=== PATIENT | male | born 1950 | race African-American/Black ===

== ENCOUNTER 2017-10-09 19:10 | Inpatient (IN) | payer MEDICARE, OTHER ==
[~2017-10-09] VITALS: Ht 172.7 cm; Wt 76.2 kg
[2017-10-09] VITALS (15 sets, daily range): BP systolic 67–98; BP diastolic 30–83
[~2017-10-09 19:10] MED LIST: ACETAMINOPHEN325 M1 PO; ALBUTEROL0.63 MG/3; ALLERGY CREAM30 GM TP; ALPRAZOLAM0.5 MG PO; AMIODARONE HCL200 MG; ASPIRIN325 MG PO; CALCIUM ACETAT667 M1; CARVEDILOL25 MG PO; COUMADIN2.5 MG PO; COUMADIN5 MG PO; DIGOXIN250 MCG PO; DOCUSATE SODIU100 MG PO; FUROSEMIDE40 MG PO; GABAPENTIN300 MG PO; HUMALOG100 UNIT/1 SC; HUMALOG100 UNIT/1 SQ; HYDROCORTISONE25 MG; ISOSORBIDE MONO30 MG PO; LEXAPRO10 MG PO; LISINOPRIL2.5 MG PO; METOLAZONE5 MG PO; METOPROLOL SUCC25 MG; METOPROLOL TART25 MG PO; MIDODRINE HCL2.5 MG PO; NAPROXEN250 MG PO; NIFEDICAL XL60 MG PO; NITROGLYCERIN0.4 MG SL; NOVOLOG MI100 UNITS/; POLYETHYLENE GL17 GM PO; PREDNISOLO15 MG/5 ML OP/OT; PROTONIX40 MG/ML PO; RENAGEL800 MG PO; SIMETHICONE80 MG PO; TEMAZEPAM15 MG; ULTRAM50 MG PO; ZESTRIL10 MG PO; ZINC OXIDE30 GM
[2017-10-09] MEDS ORDERED: CEFEPIME HCL IV STA (20:03)
[2017-10-09] MEDS ORDERED: WATER STERILE IV STA (20:03)
[2017-10-09] MEDS ORDERED: VANCOMYCIN 1GM/NS 250 ML 250 ML IV STA (20:03)
[2017-10-09] MEDS ORDERED: SODIUM CHLORIDE 0.9% 250ML 250 ML ONE (20:04)
[2017-10-09] MEDS ORDERED: SODIUM CHLORIDE 0.9% 250ML 250 ML IV ONE (20:15)
--- NOTE | 2017-10-09 20:17 | Diagnostic Imaging Report ---
EXAMINATION: CHEST SINGLE (PORTABLE) INDICATION: Shortness of breath, ESRD, sepsis COMPARISON: 09/15/2016 FINDINGS: TUBES and LINES: The pacemaker is intact. LUNGS: Lungs are not well inflated. There are bibasilar atelectasis. There is perihilar interstitial opacities, consistent with interstitial edema. PLEURA: Small bilateral pleural effusions. HEART AND MEDIASTINUM: Cardiac size is moderately enlarged. There are atherosclerotic calcifications within the aorta. BONES AND SOFT TISSUES: No acute osseous lesion. Soft tissues are unremarkable. UPPER ABDOMEN: No free air under the diaphragm. IMPRESSION: Findings are compatible with recurrent cardiogenic pulmonary edema with small bilateral pleural effusions. Signed by: Dr. Francisco Blevins M.D. on 10/09/2017 8:14 PM
[2017-10-09 20:20] LABS: BASOPHILS # (AUTO) 0.1 (0.0-0.1); BASOPHILS % 0.4 % (0.0-1.0); EOSINOPHILS # (AUTO) 0.1 (0.0-0.4); EOSINOPHILS % 0.4 % (0.0-6.0); HEMATOCRIT 39.2 % (38.2-49.6); HEMOGLOBIN 12.4 g/dL (14.0-18.0); LYMPHOCYTES # (AUTO) 0.7 (1.0-3.2); MEAN CORPUSCULAR HEMOGLOBIN 22.5 pg (28-32); MEAN CORPUSCULAR HGB CONC 31.6 g/dL (31-35); MEAN CORPUSCULAR VOLUME 71.1 fL (81-99); MONOCYTES # (AUTO) 1.9 (0.2-0.8); MONOCYTES % 13.4 % (4.4-11.3); NEUTROPHILS # (AUTO) 11.4 (2.1-6.9); NEUTROPHILS % 80.4 % (38.7-80.0); PLATELET COUNT 273 x10e3/uL (140-360); RED BLOOD COUNT 5.51 x10e6/uL (4.3-5.7); RED CELL DISTRIBUTION WIDTH 17.3 % (11.7-14.4)
[2017-10-09] MEDS ORDERED: PANTOPRAZOLE 40 MG 10ML VIAL IV ONE (20:30)
[2017-10-09 20:32] LABS: INR 1.24; PROTHROMBIN TIME 16.3 seconds (11.9-14.5)
[2017-10-09] MEDS ORDERED: NOREPINEPHRINE BITARTRATE/ NS 250 ML ONE (20:34)
[2017-10-09 20:38] LABS: ALBUMIN 3.7 g/dL (3.5-5.0); ALBUMIN/GLOBULIN RATIO 0.8 (0.8-2.0); ANION GAP 21.4 mmol/L (8-16); CALCIUM 8.9 mg/dL (8.4-10.2); CREATININE, SERUM 7.95 mg/dL (0.72-1.25); MAGNESIUM 2.5 MG/DL (1.3-2.1); POTASSIUM 4.4 mmol/L (3.5-5.1)
[2017-10-09 20:45] LABS: CREATINE KINASE MB 2.9 ng/mL (0.00-5.00); TROPONIN I 0.266 ng/mL (0-0.300)
[2017-10-09] MEDS: NOREPINEPHRINE BITARTRATE/ NS 250 ML IV PRN (20:45)
[2017-10-09 20:49] LABS: B-TYPE NATRIURETIC PEPTIDE2 377.3 pg/mL (0-100)
--- NOTE | 2017-10-09 22:28 | Diagnostic Imaging Report ---
EXAM: CT Abdomen and Pelvis WITHOUT contrast INDICATION: Flank pain, suspected stone COMPARISON: None. TECHNIQUE: Abdomen and pelvis were scanned utilizing a multidetector helical scanner from the lung base to the pubic symphysis without administration of IV contrast. Absence of intravenous contrast decreases sensitivity for detection of focal lesions and vascular pathology. Coronal and sagittal reformations were obtained. Stone protocol is performed. IV CONTRAST: None. ORAL CONTRAST: None RADIATION DOSE: Total DLP: 758.47 mGy*cm Estimated effective dose: (DLP x 0.015 x size factor) mSv COMPLICATIONS: None FINDINGS: LINES and TUBES: None. LOWER THORAX: Severe cardiomegaly with evidence of fluid overload/edema. Trace of right pleural effusion present HEPATOBILIARY: Hepatomegaly. No focal hepatic lesions. No biliary ductal dilation. GALLBLADDER: There are stones and sludge in the gallbladder. No wall thickening. SPLEEN: No splenomegaly. PANCREAS: No focal masses or ductal dilatation. ADRENALS: No adrenal nodules KIDNEYS/URETERS: No hydronephrosis. No cystic or solid mass lesions. No stones. GI TRACT: No abnormal distention, wall thickening, or evidence of bowel obstruction. There are diverticula within the colon without evidence of diverticulitis. Appendix is normal. PELVIC ORGANS/BLADDER: Unremarkable. LYMPH NODES: No lymphadenopathy. VESSELS: There is moderate atherosclerotic disease in the aorta and major arterial branches. PERITONEUM / RETROPERITONEUM: There is a large amount of free fluid in the abdomen. BONES: There are mild degenerative changes in the lumbar spine. SOFT TISSUES: There is diffuse anarsarca. IMPRESSION: 1. Cardiomegaly, pulmonary edema and evidence of severe ascites and anasarca. 2. Hepatomegaly. 3. Cholelithiasis and gallbladder sludge. 4. Diverticulosis without evidence of diverticulitis. 5. Severe atherosclerotic disease of the thoracoabdominal aorta and branches. 6. No evidence of nephrolithiasis. Signed by: Dr. Francisco Blevins M.D. on 10/09/2017 10:24 PM
[2017-10-09 22:30] LABS: LYMPHOCYTES % (MANUAL) 4 % (19-48); MONOCYTES % (MANUAL) 15 % (3.4-9.0); NEUTROPHILS % (MANUAL) 79 % (40-74)
[2017-10-09 22:31] LABS: SCHISTOCYTES FEW
[2017-10-09 22:32] LABS: ANISOCYTOSIS SLIG; HYPOCHROMASIA SLIG; MICROCYTOSIS MODE; POIKILOCYTOSIS SLIGHT; POLYCHROMASIA FEW
[2017-10-09 22:33] LABS: PLATELET ESTIMATE ADEQUATE; PLATELET MORPHOLOGY COMMENT FEW GIANT; TARGET CELLS FEW
[2017-10-09] MEDS ORDERED: NOVOLOG100 UNIT/1 (22:42)
[2017-10-09] MEDS ORDERED: MIDODRINE HCL2.5 MG PO (22:42)
[2017-10-09] MEDS ORDERED: MORPHINE S20 MG/1 ML SL (22:42)
[2017-10-09] MEDS ORDERED: PANTOPRAZOLE SO40 MG PO (22:42)
[2017-10-09] MEDS ORDERED: HUMULIN 70100 UNIT/1 (22:42)
[2017-10-09] MEDS ORDERED: CALCIUM ACETAT667 M1 PO (22:42)
[2017-10-09] MEDS ORDERED: COLACE100 MG PO (22:42)
[2017-10-09] MEDS ORDERED: ULTRAM 50MG50 MG PO (22:42)
[2017-10-09] MEDS ORDERED: VALIUM2 MG PO (22:42)
[2017-10-09] MEDS ORDERED: GABAPENTIN300 MG PO (22:42)
[2017-10-09] MEDS ORDERED: ZOFRAN ODT4 MG PO (22:42)
[2017-10-09] MEDS ORDERED: WARFARIN SODIU2.5 MG PO (22:42)
[2017-10-09] MEDS ORDERED: LEXAPRO10 MG PO (22:42)
[2017-10-09] MEDS ORDERED: SERTRALINE HCL50 MG PO (22:42)
[2017-10-09] MEDS ORDERED: NITROGLYCERIN0.4 MG SL (22:42)
[2017-10-09] MEDS ORDERED: ASPIR 8181 MG PO (22:42)
[2017-10-09] MEDS ORDERED: ALBUTEROL0.63 MG/3 NEB (22:42)
[2017-10-09] MEDS ORDERED: DEXTROSE 50% SYRINGE 50 ML IV PRN (22:45)
[2017-10-10] VITALS (92 sets, daily range): BP systolic 56–125; BP diastolic 39–97
[2017-10-10] MEDS ORDERED: DIGOXIN INJ 0.25 MG/ML 2 ML AMP ONE (00:24)
[2017-10-10] MEDS: FAMOTIDINE 20 MG/2 ML VIAL IV SCH ×2 (00:30→10:45)
[2017-10-10] MEDS ORDERED: PHENYLEPHRINE 10MG/ML VIAL 40 MG in DEXTROSE 5% 250ML 246 ML IV PRN ×2 (00:30→01:00)
[2017-10-10] MEDS ORDERED: DIGOXIN INJ 0.25 MG/ML 2 ML AMP IV PRN ×2 (00:30→02:00)
[2017-10-10] MEDS: NOREPINEPHRINE BITARTRATE/ NS 250 ML IV PRN (03:48)
[2017-10-10 04:15] LABS: BASOPHILS # (AUTO) 0.1 (0.0-0.1); BASOPHILS % 0.4 % (0.0-1.0); EOSINOPHILS # (AUTO) 0.1 (0.0-0.4); EOSINOPHILS % 0.4 % (0.0-6.0); HEMATOCRIT 37.3 % (38.2-49.6); LYMPHOCYTES # (AUTO) 0.7 (1.0-3.2); LYMPHOCYTES % 4.6 % (18.0-39.1); MEAN CORPUSCULAR HEMOGLOBIN 22.5 pg (28-32); MEAN CORPUSCULAR HGB CONC 32.2 g/dL (31-35); MONOCYTES # (AUTO) 1.9 (0.2-0.8); MONOCYTES % 13.4 % (4.4-11.3); NEUTROPHILS # (AUTO) 11.5 (2.1-6.9); NEUTROPHILS % 80.8 % (38.7-80.0); PLATELET COUNT 286 x10e3/uL (140-360); RED BLOOD COUNT 5.33 x10e6/uL (4.3-5.7); RED CELL DISTRIBUTION WIDTH 16.5 % (11.7-14.4)
[2017-10-10 04:27] LABS: INR 1.28; PROTHROMBIN TIME 16.7 seconds (11.9-14.5)
[2017-10-10 04:28] LABS: PARTIAL THROMBOPLASTIN TIME 47.8 seconds (23.8-35.5)
[2017-10-10 04:36] LABS: ALBUMIN 3.5 g/dL (3.5-5.0); ALBUMIN/GLOBULIN RATIO 0.8 (0.8-2.0); ANION GAP 18.4 mmol/L (8-16); CALCIUM 8.4 mg/dL (8.4-10.2); CREATININE, SERUM 8.27 mg/dL (0.72-1.25); MAGNESIUM 2.5 MG/DL (1.3-2.1); POTASSIUM 4.4 mmol/L (3.5-5.1)
[2017-10-10 04:43] LABS: CREATINE KINASE MB 3.2 ng/mL (0.00-5.00); TROPONIN I 0.319 ng/mL (0-0.300)
[2017-10-10] MEDS ORDERED: ACETAMINOPHEN 1000 MG/100 ML IV PRN (05:00)
[2017-10-10] MEDS ORDERED: CEFEPIME HCL 1GM 1 GM in WATER STERILE 10ML VIAL 10 ML IV SCH (05:00)
[2017-10-10] MEDS ORDERED: SODIUM CHLORIDE 0.9% 250ML 250 ML ONE (05:19)
[2017-10-10 07:13] LABS: ANION GAP 19.2 mmol/L (8-16); CALCIUM 8.4 mg/dL (8.4-10.2); CREATININE, SERUM 8.34 mg/dL (0.72-1.25); POTASSIUM 4.2 mmol/L (3.5-5.1)
[2017-10-10] MEDS ORDERED: NOREPINEPHRINE BITARTRATE/ NS 250 ML ONE (07:23)
[2017-10-10] MEDS: INSULIN REGULAR, HUMAN 100 UNIT/1 ML 3ML VIAL SQ SCH ×4 (07:30→20:24)
[2017-10-10] MEDS ORDERED: METOPROLOL TARTRATE INJ 1 MG/ML VIAL IV PRN (11:30)
--- NOTE | 2017-10-10 13:56 | Consultation ---
DATE OF CONSULTATION: October 10, 2017 REASON FOR CONSULTATION: End-stage renal disease. HPI: Mr. Storm is a 67-year-old man with congestive heart failure and end-stage renal disease likely in the setting of hypertension and cardiorenal syndrome, who had presented to [facility] with progressively worsening hypotension. Patient has congestive heart failure with an EF of 25% according to the daughter. He has been on Hospice for the past year. According to the daughter, the only reason he was on Hospice was so that he could get more frequent monitoring. According to the daughter, the PCP had suggested that he would have home health assistance. According to the daughter, he has been moved to request aggressive care for him, including resuscitation and intubation if necessary. Over the past week, he has become progressively more hypotensive. The last time he had a full session of dialysis was on Wednesday of 4 hours. Both on Wednesday and Wednesday, his blood pressures were too low and he was sent back apparently from [facility] without getting a full session of dialysis. He did not get dialyzed at all on Wednesday. Patient was then brought to the emergency department here with the above complaints. Patient is minimally responsive to questioning. According to the daughter, no cough, shortness of breath, fevers, chills, or nausea, or vomiting. PAST MEDICAL HISTORY: Congestive heart failure. ALLERGIES: CODEINE. SOCIAL HISTORY: Unable to obtain. FAMILY HISTORY: Hypertension and lung cancer. REVIEW OF SYSTEMS: Unable to obtain. PHYSICAL EXAMINATION GENERAL: Lying comfortably in bed. No acute distress. NECK: JVD appreciated. LUNGS: Decreased breath sounds at the bases. Positive rales. HEENT: NCAT. PERRLA. HEART: Irregularly irregular rhythm. S1 and S2 normal. ABDOMEN: Distended. Positive fluid wave. EXTREMITIES: Two plus lower extremity edema bilaterally. NEURO: Minimally responsive to questioning. Does wake up to voice. SKIN: No rashes or lesions. MUSCULOSKELETAL: Normal to inspection. LABS: Were reviewed in electronic medical record. ASSESSMENT: Mr. Storm is a 67-year-old man with cardiorenal syndrome, end-stage renal disease, who presents with septic versus cardiogenic shock. Currently, cultures are pending. PLAN: The patient is hemodynamically unstable to perform ultrafiltration. Electrolytes are stable. From an electrolyte standpoint, does not require dialysis. He will require dialysis from a hypervolemic standpoint. In the setting of such high pressor requirement, will not be able to pull much fluid. I will monitor pressor requirements and blood pressures over the course of the day. Continue to check labs q.8 h. Levophed is being titrated by cardiology. Appreciate assistance. Has received a dose of vanc and cefepime in the emergency department along with normal saline at 250 mL bolus. Will give another dose of cefepime. Will check vancomycin trough. Thank you, Dr. Trejo, for allowing me to participate in the care of Mr. Storm. I will continue to follow closely. Job#: [id number] RI MTDD
[2017-10-10] MEDS: AZITHROMYCIN 500MG/NS 250 ML 250 ML IV SCH (14:00)
[2017-10-10] MEDS: CEFEPIME HCL 1GM 1 GM in WATER STERILE 10ML VIAL 10 ML IV SCH (14:00)
[2017-10-10] MEDS: MIDODRINE HCL 5 MG TABLET PO SCH (14:00)
[2017-10-10] MEDS: PANTOPRAZOLE SOD 40 MG TABEC PO SCH (14:00)
[2017-10-10] MEDS: MORPHINE SULFATE 2 MG/ML SYR IV PRN (14:14)
[2017-10-10 14:29] LABS: CREATINE KINASE MB 2.6 ng/mL (0.00-5.00); TROPONIN I 0.305 ng/mL (0-0.300)
[2017-10-10] MEDS: CALCIUM ACETATE 667 MG GELCAP PO SCH (17:19)
[2017-10-10] MEDS: WARFARIN SOD 5 MG TAB PO SCH (17:19)
[2017-10-11] VITALS (163 sets, daily range): BP systolic 81–136; BP diastolic 47–96
[2017-10-11] MEDS: CEFEPIME HCL 1GM 1 GM in WATER STERILE 10ML VIAL 10 ML IV SCH ×2 (00:01→12:10)
[2017-10-11] MEDS: NOREPINEPHRINE BITARTRATE/ NS 250 ML IV PRN ×2 (00:08→15:37)
--- NOTE | 2017-10-11 04:36 | History and Physical ---
PRIMARY CARE PROVIDER: Dr. Butch Simmons CHIEF COMPLAINT: Hypotension. HISTORY OF PRESENT ILLNESS: Mr. Storm is a 67-year-old gentleman with end-stage renal disease, on hemodialysis Wednesday, Wednesday and Wednesday for the last 4 years. He was last dialyzed 5 days ago on Wednesday. On Wednesday, they had to stop dialysis long term through because his blood pressure was too low. On Wednesday, they canceled and rescheduled for Wednesday. On Wednesday when he got to dialysis, he was hypotensive and tachycardic, and so was sent to the ER for evaluation. REVIEW OF SYSTEMS: He denies fever, chills or weight loss. Denies sinus congestion or sore throat. He denies chest pain or palpitations. He does have dyspnea with exertion. He has shortness of breath. He denies wheezing or cough. He has some abdominal distention and ascites, but denies abdominal pain, nausea, vomiting, or melena. He denies dysuria or flank pain. States he makes no urine at all. He denies joint pain or swelling. He denies bleeding or bruising. He denies headache, vertigo or loss of consciousness. He denies depression, agitation, homicide, or suicidal ideation. PAST MEDICAL HISTORY: Significant for long-standing hypertension and type 2 diabetes. He has end-stage renal disease, and has been on dialysis for 4 years. He has cardiomyopathy with chronic systolic heart failure and had an AICD pacemaker placed approximately 4 years ago. 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 I do not have access to his current ejection fraction at this time. CURRENT MEDICATIONS 1. Neb treatments every 4 hours as needed. 2. Aspirin 81 mg daily. 3. Calcium acetate 2001 mg twice daily. 4. Midodrine 10 mg daily. 5. Protonix 40 mg before breakfast. 6. Coumadin 5 mg daily. 7. Humulin NPH twice daily. 8. Tramadol 50 mg as needed for pain. 9. Zoloft 50 mg daily. 10. Nitro as needed. 11. Regular insulin on sliding scale. 12. Gabapentin 300 mg twice daily. 13. Lexapro 10 mg daily. 14. Colace 100 mg daily. 15. Valium 2 mg every 8 hours as needed. He has a history of last year had an amputation of toes on the left foot. He has a history of AV fistula formation for dialysis. He has a history of permanent pacemaker AICD defibrillator placement. ALLERGIES: HE HAS A STATED ALLERGY TO CODEINE. FAMILY HISTORY: Significant for scattered hypertension and diabetes. SOCIAL HISTORY: The patient is and here with his . He is . Iranian is his primary language. He does smoke, drink or use illegal drugs. He is generally independent for most ADLs, but does require some assistance. PHYSICAL EXAMINATION PSYCHIATRIC: He is awake, alert and mostly oriented, although somewhat confused at times. He has normal mood and affect. CONSTITUTIONAL: He has a normal body habitus. Is in no acute distress. VITAL SIGNS: Blood pressure 108/49 on 15 mcg of Levophed, pulse rate 106, respiratory rate 18, O2 sat 90% on 2 L nasal cannula, temperature 99.8. HEENT: His head is atraumatic. His eyes are anicteric with clear conjunctivae. Ears and nares are without erythema or discharge. Oropharynx is clear. NECK: Supple with no mass or thyromegaly. LYMPHATIC SYSTEM: He has no palpable cervical, axillary or inguinal adenopathy. CARDIOVASCULAR: His heart has an irregular rhythm that is tachycardia with no murmur. He has 2+ pitting edema in the lower extremities. He has no carotid bruit. RESPIRATORY: Lungs reveal some basilar rales and some decreased breath sounds throughout. There is no wheezing. He has normal respiratory effort. GASTROINTESTINAL: Abdomen is mildly distended with some ascites. He is nontender. Has some mild hepatomegaly. Has no masses palpable. Normal bowel sounds are present. CUTANEOUS: His skin is warm and dry to touch. He has a small 2-cm abscess at the right groin at the crease of the leg that has spontaneously drained purulent and serosanguineous material. MUSCULOSKELETAL: His joints are in normal alignment without erythema or swelling. He has no calf tenderness. NEUROLOGIC: Nonfocal with intact cranial nerves and no motor or sensory deficits. DIAGNOSTIC STUDIES: His chest x-ray shows pulmonary edema and bilateral effusions. CT scan of the abdomen shows ascites and generalized anasarca of the lower body, gallstones and sludge in the gallbladder and hepatomegaly, diverticulosis without evidence of diverticulitis, and extensive atherosclerosis of the distal aorta and its branches. His troponin is 0.266, then 0.319, minimally borderline. Lactic acid initially 21.4 and currently 7.9. His CBC shows a white count of 14,200 with 79% neutrophils, 4% band forms, 15% lymphocytes, and 2% monocytes. Hemoglobin 12, hematocrit 37.3 and platelet count 286,000. His pro time is 16.7 with an INR of 1.28. The patient is on Coumadin. His chemistry profile shows normal electrolytes. CO2 25, creatinine 8.3, BUN 35 for a GFR of 8. Calcium 8.4. Glucose 141. Transaminases and alk phos are normal. Bilirubin elevated at 2.3. IMPRESSION AND PLAN 1. Septic shock: The patient did not receive a bolus due to volume overloaded and end-stage renal disease. He has been started on intravenous Levophed initially 25 mcg and now down to 15 mcg. He has been started on intravenous vancomycin, cefepime and Zithromax empirically for septic shock, and possible bronchitis or bronchopneumonia. 2. End-stage renal disease with volume overload: Nephrology will be consulted for hemodialysis. Will continue his midodrine in an attempt to get his blood pressure stable for enough for hemodialysis. He remains on Levophed as well, which should help support dialysis. 3. Chronic atrial fibrillation: The patient received digoxin intravenously in the emergency room for rate control. His heart rate currently just above 100. Will give p.r.n. intravenous metoprolol, and cardiology has been consulted for assistance in managing atrial fibrillation and congestive heart failure. Will continue his warfarin for now and checking pro time daily. 4. Hypertension with chronic systolic heart failure and end-stage renal disease: Will check an echocardiogram as there is no documented ejection fraction in the chart. The patient is on no blood pressure medications for now. Midodrine is used for low blood pressure and he is on Levophed as well. Again, hopefully nephrology will be able to remove some fluids as the patient is volume overload. 5. Type 2 diabetes with end-stage renal disease: The patient will be placed on sliding scale insulin at this time. 6. Abscess, right groin: Spontaneously drained. It should be covered by the vancomycin and cefepime that was started for the septic shock. 7. Cirrhosis, cryptogenic in nature: Will continue to monitor. No specific therapy indicated. 8. For prophylaxis, the patient is on Protonix for gastrointestinal prophylaxis and Coumadin for deep venous thrombosis and stroke prophylaxis. Job#: [id number] RI
--- NOTE | 2017-10-11 06:14 | Diagnostic Imaging Report ---
EXAMINATION: CHEST SINGLE (PORTABLE) INDICATION: CHF,sepsis COMPARISON: 10/09/2017 FINDINGS: TUBES and LINES: AICD is intact. LUNGS: Lungs are not well inflated. There are bibasilar atelectasis. There is worsening perihilar interstitial opacities, consistent with interstitial edema. PLEURA: Small bilateral pleural effusions. HEART AND MEDIASTINUM: Cardiac size is moderately enlarged. There are atherosclerotic calcifications within the aorta. BONES AND SOFT TISSUES: No acute osseous lesion. Soft tissues are unremarkable. UPPER ABDOMEN: No free air under the diaphragm. IMPRESSION: Findings are compatible with worsening cardiogenic pulmonary edema with small bilateral pleural effusions. Signed by: Dr. Francisco Blevins M.D. on 10/11/2017 6:11 AM
--- NOTE | 2017-10-11 06:18 | Consultation ---
DATE OF CONSULTATION: CARDIOLOGY CONSULT REASON FOR CONSULTATION: Atrial fibrillation. HISTORY OF PRESENT ILLNESS: Mr. Storm is a 67-year-old male who is a patient of Dr. Brayan Powell. However, he has not been seen in the clinic for a while. Patient reports that he came to the ER after his usual dialysis session, and was told that his blood pressure was too low. For this reason, he was asked to seek care here. He states at this time he feels okay. However, he is reporting some issues with breathing, endorsing increased effort of breathing and occasional chest discomfort. He also endorses scattered pain throughout his body. Denies dizziness, syncope, fever, chills, palpitations. His daughter is at the bedside, and has participated in this consultation as the patient is a poor historian. However, he reports he has not had his defibrillator interrogated for a while. Patient has a pertinent past medical history of atrial fibrillation and also heart failure with recent left heart catheterization in September 2016 with clear coronaries. PAST MEDICAL HISTORY: Pulmonary hypertension, right-sided heart failure, hypertension, kidney disease, on hemodialysis. PAST SURGICAL HISTORY: ICD placement. SOCIAL HISTORY: Patient is . Denies any alcohol intake or smoking. REVIEW OF SYSTEMS: Negative except as mentioned above. However, unreliable due to altered mental status at this time. DRUG ALLERGIES: CODEINE. PHYSICAL EXAMINATION VITAL SIGNS: Temperature 98.6, pulse 95, respiratory rate not recorded, blood pressure 108/49, and oxygen saturation 90% on nasal cannula. GENERAL: Alert and oriented times 1. Resting comfortably in bed. Increased effort of breathing noted. Daughter is at the bedside. Confused. LUNGS: Diminished breath sounds in posterior lower lobe. Otherwise, clear to auscultation. No wheezing, rhonchi or crackles noted. On oxygen. CARDIOVASCULAR: Irregular rate and rhythm. Systolic murmur present. Defibrillator to the left upper chest. ABDOMEN: Rounded, soft and nontender. Hypoactive bowel sounds. EXTREMITIES: Lower extremities with 2+ pitting edema. Absent pedal pulses. Cool lower extremities to the touch. LABS: WBC 14.22, hemoglobin 12, hematocrit 37.3, and platelets 286,000. Sodium 133, potassium 4.2, glucose 141, BUN 35, creatinine 8.34, GFR 8. Calcium 8.4. Creatinine kinase 143, CK-MB 3.2 and troponin 0.319. Chest x-ray on admission with findings that are compatible with recurrent cardiogenic pulmonary edema with a small bilateral pleural effusion. CT of the abdomen with cardiomegaly, pulmonary edema, severe ascites and anasarca, hepatomegaly, diverticulosis, severe atherosclerotic disease in the transabdominal aortic branches. Telemetry with atrial fibrillation. IMPRESSION 1. [id number] systolic heart failure with a single lead implantable cardioverter defibrillator. 2. End-stage renal disease, on hemodialysis. 3. Hypotension. 4. Liver cirrhosis. 5. Pulmonary hypertension. 6. Right-sided heart failure. RECOMMENDATIONS: Continue with the above listed cardiac medications and vasopressors. Maintain the patient in the ICU and monitor closely. Volume management per nephrology. Obtain repeat echocardiogram. Recommendations will follow. Monitor cardiac enzymes. Elevated troponin likely secondary to kidney disease, but will continue to follow closely. Thank you, Dr. Trejo, for this consultation, and allowing us to participate in this patient's care. DICTATED BY ABELARDO HARDWICK NP Job#: [id number] MONTSE
[2017-10-11 06:36] LABS: BASOPHILS # (AUTO) 0.1 (0.0-0.1); BASOPHILS % 0.4 % (0.0-1.0); EOSINOPHILS # (AUTO) 0.1 (0.0-0.4); EOSINOPHILS % 0.6 % (0.0-6.0); HEMATOCRIT 36.9 % (38.2-49.6); HEMOGLOBIN 11.6 g/dL (14.0-18.0); LYMPHOCYTES # (AUTO) 0.6 (1.0-3.2); LYMPHOCYTES % 4.5 % (18.0-39.1); MEAN CORPUSCULAR HEMOGLOBIN 22.4 pg (28-32); MEAN CORPUSCULAR HGB CONC 31.4 g/dL (31-35); MEAN CORPUSCULAR VOLUME 71.1 fL (81-99); MONOCYTES # (AUTO) 1.7 (0.2-0.8); MONOCYTES % 13.6 % (4.4-11.3); NEUTROPHILS # (AUTO) 9.9 (2.1-6.9); NEUTROPHILS % 80.6 % (38.7-80.0); PLATELET COUNT 280 x10e3/uL (140-360); RED BLOOD COUNT 5.19 x10e6/uL (4.3-5.7); RED CELL DISTRIBUTION WIDTH 15.9 % (11.7-14.4)
[2017-10-11 06:49] LABS: INR 1.45; PROTHROMBIN TIME 18.4 seconds (11.9-14.5)
[2017-10-11 06:58] LABS: ANION GAP 18.3 mmol/L (8-16); CALCIUM 8.5 mg/dL (8.4-10.2); CREATININE, SERUM 8.9 mg/dL (0.72-1.25); POTASSIUM 4.3 mmol/L (3.5-5.1)
[2017-10-11 07:13] LABS: PHOSPHORUS 5.5 MG/DL (2.3-4.7)
[2017-10-11 07:22] LABS: MAGNESIUM 2.3 MG/DL (1.3-2.1)
[2017-10-11] MEDS ORDERED: PANTOPRAZOLE SOD 40 MG TABEC PO SCH (07:30)
[2017-10-11] MEDS: INSULIN REGULAR, HUMAN 100 UNIT/1 ML 3ML VIAL SQ SCH ×4 (07:30→21:00)
[2017-10-11 07:48] LABS: THYROID STIMULATING HORMONE 8.454 uIU/mL (0.350-4.940)
[2017-10-11 08:29] LABS: LYMPHOCYTES % (MANUAL) 2 % (19-48); METAMYELOCYTES % (MANUAL) 1 % (0-0); MONOCYTES % (MANUAL) 10 % (3.4-9.0); NEUTROPHILS % (MANUAL) 87 % (40-74)
[2017-10-11 08:30] LABS: ACANTHOCYTES FEW; ANISOCYTOSIS MODERATE; PLATELET ESTIMATE ADEQUATE; PLATELET MORPHOLOGY COMMENT NORMAL; RBC MORPHOLOGY COMMENT ABNORMAL; TARGET CELLS FEW
[2017-10-11] MEDS: CALCIUM ACETATE 667 MG GELCAP PO SCH ×2 (09:00→17:00)
[2017-10-11] MEDS: ASPIRIN 81 MG CHEW TAB PO SCH (09:13)
[2017-10-11] MEDS: MIDODRINE HCL 5 MG TABLET PO SCH (09:13)
[2017-10-11] MEDS: PANTOPRAZOLE SOD 40 MG TABEC PO SCH (09:13)
[2017-10-11] MEDS: AZITHROMYCIN 500MG/NS 250 ML 250 ML IV SCH (12:10)
[2017-10-11] MEDS: MORPHINE SULFATE 2 MG/ML SYR IV PRN (12:30)
--- NOTE | 2017-10-11 14:29 | Progress Note ---
DATE: October 11, 2017 CARDIOLOGY PROGRESS NOTE SUBJECTIVE: Patient denies chest pain. He is complaining of shortness of breath but is otherwise without complaints. He remains on Levophed 15 mcg per minute and is planned for SLED by Nephrology today. OBJECTIVE VITAL SIGNS: Temperature 98.7 degrees, pulse 76, respiratory rate 18, blood pressure 110/68, oxygen saturation 91% on 4 liters nasal cannula. GENERAL: Elderly man, no acute distress. LUNGS: Clear to auscultation anterior lung ramos. No wheezes or crackles. CARDIOVASCULAR: Irregularly irregular, tachycardic. Systolic murmur. Defibrillator noted at the left upper chest. ABDOMEN: Soft, nontender. EXTREMITIES: 2+ pitting edema. CARDIAC MEDICATIONS 1. Aspirin 81 mg p.o. daily. 2. Levophed 15 mcg per minute. 3. Warfarin 5 mg p.o. daily. 4. Metoprolol tartrate 2.5 mg IV q.4 h. p.r.n. 5. Midodrine 10 mg p.o. daily. LABS: WBC 12.3, hemoglobin 11.6, hematocrit 36.9, platelets 280. Sodium 132, potassium 4.3, chloride 95, CO2 23, BUN 42, creatinine 8.9. TSH 8.454. INR 1.45. TELEMETRY: Atrial fibrillation with rapid ventricular response. Single-chamber ICD interrogation with 1.8 thousand episodes of rapid ventricular response since August 31, 2017, no therapy, normal function. IMPRESSION 1. [id number] systolic heart failure with single-lead implantable cardioverter-defibrillator. 2. End-stage renal disease on hemodialysis. 3. Pulmonary hypertension. 4. Right-sided heart failure. 5. Cirrhosis. 6. Hypotension requiring vasopressor support. 7. Suspected septic shock. 8. Diabetes mellitus. 9. Right groin abscess. RECOMMENDATIONS: Agree with vasopressor support as necessary. Volume management per Nephrology given patient's end-stage renal disease. Antibiotics per primary service. Given patient's severe right ventricular dysfunction, may need to optimize volume status with fluid removal. Patient's atrial fibrillation is borderline rate-controlled acceptable. For now we will continue to monitor on telemetry. Thank you for this consult. We will continue to follow. Job#: [id number] EV MTDD
[2017-10-11] MEDS ORDERED: SODIUM CHLORIDE 0.9% 1000ML 2,000 ML ONE (14:39)
[2017-10-11] MEDS ORDERED: HEPARIN SOD (PORCINE) 1000 UNIT/ML SDV ONE (17:18)
[2017-10-11] MEDS: WARFARIN SOD 5 MG TAB PO SCH (18:02)
[2017-10-12] VITALS (101 sets, daily range): BP systolic 70–115; BP diastolic 43–83
[2017-10-12] MEDS ORDERED: CEFEPIME HCL 1 GM VIAL ONE (01:43)
[2017-10-12] MEDS: CEFEPIME HCL 1GM 1 GM in WATER STERILE 10ML VIAL 10 ML IV SCH ×2 (02:00→15:20)
[2017-10-12] MEDS: VANCOMYCIN 1GM/NS 250 ML 250 ML IV SCH ×2 (02:34→22:04)
[2017-10-12] MEDS: MORPHINE SULFATE 2 MG/ML SYR IV PRN (02:52)
[2017-10-12] MEDS: ONDANSETRON HCL INJ 2 MG/ML VIAL IV PRN (02:53)
[2017-10-12 06:41] LABS: BASOPHILS # (AUTO) 0.1 (0.0-0.1); BASOPHILS % 0.5 % (0.0-1.0); EOSINOPHILS # (AUTO) 0.1 (0.0-0.4); EOSINOPHILS % 0.6 % (0.0-6.0); HEMATOCRIT 34.1 % (38.2-49.6); HEMOGLOBIN 11.2 g/dL (14.0-18.0); LYMPHOCYTES # (AUTO) 0.3 (1.0-3.2); LYMPHOCYTES % 3.1 % (18.0-39.1); MEAN CORPUSCULAR HGB CONC 32.8 g/dL (31-35); MEAN CORPUSCULAR VOLUME 70.2 fL (81-99); MONOCYTES # (AUTO) 1.2 (0.2-0.8); MONOCYTES % 11.6 % (4.4-11.3); NEUTROPHILS # (AUTO) 8.6 (2.1-6.9); NEUTROPHILS % 83.9 % (38.7-80.0); PLATELET COUNT 224 x10e3/uL (140-360); RED BLOOD COUNT 4.86 x10e6/uL (4.3-5.7); RED CELL DISTRIBUTION WIDTH 16.1 % (11.7-14.4)
[2017-10-12 06:59] LABS: INR 1.6; PROTHROMBIN TIME 19.9 seconds (11.9-14.5)
[2017-10-12 07:04] LABS: ANION GAP 14.9 mmol/L (8-16); CALCIUM 8.4 mg/dL (8.4-10.2); CREATININE, SERUM 5.42 mg/dL (0.72-1.25); PHOSPHORUS 3.9 MG/DL (2.3-4.7); POTASSIUM 3.9 mmol/L (3.5-5.1)
[2017-10-12] MEDS: INSULIN REGULAR, HUMAN 100 UNIT/1 ML 3ML VIAL SQ SCH ×4 (07:30→21:00)
[2017-10-12] MEDS: PANTOPRAZOLE SOD 40 MG TABEC PO SCH (07:30)
[2017-10-12] MEDS: ASPIRIN 81 MG CHEW TAB PO SCH (10:00)
[2017-10-12] MEDS: MIDODRINE HCL 5 MG TABLET PO SCH (10:00)
[2017-10-12] MEDS: CALCIUM ACETATE 667 MG GELCAP PO SCH ×2 (10:13→18:45)
[2017-10-12] MEDS: AZITHROMYCIN 500MG/NS 250 ML 250 ML IV SCH (15:20)
[2017-10-12] MEDS ORDERED: SODIUM CHLORIDE 0.9% 1000ML 1,000 ML IV PRN (16:45)
[2017-10-12] MEDS ORDERED: MANNITOL 25% 12.5GM/50 ML VIAL IV PRN (17:00)
[2017-10-12] MEDS ORDERED: ALBUMIN HUMAN 50 ML IV PRN (17:00)
[2017-10-12] MEDS ORDERED: HEPARIN SOD (PORCINE) 1000 UNIT/ML SDV ONE (17:39)
[2017-10-12] MEDS: WARFARIN SOD 5 MG TAB PO SCH (18:45)
[2017-10-12] MEDS ORDERED: AMIODARONE HCL 150MG 100 ML IV SCH (19:30)
[2017-10-12] MEDS ORDERED: POTASSIUM CHLORIDE 10MEQ/100ML 100 ML IV ONE (19:30)
[2017-10-12] MEDS ORDERED: AMIODARONE 900MG 500 ML IV SCH (19:30)
[2017-10-12] MEDS ORDERED: AMIODARONE HCL 360MG 200 ML IV SCH (19:30)
--- NOTE | 2017-10-12 19:50 | Progress Note ---
DATE: October 12, 2017 CARDIOLOGY PROGRESS NOTE SUBJECTIVE: He remains confused. He denies chest pain. Stable dyspnea. OBJECTIVE VITAL SIGNS: Temperature 99. Heart rate 80. Blood pressure 94/62. O2 sat 100% on 3 liters per minute nasal cannula. Levophed 15 mcg per minute IV. GENERAL: Confused. CHEST: Decreased breath sounds. CARDIOVASCULAR: Irregularly irregular rate and rhythm. Normal S1 and S2. Systolic ejection murmur. ABDOMEN: Soft. EXTREMITIES: 1+ edema bilateral lower extremities. CARDIOVASCULAR MEDICATIONS: 1. Levophed at 15 mcg per minute. 2. Cefepime and Azithromycin antibiotics. 3. Aspirin 81 mg daily. 4. Vancomycin antibiotic. 5. Warfarin 5 mg daily. 6. Digoxin given once, 0.5. 7. Metoprolol tartrate 2.5 mg q.4 h. p.r.n. on hold. 8. Midodrine 10 mg daily. STUDIES: White blood cells 10.2, hemoglobin 11.2, platelets 224,000. INR 1.6. Creatinine 5.4. Potassium 3.9, bicarbonate 25. Blood cultures negative x 48 hours. ASSESSMENT: 1. Acute on chronic systolic heart failure, status post single lead ICD . 2. End-stage renal disease on dialysis. 3. Pulmonary hypertension. 4. Right-sided heart failure. 5. Liver cirrhosis. 6. Shock requiring vasopressor support. 7. Suspected septic shock. 8. Diabetes mellitus. 9. Right groin abscess. 10. Atrial fibrillation. PLAN: Volume management per nephrology. Continue negative fluid balance overall to optimize RV functioning in light of overloaded state. He is rate controlled currently. Continue weaning pressors as tolerated. Groin abscess continuously drained. Continue to monitor. antibiotics per primary service. Job#: [id number]
[2017-10-12 20:19] LABS: ANION GAP 18.2 mmol/L (8-16); CALCIUM 8.6 mg/dL (8.4-10.2); CREATININE, SERUM 5.93 mg/dL (0.72-1.25); MAGNESIUM 2.1 MG/DL (1.3-2.1); POTASSIUM 4.2 mmol/L (3.5-5.1)
[2017-10-12] MEDS: NOREPINEPHRINE BITARTRATE/ NS 250 ML IV PRN (23:42)
[2017-10-13] VITALS (84 sets, daily range): BP systolic 73–130; BP diastolic 27–117
[2017-10-13] MEDS ORDERED: AMIODARONE HCL 360MG 200 ML IV SCH
[2017-10-13] MEDS: CEFEPIME HCL 1GM 1 GM in WATER STERILE 10ML VIAL 10 ML IV SCH ×2 (01:30→16:56)
[2017-10-13 05:34] LABS: BASOPHILS # (AUTO) 0.1 (0.0-0.1); BASOPHILS % 0.7 % (0.0-1.0); EOSINOPHILS # (AUTO) 0.1 (0.0-0.4); EOSINOPHILS % 0.6 % (0.0-6.0); HEMATOCRIT 35.6 % (38.2-49.6); HEMOGLOBIN 11.5 g/dL (14.0-18.0); LYMPHOCYTES # (AUTO) 0.5 (1.0-3.2); LYMPHOCYTES % 4.8 % (18.0-39.1); MEAN CORPUSCULAR HEMOGLOBIN 22.5 pg (28-32); MEAN CORPUSCULAR HGB CONC 32.3 g/dL (31-35); MEAN CORPUSCULAR VOLUME 69.8 fL (81-99); MONOCYTES # (AUTO) 1.3 (0.2-0.8); NEUTROPHILS % 80.5 % (38.7-80.0); PLATELET COUNT 270 x10e3/uL (140-360); RED CELL DISTRIBUTION WIDTH 16.2 % (11.7-14.4)
[2017-10-13 06:08] LABS: ANION GAP 18.4 mmol/L (8-16); CALCIUM 8.6 mg/dL (8.4-10.2); CREATININE, SERUM 6.36 mg/dL (0.72-1.25); MAGNESIUM 2.4 MG/DL (1.3-2.1); PHOSPHORUS 4.1 MG/DL (2.3-4.7); POTASSIUM 4.4 mmol/L (3.5-5.1)
--- NOTE | 2017-10-13 06:11 | Diagnostic Imaging Report ---
EXAM: CHEST SINGLE (PORTABLE), AP 1 view DATE: 10/13/2017 5:00 AM Time stamp on exam: 0447 hours INDICATION: Shortness of breath COMPARISON: AP view of the chest 10/11/2017 FINDINGS: LINES/TUBES: Stable position right approach cardiac device LUNGS: Vascular congestion/edema. Bibasilar airspace opacities/atelectasis. PLEURA: No effusions or pneumothorax. HEART AND MEDIASTINUM: Stable appearance. BONES AND SOFT TISSUES: No acute findings. IMPRESSION: No interval change. Signed by: Dr. Lyn Lorenzo M.D. on 10/13/2017 6:07 AM
[2017-10-13] MEDS ORDERED: HEPARIN SOD (PORCINE) 1000 UNIT/ML 10ML MDV IV PRN ×2 (07:00)
[2017-10-13] MEDS ORDERED: HEPARIN SOD (PORCINE) 1000 UNIT/ML SDV ONE (07:28)
[2017-10-13] MEDS: INSULIN REGULAR, HUMAN 100 UNIT/1 ML 3ML VIAL SQ SCH ×3 (07:30→16:30)
[2017-10-13 07:36] LABS: INR 1.7; PROTHROMBIN TIME 20.9 seconds (11.9-14.5)
[2017-10-13] MEDS: MIDODRINE HCL 5 MG TABLET PO SCH (09:50)
[2017-10-13] MEDS: ASPIRIN 81 MG CHEW TAB PO SCH (09:50)
[2017-10-13] MEDS: CALCIUM ACETATE 667 MG GELCAP PO SCH ×2 (09:50→16:56)
[2017-10-13] MEDS: PANTOPRAZOLE SOD 40 MG TABEC PO SCH (09:50)
[2017-10-13 10:41] LABS: EOSINOPHILS % (MANUAL) 1 % (0-7); LYMPHOCYTES % (MANUAL) 3 % (19-48); MONOCYTES % (MANUAL) 13 % (3.4-9.0); NEUTROPHILS % (MANUAL) 82 % (40-74); PLATELET ESTIMATE ADEQUATE; PLATELET MORPHOLOGY COMMENT NORMAL
[2017-10-13 10:42] LABS: ANISOCYTOSIS SLIGHT; RBC MORPHOLOGY COMMENT NORMAL
--- NOTE | 2017-10-13 13:08 | Progress Note ---
DATE: October 13, 2017 CARDIOLOGY PROGRESS NOTE SUBJECTIVE: Patient is complaining of chest pain. He has not been able to have any significant volume removed via SLED due to hypotension. OBJECTIVE VITAL SIGNS: Temperature 98.3 degrees, pulse 123, respiratory rate 18, blood pressure 98/73, oxygen saturation 100%. GENERAL: No acute distress. Receiving dialysis. LUNGS: Decreased breath sounds No wheezes or crackles. CARDIOVASCULAR: Irregularly irregular, tachycardic. Normal S1 and S2. Systolic murmur. ABDOMEN: Soft. EXTREMITIES: 1+ pitting edema bilateral lower extremities. CARDIAC MEDICATIONS 1. Warfarin 5 mg p.o. daily. 2. Aspirin 81 mg p.o. daily. 3. Digoxin 0.5 mg IV p.r.n. 4. Midodrine 10 mg p.o. daily. LABS: WBC 9.96, hemoglobin 11.5, hematocrit 35.6, platelets 270. Sodium 135, potassium 4.4, chloride 100, CO2 21, BUN 27, creatinine 6.36. INR 1.7. TELEMETRY: Atrial fibrillation with rapid ventricular response. IMPRESSION 1. Ffrma-eh-zsamqlx systolic heart failure status post single-lead implantable cardioverter-defibrillator. 2. Pulmonary hypertension. 3. Right-sided heart failure. 4. End-stage renal disease on hemodialysis. 5. Liver cirrhosis. 6. Shock requiring vasopressor support, suspected septic. 7. Diabetes mellitus. 8. Right groin abscess. 9. Atrial fibrillation with rapid ventricular response. RECOMMENDATIONS: In attempt to support volume removal, we will start dopamine for inotropic support of the right ventricle. Attempting to pull fluid to optimize RV function in the light of volume-overloaded state. Continue current cardiac medications otherwise. Antibiotics per primary service. Thank you for this consult. We will continue to follow. Job#: [id number] EV
[2017-10-13] MEDS: AZITHROMYCIN 500MG/NS 250 ML 250 ML IV SCH (15:00)
[2017-10-13] MEDS: SODIUM BICARBONATE 650 MG TAB PO SCH (16:56)
[2017-10-13] MEDS: WARFARIN SOD 5 MG TAB PO SCH (16:56)
--- NOTE | 2017-10-13 21:26 | Diagnostic Imaging Report ---
SINGLE VIEW CHEST, October 13, 2017 Clinical History: Line placement. Technique: Single, portable AP view chest. Comparison: October 13, 2017 at 4:47 AM Findings: See impression. Impression: 1. Right internal jugular central venous catheter placement with the tip at the intracaval junction. 2. Low lung volume with cardiomegaly, pulmonary edema and small pleural effusions bilaterally unchanged from 4:47 AM. 3. Stable right AICD. 4. No pneumothorax. This report was generated with voice-recognition technology. Errors in coordinator volunteer services can occur. Please interpret accordingly and contact a radiologist if there are any questions regarding the report. Signed by: Dr. Nito Fernandez M.D. on 10/13/2017 9:22 PM
[2017-10-13] MEDS: ONDANSETRON HCL INJ 2 MG/ML VIAL IV PRN (23:50)
[2017-10-13] MEDS: MORPHINE SULFATE 2 MG/ML SYR IV PRN (23:50)
[2017-10-14] VITALS (142 sets, daily range): BP systolic 63–191; BP diastolic 26–160
[2017-10-14] MEDS: NOREPINEPHRINE BITARTRATE/ NS 250 ML IV PRN (00:33)
[2017-10-14] MEDS: CEFEPIME HCL 1GM 1 GM in WATER STERILE 10ML VIAL 10 ML IV SCH ×2 (02:15→16:19)
[2017-10-14] MEDS: INSULIN REGULAR, HUMAN 100 UNIT/1 ML 3ML VIAL SQ SCH ×5 (05:57→23:54)
[2017-10-14 06:08] LABS: BASOPHILS # (AUTO) 0.1 (0.0-0.1); BASOPHILS % 0.5 % (0.0-1.0); EOSINOPHILS % 0.2 % (0.0-6.0); HEMATOCRIT 35.2 % (38.2-49.6); HEMOGLOBIN 11.2 g/dL (14.0-18.0); LYMPHOCYTES # (AUTO) 0.6 (1.0-3.2); MEAN CORPUSCULAR HEMOGLOBIN 22.4 pg (28-32); MEAN CORPUSCULAR HGB CONC 31.8 g/dL (31-35); MEAN CORPUSCULAR VOLUME 70.3 fL (81-99); MONOCYTES # (AUTO) 1.8 (0.2-0.8); MONOCYTES % 16.7 % (4.4-11.3); NEUTROPHILS # (AUTO) 8.5 (2.1-6.9); NEUTROPHILS % 77.1 % (38.7-80.0); PLATELET COUNT 247 x10e3/uL (140-360); RED BLOOD COUNT 5.01 x10e6/uL (4.3-5.7); RED CELL DISTRIBUTION WIDTH 16.1 % (11.7-14.4)
[2017-10-14 06:21] LABS: INR 1.98; PROTHROMBIN TIME 23.6 seconds (11.9-14.5)
[2017-10-14 06:35] LABS: ANION GAP 17.9 mmol/L (8-16); CREATININE, SERUM 4.71 mg/dL (0.72-1.25); MAGNESIUM 2.1 MG/DL (1.3-2.1); PHOSPHORUS 2.8 MG/DL (2.3-4.7); POTASSIUM 3.9 mmol/L (3.5-5.1)
[2017-10-14 07:18] LABS: LYMPHOCYTES % (MANUAL) 3 % (19-48); MONOCYTES % (MANUAL) 9 % (3.4-9.0); MYELOCYTES % (MANUAL) 3 % (0-0); NEUTROPHILS % (MANUAL) 85 % (40-74)
[2017-10-14 07:19] LABS: PLATELET ESTIMATE ADEQUATE
[2017-10-14 07:20] LABS: ANISOCYTOSIS MODERATE; PLATELET MORPHOLOGY COMMENT NORMAL; RBC MORPHOLOGY COMMENT ABNORMAL
[2017-10-14 07:22] LABS: POIKILOCYTOSIS MODERATE
[2017-10-14] MEDS: ALBUTEROL SULF 0.083% NEB SOLN 3 ML NEB NEB PRN (08:00)
[2017-10-14] MEDS ORDERED: HEPARIN SOD (PORCINE) 1000 UNIT/ML SDV ONE (08:43)
--- NOTE | 2017-10-14 08:44 | Diagnostic Imaging Report ---
Non-tunneled Central Venous Catheter Placement October 13, 2017 Pre-Procedure Diagnosis: Multiorgan failure; sepsis Post-procedure Diagnosis:Multiorgan failure; sepsis Employee Relations Advisor: Bertha Fernandez Gyn Physician: None Sedation: None. 1% lidocaine local anesthesia. Estimate blood loss: <5 mL Blood administered: None Complications: None Implants/Grafts: 16 cm 7-Fijian 3 lumen CVC Specimen: None Procedure: Informed consent was obtained and the patient positioned supine in the ICU. A timeout was performed, followed by preliminary ultrasound of the right internal jugular vein (see findings below). The right neck was prepped and draped in standard fashion. Using real-time ultrasound guidance a 18 gauge vascular needle was used to access the right internal jugular vein. An image was stored in the electronic medical record. A wire was advanced while monitoring the patient's cardiac rhythm and the needle exchanged for a non-tunneled central venous catheter using standard Salinger technique. At the end of the procedure the catheter was flushed, secured to the skin and a sterile dressing applied. The patient tolerated the procedure well and without immediate complication. Findings: Patent right internal jugular vein as demonstrated by normal ultrasound compressibility. Impression: Successful placement of a non-tunneled right internal jugular central venous catheter using ultrasound guidance. This report was generated with voice-recognition technology. Errors in swimming coach can occur. Please interpret accordingly and contact a radiologist if there are any questions regarding the report. Signed by: Dr. Nito Fernandez M.D. on 10/14/2017 8:40 AM
--- NOTE | 2017-10-14 08:44 | Diagnostic Imaging Report ---
Non-tunneled Central Venous Catheter Placement October 13, 2017 Pre-Procedure Diagnosis: Multiorgan failure; sepsis Post-procedure Diagnosis:Multiorgan failure; sepsis Bull Float Finisher: Bertha Fernandez Correspondence Analyst: None Sedation: None. 1% lidocaine local anesthesia. Estimate blood loss: <5 mL Blood administered: None Complications: None Implants/Grafts: 16 cm 7-Tongan 3 lumen CVC Specimen: None Procedure: Informed consent was obtained and the patient positioned supine in the ICU. A timeout was performed, followed by preliminary ultrasound of the right internal jugular vein (see findings below). The right neck was prepped and draped in standard fashion. Using real-time ultrasound guidance a 18 gauge vascular needle was used to access the right internal jugular vein. An image was stored in the electronic medical record. A wire was advanced while monitoring the patient's cardiac rhythm and the needle exchanged for a non-tunneled central venous catheter using standard Salinger technique. At the end of the procedure the catheter was flushed, secured to the skin and a sterile dressing applied. The patient tolerated the procedure well and without immediate complication. Findings: Patent right internal jugular vein as demonstrated by normal ultrasound compressibility. Impression: Successful placement of a non-tunneled right internal jugular central venous catheter using ultrasound guidance. This report was generated with voice-recognition technology. Errors in vba developer can occur. Please interpret accordingly and contact a radiologist if there are any questions regarding the report. Signed by: Dr. Nito Fernandez M.D. on 10/14/2017 8:40 AM
[2017-10-14] MEDS: CALCIUM ACETATE 667 MG GELCAP PO SCH (09:57)
[2017-10-14] MEDS: MIDODRINE HCL 5 MG TABLET PO SCH (09:57)
[2017-10-14] MEDS: ASPIRIN 81 MG CHEW TAB PO SCH (09:57)
[2017-10-14] MEDS: SODIUM BICARBONATE 650 MG TAB PO SCH ×2 (09:57→18:00)
[2017-10-14] MEDS: PANTOPRAZOLE SOD 40 MG TABEC PO SCH (09:57)
--- NOTE | 2017-10-14 12:34 | Progress Note ---
DATE: October 14, 2017 CARDIOLOGY PROGRESS NOTE SUBJECTIVE: The patient is confused. He is not able to state the location or the year. He was started on dopamine yesterday with successful removal of 3 liters via dialysis yesterday. OBJECTIVE VITAL SIGNS: Temperature 98.6 degrees, pulse 95, respiratory rate 18, blood pressure 99/57, oxygen saturation 98% on 3 liters nasal cannula. GENERAL: Awake, no acute distress. Receiving dialysis. LUNGS: Decreased breath sounds. No wheezes or crackles. CARDIOVASCULAR: Irregularly irregular. Normal rate. Normal S1 and S2. Systolic murmur. ABDOMEN: Soft. EXTREMITIES: Trace edema bilateral lower extremities. CARDIAC MEDICATIONS 1. Aspirin 81 mg p.o. daily. 2. Warfarin 5 mg p.o. daily. 3. Metoprolol tartrate 12.5 mg IV q.4 h. p.r.n. 4. Dopamine 5 mcg/kg per minute. 5. Levophed 12 mcg per minute. LABS: WBC 11.02, hemoglobin 11.2, hematocrit 35.2, platelets 247. Sodium 135, potassium 3.9, chloride 99, CO2 22, BUN 19, creatinine 4.71. INR 1.98. TELEMETRY: Atrial fibrillation, rate controlled. IMPRESSION 1. Ewpqt-[id number] systolic heart failure, status post single-lead implantable cardioverter-defibrillator. 2. Pulmonary hypertension. 3. Right-sided heart failure. 4. End-stage renal disease on hemodialysis. 5. Cirrhosis. 6. Shock requiring vasopressor support, suspected septic. 7. Diabetes mellitus. 8. Right groin abscess. 9. Atrial fibrillation, currently rate controlled. RECOMMENDATIONS: I will continue dopamine for inotropic support of the right ventricle. We are attempting to pull fluid to optimize RV function given his volume overload state and pulmonary hypertension. Continue current cardiac medications. Antibiotics per primary service. Thank you for this consult. We will continue to follow. Job#: [id number] EV
[2017-10-14] MEDS ORDERED: CHLORASEPTIC SPRAY 177 ML BTL MM PRN (14:00)
[2017-10-14] MEDS: AZITHROMYCIN 500MG/NS 250 ML 250 ML IV SCH (16:18)
[2017-10-14] MEDS: VANCOMYCIN 1GM/NS 250 ML 250 ML IV SCH (16:19)
[2017-10-14] MEDS: MORPHINE SULFATE 2 MG/ML SYR IV PRN ×2 (16:21→22:55)
[2017-10-14] MEDS: WARFARIN SOD 5 MG TAB PO SCH (18:00)
[2017-10-14] MEDS: ONDANSETRON HCL INJ 2 MG/ML VIAL IV PRN (23:55)
[2017-10-15] VITALS (140 sets, daily range): BP systolic 63–133; BP diastolic 24–100
[2017-10-15] MEDS: CEFEPIME HCL 1GM 1 GM in WATER STERILE 10ML VIAL 10 ML IV SCH (00:04)
[2017-10-15] MEDS: NOREPINEPHRINE BITARTRATE/ NS 250 ML IV PRN ×3 (03:38→17:00)
[2017-10-15 05:39] LABS: BASOPHILS # (AUTO) 0.1 (0.0-0.1); BASOPHILS % 0.4 % (0.0-1.0); EOSINOPHILS # (AUTO) 0.1 (0.0-0.4); EOSINOPHILS % 0.7 % (0.0-6.0); HEMATOCRIT 36.5 % (38.2-49.6); HEMOGLOBIN 11.9 g/dL (14.0-18.0); LYMPHOCYTES # (AUTO) 0.6 (1.0-3.2); LYMPHOCYTES % 4.9 % (18.0-39.1); MEAN CORPUSCULAR HEMOGLOBIN 22.7 pg (28-32); MEAN CORPUSCULAR HGB CONC 32.6 g/dL (31-35); MEAN CORPUSCULAR VOLUME 69.7 fL (81-99); MONOCYTES # (AUTO) 1.8 (0.2-0.8); MONOCYTES % 14.8 % (4.4-11.3); NEUTROPHILS # (AUTO) 9.6 (2.1-6.9); NEUTROPHILS % 78.8 % (38.7-80.0); PLATELET COUNT 261 x10e3/uL (140-360); RED BLOOD COUNT 5.24 x10e6/uL (4.3-5.7); RED CELL DISTRIBUTION WIDTH 16.1 % (11.7-14.4)
[2017-10-15 05:47] LABS: INR 2.18; PROTHROMBIN TIME 25.4 seconds (11.9-14.5)
[2017-10-15 05:54] LABS: ANION GAP 18.8 mmol/L (8-16); CALCIUM 9.3 mg/dL (8.4-10.2); CREATININE, SERUM 5.62 mg/dL (0.72-1.25); PHOSPHORUS 2.7 MG/DL (2.3-4.7); POTASSIUM 3.8 mmol/L (3.5-5.1)
[2017-10-15] MEDS: INSULIN REGULAR, HUMAN 100 UNIT/1 ML 3ML VIAL SQ SCH ×3 (06:00→18:00)
[2017-10-15 06:32] LABS: CHOL/HDL RATIO 7.2 (3.9-4.7)
[2017-10-15 06:34] LABS: EOSINOPHILS % (MANUAL) 1 % (0-7); LYMPHOCYTES % (MANUAL) 4 % (19-48); MONOCYTES % (MANUAL) 9 % (3.4-9.0); MYELOCYTES % (MANUAL) 2 % (0-0); NEUTROPHILS % (MANUAL) 84 % (40-74)
[2017-10-15 06:35] LABS: ANISOCYTOSIS SLIGHT; HYPOCHROMASIA SLIGHT; PLATELET ESTIMATE ADEQUATE; PLATELET MORPHOLOGY COMMENT FEW LARGE; RBC MORPHOLOGY COMMENT ABNORMAL
--- NOTE | 2017-10-15 06:35 | Progress Note ---
DATE: October 15, 2017 TIME: 5:50 a.m. OVERNIGHT: No change. REVIEW OF SYSTEMS: Unobtainable. PHYSICAL EXAMINATION VITAL SIGNS: Have been reviewed. GENERAL: A tired-appearing man resting in bed on nasal cannula. HEENT: Nasal cannula in place. Anicteric. CARDIOVASCULAR: Normal S1 and S2. Prominent heart sounds. LUNGS: He has moderate breath sounds reduced at bases. ABDOMEN: Soft, somewhat large but nontender. EXTREMITIES: Trace edema. He has right arm bruit at the fistula site. SKIN: Dry. PSYCHIATRIC: Flat affect. NEUROLOGICAL: Moves all extremities. LABS: Reviewed. MEDICATIONS: Reviewed. ASSESSMENT AND PLAN: This is a 67-year-old man with: 1. Septic shock: He remains on 2 pressors and broad-spectrum antibiotics. All cultures remain negative. Continue vancomycin and cefepime. He is also on midodrine. 2. End-stage renal disease: Dialysis per nephrology. 3. Chronic atrial fibrillation: Heart rate currently controlled. Will continue to monitor closely. He remains on Coumadin. He remains on p.r.n. metoprolol intravenously. His INR is 2.18, which is therapeutic for the first day. Continue digoxin. 4. Diabetes mellitus, type 2: Will continue regimen. Will obtain hemoglobin A1c and lipid panel. 5. Chronic systolic and diastolic congestive heart failure/cardiorenal syndrome: Cardiology is on board. Echocardiogram has been done. Follow up report. is interested in hearing the results. Therefore, will have cement or concrete finishing supervisor call and talk with the this morning. 6. Cirrhosis of the liver: His ammonia level was 58 two days ago. 7. Skin tear in the right groin: Will do local wound care. 8. Elevated troponin: Non-evolving. 9. Cardiogenic shock: Will continue pressors as described above. 10. Microcytic anemia: Mild to moderate. Will continue to follow. Remaining stable at this time. 11. Prophylaxis: Will continue proton pump inhibitor while he is on anticoagulation. 12. Disposition: Monitor closely in the intensive care unit. I have discussed the case with the patient's at bedside. She requested to speak with the cement or concrete finishing supervisor this morning regarding the echocardiogram. Check lipid panel and hemoglobin A1c. 13. Critical care time more than 35 minutes. Job#: [id number] [place]
[2017-10-15 06:36] LABS: TARGET CELLS FEW
[2017-10-15] MEDS: PANTOPRAZOLE SOD 40 MG TABEC PO SCH (07:30)
[2017-10-15] MEDS ORDERED: HEPARIN SOD (PORCINE) 5,000 UNIT/ML VIAL ONE (08:23)
[2017-10-15] MEDS: ASPIRIN 81 MG CHEW TAB PO SCH (09:00)
[2017-10-15] MEDS: SODIUM BICARBONATE 650 MG TAB PO SCH ×2 (09:00→17:00)
[2017-10-15] MEDS: MIDODRINE HCL 5 MG TABLET PO SCH (09:00)
--- NOTE | 2017-10-15 10:07 | Diagnostic Imaging Report ---
PROCEDURE:US ABDOMEN LIMITED COMPARISON:None. INDICATIONS:Possible ascites TECHNIQUE: Almanzar scale and color Doppler ultrasound within the region of interest. FINDINGS: See conclusion. CONCLUSION: 4 quadrant ultrasound demonstrates moderate ascites predominantly in the right upper and right lower quadrants. Dictated by: Nito Fernandez M.D. on 10/15/2017 at 10:16 Electronically approved by: Nito Fernandez M.D. on 10/15/2017 at 10:16
[2017-10-15] MEDS: MORPHINE SULFATE 2 MG/ML SYR IV PRN ×2 (10:50→14:40)
[2017-10-15] MEDS: AZITHROMYCIN 500MG/NS 250 ML 250 ML IV SCH (11:30)
[2017-10-15] MEDS: CEFEPIME HCL 1 GM VIAL IV SCH (13:45)
[2017-10-15] MEDS: WATER STERILE 10 ML VIAL IV SCH (13:45)
[2017-10-15] MEDS ORDERED: NOREPINEPHRINE BITARTRATE/ NS 250 ML ONE (13:51)
--- NOTE | 2017-10-15 14:27 | Progress Note ---
DATE: October 15, 2017 SUBJECTIVE: Dialysis was stopped earlier today due to chest pain. According to the , the patient developed chest pain in the setting of anxiety. Dialysis was stopped early. OBJECTIVE VITAL SIGNS: Blood pressure 100/74, heart rate 85, respiratory rate 18, O2 sat 96% on 2 L nasal cannula. HEENT: Normocephalic and atraumatic. PERRL. LUNGS: Crackles at the bases bilaterally. ABDOMEN: Distended. Positive fluid wave. EXTREMITIES: No edema. LABS: Reviewed in electronic medical record. MEDICATIONS: Reviewed in electronic medical record. ASSESSMENT AND PLAN 1. Mr. Storm is a 67-year-old man who presents with combination of cardiogenic shock and sepsis. 2. End-stage renal disease. Have been unable to dialyze him due to hypotension and increasing pressor requirement. He is currently on dopamine. Despite that, he has developed chest pain today. EKG and troponins are pending. We will attempt dialysis again tomorrow depending on hemodynamic stability for the rest of the day. 3. Avoid morphine in end-stage renal disease as metabolites will accumulate. 4. Metabolic acidosis. Continue sodium bicarbonate. Job#: [id number]
--- NOTE | 2017-10-15 14:46 | Progress Note ---
DATE: October 15, 2017 CARDIOLOGY PROGRESS NOTE SUBJECTIVE: Patient complained of chest pain today during hemodialysis, which resulted in termination of hemodialysis with only 1 L removed. OBJECTIVE VITALS: Temperature 99.9 degrees, pulse 96, respiratory rate 18, blood pressure 117/74, and oxygen saturation 92%. GENERAL: Awake and in no acute distress. LUNGS: Decreased breath sounds. No wheezes or crackles. CARDIOVASCULAR: Irregularly irregular. Normal rate. Normal S1 and S2. Systolic murmur. ABDOMEN: Soft. EXTREMITIES: Trace edema in bilateral lower extremities. CARDIAC MEDICATIONS 1. Levophed drip. 2. Dopamine drip. 3. Aspirin 81 mg p.o. daily. 4. Warfarin 5 mg p.o. daily. 5. Midodrine 10 mg p.o. daily. LABS: WBC 12.13, hemoglobin 11.9, hematocrit 36.5, and platelets 261,000. Sodium 135, potassium 3.8, chloride 99, CO2 21, BUN 26, creatinine 5.62. Cholesterol 159, triglycerides 118, LDL 113, HDL 22. Telemetry with atrial fibrillation, rate controlled. IMPRESSION 1. Zdvjg-vv-ipvybwy systolic heart failure: Status post single lead automatic implanted cardioverter defibrillator. 2. Pulmonary hypertension. 3. Right-sided heart failure. 4. End-stage renal disease: On hemodialysis. 5. Cirrhosis. 6. Shock requiring vasopressor support: Suspected septic possibly with component of cardiogenic. 7. Diabetes mellitus. 8. Right groin abscess. 9. Atrial fibrillation: Currently, rate controlled. RECOMMENDATIONS: Continue dopamine for inotropic support of the right ventricle. Attempting to remove volume with hemodialysis to optimize RV function given his volume overload state and pulmonary hypertension. Trend cardiac enzymes given complaint of chest pain. Continue current cardiac medications otherwise. Will attempt to obtain records of the patient's prior cardiac evaluation from his outpatient sole stapler welt, Dr. Lee. However, extensive discussion was held with the patient's today regarding his cardiac disease. Given his comorbid conditions and current frailty, he is unlikely to benefit from any invasive cardiac evaluation. Recommend medical therapy. Antibiotics per primary service. His prognosis is poor. Thank you for this consult. Will continue to follow. Job#: [id number] ID
[2017-10-15 16:56] LABS: CREATINE KINASE MB 4.3 ng/mL (0.00-5.00); TROPONIN I 0.086 ng/mL (0-0.300)
[2017-10-15] MEDS: WARFARIN SOD 5 MG TAB PO SCH (17:00)
[2017-10-16] VITALS (128 sets, daily range): BP systolic 46–124; BP diastolic 26–82
[2017-10-16] MEDS: INSULIN REGULAR, HUMAN 100 UNIT/1 ML 3ML VIAL SQ SCH ×4 (00:30→17:08)
[2017-10-16 01:33] LABS: TROPONIN I 0.079 ng/mL (0-0.300)
[2017-10-16] MEDS: WATER STERILE 10 ML VIAL IV SCH ×2 (02:10→16:30)
[2017-10-16] MEDS: CEFEPIME HCL 1 GM VIAL IV SCH ×2 (02:10→16:30)
[2017-10-16 06:48] LABS: INR 2.34; PROTHROMBIN TIME 26.9 seconds (11.9-14.5)
[2017-10-16 06:54] LABS: ANION GAP 17.8 mmol/L (8-16); CALCIUM 9.3 mg/dL (8.4-10.2); CREATININE, SERUM 6.5 mg/dL (0.72-1.25); PHOSPHORUS 3.1 MG/DL (2.3-4.7); POTASSIUM 3.8 mmol/L (3.5-5.1)
[2017-10-16] MEDS ORDERED: SODIUM CHLORIDE 0.9% 250ML 250 ML ONE (07:28)
[2017-10-16] MEDS: NOREPINEPHRINE BITARTRATE/ NS 250 ML IV PRN (07:35)
[2017-10-16 07:44] LABS: CREATINE KINASE MB 4.5 ng/mL (0.00-5.00); TROPONIN I 0.071 ng/mL (0-0.300)
[2017-10-16] MEDS: PANTOPRAZOLE SOD 40 MG TABEC PO SCH (07:50)
[2017-10-16] MEDS ORDERED: HEPARIN SOD (PORCINE) 1000 UNIT/ML SDV ONE (08:20)
[2017-10-16] MEDS ORDERED: SODIUM CHLORIDE 0.9% 1000ML 2,000 ML ONE (08:21)
--- NOTE | 2017-10-16 08:48 | Diagnostic Imaging Report ---
EXAMINATION: Chest, CHEST SINGLE (PORTABLE) INDICATION: Shortness of breath COMPARISON: Portable chest 10/13/2017 FINDINGS: LINES: Right chest cardiac device with leads projecting over the expected regions of the right atrium and ventricle. Right internal jugular temporary central venous catheter with tip projecting over the expected region of the superior vena cava. Heart: Normal cardiac silhouette. Vascular: The pulmonary vasculature is within normal limits. Atherosclerotic calcifications of the aortic arch. Mediastinum: No mediastinal, hilar, or axillary mass or lymphadenopathy. Lungs: No parenchymal mass. Bilateral airspace opacifications. Pleura: No pleural effusion. No pneumothorax. Bones: No acute osseous abnormality. Degenerative changes of the thoracic spine. Soft tissues: Normal. Impression: Bilateral airspace opacifications may represent pulmonary edema. Signed by: Dr. Lam San M.D. on 10/16/2017 8:44 AM
[2017-10-16] MEDS: ASPIRIN 81 MG CHEW TAB PO SCH (08:51)
[2017-10-16] MEDS: MIDODRINE HCL 5 MG TABLET PO SCH ×2 (08:51→17:00)
[2017-10-16] MEDS: SODIUM BICARBONATE 650 MG TAB PO SCH ×2 (08:51→17:00)
[2017-10-16] MEDS: ALBUTEROL SULF 0.083% NEB SOLN 3 ML NEB NEB PRN (08:58)
[2017-10-16] MEDS: BALSAM PERU/CASTOR OIL 60 GM OINT...G. TP PRN ×2 (11:15→17:30)
--- NOTE | 2017-10-16 14:07 | Progress Note ---
DATE: October 16, 2017 SUBJECTIVE: Overnight no events. The patient remains on 2 pressors. REVIEW OF SYSTEMS: Unobtainable. OBJECTIVE VITAL SIGNS: Reviewed. GENERAL APPEARANCE: A tired-appearing man resting in the bed. HEENT: Atraumatic. CARDIOVASCULAR: Normal S1 and S2. LUNGS: Moderate breath sounds, reduced at bases. ABDOMEN: Soft and nontender. EXTREMITIES: Trace edema. Right arm bruit at fistula site. NEUROLOGIC: Moving all extremities. SKIN: Dry. PSYCHIATRIC: Flat affect. LABS: Reviewed. MEDICATIONS: Reviewed. ASSESSMENT AND PLAN: A 67-year-old man. 1. Septic shock. 2. End-stage renal disease on hemodialysis. 3. Chronic history of atrial fibrillation. 4. Diabetes mellitus type 2. 5. Chronic systolic and diastolic congestive heart failure/cardiorenal syndrome. 6. Cirrhosis of the liver. 7. Skin tear in the right groin. 8. Elevated troponin. 9. Cardiogenic shock. 10. Microcytic anemia. PLAN: 1. Continue 2 pressors. 2. Continue broad-spectrum antibiotic. Followup cultures. 3. Continue dialysis per nephrology. 4. Continue Coumadin, has been therapeutic. Can discontinue heparin. 5. Echocardiogram unchanged from prior which showed ejection fraction 35% to 40% and LVH. 6. Hemoglobin A1c is 5.3. LDL 113, triglycerides 118. 7. Critical care time more than 35 minutes. 8. I have discussed the case with at bedside. Job#: [id number]
[2017-10-16] MEDS ORDERED: SODIUM CHLORIDE 0.9% 1000ML 1,000 ML ONE (14:32)
[2017-10-16] MEDS ORDERED: MORPHINE SULFATE 2 MG/ML SYR ONE (16:04)
[2017-10-16] MEDS: AZITHROMYCIN 500MG/NS 250 ML 250 ML IV SCH (16:37)
[2017-10-16] MEDS: MORPHINE SULFATE 2 MG/ML SYR IV PRN ×2 (16:57→22:33)
[2017-10-16] MEDS: WARFARIN SOD 5 MG TAB PO SCH (17:00)
[2017-10-16 17:26] LABS: CREATINE KINASE MB 3.5 ng/mL (0.00-5.00); TROPONIN I 0.056 ng/mL (0-0.300)
[2017-10-16] MEDS: DIPHENHYDRAMINE HCL 25 MG CAP PO PRN (17:30)
[2017-10-16] MEDS: VANCOMYCIN 1GM/NS 250 ML 250 ML IV SCH (17:50)
[2017-10-16 23:26] LABS: CREATINE KINASE MB 3.7 ng/mL (0.00-5.00); TROPONIN I 0.061 ng/mL (0-0.300)
[2017-10-17] VITALS (53 sets, daily range): BP systolic 61–125; BP diastolic 42–108
[2017-10-17] MEDS: CEFEPIME HCL 1 GM VIAL IV SCH ×2 (00:27→13:29)
[2017-10-17] MEDS: INSULIN REGULAR, HUMAN 100 UNIT/1 ML 3ML VIAL SQ SCH ×4 (00:27→17:45)
[2017-10-17] MEDS: WATER STERILE 10 ML VIAL IV SCH ×2 (00:28→13:29)
[2017-10-17] MEDS: NOREPINEPHRINE BITARTRATE/ NS 250 ML IV PRN ×2 (00:38→21:38)
[2017-10-17] MEDS: DIPHENHYDRAMINE HCL 25 MG CAP PO PRN (00:40)
[2017-10-17] MEDS ORDERED: DIAZEPAM 2 MG TAB PO ONE (02:00)
[2017-10-17] MEDS ORDERED: TRAMADOL HCL 50 MG TAB PO ONE (02:00)
[2017-10-17] MEDS: MORPHINE SULFATE 2 MG/ML SYR IV PRN ×4 (03:21→22:00)
[2017-10-17 06:39] LABS: INR 2.85; PROTHROMBIN TIME 31.5 seconds (11.9-14.5)
[2017-10-17 06:43] LABS: ANION GAP 14.4 mmol/L (8-16); CALCIUM 9.4 mg/dL (8.4-10.2); CREATININE, SERUM 4.55 mg/dL (0.72-1.25); MAGNESIUM 1.9 MG/DL (1.3-2.1); POTASSIUM 3.4 mmol/L (3.5-5.1)
[2017-10-17 06:45] LABS: BASOPHILS # (AUTO) 0.1 (0.0-0.1); BASOPHILS % 0.4 % (0.0-1.0); EOSINOPHILS # (AUTO) 0.2 (0.0-0.4); EOSINOPHILS % 1.2 % (0.0-6.0); HEMATOCRIT 33.6 % (38.2-49.6); HEMOGLOBIN 10.8 g/dL (14.0-18.0); LYMPHOCYTES # (AUTO) 0.5 (1.0-3.2); LYMPHOCYTES % 4.2 % (18.0-39.1); MEAN CORPUSCULAR HEMOGLOBIN 22.2 pg (28-32); MEAN CORPUSCULAR HGB CONC 32.1 g/dL (31-35); MEAN CORPUSCULAR VOLUME 69.1 fL (81-99); MONOCYTES # (AUTO) 2.3 (0.2-0.8); MONOCYTES % 17.8 % (4.4-11.3); NEUTROPHILS # (AUTO) 9.6 (2.1-6.9); NEUTROPHILS % 75.9 % (38.7-80.0); PLATELET COUNT 254 x10e3/uL (140-360); RED BLOOD COUNT 4.86 x10e6/uL (4.3-5.7); RED CELL DISTRIBUTION WIDTH 16.4 % (11.7-14.4)
--- NOTE | 2017-10-17 07:08 | Progress Note ---
DATE: October 16, 2017 RENAL PROGRESS NOTE SUBJECTIVE: Followed for end-stage renal disease, cardiorenal syndrome. Patient is at baseline low normal blood pressures, currently is on low-dose dopamine, low-dose Levophed. Tolerating SLED treatment. Continues to have some degree of pulmonary edema on the chest x-ray, however, clinically it does not appear overtly fluid overloaded. Target for today is 6 hours SLED with 2 L UF, it is more for clearance than ultrafiltration since patient's blood pressures have been on the lower side. No nausea, no vomiting. No shortness of breath. OBJECTIVE: VITAL SIGNS: Have been noted and are stable, high 90s mmHg systolic BP on 2 pressors. Patient is not tachycardic. LUNGS: Minimal rales at bases bilaterally. CARDIOVASCULAR: S1 and S2. No rub. ABDOMEN: Soft, nontender. EXTREMITIES: No edema. LABS: Have been reviewed and are as follows: H and H 11.9 and 36.5. Chemistries today 132 sodium, 3.8 potassium, bicarb is 21, BUN is 30, creatinine 6.5. IMPRESSION AND PLAN: 1. End-stage renal disease. Will continue to evaluate on a daily basis for sustained low-efficiency dialysis treatments. Will try to wean off dopamine and Levophed, increase the midodrine, and then patient can perhaps do low blood flow conventional dialysis once patient is taken off pressors. 2. Hypotension. Increase midodrine to 10 mg twice a day for now and may also be able to increase to 3 times a day to wean off the pressors. May elect not to do any dialysis tomorrow since even though the chest x-ray is showing pulmonary edema, patient is clinically not in overt stage of exacerbation state. Patient is saturating 97% to 100% on 2 L nasal cannula, does not have any lower extremity edema. May elect to watch off dialysis tomorrow and continue again on Wednesday. Will repeat laboratories in the morning and make further recommendations. 3. Anemia of chronic disease, stable. 4. Fluid overload. Continue to ultrafilter with the sustained low-efficiency dialysis treatment as allowed by his blood pressure. Job#: [id number]
--- NOTE | 2017-10-17 07:49 | Progress Note ---
DATE: October 16, 2017 CARDIOLOGY PROGRESS NOTE SUBJECTIVE: Patient is confused. The patient's son reports patient was not making sense earlier, the patient is currently somnolent. OBJECTIVE: VITAL SIGNS: Temperature 98.7 degrees, pulse 63, respiratory rate 18, blood pressure 94/54, oxygen saturation 97%. GENERAL: In no acute distress, somnolent. LUNGS: Decreased breath sounds. No wheezes or crackles. CARDIOVASCULAR: Irregularly irregular. Normal rate. Normal S1 and S2. Systolic murmur. ABDOMEN: Soft. EXTREMITIES: Trace edema. CARDIAC MEDICATIONS: 1. Aspirin 81 mg p.o. daily. 2. Levophed 8 mcg per minute. 3. Dopamine 10 mcg/kg per minute. 4. Warfarin 5 mg p.o. daily. LABS: Sodium 132, potassium 3.8, chloride 97, CO2 21, BUN 30, creatinine of 6.5. INR 2.34. Chest x-ray, bilateral airspace opacifications that may represent pulmonary edema. TELEMETRY: Atrial fibrillation, PVCs. IMPRESSION: 1. Ieugs-gf-ifoktda systolic heart failure, status post single-lead automatic implantable cardioverter-defibrillator. 2. Pulmonary hypertension. 3. Right-sided heart failure. 4. End-stage renal disease, on hemodialysis. 5. Cirrhosis. 6. Shock requiring vasopressor support, suspect septic, possibly component of cardiogenic. 7. Diabetes mellitus. 8. Right groin abscess. 9. Atrial fibrillation, currently rate controlled. RECOMMENDATIONS: Continue dopamine for inotropic support of the right ventricle. Attempting to remove volume with hemodialysis to optimize RV function given his volume overload state and pulmonary hypertension. Cardiac enzymes not consistent with myocardial infarction. Continue medical management given patient's comorbid conditions. We are attempting to obtain records of the patient's prior cardiac evaluation from his outpatient truck driver flatbed, Dr. Lee. However, given his comorbid conditions, he is unlikely to benefit from any invasive cardiac evaluation. Antibiotics per primary service. Prognosis is poor. Thank you for this consult. We will continue to follow. Job#: [id number]
[2017-10-17] MEDS: ASPIRIN 81 MG CHEW TAB PO SCH (08:29)
[2017-10-17] MEDS: MIDODRINE HCL 5 MG TABLET PO SCH ×3 (08:29→21:37)
[2017-10-17] MEDS: PANTOPRAZOLE SOD 40 MG TABEC PO SCH (08:29)
[2017-10-17] MEDS: SODIUM BICARBONATE 650 MG TAB PO SCH ×2 (08:29→17:33)
[2017-10-17 10:36] LABS: BAND NEUTROPHILS % (MANUAL) 6 %; EOSINOPHILS % (MANUAL) 2 % (0-7); LYMPHOCYTES % (MANUAL) 4 % (19-48); MONOCYTES % (MANUAL) 11 % (3.4-9.0); NEUTROPHILS % (MANUAL) 77 % (40-74); PLATELET ESTIMATE ADEQUATE; PLATELET MORPHOLOGY COMMENT NORMAL; RBC MORPHOLOGY COMMENT NORMAL
[2017-10-17] MEDS: ALBUTEROL SULF 0.083% NEB SOLN 3 ML NEB NEB PRN (11:20)
[2017-10-17] MEDS ORDERED: POTASSIUM PHOSPHATE 10 MM in SODIUM CHLORIDE 0.9% 250ML 250 ML IV ONE (12:30)
[2017-10-17] MEDS: DIAZEPAM 2 MG TAB PO PRN (14:44)
[2017-10-17] MEDS ORDERED: HEPARIN SOD (PORCINE) 1000 UNIT/ML SDV INJ PRN (17:30)
[2017-10-17] MEDS: WARFARIN SOD 5 MG TAB PO SCH (17:33)
[2017-10-17] MEDS: AZITHROMYCIN 500MG/NS 250 ML 250 ML IV SCH (17:58)
[2017-10-17] MEDS: VANCOMYCIN 1GM/NS 250 ML 250 ML IV SCH (21:30)
[2017-10-17] MEDS: ONDANSETRON HCL INJ 2 MG/ML VIAL IV PRN (22:00)
[2017-10-18] VITALS (83 sets, daily range): BP systolic 80–136; BP diastolic 49–85
--- NOTE | 2017-10-18 01:00 | Progress Note ---
DATE: October 17, 2017 RENAL PROGRESS NOTE SUBJECTIVE: Followed for end-stage renal disease. Tolerated SLED treatment yesterday without any problems. Remains on 2 pressors, slowly try to wean off the pressors. Midodrine dose has been increased and I have increased it today to 10 mg 3 times a day. Patient is somewhat short of breath today, will do a follow up chest x-ray tomorrow and will also do a SLED for just ultrafiltration only today. No nausea, no vomiting. Does have some shortness of breath. OBJECTIVE: VITAL SIGNS: Have been noted and are as follows: Blood pressure 106/66, pulse 95, afebrile. LUNGS: Rales at the bases bilaterally. CARDIOVASCULAR: S1 and S2. No rub. ABDOMEN: Soft, nontender. EXTREMITIES: No edema. LABS: Reviewed. Hemoglobin 10.8. Sodium 134, potassium 3.4, chloride 95, bicarb 28, BUN 18, creatinine 4.55. IMPRESSION AND PLAN: 1. End-stage renal disease. Will continue sustained low-efficiency dialysis treatment on a daily basis with alternating clearance with ultrafiltration days. Today, will do ultrafiltration only for 4 hours with the goal of 2 to 3 liters as tolerated by blood pressure. 2. Hypotension. Continue pressors, increase midodrine to 10 mg 3 times a day. Try to wean off pressors. 3. Fluid overload. Will continue to ultrafilter with sustained low-efficiency dialysis treatment as allowed by blood pressure. 4. Hypokalemia, mild. Will not replace since the patient is a dialysis patient. Patient does also have a low phosphorus, will give 10 mmol of potassium phosphate and will discontinue any binders. 5. Hypophosphatemia. Replace with potassium phosphate 10 mmol. Discontinue any binders. Job#: [id number]
--- NOTE | 2017-10-18 01:14 | Progress Note ---
DATE: October 17, 2017 TIME: 7:00 a.m. OVERNIGHT: No events. Patient remains on 2 pressors. REVIEW OF SYSTEMS: Denies any chest pain. PHYSICAL EXAMINATION: VITAL SIGNS: Reviewed. Other vitals, blood pressure is 169/53 and heart rate of 90 to 120. GENERAL APPEARANCE: Tired-appearing man resting in bed. HEENT: Anicteric. CARDIOVASCULAR: Normal S1 and S2. LUNGS: He had moderate breath sounds. ABDOMEN: Soft, nontender, nondistended. EXTREMITIES: No edema or calf tenderness. NEUROLOGICAL: He is alert and appropriate. He moves all extremities. SKIN: Dry. PSYCHIATRIC: Flat affect. LABS: Reviewed. MEDICATIONS: Reviewed. ASSESSMENT: A 67-year-old man: 1. Septic shock. 2. Cardiogenic shock. 3. End-stage renal disease, on hemodialysis. 4. Chronic atrial fibrillation. 5. Diabetes mellitus type 2. 6. Chronic systolic and diastolic congestive heart failure/cardiorenal syndrome. 7. Cirrhosis of the liver. 8. Skin tear in the right groin. 9. Elevated troponin. 10. Microcytic anemia. PLAN: 1. Continue 2 pressors. 2. Continue broad-spectrum antibiotics. Follow up cultures. 3. Continue dialysis per nephrology. 4. Coumadin has been therapeutic. 5. Echocardiogram showed ejection fraction 35% to 40% and LVH. 6. Hemoglobin A1c was 5.3, LDL 133. 7. Follow up labs this morning. 8. INR is 2.85. 9. All cultures remain time. Critical care time more than 35 minutes. Job#: [id number]
[2017-10-18] MEDS: CEFEPIME HCL 1 GM VIAL IV SCH ×2 (01:45→15:22)
[2017-10-18] MEDS: ONDANSETRON HCL INJ 2 MG/ML VIAL IV PRN ×2 (01:45→11:54)
[2017-10-18] MEDS: WATER STERILE 10 ML VIAL IV SCH ×2 (03:23→15:22)
--- NOTE | 2017-10-18 04:01 | Progress Note ---
DATE: October 17, 2017 CARDIOLOGY PROGRESS NOTE SUBJECTIVE: Patient denies chest pain or shortness of breath but endorses pain in his hands and feet. OBJECTIVE VITAL SIGNS: Temperature 96.7 degrees, pulse 79, respiratory rate 16, blood pressure 106/66, and oxygen saturation 100% on 3 L nasal cannula. GENERAL: Awake, alert, in no acute distress. LUNGS: Decreased breath sounds. No wheezes or crackles. CARDIOVASCULAR: Irregularly irregular. Normal rate. Normal S1 and S2. Systolic murmur. ABDOMEN: Soft. EXTREMITIES: Trace edema. No wounds or necrotic changes noted on his bilateral hands. CARDIAC MEDICATIONS 1. Aspirin 81 mg p.o. daily. 2. Levophed 8 mcg per minute. 3. Dopamine 10 mcg/kg per minute. LABS: WBC 12.6, hemoglobin 11.8, hematocrit 33.and 6, platelets 254,000. Sodium 134, potassium 3.4, chloride 95, CO2 of 28, creatinine of 4.5. INR 2.85. TELEMETRY: Atrial fibrillation, rate controlled. IMPRESSIONS 1. Blsxc-db-kiavojy systolic heart failure, status post single-lead implantable cardioverter-defibrillator. 2. Pulmonary hypertension. 3. Right-sided heart failure. 4. End-stage renal disease, on hemodialysis. 5. Cirrhosis. 6. Shock requiring vasopressor support, suspect septic, possibly component of cardiogenic. 7. Diabetes mellitus. 8. Right groin abscess. 9. Atrial fibrillation, rate controlled. RECOMMENDATIONS: Continue dopamine for inotropic support of the right ventricle. Wean Levophed as tolerated. Attempting to remove volume with hemodialysis to optimize RV function given volume overload state and pulmonary hypertension. Continue medical management for the patient's comorbid conditions. However, given his current frailty, he is unlikely to benefit from any invasive cardiac evaluation. Antibiotics per primary service. PROGNOSIS: Poor. Thank you for this consult. We will continue to follow. Job#: [id number] CLARICE
[2017-10-18] MEDS: INSULIN REGULAR, HUMAN 100 UNIT/1 ML 3ML VIAL SQ SCH ×4 (06:00→18:00)
[2017-10-18 06:15] LABS: BASOPHILS # (AUTO) 0.1 (0.0-0.1); BASOPHILS % 0.5 % (0.0-1.0); EOSINOPHILS # (AUTO) 0.2 (0.0-0.4); EOSINOPHILS % 1.8 % (0.0-6.0); HEMATOCRIT 33.5 % (38.2-49.6); HEMOGLOBIN 10.6 g/dL (14.0-18.0); LYMPHOCYTES # (AUTO) 0.6 (1.0-3.2); LYMPHOCYTES % 4.7 % (18.0-39.1); MEAN CORPUSCULAR HEMOGLOBIN 22.3 pg (28-32); MEAN CORPUSCULAR HGB CONC 31.6 g/dL (31-35); MEAN CORPUSCULAR VOLUME 70.5 fL (81-99); MONOCYTES # (AUTO) 1.8 (0.2-0.8); MONOCYTES % 15.3 % (4.4-11.3); NEUTROPHILS # (AUTO) 9.1 (2.1-6.9); NEUTROPHILS % 77.2 % (38.7-80.0); PLATELET COUNT 268 x10e3/uL (140-360); RED BLOOD COUNT 4.75 x10e6/uL (4.3-5.7); RED CELL DISTRIBUTION WIDTH 16.2 % (11.7-14.4)
[2017-10-18] MEDS: LACTULOSE SYRUP 20 GM/30 ML UDC PO PRN (06:37)
--- NOTE | 2017-10-18 06:44 | Diagnostic Imaging Report ---
EXAM: CHEST SINGLE (PORTABLE), AP 1 view DATE: 10/18/2017 5:00 AM Time stamp on exam: 0554 hours INDICATION: Fluid status COMPARISON: AP view of the chest October 16, 2017 FINDINGS: LINES/TUBES: Stable LUNGS: Stable bilateral pulmonary edema. PLEURA: Suspected bilateral pleural effusions. HEART AND MEDIASTINUM: Enlargement of the cardiomediastinal silhouette. BONES AND SOFT TISSUES: No acute findings. IMPRESSION: No interval change. Signed by: Dr. Lyn Lorenzo M.D. on 10/18/2017 6:40 AM
[2017-10-18 07:17] LABS: ANION GAP 14.6 mmol/L (8-16); CALCIUM 9.6 mg/dL (8.4-10.2); CREATININE, SERUM 5.35 mg/dL (0.72-1.25); MAGNESIUM 1.8 MG/DL (1.3-2.1); PHOSPHORUS 2.9 MG/DL (2.3-4.7); POTASSIUM 3.6 mmol/L (3.5-5.1)
[2017-10-18 08:21] LABS: EOSINOPHILS % (MANUAL) 2 % (0-7); LYMPHOCYTES % (MANUAL) 5 % (19-48); MONOCYTES % (MANUAL) 12 % (3.4-9.0); NEUTROPHILS % (MANUAL) 81 % (40-74)
[2017-10-18 08:22] LABS: ANISOCYTOSIS SLIGHT; HYPOCHROMASIA SLIGHT; PLATELET ESTIMATE ADEQUATE; PLATELET MORPHOLOGY COMMENT NORMAL; RBC MORPHOLOGY COMMENT NORMAL
[2017-10-18] MEDS: ASPIRIN 81 MG CHEW TAB PO SCH (08:36)
[2017-10-18] MEDS: PANTOPRAZOLE SOD 40 MG TABEC PO SCH (08:36)
[2017-10-18] MEDS: GABAPENTIN 100 MG CAP PO SCH ×2 (08:36→15:24)
[2017-10-18] MEDS: SODIUM BICARBONATE 650 MG TAB PO SCH ×2 (08:36→17:57)
[2017-10-18] MEDS: MIDODRINE HCL 5 MG TABLET PO SCH ×4 (08:36→15:47)
--- NOTE | 2017-10-18 08:40 | Progress Note ---
DATE: October 18, 2017 TIME: 4:30 a.m. OVERNIGHT: No change. The patient remains on 2 pressors. REVIEW OF SYSTEMS: Unobtainable at this time. PHYSICAL EXAMINATION VITAL SIGNS: Reviewed. Blood pressure 101/59. GENERAL: A tired-appearing man resting in bed. HEENT: Anicteric. CARDIOVASCULAR: Normal S1 and S2. LUNGS: Moderate breath sounds. ABDOMEN: Soft, nontender and nondistended. EXTREMITIES: No edema or calf tenderness. NEUROLOGICAL: He is appropriate. He moves all extremities. SKIN: Dry. PSYCHIATRIC: Flat affect. LABS: Reviewed. MEDICATIONS: Reviewed. ASSESSMENT: A 67-year-old man with: 1. Septic shock. 2. Cardiogenic shock. 3. End-stage renal disease, on hemodialysis. 4. Chronic atrial fibrillation. 5. Diabetes mellitus, type 2: Hemoglobin A1c is 5.3 and LDL 133. 6. Chronic systolic and diastolic congestive heart failure/cardiorenal syndrome. 7. Cirrhosis of the liver. 8. Skin tear to the right groin. 9. Elevated troponin. 10. Microcytic anemia. 11. Peripheral neuropathy. PLAN 1. Continue 2 pressors. 2. Continue dialysis as directed. 3. Left ventricular ejection fraction 35% to 40%. 4. Treat constipation with lactulose. 5. Treat neuropathy with gabapentin. 6. Follow up white blood cell count and INR this morning. INR has been therapeutic. 7. All cultures remain negative. 8. Continue IV cefepime and IV vancomycin. 9. Continue bicarb. Job#: [id number] MONTSE
--- NOTE | 2017-10-18 11:02 | Progress Note ---
DATE: October 18, 2017 REASON FOR CONSULTATION: End-stage renal disease. SUBJECTIVE: Patient is lying comfortably in bed. Continues to require oxygen. OBJECTIVE VITAL SIGNS: Blood pressure 123/69, heart rate 113. Remains on dopamine and norepinephrine. HEENT: Normocephalic and atraumatic. PERRLA. LUNGS: Decreased breath sounds at the bases. No wheezing. HEART: Regular rate and rhythm. Normal S1 and S2. ABDOMEN: Distended with positive fluid wave. EXTREMITIES: No edema. LABS: Reviewed in electronic medical record. Sodium 132, BUN 23, creatinine 5.3. ASSESSMENT AND PLAN 1. End-stage renal disease. He presents in cardiogenic shock. At this point, he has higher requirements for dopamine and Levophed. Will continue daily SLED. Plan for 8 hours today with blood flow of 150, dialysate flow of 300 and 2.5 K bath. Would not replete the potassium from this morning as it will be corrupted on SLED. 2. Metabolic acidosis. Continue sodium bicarbonate. Job#: [id number]
--- NOTE | 2017-10-18 11:23 | Progress Note ---
DATE: October 18, 2017 CARDIOLOGY PROGRESS NOTE SUBJECTIVE: Patient is awake but does not respond appropriately. Appears confused. OBJECTIVE VITAL SIGNS: Temperature 98.3 degrees, pulse 113, respiratory rate 16, blood pressure 123/69, and oxygen saturation 94%. GENERAL: Awake, alert, in no acute distress. LUNGS: Decreased breath sounds. No wheezes or crackles. CARDIOVASCULAR: Irregularly irregular. Normal rate. Normal S1 and S2. Systolic murmur. ABDOMEN: Soft. EXTREMITIES: Trace edema. CARDIAC MEDICATIONS 1. Aspirin 81 mg p.o. daily. 2. Levophed 5 mcg per minute. 3. Dopamine 10 mcg per kg per minute. 4. Warfarin 5 mg p.o. daily. LABS: WBC 11.7, hemoglobin 10.6, hematocrit 33.5, platelets 268. Sodium 132, potassium 3.6, chloride 94, CO2 of 27, BUN 23, creatinine 5.35. INR 2.85. TELEMETRY: Atrial fibrillation, rate controlled. IMPRESSION 1. Zvabu-xj-msajpii systolic heart failure, status post automatic implantable cardioverter-defibrillator. 2. Pulmonary hypertension. 3. Right-sided heart failure. 4. End-stage renal disease on hemodialysis. 5. Atrial fibrillation, rate controlled. 6. Shock requiring vasopressor support, suspect septic, possibly component of cardiogenic. 7. Cirrhosis. 8. Diabetes mellitus. 9. Right groin abscess. RECOMMENDATIONS: Continue dopamine for inotropic support of the right ventricle. Wean Levophed as tolerated. Volume management with hemodialysis to optimize RV function given volume overload state and pulmonary hypertension. Antibiotics per primary service. His prognosis is poor. Thank you for this consult. We will continue to follow. Job#: [id number]
[2017-10-18] MEDS: AZITHROMYCIN 500MG/NS 250 ML 250 ML IV SCH (11:26)
[2017-10-18] MEDS: MORPHINE SULFATE 2 MG/ML SYR IV PRN ×2 (11:54→15:35)
[2017-10-18] MEDS: DIAZEPAM 2 MG TAB PO PRN (13:36)
[2017-10-18] MEDS ORDERED: DOPAMINE/DEXTROSE 250 ML IV SCH (14:30)
[2017-10-18] MEDS: DOPAMINE/DEXTROSE 250 ML IV SCH ×2 (15:22→17:02)
[2017-10-18] MEDS: TRAMADOL HCL 50 MG TAB PO PRN (15:34)
[2017-10-18] MEDS: NOREPINEPHRINE BITARTRATE/ NS 250 ML IV PRN (20:39)
[2017-10-19] VITALS (101 sets, daily range): BP systolic 71–125; BP diastolic 42–109
[2017-10-19] MEDS: INSULIN REGULAR, HUMAN 100 UNIT/1 ML 3ML VIAL SQ SCH ×4 (00:54→16:32)
[2017-10-19] MEDS: CEFEPIME HCL 1 GM VIAL IV SCH ×2 (02:12→15:06)
[2017-10-19] MEDS: WATER STERILE 10 ML VIAL IV SCH ×2 (02:12→15:06)
--- NOTE | 2017-10-19 05:33 | Progress Note ---
DATE: October 19, 2017 TIME: 4:35 a.m. OVERNIGHT: Patient had cramps and does got pain following dialysis, started on Flexeril with good results. REVIEW OF SYSTEMS: Unobtainable at this time. PHYSICAL EXAMINATION VITAL SIGNS: Reviewed. GENERAL: A tired-appearing man resting in bed. HEENT: Anicteric. Pupils respond to light. CARDIOVASCULAR: Normal S1/S2. LUNGS: Moderate breath sounds. No wheezing. ABDOMEN: Soft, nontender, nondistended. EXTREMITIES: No edema or calf tenderness. NEUROLOGICAL: He moves all extremities. SKIN: Dry. PSYCHIATRIC: Flat affect. LABS: Reviewed. MEDICATIONS: Reviewed. ASSESSMENT: A 67-year-old man with: 1. Septic shock. 2. Cardiogenic shock. 3. End-stage renal disease, on hemodialysis. 4. Chronic atrial fibrillation. 5. Diabetes mellitus, type 2: Hemoglobin A1c 5.3, low-density lipoprotein 133. 6. Chronic systolic and diastolic congestive heart failure/cardiorenal syndrome. 7. Cirrhosis of the liver. 8. Skin tear to the right groin. 9. Elevated troponin. 10. Microcytic anemia. 11. Peripheral neuropathy. PLAN 1. Continue 2 pressors and attempt to wean. 2. Continue Flexeril for muscle cramps. 3. Continue dialysis as directed. 4. Left ventricular ejection fraction 35%-40%. 5. Continue treatment of constipation and may need an enema. 6. Physical therapy consultation. 7. Out of bed to chair with assistance and monitoring. 8. Continue neuropathy treatment with gabapentin. 9. All cultures remain negative. 10. Glucose controlled. 11. Continue IV cefepime, azithromycin, and vancomycin. 12. Patient remains on warfarin 4 mg daily. His INR 2 days ago was 2.85. 13. Check labs this morning including INR. Job#: [id number] CQ
[2017-10-19] MEDS: VANCOMYCIN 1GM/NS 250 ML 250 ML IV SCH (06:06)
[2017-10-19 06:13] LABS: BASOPHILS % 0.3 % (0.0-1.0); EOSINOPHILS # (AUTO) 0.2 (0.0-0.4); EOSINOPHILS % 1.8 % (0.0-6.0); HEMATOCRIT 34.1 % (38.2-49.6); HEMOGLOBIN 10.9 g/dL (14.0-18.0); LYMPHOCYTES # (AUTO) 0.5 (1.0-3.2); LYMPHOCYTES % 3.7 % (18.0-39.1); MEAN CORPUSCULAR HEMOGLOBIN 22.1 pg (28-32); MEAN CORPUSCULAR VOLUME 69.2 fL (81-99); MONOCYTES # (AUTO) 1.8 (0.2-0.8); MONOCYTES % 13.9 % (4.4-11.3); NEUTROPHILS # (AUTO) 10.1 (2.1-6.9); NEUTROPHILS % 79.8 % (38.7-80.0); PLATELET COUNT 248 x10e3/uL (140-360); RED BLOOD COUNT 4.93 x10e6/uL (4.3-5.7); RED CELL DISTRIBUTION WIDTH 16.4 % (11.7-14.4)
[2017-10-19 06:26] LABS: INR 2.92; PROTHROMBIN TIME 32.1 seconds (11.9-14.5)
[2017-10-19 06:47] LABS: ANION GAP 16.7 mmol/L (8-16); CALCIUM 9.6 mg/dL (8.4-10.2); CREATININE, SERUM 4.05 mg/dL (0.72-1.25); PHOSPHORUS 2.2 MG/DL (2.3-4.7); POTASSIUM 3.7 mmol/L (3.5-5.1)
[2017-10-19] MEDS: SODIUM BICARBONATE 650 MG TAB PO SCH ×2 (08:14→16:46)
[2017-10-19] MEDS: GABAPENTIN 100 MG CAP PO SCH ×4 (08:14→21:25)
[2017-10-19] MEDS: ASPIRIN 81 MG CHEW TAB PO SCH (08:14)
[2017-10-19] MEDS: PANTOPRAZOLE SOD 40 MG TABEC PO SCH (08:14)
[2017-10-19 08:57] LABS: ANISOCYTOSIS MODE; EOSINOPHILS % (MANUAL) 3 % (0-7); HYPOCHROMASIA SLIGHT; LYMPHOCYTES % (MANUAL) 6 % (19-48); MONOCYTES % (MANUAL) 12 % (3.4-9.0); MYELOCYTES % (MANUAL) 1 % (0-0); NEUTROPHILS % (MANUAL) 77 % (40-74); PLATELET ESTIMATE ADEQUATE; PLATELET MORPHOLOGY COMMENT NORMAL; PROMYELOCYTES % (MANUAL) 1 % (0-0); TEAR DROP CELLS FEW
[2017-10-19 08:58] LABS: POIKILOCYTOSIS MODERATE; RBC MORPHOLOGY COMMENT ABNORMAL; TARGET CELLS FEW
[2017-10-19] MEDS ORDERED: SODIUM CHLORIDE 0.9% 250ML 500 ML IV PRN (10:15)
[2017-10-19] MEDS ORDERED: MANNITOL 25% 12.5GM/50 ML VIAL IV PRN (10:15)
[2017-10-19] MEDS ORDERED: HEPARIN SOD (PORCINE) 1000 UNIT/ML SDV IV PRN (10:15)
[2017-10-19] MEDS ORDERED: ALBUMIN HUMAN 12.5GM / 50ML IV PRN (10:15)
[2017-10-19] MEDS ORDERED: SODIUM CHLORIDE 0.9% 1000ML 2,000 ML IV PRN (10:15)
[2017-10-19] MEDS: AZITHROMYCIN 500MG/NS 250 ML 250 ML IV SCH (13:43)
[2017-10-19] MEDS: MIDODRINE HCL 5 MG TABLET PO SCH ×3 (15:06→21:25)
[2017-10-19] MEDS: ALBUTEROL SULF 0.083% NEB SOLN 3 ML NEB NEB PRN ×2 (15:45→19:30)
--- NOTE | 2017-10-19 15:59 | Progress Note ---
DATE: October 19, 2017 REASON FOR CONSULTATION: End-stage renal disease. SUBJECTIVE: Patient is lying comfortably in bed. Seen on dialysis. Acute blood flow 350 mL per minute. OBJECTIVE VITAL SIGNS: Blood pressure 98/52 on Levophed and dopamine. HEENT: NC, AT. EOMI. ABDOMEN: Soft, nontender. Distended. EXTREMITIES: No edema. HEART: Regular rate and rhythm. S1 and S2 normal. MEDICATIONS: Reviewed in electronic medical record. ASSESSMENT AND PLAN 1. A 67-year-old male in cardiogenic shock secondary to right heart failure. 2. End-stage renal disease. I spoke to the extensively about further plan of care since he would not be able to get dialysis without inotropic support, and he cannot be discharged on inotropic support. did not engage in the conversation and looked the other way when I started to ask her thoughts on the matter. Will continue daily SLED and pass as much as possible. Plan for social work meeting with the family tomorrow morning. I will be there to be part of discussion. 3. Metabolic acidosis. Continue sodium bicarbonate. Job#: [id number]
[2017-10-19] MEDS: LACTULOSE SYRUP 20 GM/30 ML UDC PO PRN (16:37)
[2017-10-19] MEDS ORDERED: WARFARIN SOD 2 MG TAB PO SCH (17:00)
--- NOTE | 2017-10-19 18:58 | Progress Note ---
DATE: October 19, 2017 CARDIOLOGY PROGRESS NOTE SUBJECTIVE: Patient is sleeping. He had no complaints per the family. OBJECTIVE VITAL SIGNS: Temperature 97.1 degrees, pulse 94, respiratory rate 16, blood pressure 98/52, oxygen saturation 95% on 3 liters nasal cannula. GENERAL: Sleeping. No acute distress. LUNGS: Decreased breath sounds. No wheezes or crackles. CARDIOVASCULAR: Irregularly irregular with normal rate. Normal S1 and S2. Systolic murmur. ABDOMEN: Soft. EXTREMITIES: Trace edema. CARDIAC MEDICATIONS 1. Aspirin 81 mg p.o. daily. 2. Levophed 15 mcg per minute. 3. Dopamine 10 mcg/kg per minute. 4. Warfarin 4 mg p.o. daily. LABS: WBC 12.6, hemoglobin 10.9, hematocrit 34.1, platelets 248. Sodium 140, potassium 3.7, chloride 100, CO2 27, BUN 17, creatinine 4.05. INR 2.92. TELEMETRY: Atrial fibrillation, rate controlled. IMPRESSION 1. Svlkq-es-lwzbdwc systolic heart failure status post automatic implantable cardioverter-defibrillator. 2. Pulmonary hypertension. 3. Right-sided heart failure. 4. End-stage renal disease on hemodialysis. 5. Atrial fibrillation, rate controlled. 6. Shock requiring vasopressor support, suspect septic, possibly component of cardiogenic. 7. Cirrhosis. 8. Diabetes mellitus. 9. Right groin abscess. RECOMMENDATIONS: Continue dopamine for inotropic support of the right ventricle. Wean Levophed as tolerated. Volume management per Nephrology. Attempting to remove volume to optimize RV function given volume overload state and pulmonary hypertension. Antibiotics per primary service. The patient's prognosis is poor. Thank you for this consult. We will continue to follow. Job#: [id number] EV
[2017-10-19] MEDS: DIAZEPAM 2 MG TAB PO PRN (21:25)
[2017-10-20] VITALS (94 sets, daily range): BP systolic 60–142; BP diastolic 34–92
[2017-10-20] MEDS: INSULIN REGULAR, HUMAN 100 UNIT/1 ML 3ML VIAL SQ SCH ×4 (00:20→18:00)
[2017-10-20] MEDS: CEFEPIME HCL 1 GM VIAL IV SCH ×2 (01:50→17:10)
[2017-10-20] MEDS: WATER STERILE 10 ML VIAL IV SCH ×2 (01:50→17:10)
[2017-10-20] MEDS: DOPAMINE/DEXTROSE 250 ML IV SCH ×3 (03:20→18:00)
[2017-10-20 06:32] LABS: ANION GAP 16.9 mmol/L (8-16); CALCIUM 9.6 mg/dL (8.4-10.2); CREATININE, SERUM 5.24 mg/dL (0.72-1.25); PHOSPHORUS 2.4 MG/DL (2.3-4.7); POTASSIUM 3.9 mmol/L (3.5-5.1)
[2017-10-20] MEDS: PANTOPRAZOLE SOD 40 MG TABEC PO SCH (07:30)
[2017-10-20] MEDS: SODIUM BICARBONATE 650 MG TAB PO SCH ×2 (09:00→17:00)
[2017-10-20] MEDS: ASPIRIN 81 MG CHEW TAB PO SCH (09:00)
[2017-10-20] MEDS: MIDODRINE HCL 5 MG TABLET PO SCH ×3 (09:00→21:36)
[2017-10-20] MEDS: GABAPENTIN 100 MG CAP PO SCH ×3 (09:00→21:36)
[2017-10-20] MEDS: CYCLOBENZAPRINE HCL 10 MG TAB PO PRN (09:02)
[2017-10-20] MEDS: ONDANSETRON HCL INJ 2 MG/ML VIAL IV PRN (10:25)
[2017-10-20 11:18] LABS: INR 3.77
[2017-10-20 12:14] LABS: PROTHROMBIN TIME 39.3 seconds (11.9-14.5)
--- NOTE | 2017-10-20 12:28 | Progress Note ---
DATE: October 20, 2017 REASON FOR CONSULTATION: End-stage renal disease. SUBJECTIVE: Patient is currently on dialysis. He remains confused and unable to answer questioning about review of systems. OBJECTIVE VITAL SIGNS: Blood pressure 116/68 on dopamine and Levophed. HEENT: NC, AT. EOMI. LUNGS: Decreased breath sounds at the bases. ABDOMEN: Remains distended. Soft. EXTREMITIES: No edema. LABS: Reviewed on the electronic medical record. BUN 28, creatinine 5.2, anion gap 16, bicarb 26. ASSESSMENT AND PLAN: A 67-year-old man with end-stage renal disease and cardiogenic shock. I spent over 40 minutes counseling the patient and the family regarding goals of care discussion and requirement for dialysis as an outpatient and inability to get it due to cardiogenic shock. The family would like me to discuss the case with his outpatient netbackup administrator and would like our economic forecaster to discuss the case with his outpatient economic forecaster. Will reconvene with a family meeting 2 days later. Seen on HD with acute blood flow of 200 mL per minute. Undergoing SLED at this point. Plan for PUF tomorrow. Job#: [id number]
[2017-10-20] MEDS ORDERED: SODIUM CHLORIDE 0.9% 250ML 500 ML ONE (13:02)
[2017-10-20] MEDS ORDERED: VANCOMYCIN 1GM/NS 250 ML 250 ML IV ONE (16:30)
[2017-10-20] MEDS: MORPHINE SULFATE 2 MG/ML SYR IV PRN ×2 (16:45→19:45)
[2017-10-20] MEDS: BALSAM PERU/CASTOR OIL 60 GM OINT...G. TP PRN (17:00)
--- NOTE | 2017-10-20 18:51 | Progress Note ---
DATE: October 20, 2017 CARDIOLOGY PROGRESS NOTE SUBJECTIVE: Family meeting was held with nephrology this morning concerning the patient's continued need for vasopressor support and goals of care. The patient's requested we discuss the patient's condition with his outpatient fibrous wallboard inspector, Dr. Lee which was done. Per Dr. Lee, the patient had a cardiac catheterization one year prior which had clean coronary arteries, but elevated pulmonary pressure with PA systolic pressures in the 50s to 60s and severely reduced ejection fraction. However, he was seen in the office by Dr. Lee's partner and had been doing well at that time. Per Dr. Lee, the patient is fairly functional at baseline and has not had issues with volume removal during dialysis previously, although he does run at a hypotensive blood pressure at baseline due to his systolic heart failure. OBJECTIVE VITAL SIGNS: Temperature 99 degrees, pulse 96, respiratory rate 18, blood pressure 106/61, oxygen saturation 100% on 2 liters nasal cannula. GENERAL: Awake, no acute distress. LUNGS: Decreased breath sounds. No wheezes or crackles. CARDIOVASCULAR: Irregularly irregular with normal rate. Normal S1 and S2. Systolic murmur. ABDOMEN: Soft. EXTREMITIES: Trace edema. CARDIAC MEDICATIONS 1. Aspirin 81 mg p.o. daily. 2. Levophed 3 mcg per minute. 3. Dopamine 10 mcg/kg per minute. LABS: Sodium 138, potassium 3.9, chloride 99, CO2 of 26, BUN 28, creatinine 5.24. BNP 1267. INR 3.77. TELEMETRY: Atrial fibrillation, rate controlled. IMPRESSION 1. Ecvyr-rb-bkxqycc systolic heart failure status post automatic implantable cardioverter-defibrillator. 2. Pulmonary hypertension. 3. Right-sided heart failure. 4. End-stage renal disease on hemodialysis. 5. Atrial fibrillation, rate controlled. 6. Shock requiring vasopressor support, suspect septic, possibly component of cardiogenic. 7. Cirrhosis. 8. Diabetes mellitus. 9. Right groin abscess. RECOMMENDATIONS: Continue dopamine for inotropic support of the right ventricle. Wean Levophed. Given the patient's baseline blood pressure is in the 80s to 90s, will tolerate systolic blood pressures in the 90s. Following management per nephrology, will attempt to pull fluids, optimize RV functioning given his volume overload status and pulmonary hypertension. Antibiotics per primary service. The patient's prognosis is poor. Hold warfarin. Resume lower dose once INR is in the therapeutic range. Thank you for this consult. We will continue to follow. Job#: [id number] GH MTDD
[2017-10-20] MEDS: ALBUTEROL SULF 0.083% NEB SOLN 3 ML NEB NEB PRN (19:30)
--- NOTE | 2017-10-20 20:10 | Diagnostic Imaging Report ---
Portable chest x-ray INDICATION: Pulmonary edema COMPARISON: Chest x-ray 10/18/2017, chest x-ray 10/16/2017 FINDINGS: Frontal view of the chest obtained at 1937 hours. HEART AND MEDIASTINUM: The heart is enlarged and stable in morphology. AICD terminates in the right ventricle. Right IJ catheter remains at the cavoatrial junction. Multiple EKG wires overlie the chest. LUNGS: Lung volumes are low but improved compared to previous exam. Retrocardiac airspace disease is unchanged. There is patchy right basilar airspace disease. The pulmonary vascular markings are prominent. PLEURA: No pneumothorax. BONES AND SOFT TISSUES: Surgical clips in the upper right arm are present. There are no focal osseous lesions. IMPRESSION: 1. Stable cardiomegaly. Persistent pulmonary vascular prominence. 2. Right basilar airspace opacity is suggestive of atelectasis or pneumonia. Retrocardiac airspace disease is stable suggestive atelectasis or pneumonia with associated pleural effusion. 3. Medical devices as described above. Signed by: Dr. Deep Nielsen MD on 10/20/2017 8:06 PM
[2017-10-21] VITALS (90 sets, daily range): BP systolic 77–129; BP diastolic 41–77
[2017-10-21] MEDS ORDERED: CEFEPIME HCL 1 GM VIAL IV SCH (01:45)
[2017-10-21] MEDS: INSULIN REGULAR, HUMAN 100 UNIT/1 ML 3ML VIAL SQ SCH ×5 (06:08→23:36)
[2017-10-21 06:19] LABS: BASOPHILS # (AUTO) 0.1 (0.0-0.1); BASOPHILS % 0.4 % (0.0-1.0); EOSINOPHILS # (AUTO) 0.1 (0.0-0.4); EOSINOPHILS % 0.7 % (0.0-6.0); HEMATOCRIT 32.7 % (38.2-49.6); HEMOGLOBIN 10.3 g/dL (14.0-18.0); LYMPHOCYTES # (AUTO) 0.7 (1.0-3.2); MEAN CORPUSCULAR HEMOGLOBIN 22.2 pg (28-32); MEAN CORPUSCULAR HGB CONC 31.5 g/dL (31-35); MEAN CORPUSCULAR VOLUME 70.6 fL (81-99); MONOCYTES % 12.2 % (4.4-11.3); NEUTROPHILS # (AUTO) 13.7 (2.1-6.9); NEUTROPHILS % 82.3 % (38.7-80.0); PLATELET COUNT 264 x10e3/uL (140-360); RED BLOOD COUNT 4.63 x10e6/uL (4.3-5.7)
[2017-10-21 06:24] LABS: ANION GAP 16.3 mmol/L (8-16); CALCIUM 9.8 mg/dL (8.4-10.2); CREATININE, SERUM 3.42 mg/dL (0.72-1.25); POTASSIUM 4.3 mmol/L (3.5-5.1)
[2017-10-21] MEDS: PANTOPRAZOLE SOD 40 MG TABEC PO SCH ×2 (07:30→09:13)
[2017-10-21] MEDS: ASPIRIN 81 MG CHEW TAB PO SCH (09:00)
[2017-10-21] MEDS: GABAPENTIN 100 MG CAP PO SCH ×3 (09:00→21:30)
[2017-10-21] MEDS: SODIUM BICARBONATE 650 MG TAB PO SCH ×2 (09:00→17:00)
[2017-10-21] MEDS: MIDODRINE HCL 5 MG TABLET PO SCH ×3 (09:00→21:30)
[2017-10-21] MEDS: DOPAMINE/DEXTROSE 250 ML IV SCH (10:00)
[2017-10-21 11:22] LABS: PROTHROMBIN TIME 35.7 seconds (11.9-14.5)
[2017-10-21 11:23] LABS: INR 3.06
--- NOTE | 2017-10-21 13:16 | Progress Note ---
DATE: October 21, 2017 CARDIOLOGY PROGRESS NOTE SUBJECTIVE: The patient denies any complaints. He was sleeping during dialysis but does respond to tactile stimuli. OBJECTIVE VITAL SIGNS: Temperature 98 degrees, pulse 89, respiratory rate 18, blood pressure 88/56, oxygen saturation 100% on 2 L nasal cannula. GENERAL: Sleeping, no acute distress. LUNGS: Decreased breath sounds. No wheezes or crackles. CARDIOVASCULAR: Irregularly irregular with normal rate. Normal S1 and S2. Systolic murmur. ABDOMEN: Soft. EXTREMITIES: Trace edema. CARDIAC MEDICATIONS 1. Aspirin 81 mg p.o. daily. 2. Midodrine 10 mg. p.o. t.i.d. 3. Levophed 3 mcg per minute. 4. Dopamine 10 mcg per kg per minute. LABS: WBC 16.6, hemoglobin 10.3, hematocrit 32.7, platelets 264. Sodium 136, potassium 4.3, chloride 102, CO2 of 22, BUN 17, creatinine 3.42. INR 3.06. TELEMETRY: Atrial fibrillation, rate controlled. IMPRESSION 1. Fnvkg-yh-euseqgy systolic heart failure status post automatic implantable cardioverter-defibrillator. 2. Pulmonary hypertension. 3. Right-sided heart failure. 4. End-stage renal disease on hemodialysis. 5. Atrial fibrillation, rate controlled. 6. Shock requiring vasopressor support, suspect septic and possibly component of cardiogenic. 7. Cirrhosis. 8. Diabetes mellitus. 9. Right groin abscess. RECOMMENDATIONS: Continue dopamine for inotropic support of the right ventricle. Wean Levophed as tolerated. Given the patient's baseline blood pressures in the 80s to 90s, will tolerate systolic blood pressures in the 90s. Following management per nephrology, attempting to pull fluids to optimize RV function given volume overload state and pulmonary hypertension. Antibiotics per primary service. Hold warfarin. Resume at a lower dose once INR is in the therapeutic range. Given the finding on chest x-ray, will obtain swallow evaluation. The patient's prognosis is poor. Thank you for this consult. We will continue to follow. Job#: [id number]
[2017-10-21] MEDS: CEFEPIME HCL 1 GM VIAL IV SCH (14:00)
[2017-10-21] MEDS: WATER STERILE 10 ML VIAL IV SCH (14:12)
[2017-10-21] MEDS: BALSAM PERU/CASTOR OIL 60 GM OINT...G. TP PRN (14:15)
[2017-10-21] MEDS: NOREPINEPHRINE BITARTRATE/ NS 250 ML IV PRN (15:30)
--- NOTE | 2017-10-21 16:10 | Progress Note ---
DATE: October 21, 2017 REASON FOR CONSULTATION: End-stage renal disease. SUBJECTIVE: Patient is lying comfortably in bed, in no acute distress, PUF today. PHYSICAL EXAMINATION GENERAL: No acute distress. ABDOMEN: Distended. Soft. EXTREMITIES: No edema. ASSESSMENT AND PLAN: A 67-year-old man with end-stage renal disease and cardiogenic shock. 1. End-stage renal disease. Tolerated PUF today for 4 L over 4 hours. Tolerated it well. Did require some increase in the Levophed. The patient is requesting transfer to the hospital that his director of student life goes to. 2. Metabolic acidosis. Continue sodium bicarbonate. 3. Avoid morphine in end-stage renal disease as metabolites will accumulate. Job#: [id number]
[2017-10-21] MEDS ORDERED: ACETAMINOPHEN 650 MG SUPP PR PRN (16:15)
[2017-10-22] VITALS (104 sets, daily range): BP systolic 65–138; BP diastolic 38–92
[2017-10-22] MEDS: CEFEPIME HCL 1 GM VIAL IV SCH ×2 (02:00→14:00)
[2017-10-22] MEDS: WATER STERILE 10 ML VIAL IV SCH ×2 (02:00→14:00)
[2017-10-22] MEDS: INSULIN REGULAR, HUMAN 100 UNIT/1 ML 3ML VIAL SQ SCH ×3 (06:00→18:00)
[2017-10-22 06:23] LABS: BASOPHILS # (AUTO) 0.1 (0.0-0.1); BASOPHILS % 0.3 % (0.0-1.0); EOSINOPHILS # (AUTO) 0.2 (0.0-0.4); EOSINOPHILS % 0.9 % (0.0-6.0); HEMATOCRIT 33.1 % (38.2-49.6); HEMOGLOBIN 10.5 g/dL (14.0-18.0); LYMPHOCYTES # (AUTO) 0.7 (1.0-3.2); LYMPHOCYTES % 4.2 % (18.0-39.1); MEAN CORPUSCULAR HEMOGLOBIN 22.1 pg (28-32); MEAN CORPUSCULAR HGB CONC 31.7 g/dL (31-35); MEAN CORPUSCULAR VOLUME 69.7 fL (81-99); MONOCYTES % 11.4 % (4.4-11.3); NEUTROPHILS # (AUTO) 14.5 (2.1-6.9); NEUTROPHILS % 82.7 % (38.7-80.0); PLATELET COUNT 297 x10e3/uL (140-360); RED BLOOD COUNT 4.75 x10e6/uL (4.3-5.7); RED CELL DISTRIBUTION WIDTH 16.8 % (11.7-14.4)
[2017-10-22 06:43] LABS: ANION GAP 18.5 mmol/L (8-16); CALCIUM 9.9 mg/dL (8.4-10.2); CREATININE, SERUM 4.92 mg/dL (0.72-1.25); MAGNESIUM 2.1 MG/DL (1.3-2.1); PHOSPHORUS 2.3 MG/DL (2.3-4.7); POTASSIUM 4.5 mmol/L (3.5-5.1)
[2017-10-22] MEDS: SODIUM BICARBONATE 650 MG TAB PO SCH ×2 (08:23→16:05)
[2017-10-22] MEDS: MIDODRINE HCL 5 MG TABLET PO SCH ×3 (08:23→22:00)
[2017-10-22] MEDS: GABAPENTIN 100 MG CAP PO SCH ×3 (08:23→22:00)
[2017-10-22] MEDS: PANTOPRAZOLE SOD 40 MG TABEC PO SCH (08:23)
[2017-10-22] MEDS: ASPIRIN 81 MG CHEW TAB PO SCH (08:23)
[2017-10-22 08:34] LABS: LYMPHOCYTES % (MANUAL) 10 % (19-48); MONOCYTES % (MANUAL) 15 % (3.4-9.0); NEUTROPHILS % (MANUAL) 72 % (40-74); RBC MORPHOLOGY COMMENT NORMAL
[2017-10-22 08:35] LABS: PLATELET ESTIMATE ADEQUATE; PLATELET MORPHOLOGY COMMENT FEW LARGE; POIKILOCYTOSIS SLIGHT
[2017-10-22 08:36] LABS: ANISOCYTOSIS SLIG; TARGET CELLS FEW
[2017-10-22] MEDS ORDERED: VANCOMYCIN 1GM/NS 250 ML 250 ML IV SCH (11:45)
--- NOTE | 2017-10-22 12:43 | Progress Note ---
DATE: October 22, 2017 NEPHROLOGY PROGRESS NOTE REASON FOR CONSULTATION: End-stage renal disease. SUBJECTIVE: No acute events overnight. Seen on dialysis. Acute blood flow 150 mL per minute. OBJECTIVE VITAL SIGNS: Temperature 98, heart rate 105, respiratory rate 18, O2 sat is 100% on 3 liters nasal cannula. HEENT: NC/AT, PERRLA. NECK: JVP appreciated. LUNGS: Decreased breath sounds at the bases. ABDOMEN: Soft, distended. LABS: Were reviewed in electronic medical record. White count rising. Bicarb 21, sodium 135. ASSESSMENT: A 67-year-old man with end-stage renal disease in cardiogenic shock. 1. End-stage renal disease. SLED today. Planned for transfer to [facility] where his outpatient belt sander stone is located. Will resume SLED and daily PUF in the interim. 2. Metabolic acidosis. Continue sodium bicarbonate. 3. Cardiogenic shock. Pressors and inotropes as per Cardiology. Job#: [id number] EV
--- NOTE | 2017-10-22 13:45 | Diagnostic Imaging Report ---
Non-tunneled Central Venous Catheter Placement October 13, 2017 Pre-Procedure Diagnosis: Multiorgan failure; sepsis Post-procedure Diagnosis:Multiorgan failure; sepsis Card Setter: Bertha Fernandez Mainframe Systems Engineer: None Sedation: None. 1% lidocaine local anesthesia. Estimate blood loss: <5 mL Blood administered: None Complications: None Implants/Grafts: 16 cm 7-Swazi 3 lumen CVC Specimen: None Procedure: Informed consent was obtained and the patient positioned supine in the ICU. A timeout was performed, followed by preliminary ultrasound of the right internal jugular vein (see findings below). The right neck was prepped and draped in standard fashion. Using real-time ultrasound guidance a 18 gauge vascular needle was used to access the right internal jugular vein. An image was stored in the electronic medical record. A wire was advanced while monitoring the patient's cardiac rhythm and the needle exchanged for a non-tunneled central venous catheter using standard Salinger technique. At the end of the procedure the catheter was flushed, secured to the skin and a sterile dressing applied. The patient tolerated the procedure well and without immediate complication. Findings: Patent right internal jugular vein as demonstrated by normal ultrasound compressibility. Impression: Successful placement of a non-tunneled right internal jugular central venous catheter using ultrasound guidance. This report was generated with voice-recognition technology. Errors in geophysical manager can occur. Please interpret accordingly and contact a radiologist if there are any questions regarding the report. Signed by: Dr. Nito Fernandez M.D. on 10/14/2017 8:40 AM
[2017-10-22 16:30] LABS: BILIRUBIN,URINE NEGATIVE (NEGATIVE); KETONES,URINE NEGATIVE (NEGATIVE); LEUKOCYTE ESTERASE ,URINE NEGATIVE (NEGATIVE); NITRITE,URINE NEGATIVE (NEGATIVE); PROTEIN,URINE DIPSTICK 3+ (NEGATIVE); URINE UROBILINOGEN 0.2 mg/dL (0.2 - 1)
[2017-10-22 16:32] LABS: CLARITY,URINE CLOUDY (CLEAR); COLOR,URINE BROWN (YELLOW)
[2017-10-22] MEDS: DOPAMINE/DEXTROSE 250 ML IV SCH (17:26)
--- NOTE | 2017-10-22 19:59 | Progress Note ---
DATE: October 22, 2017 CARDIOLOGY PROGRESS NOTE SUBJECTIVE: The patient is complaining of chest pain during dialysis. He denies shortness of breath. OBJECTIVE VITAL SIGNS: Temperature 97.7 degrees, pulse 109, respiratory rate 16, blood pressure 94/56, oxygen saturation 98% on 2 liters nasal cannula. GENERAL: Awake and in no acute distress. LUNGS: Decreased breath sounds. No wheezes or crackles. CARDIOVASCULAR: Irregularly irregular with normal rate. Normal S1 and S2. Systolic murmur. ABDOMEN: Soft. EXTREMITIES: Trace edema. CARDIAC MEDICATIONS 1. Aspirin 81 mg p.o. daily. 2. Midodrine 10 mg. p.o. t.i.d. 3. Levophed 7 mcg per minute. 4. Dopamine 10 mcg per kg per minute. LABS: WBCs 17.54, hemoglobin 10.5, hematocrit 33.1, platelets 297,000, sodium 135, potassium 4.5, chloride 100, CO2 of 21, BUN 29, creatinine 4.92. BNP 741. TELEMETRY: Atrial fibrillation, rate controlled. IMPRESSION 1. Nkuxe-rq-piepqed systolic heart failure status post automatic implantable cardioverter-defibrillator. 2. Pulmonary hypertension. 1. Right-sided heart failure. 2. End-stage renal disease on hemodialysis. 3. Atrial fibrillation, rate controlled. 4. Shock requiring vasopressor support, suspect septic and possibly component of cardiogenic. 5. Cirrhosis. 6. Diabetes mellitus. 7. Right groin abscess. RECOMMENDATIONS: Continue dopamine for inotropic support. Wean Levophed as tolerated. Given the patient's baseline blood pressure was in the 80s to 90s, will ____ systolic blood pressures in this range. Volume management per nephrology. We are attempting to pull fluid to optimize RV function given volume overload state and pulmonary hypertension. Antibiotics per primary service. Check INR. Warfarin was held due to supratherapeutic INR. Resume once INR is in therapeutic range at a lower dose. Swallow evaluation is pending. The patient's prognosis is poor. Thank you for this consult. We will continue to follow. Job#: [id number]
[2017-10-23] VITALS (90 sets, daily range): BP systolic 55–143; BP diastolic 21–103
[2017-10-23] MEDS: DOPAMINE/DEXTROSE 250 ML IV SCH (00:18)
[2017-10-23] MEDS: WATER STERILE 10 ML VIAL IV SCH ×2 (02:54→14:00)
[2017-10-23] MEDS: CEFEPIME HCL 1 GM VIAL IV SCH ×2 (02:54→14:00)
[2017-10-23] MEDS: TRAMADOL HCL 50 MG TAB PO PRN (03:20)
[2017-10-23] MEDS: INSULIN REGULAR, HUMAN 100 UNIT/1 ML 3ML VIAL SQ SCH ×4 (06:00→18:00)
[2017-10-23 06:06] LABS: BASOPHILS # (AUTO) 0.1 (0.0-0.1); BASOPHILS % 0.4 % (0.0-1.0); EOSINOPHILS # (AUTO) 0.1 (0.0-0.4); EOSINOPHILS % 0.8 % (0.0-6.0); HEMATOCRIT 32.4 % (38.2-49.6); HEMOGLOBIN 10.5 g/dL (14.0-18.0); LYMPHOCYTES # (AUTO) 0.7 (1.0-3.2); LYMPHOCYTES % 4.7 % (18.0-39.1); MEAN CORPUSCULAR HEMOGLOBIN 22.2 pg (28-32); MEAN CORPUSCULAR HGB CONC 32.4 g/dL (31-35); MEAN CORPUSCULAR VOLUME 68.5 fL (81-99); MONOCYTES # (AUTO) 2.1 (0.2-0.8); MONOCYTES % 13.8 % (4.4-11.3); NEUTROPHILS # (AUTO) 12.1 (2.1-6.9); NEUTROPHILS % 79.8 % (38.7-80.0); PLATELET COUNT 320 x10e3/uL (140-360); RED BLOOD COUNT 4.73 x10e6/uL (4.3-5.7); RED CELL DISTRIBUTION WIDTH 16.5 % (11.7-14.4)
[2017-10-23 06:20] LABS: INR 1.9; PROTHROMBIN TIME 22.8 seconds (11.9-14.5)
[2017-10-23 06:33] LABS: ANION GAP 17.8 mmol/L (8-16); CALCIUM 10.3 mg/dL (8.4-10.2); CREATININE, SERUM 4.01 mg/dL (0.72-1.25); PHOSPHORUS 1.7 MG/DL (2.3-4.7); POTASSIUM 3.8 mmol/L (3.5-5.1)
[2017-10-23] MEDS: NOREPINEPHRINE BITARTRATE/ NS 250 ML IV PRN (06:54)
[2017-10-23] MEDS: PANTOPRAZOLE SOD 40 MG TABEC PO SCH (07:56)
[2017-10-23 08:12] LABS: BAND NEUTROPHILS % (MANUAL) 2 %; LYMPHOCYTES % (MANUAL) 7 % (19-48); MICROCYTOSIS SLIGHT; MONOCYTES % (MANUAL) 3 % (3.4-9.0); NEUTROPHILS % (MANUAL) 88 % (40-74); TARGET CELLS MODERATE
[2017-10-23 08:13] LABS: ANISOCYTOSIS SLIGHT; HYPOCHROMASIA MODERATE; PLATELET ESTIMATE ADEQUATE; PLATELET MORPHOLOGY COMMENT NORMAL; RBC MORPHOLOGY COMMENT ABNORMAL
[2017-10-23] MEDS: SODIUM BICARBONATE 650 MG TAB PO SCH ×2 (09:00→16:19)
[2017-10-23] MEDS: MIDODRINE HCL 5 MG TABLET PO SCH ×3 (09:00→21:15)
[2017-10-23] MEDS: ASPIRIN 81 MG CHEW TAB PO SCH (09:00)
[2017-10-23] MEDS: GABAPENTIN 100 MG CAP PO SCH ×3 (09:00→21:15)
--- NOTE | 2017-10-23 12:00 | Progress Note ---
DATE: October 23, 2017 NEPHROLOGY PROGRESS NOTE REASON FOR CONSULTATION: End-stage renal disease. SUBJECTIVE: Patient had no acute events overnight. Currently in the process of being transferred to a different hospital. OBJECTIVE VITAL SIGNS: Heart rate 120. Blood pressure 89/40, remains on dopamine and Levophed. The O2 sat is 93% on 2 liters nasal cannula. HEENT: NC, AT, PERRLA. ABDOMEN: Less distended. Positive bowel sounds. HEART: Irregularly irregular. S1 and S2 normal. EXTREMITIES: No edema. LABS: Reviewed in electronic medical record. ASSESSMENT: Mr. Storm is a 67-year-old man with end-stage renal disease and cardiogenic shock. PLAN 1. End-stage renal disease. Continue daily PUF and SLED today. Have 2 L of fluid removed with pure ultrafiltration today. Seen on dialysis. Acute blood flow of 200 mL per minute. 2. Anemia of chronic kidney disease. Continue Epogen. 3. Metabolic acidosis. Continue sodium bicarbonate. 4. Avoid morphine in end-stage renal disease as metabolites will accumulate. 5. Cardiogenic shock. Remains on pressors and inotropes. Job#: [id number]
--- NOTE | 2017-10-23 17:31 | Progress Note ---
DATE: October 23, 2017 CARDIOLOGY PROGRESS NOTE SUBJECTIVE: Confused. On dopamine and Levophed. Undergoing dialysis today. OBJECTIVE VITALS: Tachycardic. AFib on tele. Temperature 98.3, heart rate 120, blood pressure 89/50 with a MAP of 63. Pressor is being titrated as needed. O2 sat 92% on nasal cannula. GENERAL: Confused. Chronically ill-looking. CHEST: Decreased breath sounds. Catheter in place in neck on the right side. CARDIOVASCULAR: Irregularly irregular rate and rhythm. Normal S1 and S2. Systolic ejection murmur. ABDOMEN: Soft. EXTREMITIES: Trace edema. CARDIOVASCULAR MEDICATIONS 1. Aspirin 81 mg daily. 2. Midodrine 10 mg t.i.d. 3. Levophed and dopamine drips. STUDIES: White blood cells 15.2, hemoglobin 10.5, platelets 320. INR 1.9, PT 22.8. Sodium 132, potassium 3.8, chloride 96, bicarbonate 22, BUN 22, creatinine 4. Glucose 154. Magnesium 1.7, calcium 10.3. Blood cultures no growth after 5 days. ASSESSMENT 1. Ozjtc-wt-xemhyte systolic heart failure status post automatic implantable cardioverter-defibrillator. 2. Pulmonary hypertension. 3. Right-sided heart failure, acute on chronic. 4. End-stage renal disease on dialysis. 5. Atrial fibrillation with episodes of rapid ventricular response. 6. Shock, mixed septic with a component of cardiogenic likely, requiring 2-pressor support as well as inotropic support. 7. Liver cirrhosis. 8. Diabetes mellitus. 9. Right groin abscess. RECOMMENDATIONS: Continue to wean Levophed as tolerated, maintaining a MAP over 65 as blood pressure allows. Also, try to wean dopamine once Levophed is off. Volume management per nephrology. On antibiotics. INR now at 1.9 from previous INR of 3.06. Can resume warfarin at a lower dose for target INR of 2 to 3 if no additional procedures are planned. Otherwise can bridge as needed with IV heparin. Overall, guarded prognosis. Job#: [id number]
[2017-10-24] VITALS (83 sets, daily range): BP systolic 72–108; BP diastolic 36–90
[2017-10-24] MEDS: WATER STERILE 10 ML VIAL IV SCH ×2 (02:55→14:00)
[2017-10-24] MEDS: CEFEPIME HCL 1 GM VIAL IV SCH ×2 (02:55→14:00)
[2017-10-24] MEDS: NOREPINEPHRINE BITARTRATE/ NS 250 ML IV PRN (03:00)
[2017-10-24] MEDS: DOPAMINE/DEXTROSE 250 ML IV SCH (03:00)
[2017-10-24 05:44] LABS: BASOPHILS # (AUTO) 0.1 (0.0-0.1); BASOPHILS % 0.4 % (0.0-1.0); EOSINOPHILS # (AUTO) 0.1 (0.0-0.4); EOSINOPHILS % 0.9 % (0.0-6.0); HEMOGLOBIN 10.9 g/dL (14.0-18.0); LYMPHOCYTES # (AUTO) 0.8 (1.0-3.2); LYMPHOCYTES % 5.2 % (18.0-39.1); MEAN CORPUSCULAR HEMOGLOBIN 22.3 pg (28-32); MEAN CORPUSCULAR HGB CONC 32.1 g/dL (31-35); MEAN CORPUSCULAR VOLUME 69.5 fL (81-99); MONOCYTES # (AUTO) 2.3 (0.2-0.8); MONOCYTES % 15.1 % (4.4-11.3); NEUTROPHILS # (AUTO) 11.8 (2.1-6.9); NEUTROPHILS % 77.7 % (38.7-80.0); PLATELET COUNT 346 x10e3/uL (140-360); RED BLOOD COUNT 4.89 x10e6/uL (4.3-5.7); RED CELL DISTRIBUTION WIDTH 16.6 % (11.7-14.4)
[2017-10-24] MEDS: INSULIN REGULAR, HUMAN 100 UNIT/1 ML 3ML VIAL SQ SCH ×4 (06:00→18:00)
[2017-10-24 06:03] LABS: ANION GAP 19.8 mmol/L (8-16); CALCIUM 10.6 mg/dL (8.4-10.2); CREATININE, SERUM 5.5 mg/dL (0.72-1.25); PHOSPHORUS 2.3 MG/DL (2.3-4.7); POTASSIUM 3.8 mmol/L (3.5-5.1)
[2017-10-24] MEDS: ASPIRIN 81 MG CHEW TAB PO SCH (09:25)
[2017-10-24] MEDS: PANTOPRAZOLE SOD 40 MG TABEC PO SCH (09:25)
[2017-10-24] MEDS: GABAPENTIN 100 MG CAP PO SCH ×3 (09:25→21:17)
[2017-10-24] MEDS: MIDODRINE HCL 5 MG TABLET PO SCH ×3 (09:25→21:17)
[2017-10-24] MEDS: PHOSPHORUS 250 MG TAB PO SCH (09:25)
[2017-10-24] MEDS: SODIUM BICARBONATE 650 MG TAB PO SCH ×2 (09:25→16:58)
[2017-10-24 10:12] LABS: LYMPHOCYTES % (MANUAL) 4 % (19-48); MONOCYTES % (MANUAL) 15 % (3.4-9.0); NEUTROPHILS % (MANUAL) 81 % (40-74); PLATELET ESTIMATE ADEQUATE; PLATELET MORPHOLOGY COMMENT NORMAL; RBC MORPHOLOGY COMMENT NORMAL
--- NOTE | 2017-10-24 10:34 | Progress Note ---
DATE: October 24, 2017 CARDIOLOGY PROGRESS NOTE SUBJECTIVE: Sleeping comfortably. Discussed with family at bedside. Overall, he remains critically ill on 2 pressors, guarded prognosis. OBJECTIVE VITALS: Temperature 98.4, heart rate 62, respiratory rate 16, blood pressure 93/66. O2 sat 100% on 2 L per minute nasal cannula. GENERAL: Sleeping comfortably. NECK: With catheter in place. CHEST: Decreased breath sounds at bilateral bases. CARDIOVASCULAR: Irregularly irregular rate and rhythm, normal S1 and S2. Systolic ejection murmur best heard at the left lower sternal border. ABDOMEN: Soft. EXTREMITIES: No edema. CARDIOVASCULAR MEDICATIONS 1. On dopamine drip. 2. On Levophed drip. 3. Midodrine 10 mg t.i.d. 4. Current antibiotics: Vancomycin and cefepime. 5. Metoprolol 2.5 mg IV q.4 h. p.r.n. heart rate, no recent doses given. Will discontinue this medication. STUDIES: White blood cells 15.1, hemoglobin 10.4, platelets 346. INR from yesterday 1.9, today none available yet. Sodium 128, potassium 3.8, chloride 92, bicarbonate 20, BUN 35, creatinine 5.5, glucose 177, phosphorus 2.3, calcium 10.6. Blood cultures no growth x5 days. Urine culture no growth x24 hours. ASSESSMENT 1. Xggpb-ug-laqojep systolic heart failure, status post automatic implantable cardioverter-defibrillator. 2. Pulmonary hypertension. 3. Right-sided heart failure, acute on chronic. 4. End-stage renal disease on dialysis. 5. Atrial fibrillation, now rate controlled. 6. Shock, mixed septic with a component of cardiogenic shock, on midodrine and 2 pressors as well as inotropic support. 7. Liver cirrhosis. 8. Diabetes mellitus. 9. Right groin abscess. RECOMMENDATIONS: Continue antibiotics and current pressors. Wean as tolerated for MAP over 65. Volume management deferred to nephrology. Remains critically ill with guarded prognosis. Not a candidate for mechanical support or heart transplantation given the presence of multiorgan chronic failure and pulmonary hypertension as well as age. If continues to remain pressor dependent and inotropic dependent, can consider evaluation for palliative care if the patient and the family are agreeable. Job#: [id number]
[2017-10-24] MEDS: ALBUTEROL SULF 0.083% NEB SOLN 3 ML NEB NEB PRN (15:10)
[2017-10-25] VITALS (100 sets, daily range): BP systolic 64–146; BP diastolic 29–118
[2017-10-25] MEDS: CEFEPIME HCL 1 GM VIAL IV SCH ×2 (01:55→15:00)
[2017-10-25] MEDS: INSULIN REGULAR, HUMAN 100 UNIT/1 ML 3ML VIAL SQ SCH ×4 (01:55→18:00)
[2017-10-25] MEDS: WATER STERILE 10 ML VIAL IV SCH ×2 (01:56→15:00)
[2017-10-25 05:47] LABS: BASOPHILS # (AUTO) 0.1 (0.0-0.1); BASOPHILS % 0.4 % (0.0-1.0); EOSINOPHILS # (AUTO) 0.2 (0.0-0.4); EOSINOPHILS % 1.2 % (0.0-6.0); HEMATOCRIT 32.6 % (38.2-49.6); HEMOGLOBIN 10.7 g/dL (14.0-18.0); LYMPHOCYTES # (AUTO) 0.9 (1.0-3.2); LYMPHOCYTES % 6.5 % (18.0-39.1); MEAN CORPUSCULAR HEMOGLOBIN 22.4 pg (28-32); MEAN CORPUSCULAR HGB CONC 32.8 g/dL (31-35); MEAN CORPUSCULAR VOLUME 68.3 fL (81-99); MONOCYTES # (AUTO) 2.2 (0.2-0.8); MONOCYTES % 15.9 % (4.4-11.3); NEUTROPHILS # (AUTO) 10.5 (2.1-6.9); NEUTROPHILS % 75.5 % (38.7-80.0); PLATELET COUNT 377 x10e3/uL (140-360); RED BLOOD COUNT 4.77 x10e6/uL (4.3-5.7); RED CELL DISTRIBUTION WIDTH 16.6 % (11.7-14.4)
[2017-10-25 06:09] LABS: ANION GAP 22.1 mmol/L (8-16); CALCIUM 10.6 mg/dL (8.4-10.2); CREATININE, SERUM 7.15 mg/dL (0.72-1.25); PHOSPHORUS 3.1 MG/DL (2.3-4.7); POTASSIUM 4.1 mmol/L (3.5-5.1)
[2017-10-25 07:37] LABS: EOSINOPHILS % (MANUAL) 1 % (0-7); LYMPHOCYTES % (MANUAL) 5 % (19-48); MONOCYTES % (MANUAL) 15 % (3.4-9.0); NEUTROPHILS % (MANUAL) 79 % (40-74)
[2017-10-25 07:38] LABS: HYPOCHROMASIA SLIGHT; PLATELET ESTIMATE ADEQUATE; PLATELET MORPHOLOGY COMMENT FEW LARGE; RBC MORPHOLOGY COMMENT ABNORMAL
[2017-10-25 07:39] LABS: ANISOCYTOSIS MODERATE; TARGET CELLS FEW
[2017-10-25] MEDS: DOPAMINE/DEXTROSE 250 ML IV SCH (09:00)
[2017-10-25] MEDS: PHOSPHORUS 250 MG TAB PO SCH (09:30)
[2017-10-25] MEDS: MIDODRINE HCL 5 MG TABLET PO SCH ×3 (09:30→21:00)
[2017-10-25] MEDS: ASPIRIN 81 MG CHEW TAB PO SCH (09:30)
[2017-10-25] MEDS: GABAPENTIN 100 MG CAP PO SCH ×3 (09:30→21:00)
[2017-10-25] MEDS: PANTOPRAZOLE SOD 40 MG TABEC PO SCH (09:30)
[2017-10-25] MEDS: SODIUM BICARBONATE 650 MG TAB PO SCH ×2 (09:30→18:10)
[2017-10-25] MEDS: TRAMADOL HCL 50 MG TAB PO PRN (11:55)
[2017-10-25] MEDS: CYCLOBENZAPRINE HCL 10 MG TAB PO PRN (12:00)
--- NOTE | 2017-10-25 15:56 | Progress Note ---
REASON FOR CONSULTATION: End-stage renal disease. SUBJECTIVE: Patient is complaining of cramps post-dialysis today, tolerated dialysis. OBJECTIVE VITAL SIGNS: Temperature 98.8, heart rate 112, respiratory rate 18, blood pressure 83/57. HEENT: NCAT, PERRLA. LUNGS: Decreased breath sounds at the bases bilaterally. HEART: Regular rate and rhythm, S1 and S2 normal. ABDOMEN: Distended. LABS: Reviewed on electronic medical record. Sodium 132, chloride 94, bicarb 20. ASSESSMENT: A 67-year-old man with end-stage renal disease, presents in cardiogenic shock secondary to right heart failure. PLAN 1. Hyponatremia. Will improve post UF today. 2. Metabolic acidosis secondary to poor perfusion. Continue sodium bicarbonate and inotropic and pressor support. 3. End stage renal disease. Will do HD today and maintain on a Wednesday, Wednesday, and Wednesday schedule with p.r.n. pause as necessary. 4. Hypophosphatemia. Continue K-Phos tablet. Dictated by Ron Harkins Job#: [id number] ROSCOE
--- NOTE | 2017-10-25 18:18 | Progress Note ---
DATE: October 25, 2017 CARDIOLOGY PROGRESS NOTE SUBJECTIVE: Patient denies chest pain or shortness of breath. He was seen in hemodialysis, complaining of back pain. OBJECTIVE VITAL SIGNS: Temperature ___8 degrees, pulse 112, respiratory rate 18, blood pressure 83/57, oxygen saturation 100% on 2 liters nasal cannula. LUNGS: Decreased breath sounds in bilateral bases. No wheezes or crackles. CARDIOVASCULAR: Irregularly irregular, tachycardic. Normal S1 and S2. Systolic murmur. ABDOMEN: Soft. EXTREMITIES: No edema. CARDIAC MEDICATIONS 1. Dopamine 5 mcg/kg a minute. 2. Levophed 3 mcg per minute. 3. Midodrine 10 mg p.o. t.i.d. 4. Warfarin 4 mg p.o. daily. LABS: WBC 13.9, hemoglobin 10.7, hematocrit 32.6, platelets 377. Sodium 132, potassium 4.1, chloride 94, CO2 20, BUN 47, creatinine 7.15. TELEMETRY: Atrial fibrillation with rapid ventricular response. IMPRESSION 1. Ywtuc-sp-wkmmroa systolic heart failure status post automatic implantable cardioverter-defibrillator. 1. Pulmonary hypertension. 2. Right-sided heart failure, acute on chronic. 3. End-stage renal disease on hemodialysis. 4. Atrial fibrillation. 5. Shock, mixed septic with component of cardiogenic on midodrine and vasopressor and inotropic support. 6. Cirrhosis. 7. Diabetes mellitus. 8. Right groin abscess. 9. Pneumonia. RECOMMENDATIONS: Continue antibiotics. Continue dopamine for inotropic support of the right ventricle. Wean Levophed as tolerated. Patient's baseline blood pressures are in the 80s to 90s. Will tolerate systolics in this range. Volume management per Nephrology given end-stage renal disease on hemodialysis. Attempting to remove volume to optimize RV function given patient's volume-overloaded status and pulmonary hypertension. Check INR. Resume warfarin once INR is therapeutic. Antibiotics per primary service. Swallow evaluation is pending. The patient's prognosis is poor. Check BNP and chest x-ray. Thank you for this consult. We will continue to follow. Job#: [id number] EV
[2017-10-25 19:31] LABS: INR 1.38; PROTHROMBIN TIME 17.7 seconds (11.9-14.5)
[2017-10-25] MEDS: ALBUTEROL SULF 0.083% NEB SOLN 3 ML NEB NEB PRN (20:20)
[2017-10-26] VITALS (78 sets, daily range): BP systolic 67–109; BP diastolic 33–70
[2017-10-26] MEDS: INSULIN REGULAR, HUMAN 100 UNIT/1 ML 3ML VIAL SQ SCH ×5 (00:16→16:45)
[2017-10-26] MEDS: CEFEPIME HCL 1 GM VIAL IV SCH ×2 (02:10→14:00)
[2017-10-26] MEDS: WATER STERILE 10 ML VIAL IV SCH ×2 (02:10→14:00)
[2017-10-26 05:23] LABS: BASOPHILS # (AUTO) 0.1 (0.0-0.1); BASOPHILS % 0.3 % (0.0-1.0); EOSINOPHILS # (AUTO) 0.1 (0.0-0.4); EOSINOPHILS % 0.8 % (0.0-6.0); HEMATOCRIT 32.4 % (38.2-49.6); HEMOGLOBIN 10.4 g/dL (14.0-18.0); LYMPHOCYTES # (AUTO) 0.8 (1.0-3.2); LYMPHOCYTES % 5.7 % (18.0-39.1); MEAN CORPUSCULAR HEMOGLOBIN 22.5 pg (28-32); MEAN CORPUSCULAR HGB CONC 32.1 g/dL (31-35); MONOCYTES # (AUTO) 2.4 (0.2-0.8); MONOCYTES % 16.7 % (4.4-11.3); NEUTROPHILS # (AUTO) 10.9 (2.1-6.9); NEUTROPHILS % 75.9 % (38.7-80.0); PLATELET COUNT 351 x10e3/uL (140-360); RED BLOOD COUNT 4.63 x10e6/uL (4.3-5.7)
[2017-10-26 05:45] LABS: ANION GAP 18.6 mmol/L (8-16); CALCIUM 10.7 mg/dL (8.4-10.2); CREATININE, SERUM 4.55 mg/dL (0.72-1.25); PHOSPHORUS 2.9 MG/DL (2.3-4.7); POTASSIUM 3.6 mmol/L (3.5-5.1)
--- NOTE | 2017-10-26 06:58 | Diagnostic Imaging Report ---
EXAM: CHEST SINGLE (PORTABLE), AP 1 view DATE: 10/26/2017 5:00 AM Time stamp on exam: 0540 hours INDICATION: Pneumonia, shortness of breath COMPARISON: AP view of the chest October 20, 2017 FINDINGS: LINES/TUBES: Right internal jugular vein central line, stable position. Right approach single chamber cardiac device, stable position. LUNGS: Stable bilateral airspace opacities. PLEURA: Possible small bilateral pleural effusions. HEART AND MEDIASTINUM: Stable cardiac enlargement. BONES AND SOFT TISSUES: No acute findings. IMPRESSION: No interval change. Signed by: Dr. Lyn Lorenzo M.D. on 10/26/2017 6:55 AM
[2017-10-26] MEDS: PANTOPRAZOLE SOD 40 MG TABEC PO SCH (07:30)
[2017-10-26] MEDS: MIDODRINE HCL 5 MG TABLET PO SCH ×3 (08:45→16:00)
[2017-10-26] MEDS: ASPIRIN 81 MG CHEW TAB PO SCH (08:47)
[2017-10-26] MEDS: GABAPENTIN 100 MG CAP PO SCH ×3 (08:48→21:00)
[2017-10-26] MEDS: SODIUM BICARBONATE 650 MG TAB PO SCH ×2 (08:48→17:00)
[2017-10-26] MEDS: PHOSPHORUS 250 MG TAB PO SCH (08:49)
[2017-10-26 10:00] LABS: BAND NEUTROPHILS % (MANUAL) 1 %; EOSINOPHILS % (MANUAL) 2 % (0-7); LYMPHOCYTES % (MANUAL) 6 % (19-48); MONOCYTES % (MANUAL) 9 % (3.4-9.0); NEUTROPHILS % (MANUAL) 82 % (40-74); PLATELET ESTIMATE ADEQUATE; PLATELET MORPHOLOGY COMMENT FEW LARGE; RBC MORPHOLOGY COMMENT ABNORMAL
[2017-10-26 10:01] LABS: ANISOCYTOSIS MODERATE; HYPOCHROMASIA SLIGHT; POIKILOCYTOSIS SLIGHT
--- NOTE | 2017-10-26 10:43 | Progress Note ---
DATE: October 26, 2017 REASON FOR CONSULTATION: End-stage renal disease. SUBJECTIVE: No acute events overnight. Pressor requirements and weaning down. OBJECTIVE VITAL SIGNS: Heart rate 92, respiratory rate 18, blood pressure 111/61, and 93% on 2 L nasal cannula. HEENT: NCAT. PERRLA. LUNGS: Decreased breath sounds at the bases. ABDOMEN: Soft, distended. Active bowel sounds. EXTREMITIES: No edema. LABS: Reviewed in electronic medical record. ASSESSMENT 1. End-stage renal disease: Patient with cardiogenic shock. Currently, the patient has been informed that he cannot be transferred to the hospital where his lead relay tester has been located. We will continue management here. Expressed to the patient and family difficulty in getting outpatient dialysis in the setting of significant right heart failure requiring inotropic support prior to dialysis. The patient and family will discuss this with each other further. 2. Hyperphosphatemia: Continue phos. Will repeat phos at 11 a.m. Job#: [id number] HI
--- NOTE | 2017-10-26 10:54 | Progress Note ---
REASON FOR CONSULTATION: End-stage renal disease. SUBJECTIVE: No acute events overnight. Remains on dopamine and Levophed; however, requirements are decreasing. OBJECTIVE VITAL SIGNS: Temperature 97.4, heart rate 89, respiratory rate 18, and O2 sat is 99% on 3 L nasal cannula. HEENT: NC, AT. EOMI. ABDOMEN: Less distended. Positive bowel sounds. EXTREMITIES: No edema. HEART: Regular rate and rhythm. S1, S2 normal. LABS: Reviewed on electronic medical record. Sodium 128, chloride 92, bicarb 20, and creatinine 5.5. PLAN 1. End-stage renal disease. 2. Electrolytes and volume status reviewed. No urgent indication for dialysis today. Has been getting daily dialysis/PUF/SLED. 3. Hyponatremia. We will place on fluid restriction of 1 liter. Otherwise, we will remove fluid with dialysis tomorrow. 4. Metabolic acidosis. Continue sodium bicarbonate. 5. Hypophosphatemia. Continue potassium phosphatase tablet. 6. Cardiogenic shock. Continue dopamine and Levophed. Job#: [id number] VAS
[2017-10-26] MEDS: DOPAMINE/DEXTROSE 250 ML IV SCH (13:45)
--- NOTE | 2017-10-26 13:47 | Progress Note ---
DATE: October 26, 2017 CARDIOLOGY PROGRESS NOTE SUBJECTIVE: Patient has no complaints. He remains on Levophed 4 mcg per minute and dopamine 10 mcg per kg per minute. He has not had a swallow evaluation. OBJECTIVE VITAL SIGNS: Temperature 98.6 degrees, pulse 92, respiratory rate 18, blood pressure 96/67, oxygen saturation 93% on 2 L nasal cannula. GENERAL: Awake, no acute distress. LUNGS: Decreased breath sounds in bilateral bases. No wheezes or crackles. CARDIOVASCULAR: Irregularly irregular, normal rate. Normal S1 and S2. Systolic murmur. ABDOMEN: Soft. EXTREMITIES: No edema. CARDIAC MEDICATIONS 1. Aspirin 81 mg p.o. daily. 2. Dopamine 10 mcg per kg per minute. 3. Levophed 4 mcg per minute. 4. Midodrine 20 mg p.o. t.i.d. TELEMETRY: Atrial fibrillation. LABS: WBC 14.3, hemoglobin 10.4, hematocrit 32.4, platelets 351. Sodium 136, potassium 3., chloride 98, CO2 23, BUN 24, creatinine 4.55. BNP 343. INR 1.38. IMPRESSION 1. Xsyrn-pe-csedljq systolic heart failure status post automatic implantable cardioverter-defibrillator. 1. Pulmonary hypertension. 2. Right-sided heart failure, acute on chronic. 1. End-stage renal disease on hemodialysis. 2. Atrial fibrillation. 3. Shock, mixed septic with component of cardiogenic on midodrine and vasopressor and inotropic support. 4. Cirrhosis. 5. Diabetes mellitus. 6. Right groin abscess. 7. Pneumonia. RECOMMENDATIONS: Continue antibiotic per infectious disease. Continue dopamine for inotropic support of the right ventricle. Wean Levophed as tolerated now that midodrine has been increased. Patient's baseline blood pressures are in the 80s to 90s. Will tolerate systolics in this range. Volume management per nephrology given end-stage renal disease. Attempting to remove volume to optimize RV function given the patient's volume-overloaded status and pulmonary hypertension. Resume warfarin. Swallow evaluation is pending. The patient's prognosis is poor. Thank you for this consult. We will continue to follow. Job#: [id number]
[2017-10-26] MEDS: TRAMADOL HCL 50 MG TAB PO PRN (16:45)
[2017-10-26] MEDS: CYCLOBENZAPRINE HCL 10 MG TAB PO PRN (16:45)
[2017-10-26] MEDS ORDERED: WARFARIN SOD 2 MG TAB ONE (17:26)
[2017-10-26] MEDS ORDERED: FUROSEMIDE INJ 10 MG/ML 2 ML VIAL IV ONE (18:00)
[2017-10-26] MEDS: WARFARIN SOD 2 MG TAB PO SCH (18:30)
[2017-10-27] VITALS (82 sets, daily range): BP systolic 57–191; BP diastolic 39–144
[2017-10-27] MEDS: CEFEPIME HCL 1 GM VIAL IV SCH ×2 (02:00→13:55)
[2017-10-27] MEDS: WATER STERILE 10 ML VIAL IV SCH ×2 (02:00→13:56)
[2017-10-27 05:31] LABS: BASOPHILS # (AUTO) 0.1 (0.0-0.1); BASOPHILS % 0.4 % (0.0-1.0); EOSINOPHILS # (AUTO) 0.2 (0.0-0.4); EOSINOPHILS % 1.4 % (0.0-6.0); HEMATOCRIT 30.4 % (38.2-49.6); LYMPHOCYTES # (AUTO) 0.8 (1.0-3.2); LYMPHOCYTES % 5.3 % (18.0-39.1); MEAN CORPUSCULAR HEMOGLOBIN 22.8 pg (28-32); MEAN CORPUSCULAR HGB CONC 32.9 g/dL (31-35); MEAN CORPUSCULAR VOLUME 69.2 fL (81-99); MONOCYTES # (AUTO) 2.1 (0.2-0.8); MONOCYTES % 14.6 % (4.4-11.3); NEUTROPHILS # (AUTO) 11.3 (2.1-6.9); NEUTROPHILS % 77.8 % (38.7-80.0); PLATELET COUNT 362 x10e3/uL (140-360); RED BLOOD COUNT 4.39 x10e6/uL (4.3-5.7)
[2017-10-27 05:50] LABS: CALCIUM 10.6 mg/dL (8.4-10.2); CREATININE, SERUM 6.06 mg/dL (0.72-1.25); MAGNESIUM 2.1 MG/DL (1.3-2.1)
[2017-10-27] MEDS: INSULIN REGULAR, HUMAN 100 UNIT/1 ML 3ML VIAL SQ SCH ×5 (06:00→18:00)
[2017-10-27] MEDS: PANTOPRAZOLE SOD 40 MG TABEC PO SCH (07:30)
[2017-10-27] MEDS: DOPAMINE/DEXTROSE 250 ML IV SCH (07:35)
[2017-10-27] MEDS: MIDODRINE HCL 5 MG TABLET PO SCH ×3 (07:44→16:00)
[2017-10-27 07:51] LABS: EOSINOPHILS % (MANUAL) 1 % (0-7); LYMPHOCYTES % (MANUAL) 4 % (19-48); MONOCYTES % (MANUAL) 12 % (3.4-9.0); MYELOCYTES % (MANUAL) 2 % (0-0); NEUTROPHILS % (MANUAL) 81 % (40-74)
[2017-10-27 07:53] LABS: ANISOCYTOSIS SLIGHT; HYPOCHROMASIA SLIGHT; PLATELET ESTIMATE ADEQUATE; PLATELET MORPHOLOGY COMMENT NORMAL; RBC MORPHOLOGY COMMENT ABNORMAL
[2017-10-27] MEDS: PHOSPHORUS 250 MG TAB PO SCH (09:00)
[2017-10-27] MEDS: ASPIRIN 81 MG CHEW TAB PO SCH (09:00)
[2017-10-27] MEDS: GABAPENTIN 100 MG CAP PO SCH ×3 (09:00→20:42)
[2017-10-27] MEDS: SODIUM BICARBONATE 650 MG TAB PO SCH ×2 (09:00→17:00)
--- NOTE | 2017-10-27 12:23 | Progress Note ---
DATE: October 27, 2017 CARDIOLOGY PROGRESS NOTE SUBJECTIVE: Sleeping comfortably today. Undergoing dialysis. Still on dopamine drip at 10 mcg per kg per minute. OBJECTIVE: VITAL SIGNS: Temperature 97 degrees, heart rate 93, respiratory rate 20, blood pressure 103/67, O2 sat 97% on nasal cannula. GENERAL: No acute distress. Alert. CHEST: Decreased breath sounds bilateral bases. CARDIOVASCULAR: Irregularly irregular rate and rhythm. Normal S1 and S2. Systolic ejection murmur. ABDOMEN: Soft. EXTREMITIES: Trace edema. Warm distal extremities. CARDIOVASCULAR MEDICATIONS: Aspirin 81 mg daily. Warfarin 4 mg daily. Dopamine. LABS: Reviewed. White blood cells 14, hemoglobin 10, platelets 362. INR 1.3. Creatinine 6.0. Potassium 4. Glucose 138. ASSESSMENT: 1. Acute on chronic systolic heart failure status post automatic implantable cardioverter-defibrillator. 1. Pulmonary hypertension. 2. Right-sided heart failure, acute on chronic. 3. End-stage renal disease on dialysis. 4. Atrial fibrillation. 5. Shock, mixed septic with a component of cardiogenic, on max dose midodrine, vasopressor and inotropic support. 6. Cirrhosis. 7. Diabetes mellitus. 8. Right groin abscess. 9. Pneumonia. PLAN: Overall guarded prognosis. Continue antibiotics. Continue supportive care. Wean pressors as tolerated. Continue discussions with patient's family members. Job#: [id number] MEMO
[2017-10-27] MEDS: WARFARIN SOD 2 MG TAB PO SCH (16:22)
--- NOTE | 2017-10-27 18:36 | Progress Note ---
DATE: October 27, 2017 SUBJECTIVE: The patient is followed for end-stage renal disease on hemodialysis Wednesday, Wednesday and Wednesday. The patient has been taken off pressors. The patient is requiring dialysis Wednesday, Wednesday and Wednesday and additional days for ultrafiltration. He had about 1250 mL of fluid removed. No nausea, no vomiting, no shortness of breath. OBJECTIVE VITAL SIGNS: Noted and are stable. LUNGS: Minimal rales at the bases bilaterally. CARDIOVASCULAR: S1 and S2 and no rub. ABDOMEN: Soft and nontender. EXTREMITIES: No edema. LABORATORY DATA: Potassium 4, BUN 22, creatinine 6.06, calcium 10.6, magnesium 2.1, phosphorous not available today. BNP 381. IMPRESSION AND PLAN 1. End-stage renal disease. Continue to provide dialysis Wednesday, Wednesday and Wednesday and additional days as necessary. Also alternate days for possible as needed based on hemodynamics. 2. Hypertension/hypotension. Continue Midodrine. 3. Hypercalcemia, unclear cause but could be from prolonged immobilization. Will check intact PTH level. 4. Further recommendations. 1. Hypophosphatemia being replaced with Nutrophos. 6. Fluid overload. Will do a followup chest x-ray and make further recommendations. Job#: [id number]
[2017-10-27] MEDS ORDERED: IOPAMIDOL 370 MG/ML 200 ML INFUS..BTL INJ ONE (22:34)
[2017-10-27] MEDS ORDERED: SODIUM CHLORIDE 0.9% 50ML 50 ML ONE (22:34)
[2017-10-28] VITALS (80 sets, daily range): BP systolic 54–123; BP diastolic 35–104
[2017-10-28] MEDS: INSULIN REGULAR, HUMAN 100 UNIT/1 ML 3ML VIAL SQ SCH ×4 (02:30→17:03)
[2017-10-28] MEDS: CEFEPIME HCL 1 GM VIAL IV SCH ×2 (02:36→14:39)
[2017-10-28] MEDS: WATER STERILE 10 ML VIAL IV SCH ×2 (02:37→14:39)
[2017-10-28] MEDS ORDERED: ARTIFICIAL TEARS (OPTH) 15 ML BTL OU PRN (06:00)
--- NOTE | 2017-10-28 06:56 | Diagnostic Imaging Report ---
EXAM: CHEST SINGLE (PORTABLE), AP 1 view DATE: 10/28/2017 6:00 AM Time stamp on exam: 0528 hours INDICATION: CHF, AMS COMPARISON: AP view of the chest October 26, 2017 FINDINGS: LINES/TUBES: Stable position of right approach single chamber cardiac device. Stable right internal jugular vein central line. LUNGS: Stable bilateral interstitial and annular opacities and bibasilar atelectasis. PLEURA: Indeterminate for layering of bilateral pleural effusions. HEART AND MEDIASTINUM: Stable enlargement of the cardiomediastinal silhouette. BONES AND SOFT TISSUES: Contrast material projects over the stomach. IMPRESSION: No interval change. Signed by: Dr. Lyn Lorenzo M.D. on 10/28/2017 6:52 AM
--- NOTE | 2017-10-28 07:21 | Diagnostic Imaging Report ---
PROCEDURE:MODIFIED BA. SWALLOW INDICATION:Course vocal quality intermittent dysphonia. COMPARISON:None. TECHNIQUE:Modified barium swallow was performed in conjunction with speech pathology. Various viscosities of barium and barium coated food items were administered under fluoroscopic observation. Fluoroscopy time: 2 minutes 39 seconds. Cumulative air kerma: 5.21 mGy FINDINGS: The there is recurrent silent aspiration of nectar thick liquids in association with laryngeal penetration. Premature spillage into the vallecula and piriform sinus is noted with with minimal to moderate vallecular and piriform sinus residue. CONCLUSION: Silent aspiration with nectar thick liquids. Dictated by: Nito Fernandez M.D. on 10/28/2017 at 7:29 Electronically approved by: Nito Fernandez M.D. on 10/28/2017 at 7:29
[2017-10-28] MEDS: PANTOPRAZOLE SOD 40 MG TABEC PO SCH (07:47)
[2017-10-28] MEDS: MIDODRINE HCL 5 MG TABLET PO SCH ×3 (08:00→16:35)
[2017-10-28] MEDS: ASPIRIN 81 MG CHEW TAB PO SCH (08:22)
[2017-10-28] MEDS: PHOSPHORUS 250 MG TAB PO SCH (08:22)
[2017-10-28] MEDS: GABAPENTIN 100 MG CAP PO SCH ×3 (08:22→21:21)
[2017-10-28] MEDS: SODIUM BICARBONATE 650 MG TAB PO SCH ×2 (08:22→16:35)
[2017-10-28 09:15] LABS: ANION GAP 18.8 mmol/L (8-16); CALCIUM 10.4 mg/dL (8.4-10.2); CREATININE, SERUM 4.76 mg/dL (0.72-1.25); MAGNESIUM 2.2 MG/DL (1.3-2.1); PHOSPHORUS 3.5 MG/DL (2.3-4.7); POTASSIUM 3.8 mmol/L (3.5-5.1)
[2017-10-28 11:31] LABS: BASOPHILS # (AUTO) 0.1 (0.0-0.1); BASOPHILS % 0.4 % (0.0-1.0); EOSINOPHILS # (AUTO) 0.3 (0.0-0.4); EOSINOPHILS % 1.7 % (0.0-6.0); HEMATOCRIT 32.4 % (38.2-49.6); HEMOGLOBIN 10.4 g/dL (14.0-18.0); LYMPHOCYTES # (AUTO) 0.9 (1.0-3.2); LYMPHOCYTES % 6.4 % (18.0-39.1); MEAN CORPUSCULAR HEMOGLOBIN 22.4 pg (28-32); MEAN CORPUSCULAR HGB CONC 32.1 g/dL (31-35); MEAN CORPUSCULAR VOLUME 69.7 fL (81-99); MONOCYTES # (AUTO) 2.3 (0.2-0.8); NEUTROPHILS # (AUTO) 10.7 (2.1-6.9); NEUTROPHILS % 74.9 % (38.7-80.0); PLATELET COUNT 352 x10e3/uL (140-360); RED BLOOD COUNT 4.65 x10e6/uL (4.3-5.7); RED CELL DISTRIBUTION WIDTH 17.5 % (11.7-14.4)
--- NOTE | 2017-10-28 14:37 | Diagnostic Imaging Report ---
PROCEDURE:CT ABDOMEN AND PELVIS WITH CONTRAST COMPARISON:[facility], CT, CT ABDOMEN/PELVIS W, 08/18/2013, 14:51. INDICATIONS:Left groin abscess TECHNIQUE: Routine protocol Volumetric CT abdomen and pelvis after administration of 100 mL Isovue-370 intravenous contrast. No enteric contrast. Multiplanar reformatted images. DLP: 594.95 FINDINGS: Bibasilar airspace opacities. No pleural effusions. Four-chamber cardiomegaly without pericardial effusion. Indwelling AICD. Liver: Diffusely enlarged, with a craniocaudal span of 16.5 cm. Gallbladder: Trace dependent sludge or gravel stones. No bile duct dilation. Pancreas: Normal Spleen: Nodular contour consistent with sequela of remote infarct. Adrenal glands: 1.2 cm left medial limb nodule with an attenuation of 56HU. Otherwise, normal bilaterally. Kidneys: Bilateral atrophy; otherwise, normal. Normal ureters. Urinary bladder: Decompressed Prostate and seminal vesicles: Normal. Bilateral vasectomy clips Bowel: Normal caliber. Diverticulosis of the ascending colon. Peritoneum: Small volume ascites. Vasculature: Multifocal zby-vcdh-nycmhwuu atherosclerosis of the abdominal aorta, SMA and renal artery origins. Bilateral internal iliac and splenic artery arteriosclerosis. Lymph nodes: Normal Skeleton: Intact. Multilevel degenerative disc disease. Soft tissues: Normal. CONCLUSION: 1. No evidence of abscess. 2. Hepatomegaly with small volume ascites. 3. Left adrenal nodule, statistically a benign adenoma given stability since 2012. 4. Bilateral lower lobe airspace opacities consistent with atelectasis with or without superimposed pneumonia. 5. Cardiomegaly. Dictated by: Nito Fernandez M.D. on 10/28/2017 at 14:46 Electronically approved by: Nito Fernandez M.D. on 10/28/2017 at 14:46
[2017-10-28] MEDS: DOPAMINE/DEXTROSE 250 ML IV SCH (14:47)
[2017-10-28 16:56] LABS: INR 1.49; PROTHROMBIN TIME 18.8 seconds (11.9-14.5)
[2017-10-28] MEDS: WARFARIN SOD 2 MG TAB PO SCH (16:59)
--- NOTE | 2017-10-28 17:01 | Progress Note ---
DATE: October 28, 2017 RENAL PROGRESS NOTE SUBJECTIVE: Followed for end-stage renal disease. Tolerating dialysis Wednesday, Wednesday and Wednesday. Remains on low-dose dopamine. Blood pressures are marginal. has decided on hospice care. The patient does not require dialysis today. No nausea and no vomiting. No shortness of breath. Clinically, he does not appear to be fluid overloaded. OBJECTIVE VITAL SIGNS: Have been noted and are stable. LUNGS: Minimal rales at the bases. CARDIOVASCULAR: S1 and S2, no rub. ABDOMEN: Soft and nontender. EXTREMITIES: No edema. LABORATORY DATA: Still pending from today. IMPRESSION AND PLAN 1. End-stage renal disease. Continue dialysis Wednesday, Wednesday and Wednesday and p.r.n. for fluid overload as well as by blood pressure. The patient's has decided on hospice care. Decision for continued dialysis outpatient will be based on family's discussion with the patient's primary senior teradata developer. 2. Hypotension on low-dose dopamine. Will plan to do dialysis in the morning if the patient is here. 3. is currently stable. 4. Labs are pending from today. Will make further recommendations. Job#: [id number]
[2017-10-29] VITALS (102 sets, daily range): BP systolic 55–129; BP diastolic 30–113
[2017-10-29] MEDS: CEFEPIME HCL 1 GM VIAL IV SCH ×2 (02:25→14:00)
[2017-10-29] MEDS: WATER STERILE 10 ML VIAL IV SCH ×2 (02:25→14:00)
[2017-10-29] MEDS: DOPAMINE/DEXTROSE 250 ML IV SCH (03:47)
[2017-10-29 05:59] LABS: BASOPHILS # (AUTO) 0.1 (0.0-0.1); BASOPHILS % 0.6 % (0.0-1.0); EOSINOPHILS # (AUTO) 0.2 (0.0-0.4); EOSINOPHILS % 1.6 % (0.0-6.0); HEMOGLOBIN 9.6 g/dL (14.0-18.0); LYMPHOCYTES # (AUTO) 0.9 (1.0-3.2); LYMPHOCYTES % 7.2 % (18.0-39.1); MEAN CORPUSCULAR HEMOGLOBIN 22.5 pg (28-32); MEAN CORPUSCULAR HGB CONC 33.1 g/dL (31-35); MEAN CORPUSCULAR VOLUME 68.1 fL (81-99); MONOCYTES # (AUTO) 1.8 (0.2-0.8); MONOCYTES % 14.5 % (4.4-11.3); NEUTROPHILS # (AUTO) 9.4 (2.1-6.9); NEUTROPHILS % 75.1 % (38.7-80.0); PLATELET COUNT 382 x10e3/uL (140-360); RED BLOOD COUNT 4.26 x10e6/uL (4.3-5.7); RED CELL DISTRIBUTION WIDTH 16.7 % (11.7-14.4)
[2017-10-29] MEDS: INSULIN REGULAR, HUMAN 100 UNIT/1 ML 3ML VIAL SQ SCH ×4 (06:06→18:00)
--- NOTE | 2017-10-29 06:11 | Progress Note ---
DATE: October 29, 2017 TIME: 5:50 a.m. OVERNIGHT: No events. REVIEW OF SYSTEMS: Unobtainable. PHYSICAL EXAMINATION VITAL SIGNS: Reviewed. Blood pressure 89/54. GENERAL: A tired-appearing man resting in bed. HEENT: Anicteric. CARDIOVASCULAR: Normal S1 and S2. LUNGS: Moderate breath sounds. ABDOMEN: Soft, nontender and nondistended. EXTREMITIES: No edema. SKIN: Dry. PSYCHIATRIC: Flat affect. LABS: Reviewed. MEDICATIONS: Reviewed. ASSESSMENT: A 67-year-old man with: 1. Septic shock. 2. Cardiogenic shock. 3. End-stage renal disease, on hemodialysis. 4. Chronic atrial fibrillation. 5. Diabetes mellitus, type 2: Hemoglobin A1c 5.3, LDL 133. 6. Chronic systolic and diastolic congestive heart failure. 7. Cardiorenal syndrome. 8. Cirrhosis of the liver. 9. Skin tear to the right groin. 10. Elevated troponin. 11. Microcytic anemia. 12. Peripheral neuropathy. PLAN 1. The patient now on 2 pressors. Continue dopamine double strength. 2. Continue dialysis per nephrology. 3. Leukocytosis persists. 4. Glucose ranging from 137 to 214. 5. Continue IV cefepime and IV vancomycin. 6. Patient is on Coumadin. INR subtherapeutic. Continue Coumadin 4 mg. Will titrate for a goal INR of 2-3. 7. Continue digoxin. 8. Continue midodrine. 9. Critical care time more than 35 minutes. Discharge planning to LTAC. Job#: [id number] MONTSE
[2017-10-29 06:30] LABS: ANION GAP 22.9 mmol/L (8-16); CALCIUM 10.1 mg/dL (8.4-10.2); CREATININE, SERUM 5.86 mg/dL (0.72-1.25); MAGNESIUM 2.2 MG/DL (1.3-2.1); PHOSPHORUS 4.3 MG/DL (2.3-4.7); POTASSIUM 3.9 mmol/L (3.5-5.1)
[2017-10-29] MEDS: PANTOPRAZOLE SOD 40 MG TABEC PO SCH (07:30)
--- NOTE | 2017-10-29 07:39 | Progress Note ---
DATE: October 28, 2017 CARDIOLOGY PROGRESS NOTE SUBJECTIVE: Patient responds "yes" to all questions. OBJECTIVE VITAL SIGNS: Temperature 98.6 degrees, pulse 106, respiratory rate 20, blood pressure 92/59, oxygen saturation 99% on nasal cannula. GENERAL: Awake. No acute distress. LUNGS: Decreased breath sounds at bilateral bases. CARDIOVASCULAR: Irregularly irregular, normal rate. Normal S1 and S2. Systolic murmur. ABDOMEN: Soft. EXTREMITIES: No edema. CARDIAC MEDICATIONS 1. Aspirin 81 mg p.o. daily. 2. Warfarin 4 mg p.o. daily. 3. Midodrine 20 mg p.o. t.i.d. LABS: WBC 14.3, hemoglobin 10.4, hematocrit 32.4, platelets 352. Sodium 134, potassium 3.8, chloride 96, CO2 23, BUN 28, creatinine 4.76. INR is pending. Modified barium swallow with silent aspiration with nectar-thick liquids. CT abdomen and pelvis without evidence of abscess, hepatomegaly, small-volume ascites, left adrenal nodule specifically a benign adenoma given situation in 2012, bilateral lower lobe air-space opacities consistent with atelectasis with or without superimposed pneumonia, cardiomegaly. TELEMETRY: Atrial fibrillation. IMPRESSION 1. Htjdz-me-ixvpxeh systolic heart failure status post automatic implantable cardioverter-defibrillator. 2. Pulmonary hypertension. 3. Right-sided heart failure, acute on chronic. 4. End-stage renal disease on hemodialysis. 5. Atrial fibrillation. 6. Shock, mixed septic with a component of cardiogenic, now on max dose midodrine and inotropic support. 7. Cirrhosis. 8. Diabetes mellitus. 9. Right groin abscess. 10. Pneumonia. RECOMMENDATIONS: Prognosis is guarded. Continue antibiotics per Infectious Disease. Weaned off Levophed. Will attempt to wean off dopamine. Barium swallow results noted. Await recommendations from Speech Pathology. Aspiration pneumonia likely explaining patient's continued leukocytosis and need for vasopressor support. Thank you for this consult. We will continue to follow. Job#: [id number] EV
[2017-10-29] MEDS: MIDODRINE HCL 5 MG TABLET PO SCH ×3 (08:00→17:04)
[2017-10-29] MEDS: SODIUM BICARBONATE 650 MG TAB PO SCH ×2 (09:00→17:04)
[2017-10-29] MEDS: ASPIRIN 81 MG CHEW TAB PO SCH (09:00)
[2017-10-29] MEDS: GABAPENTIN 100 MG CAP PO SCH ×3 (09:00→20:22)
[2017-10-29] MEDS: PHOSPHORUS 250 MG TAB PO SCH (09:00)
[2017-10-29] MEDS: CYCLOBENZAPRINE HCL 10 MG TAB PO PRN (10:16)
--- NOTE | 2017-10-29 10:17 | Diagnostic Imaging Report ---
History:Altered mental status Comparison studies:None Technique: Axial images were obtained from the skull base to the vertex. Coronal and sagittal images reconstructed from the axial data. Intravenous contrast: None Findings: Scalp/skull: No abnormalities. Extra-axial spaces: No masses. No fluid collections. Brain sulci: Mildly prominent. Ventricles: Mild compensatory dilatation. No hydrocephalus. Parenchyma: Subtle hypodensities are small vessel ischemic changes. No masses, hemorrhage, acute or chronic cortical vascular insults. Sellar/suprasellar region: No abnormalities. Craniocervical junction: Patent foramen magnum. No Chiari one malformation. Incidental findings: Atherosclerotic calcifications in the carotid siphons. Retained contrast from a previous study. Impression: No acute abnormalities. Chronic findings: 1. Mild generalized volume loss. 2. Mild supratentorial white matter small vessel ischemic changes. Preliminary report provided by Dr. Camacho on 10/29/2017 at 0950 hours. Final report by Dr. Mccray on 10/29/2017 at 1012 hours. Signed by: Dr. Jluis Deleon M.D. on 10/29/2017 10:13 AM
--- NOTE | 2017-10-29 14:51 | Progress Note ---
DATE: October 29, 2017 CARDIOLOGY PROGRESS NOTE SUBJECTIVE: Patient denies chest pain or shortness of breath. He complains of right calf pain. He is being evaluated for transfer to [facility]. OBJECTIVE VITAL SIGNS: Temperature 97.4 degrees, pulse 86, respiratory rate 16, blood pressure 90/53, oxygen saturation 98% on 3 L nasal cannula. GENERAL: Cachectic, chronically ill-appearing man in no acute distress. LUNGS: Decreased breath sounds at bilateral bases. CARDIOVASCULAR: Irregularly irregular, normal rate. Normal S1 and S2. Systolic murmur. ABDOMEN: Soft. EXTREMITIES: No edema. CARDIAC MEDICATIONS 1. Aspirin 81 mg p.o. daily. 2. Warfarin 4 mg p.o. daily. LABS: WBC 12.45, hemoglobin 9.6, hematocrit 29, platelets 382. Sodium 131, potassium 3.9, chloride 93, CO2 19, BUN 37, creatinine 5.86. TELEMETRY: Atrial fibrillation, rate controlled. IMPRESSION 1. Fjbvf-lg-reluhaf systolic heart failure status post automatic implantable cardioverter-defibrillator. 2. Pulmonary hypertension. 3. Right-sided heart failure, acute on chronic. 4. End-stage renal disease on hemodialysis. 5. Atrial fibrillation. 6. Shock, mixed septic with a component of cardiogenic, now on max dose midodrine and inotropic support. 7. Cirrhosis. 8. Diabetes mellitus. 9. Right groin abscess. 10. Aspiration pneumonia. RECOMMENDATIONS: Prognosis is guarded. Continue antibiotics per infectious disease. He has been weaned off Levophed. Will attempt to wean off dopamine. Thank you for this consult. We will continue to follow. Job#: [id number]
[2017-10-29] MEDS: WARFARIN SOD 2 MG TAB PO SCH (17:04)
[2017-10-29] MEDS: DIPHENHYDRAMINE HCL 25 MG CAP PO PRN (20:22)
[2017-10-30] VITALS (97 sets, daily range): BP systolic 43–146; BP diastolic 31–129
[2017-10-30] MEDS: INSULIN REGULAR, HUMAN 100 UNIT/1 ML 3ML VIAL SQ SCH ×4 (01:07→18:26)
[2017-10-30] MEDS: CEFEPIME HCL 1 GM VIAL IV SCH ×2 (02:00→14:26)
[2017-10-30] MEDS: WATER STERILE 10 ML VIAL IV SCH ×2 (02:00→14:26)
[2017-10-30 06:05] LABS: BASOPHILS # (AUTO) 0.1 (0.0-0.1); BASOPHILS % 0.4 % (0.0-1.0); EOSINOPHILS # (AUTO) 0.2 (0.0-0.4); EOSINOPHILS % 1.3 % (0.0-6.0); HEMATOCRIT 32.4 % (38.2-49.6); HEMOGLOBIN 10.5 g/dL (14.0-18.0); LYMPHOCYTES # (AUTO) 0.7 (1.0-3.2); LYMPHOCYTES % 5.5 % (18.0-39.1); MEAN CORPUSCULAR HEMOGLOBIN 22.1 pg (28-32); MEAN CORPUSCULAR HGB CONC 32.4 g/dL (31-35); MEAN CORPUSCULAR VOLUME 68.2 fL (81-99); MONOCYTES # (AUTO) 1.9 (0.2-0.8); MONOCYTES % 15.2 % (4.4-11.3); NEUTROPHILS # (AUTO) 9.5 (2.1-6.9); NEUTROPHILS % 76.9 % (38.7-80.0); PLATELET COUNT 394 x10e3/uL (140-360); RED BLOOD COUNT 4.75 x10e6/uL (4.3-5.7); RED CELL DISTRIBUTION WIDTH 17.1 % (11.7-14.4)
[2017-10-30 06:29] LABS: ANION GAP 20.8 mmol/L (8-16); CALCIUM 10.2 mg/dL (8.4-10.2); CREATININE, SERUM 4.37 mg/dL (0.72-1.25); POTASSIUM 3.8 mmol/L (3.5-5.1)
[2017-10-30] MEDS: NOREPINEPHRINE BITARTRATE/ NS 250 ML IV PRN (07:00)
[2017-10-30 07:51] LABS: INR 1.71
[2017-10-30] MEDS: GABAPENTIN 100 MG CAP PO SCH ×3 (09:14→20:27)
[2017-10-30] MEDS: ASPIRIN 81 MG CHEW TAB PO SCH (09:14)
[2017-10-30] MEDS: SODIUM BICARBONATE 650 MG TAB PO SCH ×2 (09:14→16:23)
[2017-10-30] MEDS: MIDODRINE HCL 5 MG TABLET PO SCH ×3 (09:14→16:22)
[2017-10-30] MEDS: PANTOPRAZOLE SOD 40 MG TABEC PO SCH (09:14)
[2017-10-30] MEDS: PHOSPHORUS 250 MG TAB PO SCH (09:14)
[2017-10-30 10:33] LABS: ANISOCYTOSIS SLIGHT; BAND NEUTROPHILS % (MANUAL) 1 %; EOSINOPHILS % (MANUAL) 1 % (0-7); LYMPHOCYTES % (MANUAL) 6 % (19-48); MICROCYTOSIS SLIGHT; MONOCYTES % (MANUAL) 25 % (3.4-9.0); NEUTROPHILS % (MANUAL) 67 % (40-74); RBC MORPHOLOGY COMMENT ABNORMAL
[2017-10-30 10:34] LABS: HYPOCHROMASIA SLIGHT; PLATELET ESTIMATE ADEQUATE; PLATELET MORPHOLOGY COMMENT NORMAL; POIKILOCYTOSIS SLIGHT
[2017-10-30] MEDS: ALBUTEROL SULF 0.083% NEB SOLN 3 ML NEB NEB PRN (11:01)
--- NOTE | 2017-10-30 13:18 | Progress Note ---
DATE: October 29, 2017 RENAL PROGRESS NOTE SUBJECTIVE: Followed for end-stage renal disease on dialysis Wednesday/Wednesday/Wednesday and additional days as needed. Patient remains hypotensive. Patient remains on dopamine. Plan for the is for the patient to continue on dialysis, and she is trying to get him to a long-term acute care facility. Patient tolerating dialysis without any problems. He is asymptomatic. However, his systolic BP has been in the high 80s to low 90s mmHg. He is on dopamine. He is also getting midodrine. He is asymptomatic. OBJECTIVE VITAL SIGNS: Vital signs have been noted as per dialysis treatment sheet. LUNGS: Clear to auscultation bilaterally. CARDIOVASCULAR: S1 and S2. No rub. ABDOMEN: Soft, nontender. EXTREMITIES: No edema. LABS: Have all been reviewed. IMPRESSION AND PLAN 1. End-stage renal disease. Continue dialysis Wednesday/Wednesday/Wednesday, additional days as needed. However, will plan to do next dialysis on Wednesday next week, on November 01, 2017. 2. Hypotension. Continue midodrine. Continue on low-dose dopamine. 3. Anemia of chronic disease. Stable. Will continue to monitor. Thank you once again. Job#: [id number] EV
[2017-10-30] MEDS: DOPAMINE/DEXTROSE 250 ML IV SCH (14:30)
--- NOTE | 2017-10-30 15:41 | Progress Note ---
DATE: October 30, 2017 CARDIOLOGY PROGRESS NOTE SUBJECTIVE: Patient is confused, does not interact appropriately. OBJECTIVE VITAL SIGNS: Temperature 98.8 degrees, pulse 93, respiratory rate 18, oxygen saturation 100% on 3 liters nasal cannula. GENERAL: Cachectic, chronically ill-appearing man in no acute distress. LUNGS: Decreased breath sounds bilateral bases. No wheezes or crackles. CARDIOVASCULAR: Irregularly irregular, normal rate. Normal S1 and S2. Systolic murmur. ABDOMEN: Soft. EXTREMITIES: No edema. CARDIAC MEDICATIONS 1. Aspirin 81 mg p.o. daily. 2. Levophed 15 mcg per minute. 3. Dopamine 10 mcg/kg per minute. 4. Warfarin 4 mg p.o. daily. 5. Midodrine 20 mg p.o. t.i.d. LABS: WBC 12.37, hemoglobin 10.5, hematocrit 32.4, platelets 394. Sodium 135, potassium 3.8, chloride 95, CO2 23, BUN 24, creatinine 4.37. TELEMETRY: Atrial fibrillation with occasional episodes of rapid ventricular response. IMPRESSION 1. Faska-sy-wawociv systolic heart failure status post automatic implantable cardioverter-defibrillator. 2. Pulmonary hypertension. 3. Right-sided heart failure, acute on chronic. 4. End-stage renal disease on hemodialysis. 5. Atrial fibrillation. 6. Shock, mixed septic with component of cardiogenic, now on max-dose midodrine, inotropic and vasopressor support. 7. Cirrhosis. 8. Diabetes mellitus. 9. Aspiration pneumonia. 10. Right groin abscess. RECOMMENDATIONS: The patient appears euvolemic. Continue dopamine and Levophed for inotropic and vasopressor support. Volume management per Nephrology given end-stage renal disease. The patient's prognosis is poor. He is undergoing evaluation for transfer to [facility]. We are awaiting peer to peer. Thank you for this consult. We will continue to follow. Job#: [id number] EV
[2017-10-30] MEDS: WARFARIN SOD 2 MG TAB PO SCH (16:23)
--- NOTE | 2017-10-30 17:35 | Progress Note ---
DATE: October 30, 2017 RENAL PROGRESS NOTE SUBJECTIVE: Patient followed for end-stage renal disease. Doing dialysis Wednesday/Wednesday/Wednesday. However, patient remains unstable on 1 pressor yesterday, and now he is on 2 pressors today and systolic BP is marginal. Patient is less responsive today. I would recommend to consider hospice care. No current nausea, no current vomiting, no current shortness of breath. OBJECTIVE VITAL SIGNS: Vital signs have been noted. Blood pressure has been in the 80s to 90s but more currently in the 70s/30s. Pulse 80s. Patient is afebrile. LUNGS: Minimal rales at the bases bilaterally. CARDIOVASCULAR: S1 and S2. No rub. ABDOMEN: Soft, nontender. EXTREMITIES: No edema. LABS: Have been reviewed. Potassium 3.8, bicarb 23, BUN is 24, creatinine is 4.37. IMPRESSION AND PLAN 1. End-stage renal disease. The patient is back on 2 pressors now. Recommend to consider hospice care and would recommend comfort care measures only. Patient is less responsive today and too unstable to do any dialysis. For today there is no current indication for acute dialysis. Will reassess again on Wednesday, November 01, 2017. 2. Hypotension. Continue vasopressor support and continue midodrine. 3. Anemia of chronic disease, stable. Thank you once again. Job#: [id number] EV
[2017-10-30] MEDS: DIPHENHYDRAMINE HCL 25 MG CAP PO PRN (20:27)
[2017-10-31] VITALS (88 sets, daily range): BP systolic 46–122; BP diastolic 24–88
[2017-10-31] MEDS: INSULIN REGULAR, HUMAN 100 UNIT/1 ML 3ML VIAL SQ SCH ×4 (00:03→18:00)
[2017-10-31] MEDS: DOPAMINE/DEXTROSE 250 ML IV SCH ×2 (03:14→14:00)
[2017-10-31] MEDS: WATER STERILE 10 ML VIAL IV SCH ×2 (03:15→13:15)
[2017-10-31] MEDS: PHOSPHORUS 250 MG TAB PO SCH (08:15)
[2017-10-31] MEDS: LIDOCAINE 5% PATCH TP SCH (08:15)
[2017-10-31] MEDS: SODIUM BICARBONATE 650 MG TAB PO SCH ×2 (08:15→16:23)
[2017-10-31] MEDS: MIDODRINE HCL 5 MG TABLET PO SCH ×3 (08:15→16:23)
[2017-10-31] MEDS: PANTOPRAZOLE SOD 40 MG TABEC PO SCH (08:15)
[2017-10-31] MEDS: ASPIRIN 81 MG CHEW TAB PO SCH (08:15)
[2017-10-31] MEDS: GABAPENTIN 100 MG CAP PO SCH ×3 (08:15→21:00)
--- NOTE | 2017-10-31 10:14 | Progress Note ---
DATE: October 30, 2017 MEDICINE PROGRESS NOTE TIME OF SERVICE: 6 a.m. SUBJECTIVE: Overnight patient remains hypotensive. Blood pressure 91/59. REVIEW OF SYSTEMS: Unobtainable. VITAL SIGNS: Reviewed. PHYSICAL EXAMINATION GENERAL APPEARANCE: A tired-appearing man resting in bed. HEENT: Anicteric. CARDIOVASCULAR: Normal S1/S2. LUNGS: Moderate breath sounds. ABDOMEN: Soft, nontender, nondistended. EXTREMITIES: No edema or calf tenderness. NEUROLOGICALLY: Moves all extremities. SKIN: Dry. PSYCHIATRIC: Flat affect. LABS: Reviewed. MEDICATIONS: Reviewed. ASSESSMENT: A 67-year-old man. 1. Septic shock. 2. Cardiogenic shock. 3. End-stage renal disease on hemodialysis. 4. Chronic atrial fibrillation. 5. Diabetes mellitus type 2. 6. Chronic systolic and diastolic congestive heart failure. 7. Cardiorenal syndrome. 8. Cirrhosis of the liver. 9. Skin tear to the right groin. 10. Elevated troponin. 11. Microcytic anemia. 12. Peripheral neuropathy. PLAN 1. Continue pressors. 2. Continue diuresis per Nephrology. 3. Renal diet. 4. IV antibiotics. 5. Follow up INR. 6. Continue digoxin. 7. Critical care time more than 35 minutes. Job#: [id number] EV
--- NOTE | 2017-10-31 10:43 | Progress Note ---
DATE: October 31, 2017 MEDICINE PROGRESS NOTE TIME OF SERVICE: 5 a.m. SUBJECTIVE: Overnight no events. Patient remains on pressor. REVIEW OF SYSTEMS: Unobtainable. VITAL SIGNS: Reviewed. PHYSICAL EXAMINATION GENERAL APPEARANCE: A tired-appearing man resting in bed. HEENT: Anicteric. CARDIOVASCULAR: Normal S1/S2. LUNGS: Moderate breath sounds. ABDOMEN: Soft, nontender. EXTREMITIES: No edema. SKIN: Dry. PSYCHIATRIC: Flat affect. NEUROLOGICALLY: Moves all extremities. LABS: Reviewed. MEDICATIONS: Reviewed. ASSESSMENT: A 67-year-old man. 1. Septic shock. 2. Cardiogenic shock. 3. End-stage renal disease on hemodialysis. 4. Chronic atrial fibrillation/peripheral neuropathy. 5. Diabetes mellitus type 2. Hemoglobin A1c 5.3, LDL 133. 6. Chronic systolic and diastolic congestive heart failure/cardiorenal syndrome. 7. Cirrhosis of the liver. 8. Microcytic anemia. PLAN 1. Continue pressors. Patient on 2 pressors. 2. Continue dialysis per Nephrology. 3. Continue renal diet. 4. Continue IV cefepime, IV vancomycin. 5. Follow up INR. INR yesterday was 1.71, which is improving. 6. Critical care time more than 35 minutes. Job#: [id number] EV
[2017-10-31] MEDS: DIPHENHYDRAMINE HCL 25 MG CAP PO PRN (12:43)
[2017-10-31] MEDS: LACTULOSE SYRUP 20 GM/30 ML UDC PO PRN (12:43)
[2017-10-31] MEDS: CYCLOBENZAPRINE HCL 10 MG TAB PO PRN ×2 (12:43→21:00)
--- NOTE | 2017-10-31 15:28 | Progress Note ---
DATE: October 31, 2017 RENAL PROGRESS NOTE SUBJECTIVE: Patient is followed for end-stage renal disease. Patient had dialysis last on Wednesday. His dialysis next will be tomorrow. Patient remains on pressors. He remains on dopamine, which is doubly concentrated, as well as Levophed at low dose. Remains asymptomatic. Not in any respiratory distress. OBJECTIVE VITAL SIGNS: Vital signs have been noted. Last blood pressure was 85/55, pulse 95, afebrile. LUNGS: Minimal rates at the bases bilaterally. CARDIOVASCULAR: S1 and S2. No rub. ABDOMEN: Soft, nontender. EXTREMITIES: No edema. LABS: Are not available from today. IMPRESSION AND PLAN 1. End-stage renal disease. Will plan to do dialysis tomorrow. In light of the fact that he is back on multiple pressors, consideration for hospice would be appropriate. For now the wishes to continue dialysis and continue acute treatment. 2. Hypotension. Continue midodrine. Continue dopamine and Levophed. 3. Anemia of chronic disease, stable. Thank you once again. Job#: [id number] EV
[2017-10-31] MEDS: WARFARIN SOD 2 MG TAB PO SCH (16:23)
[2017-10-31] MEDS: ALBUTEROL SULF 0.083% NEB SOLN 3 ML NEB NEB PRN (19:20)
[2017-10-31] MEDS: ONDANSETRON HCL INJ 2 MG/ML VIAL IV PRN (21:00)
[2017-11-01] VITALS (169 sets, daily range): BP systolic 56–181; BP diastolic 24–158
[2017-11-01] MEDS: INSULIN REGULAR, HUMAN 100 UNIT/1 ML 3ML VIAL SQ SCH ×4 (00:37→18:21)
[2017-11-01] MEDS: WATER STERILE 10 ML VIAL IV SCH ×2 (02:00→13:04)
[2017-11-01 05:44] LABS: BASOPHILS # (AUTO) 0.1 (0.0-0.1); BASOPHILS % 0.4 % (0.0-1.0); EOSINOPHILS # (AUTO) 0.3 (0.0-0.4); EOSINOPHILS % 1.8 % (0.0-6.0); HEMATOCRIT 26.6 % (38.2-49.6); HEMOGLOBIN 8.7 g/dL (14.0-18.0); LYMPHOCYTES % 7.1 % (18.0-39.1); MEAN CORPUSCULAR HEMOGLOBIN 22.5 pg (28-32); MEAN CORPUSCULAR HGB CONC 32.7 g/dL (31-35); MEAN CORPUSCULAR VOLUME 68.7 fL (81-99); MONOCYTES # (AUTO) 2.4 (0.2-0.8); MONOCYTES % 16.7 % (4.4-11.3); NEUTROPHILS # (AUTO) 10.5 (2.1-6.9); NEUTROPHILS % 73.4 % (38.7-80.0); PLATELET COUNT 336 x10e3/uL (140-360); RED BLOOD COUNT 3.87 x10e6/uL (4.3-5.7); RED CELL DISTRIBUTION WIDTH 16.5 % (11.7-14.4)
[2017-11-01 06:02] LABS: CALCIUM 9.9 mg/dL (8.4-10.2); CREATININE, SERUM 7.3 mg/dL (0.72-1.25)
[2017-11-01] MEDS: ALBUTEROL SULF 0.083% NEB SOLN 3 ML NEB NEB PRN ×2 (07:00→19:15)
[2017-11-01] MEDS: PANTOPRAZOLE SOD 40 MG TABEC PO SCH (08:30)
--- NOTE | 2017-11-01 08:32 | Progress Note ---
DATE: October 31, 2017 CARDIOLOGY PROGRESS NOTE SUBJECTIVE: Patient continues to be confused, is awake, but does not really respond to questions. OBJECTIVE: VITAL SIGNS: Temperature 99.2 degrees, pulse 93, respiratory rate 18, blood pressure 85/55, oxygen saturation 100% on 3 L nasal cannula. GENERAL: Cachectic, jeupqjimmlm-jbg-pqdcizame man, in no acute distress. LUNGS: Decreased breath sounds at bilateral bases. No wheezes or crackles. CARDIOVASCULAR: Irregularly irregular. Tachycardic. Normal S1 and S2 with systolic murmur. ABDOMEN: Soft. EXTREMITIES: No edema. CARDIAC MEDICATIONS: 1. Aspirin 81 mg p.o. daily. 2. Warfarin 4 mg p.o. daily. 3. Levophed 6 mcg per minute. 4. Dopamine 10 mcg/kg per minute. 5. Midodrine 20 mg p.o. t.i.d. LABS: None today. TELEMETRY: Atrial fibrillation, with rapid ventricular response. IMPRESSION: 1. Qsaun-ro-cdrddrn systolic heart failure, status post automatic implantable cardioverter-defibrillator. 2. Pulmonary hypertension. 3. Right-sided heart failure, qnuto-ch-hjmyqji. 4. End-stage renal disease, on hemodialysis. 5. Atrial fibrillation. 6. Shock, mixed septic with component of cardiogenic, now on max dose of midodrine, inotropic and vasopressor support. 7. Cirrhosis. 8. Diabetes mellitus. 9. Aspiration pneumonia. 10. Right groin abscess. RECOMMENDATIONS: The patient appears euvolemic. Continue dopamine and Levophed for inotropic and vasopressor support. Volume management per nephrology given end-stage renal disease. The patient's prognosis is poor. Antibiotics per primary service. He is undergoing evaluation for transfer to [facility], we are awaiting peer to peer. Thank you for this consult. We will continue to follow. Job#: [id number]
[2017-11-01] MEDS: PHOSPHORUS 250 MG TAB PO SCH (08:43)
[2017-11-01] MEDS: ASPIRIN 81 MG CHEW TAB PO SCH (08:43)
[2017-11-01] MEDS: MIDODRINE HCL 5 MG TABLET PO SCH ×3 (08:43→16:50)
[2017-11-01] MEDS: GABAPENTIN 100 MG CAP PO SCH ×3 (08:43→21:00)
[2017-11-01] MEDS: SODIUM BICARBONATE 650 MG TAB PO SCH ×2 (08:43→16:23)
[2017-11-01] MEDS: LIDOCAINE 5% PATCH TP SCH (09:52)
[2017-11-01 11:28] LABS: LYMPHOCYTES % (MANUAL) 7 % (19-48); MONOCYTES % (MANUAL) 13 % (3.4-9.0); NEUTROPHILS % (MANUAL) 80 % (40-74); PLATELET ESTIMATE SLIGHTLY INCREASED; PLATELET MORPHOLOGY COMMENT NORMAL; RBC MORPHOLOGY COMMENT NORMAL
--- NOTE | 2017-11-01 14:11 | Progress Note ---
DATE: November 01, 2017 SUBJECTIVE: The patient remains confused. He is receiving hemodialysis. OBJECTIVE VITAL SIGNS: Temperature 98.7 degrees, pulse 112, respiratory rate 18, blood pressure 97/60. Oxygen saturation 100% on 3 liters nasal cannula. GENERAL: Cachectic, chronically ill-appearing men in no acute distress. LUNGS: Decreased breath sounds at the bases. No wheezes or crackles. CARDIOVASCULAR: Irregularly irregular, tachycardiac. Normal S1 and S2. A systolic murmur. ABDOMEN: Soft. EXTREMITIES: No edema. CARDIAC MEDICATIONS: 1. Aspirin 81 mg p.o. daily. 2. Warfarin 4 mg p.o. daily. 3. Dopamine 10 mcg/kg per minute. 4. Levophed 15 mcg a minute. 5. 20 mg p.o. t.i.d. LABS: WBC 14.27, hemoglobin 8.7, hematocrit 26.6, platelets 336,000, sodium 132, potassium 4, chloride 92, CO2 of 23, BUN 64, creatinine 7.3. TELEMETRY: Atrial fibrillation with rapid ventricular response. IMPRESSION: 1. Acute on chronic systolic heart failure, status post AICD. 2. Pulmonary hypertension. 3. Congestive heart failure, gxolf-nv-mixrjwi. 4. End-stage renal disease on hemodialysis. 5. Atrial fibrillation. 6. Shock, mixed septic with complaint of on max dose of , inotropic and vasopressor support. 7. Cirrhosis. 8. Diabetes mellitus. 9. Aspiration pneumonia. 10. Right groin abscess. RECOMMENDATIONS: The patient appears euvolemic. Continue dopamine and Levophed for inotropic and vasopressor support. Wean pressors once off dialysis. Volume management per nephrology given end-stage renal disease. Antibiotics per primary service. He is undergoing evaluation for transfer to [facility]. We are waiting. The patient's prognosis is poor. Thank you for this consult. We will continue to follow. Job#: [id number]
--- NOTE | 2017-11-01 14:46 | Progress Note ---
DATE: November 01, 2017 RENAL PROGRESS NOTE SUBJECTIVE: Followed for end-stage renal disease. Doing dialysis on Wednesday, Wednesday and Wednesday. The patient remains on 2 pressors. Dopamine is at double strength. The patient continues to be asymptomatic and in no acute respiratory distress. Ultrafiltration is not possible as the blood pressure starts to drop rapidly as fluid is being pulled during dialysis treatments. The patient is seen on dialysis. He is tolerating clearance so far. Low blood flows are being used. I have discussed with the that long-term he may not be able to tolerate this dialysis as an outpatient. I think consideration of hospice care is not unreasonable and should be entertained. No nausea, no vomiting and no shortness of breath. OBJECTIVE VITAL SIGNS: Have been noted. Last blood pressure in the 90s/60s on 2 pressors, tachycardiac, afebrile LUNGS: Clear to auscultation bilaterally. CARDIOVASCULAR: S1 and S2 with no rubs. ABDOMEN: Soft and nontender. EXTREMITIES: No edema. LABORATORY DATA: Potassium 4.0, BUN 64, creatinine 7.3. IMPRESSION AND PLAN: 1. End-stage renal disease. Will do dialysis Wednesday, Wednesday and Wednesday. I do not feel he needs extra days for ultrafiltration since he is not tolerating it in any case. Consider hospice care outpatient, especially since the patient remains on 2 pressors. 1. Hypotension. Continue vasopressor support and continue Midodrine. 3. Anemia of chronic disease, stable for now. Job#: [id number]
[2017-11-01] MEDS ORDERED: DEXTROSE 5% 250ML 250 ML IV ONE (15:24)
[2017-11-01] MEDS: NOREPINEPHRINE BITARTRATE/ NS 250 ML IV PRN (15:27)
[2017-11-01] MEDS: WARFARIN SOD 2 MG TAB PO SCH (16:23)
[2017-11-01 17:01] LABS: HEMATOCRIT 21.1 % (38.2-49.6)
[2017-11-01] MEDS ORDERED: SODIUM CHLORIDE 0.9% 250ML 250 ML IV ONE (17:45)
[2017-11-01] MEDS: DOPAMINE/DEXTROSE 250 ML IV SCH ×2 (20:30)
[2017-11-01] MEDS: CYCLOBENZAPRINE HCL 10 MG TAB PO PRN (21:00)
[2017-11-02] VITALS (123 sets, daily range): BP systolic 51–145; BP diastolic 29–137
[2017-11-02] MEDS: BALSAM PERU/CASTOR OIL 60 GM OINT...G. TP PRN (01:00)
[2017-11-02] MEDS: WATER STERILE 10 ML VIAL IV SCH ×2 (02:00→14:00)
[2017-11-02] MEDS: NOREPINEPHRINE BITARTRATE/ NS 250 ML IV PRN (03:30)
[2017-11-02] MEDS: DOPAMINE/DEXTROSE 250 ML IV SCH (04:44)
[2017-11-02] MEDS: INSULIN REGULAR, HUMAN 100 UNIT/1 ML 3ML VIAL SQ SCH ×4 (06:00→18:00)
[2017-11-02 06:17] LABS: BASOPHILS % 0.3 % (0.0-1.0); EOSINOPHILS # (AUTO) 0.2 (0.0-0.4); EOSINOPHILS % 1.4 % (0.0-6.0); HEMATOCRIT 19.3 % (38.2-49.6); LYMPHOCYTES # (AUTO) 0.9 (1.0-3.2); LYMPHOCYTES % 6.4 % (18.0-39.1); MEAN CORPUSCULAR HEMOGLOBIN 23.9 pg (28-32); MEAN CORPUSCULAR HGB CONC 33.7 g/dL (31-35); MONOCYTES % 14.5 % (4.4-11.3); NEUTROPHILS # (AUTO) 10.3 (2.1-6.9); NEUTROPHILS % 76.6 % (38.7-80.0); PLATELET COUNT 258 x10e3/uL (140-360); RED BLOOD COUNT 2.72 x10e6/uL (4.3-5.7); RED CELL DISTRIBUTION WIDTH 19.1 % (11.7-14.4)
[2017-11-02 06:23] LABS: INR 2.11; PROTHROMBIN TIME 24.8 seconds (11.9-14.5)
[2017-11-02 06:24] LABS: PARTIAL THROMBOPLASTIN TIME 76.2 seconds (23.8-35.5)
[2017-11-02 06:25] LABS: HEMOGLOBIN 6.5 g/dL (14.0-18.0)
[2017-11-02 06:33] LABS: ANION GAP 18.5 mmol/L (8-16); CALCIUM 9.5 mg/dL (8.4-10.2); CREATININE, SERUM 4.75 mg/dL (0.72-1.25); POTASSIUM 4.5 mmol/L (3.5-5.1)
[2017-11-02] MEDS ORDERED: SODIUM CHLORIDE 0.9% 250ML 250 ML IV ONE ×2 (06:45→19:30)
[2017-11-02] MEDS ORDERED: PANTOPRAZOLE INJ 40 MG in SODIUM CHLORIDE 0.9% 50ML 50 ML IV SCH (06:45)
[2017-11-02] MEDS ORDERED: PHYTONADIONE 1 MG/0.5 ML AMP IM ONE (06:45)
[2017-11-02] MEDS ORDERED: PHYTONADIONE 10 MG/ML AMP IM NR (07:30)
[2017-11-02] MEDS: MIDODRINE HCL 5 MG TABLET PO SCH ×3 (08:00→16:00)
[2017-11-02 08:08] LABS: ANISOCYTOSIS MODERATE; EOSINOPHILS % (MANUAL) 4 % (0-7); LYMPHOCYTES % (MANUAL) 7 % (19-48); MONOCYTES % (MANUAL) 14 % (3.4-9.0); NEUTROPHILS % (MANUAL) 75 % (40-74); POIKILOCYTOSIS SLIGHT
[2017-11-02 08:09] LABS: PLATELET ESTIMATE ADEQUATE; PLATELET MORPHOLOGY COMMENT FEW LARGE; RBC MORPHOLOGY COMMENT ABNORMAL
[2017-11-02] MEDS ORDERED: SODIUM CHLORIDE 0.9% 250ML 250 ML ONE ×2 (08:22→22:19)
[2017-11-02] MEDS: OCTREOTIDE ACETATE 500 MCG in SODIUM CHLORIDE 0.9% 250ML 249 ML IV SCH ×2 (08:53→19:17)
[2017-11-02] MEDS: DOCUSATE SODIUM 100 MG CAP PO SCH ×2 (08:54→16:00)
[2017-11-02] MEDS: SENNA-S TABLET PO SCH ×2 (08:55→16:00)
[2017-11-02] MEDS: GABAPENTIN 100 MG CAP PO SCH ×3 (09:00→21:00)
[2017-11-02] MEDS: LIDOCAINE 5% PATCH TP SCH (09:00)
[2017-11-02] MEDS ORDERED: PANTOPRAZOLE 40 MG 10ML VIAL IV SCH (09:00)
[2017-11-02] MEDS: SODIUM BICARBONATE 650 MG TAB PO SCH ×2 (09:00→16:00)
[2017-11-02] MEDS: PHOSPHORUS 250 MG TAB PO SCH (09:00)
--- NOTE | 2017-11-02 10:52 | Progress Note ---
DATE: November 02, 2017 CARDIOLOGY PROGRESS NOTE SUBJECTIVE: Patient dropped his hemoglobin and hematocrit this morning for which he is receiving 2 units of PRBC transfusion. He had no complaints, although the patient's is extremely upset blaming the patient's condition on the patient's INR. However, the patient's INR is therapeutic today, and actually the patient had to be given vitamin K and fresh frozen plasma due to his acute anemia. OBJECTIVE VITALS: Temperature 99 degrees, pulse 97, respiratory rate 16, blood pressure 85/40, oxygen saturation 95% on 3 L nasal cannula. GENERAL: Cachectic and chronically ill-appearing man in no acute distress. LUNGS: Decreased breath sounds at the bases. No wheezes or crackles. CARDIOVASCULAR: Irregularly irregular. Normal rate. Normal S1 and S2. Systolic murmur. ABDOMEN: Soft. EXTREMITIES: No edema. CARDIAC MEDICATIONS 1. Dopamine 8 mcg per kg per minute. 2. Levophed 5 mcg per minute. 3. Midodrine 20 mg p.o. t.i.d. LABS: WBC 13.4, hemoglobin 6.5, hematocrit 19.3, and platelets 258,000. Sodium 138, potassium 4.5, chloride 99, CO2 25, BUN 54, creatinine 4.75. INR is 2.11. Telemetry with atrial fibrillation. IMPRESSION 1. Khikd-bn-izspsjj systolic heart failure: Status post automatic implanted cardioverter defibrillator. 2. Pulmonary hypertension. 3. Right-sided heart failure, vbfen-wm-cuwgjkk. 4. End-stage renal disease, on hemodialysis. 5. Atrial fibrillation. 6. Shock. 7. Septic with component of cardiogenic, on max dose of midodrine and inotropic and vasopressor support. 8. Cirrhosis. 9. Diabetes mellitus. 10. Likely aspiration pneumonia. 11. Right groin abscess. RECOMMENDATIONS: Patient appears euvolemic. Continue dopamine and Levophed for inotropic and vasopressor support. Wean pressors as tolerated. Volume management per nephrology given end-stage renal disease. Warfarin has been stopped due to need for blood transfusion, and vitamin K and FFP has been given. Further evaluation of anemia per GI. The patient's prognosis is poor. Thank you for this consult. We will continue to follow. Job#: [id number] IA
--- NOTE | 2017-11-02 10:58 | Progress Note ---
DATE: November 02, 2017 REASON FOR CONSULTATION: End-stage renal disease. SUBJECTIVE: Patient's is upset over INR dosing. Patient has no complaints. OBJECTIVE VITAL SIGNS: Temperature 99.2, heart rate 97, blood pressure 85/40 mmHg. HEENT: NCAT, PERRLA CVS: RRR, no m/r/g Abd: soft, NT, ND no edema LABS: Significant for hemoglobin of 6.5. Sodium of 138, potassium 4.5, chloride 99, bicarb 25. IMAGING: Was reviewed in the electronic medical record. ASSESSMENT: A 67-year-old man with end-stage renal disease and cardiogenic shock. 1. End-stage renal disease: Is receiving a unit of blood today. Will perform hemodialysis versus blood tomorrow. No urgent indication to perform hemodialysis today. 2. Cardiogenic shock: Remains on dopamine and Levophed titrated by cardiology. 3. Hyperphosphatemia: Will stop the K-Phos tab and repeat phos level in the a.m. 4. Metabolic acidosis: Continue p.o. sodium bicarb. Job#: [id number] MONTSE MTDD
[2017-11-02 18:25] LABS: BASOPHILS # (AUTO) 0.1 (0.0-0.1); BASOPHILS % 0.5 % (0.0-1.0); EOSINOPHILS # (AUTO) 0.3 (0.0-0.4); EOSINOPHILS % 1.7 % (0.0-6.0); LYMPHOCYTES # (AUTO) 1.2 (1.0-3.2); LYMPHOCYTES % 7.5 % (18.0-39.1); MEAN CORPUSCULAR HEMOGLOBIN 25.2 pg (28-32); MEAN CORPUSCULAR HGB CONC 34.3 g/dL (31-35); MEAN CORPUSCULAR VOLUME 73.4 fL (81-99); MONOCYTES # (AUTO) 2.4 (0.2-0.8); MONOCYTES % 15.6 % (4.4-11.3); NEUTROPHILS # (AUTO) 11.5 (2.1-6.9); NEUTROPHILS % 73.6 % (38.7-80.0); PLATELET COUNT 233 x10e3/uL (140-360); RED BLOOD COUNT 2.74 x10e6/uL (4.3-5.7); RED CELL DISTRIBUTION WIDTH 19.7 % (11.7-14.4)
[2017-11-02 18:27] LABS: HEMATOCRIT 20.1 % (38.2-49.6); HEMOGLOBIN 6.9 g/dL (14.0-18.0)
[2017-11-02] MEDS: ALBUTEROL SULF 0.083% NEB SOLN 3 ML NEB NEB PRN (19:15)
[2017-11-02] MEDS ORDERED: FUROSEMIDE INJ 10 MG/ML 2 ML VIAL IV PRN (19:30)
[2017-11-02 21:46] LABS: PARTIAL THROMBOPLASTIN TIME 53.4 seconds (23.8-35.5)
[2017-11-02 21:47] LABS: INR 1.52; PROTHROMBIN TIME 19.1 seconds (11.9-14.5)
[2017-11-02] MEDS ORDERED: PANTOPRAZOLE 40 MG 10ML VIAL IV STA (21:55)
[2017-11-02 21:59] LABS: CREATINE KINASE MB 5.9 ng/mL (0.00-5.00); TROPONIN I 0.078 ng/mL (0-0.300)
[2017-11-02 22:00] LABS: ALBUMIN 3.1 g/dL (3.5-5.0); ALBUMIN/GLOBULIN RATIO 0.7 (0.8-2.0); ANION GAP 21.3 mmol/L (8-16); CALCIUM 9.8 mg/dL (8.4-10.2); CREATININE, SERUM 5.5 mg/dL (0.72-1.25); POTASSIUM 5.3 mmol/L (3.5-5.1)
[2017-11-02] MEDS: PANTOPRAZOL 40MG/SOD CHL 0.9% 50 ML IV SCH (22:10)
[2017-11-03] VITALS (116 sets, daily range): BP systolic 66–136; BP diastolic 24–112
[2017-11-03] MEDS: WATER STERILE 10 ML VIAL IV SCH ×2 (02:00→14:00)
[2017-11-03] MEDS: PANTOPRAZOL 40MG/SOD CHL 0.9% 50 ML IV SCH ×2 (02:52→04:46)
--- NOTE | 2017-11-03 03:22 | Progress Note ---
DATE: November 01, 2017 TIME: 6 a.m. OVERNIGHT: No events. REVIEW OF SYSTEMS: Denies any chest pain. PHYSICAL EXAMINATION VITAL SIGNS: Reviewed. GENERAL: A tired-appearing man resting in bed. HEENT: Anicteric. CARDIOVASCULAR: Normal S1 and S2. LUNGS: Moderate breath sounds. ABDOMEN: Soft and nontender. EXTREMITIES: No edema. SKIN: Dry. PSYCHIATRIC: Flat affect. LABS: Reviewed. MEDICATIONS: Reviewed. ASSESSMENT: A 67-year-old man with: 1. Septic shock. 2. Cardiogenic shock. 3. End-stage renal disease, on hemodialysis. 4. Chronic atrial fibrillation. 5. Peripheral neuropathy. 6. Diabetes mellitus, type 2: Hemoglobin A1c 5.3, LDL 133. 7. Chronic systolic and diastolic congestive heart failure/cardiorenal syndrome. 8. Cirrhosis of the liver. 9. Microcytic anemia. PLAN 1. Continue pressors. 2. Continue dialysis per nephrology. 3. Continue IV antibiotics. 4. Continue to follow INR. 5. Critical care time more than 35 minutes. Job#: [id number] MS
--- NOTE | 2017-11-03 03:27 | Progress Note ---
DATE: November 02, 2017 TIME: 5 a.m. OVERNIGHT: Patient had bloody stool. Hemoglobin was low. Blood transfusion ordered. REVIEW OF SYSTEMS: Denies any abdominal pain. PHYSICAL EXAMINATION VITAL SIGNS: Reviewed. GENERAL: A tired-appearing man resting in bed. HEENT: Anicteric. CARDIOVASCULAR: Normal S1 and S2. LUNGS: Moderate breath sounds. ABDOMEN: Soft, nontender and nondistended. EXTREMITIES: No edema. SKIN: Dry. PSYCHIATRIC: Flat affect. LABS: Reviewed. MEDICATIONS: Reviewed. ASSESSMENT: This is a 67-year-old man with: 1. Septic shock/cardiogenic shock. 2. Hematochezia. 3. End-stage renal disease, on hemodialysis. 4. Chronic atrial fibrillation. 5. Peripheral neuropathy. 6. Diabetes mellitus, type 2: Hemoglobin A1c 5.3 and LDL 133. 7. Chronic systolic and diastolic congestive heart failure/cardiorenal syndrome. 8. Cirrhosis of the liver. 9. Microcytic anemia. PLAN 1. Blood transfusion. GI consultation for hematochezia. Anticoagulants on hold. Will change to IV PPI drip if needed. Will transfuse blood and plasma if bleeding continues. Will use vitamin K. 2. Continue dialysis per nephrology. 3. Make patient n.p.o. again. 4. Continue IV vancomycin and IV cefepime. 5. Follow up labs closely. 6. Critical care time more than 35 minutes. Job#: [id number] MONTSE
[2017-11-03] MEDS: OCTREOTIDE ACETATE 500 MCG in SODIUM CHLORIDE 0.9% 250ML 249 ML IV SCH ×2 (04:46→15:51)
[2017-11-03] MEDS: INSULIN REGULAR, HUMAN 100 UNIT/1 ML 3ML VIAL SQ SCH ×4 (04:55→18:00)
[2017-11-03 06:04] LABS: BASOPHILS # (AUTO) 0.1 (0.0-0.1); BASOPHILS % 0.6 % (0.0-1.0); EOSINOPHILS # (AUTO) 0.3 (0.0-0.4); EOSINOPHILS % 1.6 % (0.0-6.0); HEMATOCRIT 22.5 % (38.2-49.6); HEMOGLOBIN 7.7 g/dL (14.0-18.0); LYMPHOCYTES # (AUTO) 1.2 (1.0-3.2); LYMPHOCYTES % 7.8 % (18.0-39.1); MEAN CORPUSCULAR HEMOGLOBIN 25.8 pg (28-32); MEAN CORPUSCULAR HGB CONC 34.2 g/dL (31-35); MEAN CORPUSCULAR VOLUME 75.3 fL (81-99); MONOCYTES # (AUTO) 2.5 (0.2-0.8); MONOCYTES % 16.1 % (4.4-11.3); NEUTROPHILS # (AUTO) 11.2 (2.1-6.9); NEUTROPHILS % 72.6 % (38.7-80.0); PLATELET COUNT 250 x10e3/uL (140-360); RED BLOOD COUNT 2.99 x10e6/uL (4.3-5.7); RED CELL DISTRIBUTION WIDTH 19.6 % (11.7-14.4)
[2017-11-03 06:25] LABS: ANION GAP 22.4 mmol/L (8-16); CALCIUM 9.6 mg/dL (8.4-10.2); CREATININE, SERUM 5.6 mg/dL (0.72-1.25); PHOSPHORUS 3.1 MG/DL (2.3-4.7); POTASSIUM 5.4 mmol/L (3.5-5.1)
[2017-11-03] MEDS: DOPAMINE/DEXTROSE 250 ML IV SCH ×2 (07:13→18:50)
[2017-11-03] MEDS ORDERED: SODIUM CHLORIDE 0.9% 250ML 250 ML IV ONE (07:15)
[2017-11-03] MEDS ORDERED: SUCRALFATE 1 GM TAB PO SCH (07:30)
[2017-11-03] MEDS: GABAPENTIN 100 MG CAP PO SCH ×3 (08:37→20:18)
[2017-11-03] MEDS: MIDODRINE HCL 5 MG TABLET PO SCH ×3 (08:37→16:00)
[2017-11-03] MEDS: SODIUM BICARBONATE 650 MG TAB PO SCH ×2 (08:38→17:00)
[2017-11-03] MEDS: LIDOCAINE 5% PATCH TP SCH (09:00)
[2017-11-03] MEDS: SENNA-S TABLET PO SCH ×2 (09:00→17:00)
[2017-11-03] MEDS ORDERED: ALBUMIN HUMAN 12.5GM / 50ML IV ONE (09:00)
[2017-11-03] MEDS: DOCUSATE SODIUM 100 MG CAP PO SCH ×2 (09:00→17:00)
--- NOTE | 2017-11-03 11:15 | Progress Note ---
DATE: November 03, 2017 CARDIOLOGY PROGRESS NOTE SUBJECTIVE: Patient has no complaints. He was seen receiving hemodialysis in the room. OBJECTIVE VITALS: Temperature 100.4 degrees, pulse 94, respiratory rate 18, blood pressure 105/65, oxygen saturation 100% on 3 L nasal cannula. GENERAL: Awake, cachectic, chronically ill-appearing man in no acute distress. LUNGS: Decreased breath sounds at the bases. No wheezes or crackles. CARDIOVASCULAR: Irregularly irregular. Normal rate. Normal S1 and S2. Systolic murmur. ABDOMEN: Soft. EXTREMITIES: No edema. CARDIAC MEDICATIONS 1. Levophed 5 mcg per minute. 2. Dopamine 8 mcg per kg per minute. 3. Midodrine 20 mg p.o. t.i.d. LABS: WBC 15.4, hemoglobin 7.7, hematocrit 22.5, and platelets 250,000. Sodium 137, potassium 5.4, chloride 98, CO2 22, BUN 72, creatinine 5.6. INR is 1.5. TELEMETRY: Atrial fibrillation. IMPRESSION 1. Hematochezia. 2. Vzxor-wg-zrsgosh systolic heart failure, status post automatic implanted cardioverter defibrillator. 3. Pulmonary hypertension. 4. Right-sided heart failure, acute on chronic. 5. End-stage renal disease on hemodialysis. 6. Atrial fibrillation, rate controlled. 7. Shock, septic with component of cardiogenic, on maximum dose of midodrine and inotropic and vasopressor support. 8. Leukocytosis. 9. Likely aspiration pneumonia. 10. Cirrhosis. 11. Diabetes mellitus. 12. Right groin abscess, resolved. RECOMMENDATIONS: The patient appears euvolemic. Continue dopamine and Levophed for inotropic and vasopressor support. Wean pressors as tolerated. Volume management per nephrology given end-stage renal disease. Given the patient's hematochezia, warfarin has been stopped. Vitamin K and FFP have been given to reverse warfarin effect. Further evaluation of anemia per GI. The patient's prognosis is poor. Thank you for this consult. We will continue to follow. Job#: [id number]
[2017-11-03] MEDS: SUCRALFATE 1 GM/10 ML SUSP NG SCH ×3 (11:30→20:18)
[2017-11-03 13:58] LABS: ANISOCYTOSIS MODERATE; EOSINOPHILS % (MANUAL) 1 % (0-7); HYPOCHROMASIA MODERATE; LYMPHOCYTES % (MANUAL) 8 % (19-48); MONOCYTES % (MANUAL) 13 % (3.4-9.0); NEUTROPHILS % (MANUAL) 78 % (40-74); POIKILOCYTOSIS MODERATE
[2017-11-03 13:59] LABS: PLATELET ESTIMATE ADEQUATE; PLATELET MORPHOLOGY COMMENT NORMAL; RBC MORPHOLOGY COMMENT ABNORMAL
[2017-11-03] MEDS: PANTOPRAZOL 200MG/SOD CHL 0.9% 250 ML IV SCH (15:51)
--- NOTE | 2017-11-03 16:15 | Progress Note ---
DATE: NEPHROLOGY PROGRESS NOTE REASON FOR CONSULTATION: End-stage renal disease. SUBJECTIVE: No complaints. Bleeding overnight requiring multiple blood products including FFP and 2 units of blood. OBJECTIVE VITAL SIGNS: Temperature 98.8, heart rate 107, respiratory rate 18, blood pressure 82/45. HEENT: NC/AT, PERRLA, EOMI. LUNGS: Decreased breath sounds at the bases bilaterally. HEART: Regular rate and rhythm. S1 and S2 normal. EXTREMITIES: No edema. LABS: Were reviewed in electronic medical record. Hemoglobin trended down to 6.9 yesterday, this morning is 7.7. Potassium is 5.4, BUN of 72, creatinine of 5.6. Phos is 3.1. MEDICATIONS: Were reviewed in electronic medical record. ASSESSMENT 1. End-stage renal disease. Performing SLED today with 200/400 blood flows, dialysate flows, and goal of 3 liters UF with a 2k bath. 2. Hyperkalemia. Dialysis as above. 3. Metabolic acidosis. Continue sodium bicarbonate. 4. End-stage renal disease. Will stop the Lasix because 20 mg of Lasix will not result in an improvement in urine output in this ESRD patient. Avoid Carafate as it can cause aluminum toxicity in ESRD patients. Job#: [id number] EV
[2017-11-04] VITALS (91 sets, daily range): BP systolic 50–152; BP diastolic 34–120
[2017-11-04] MEDS: OCTREOTIDE ACETATE 500 MCG in SODIUM CHLORIDE 0.9% 250ML 249 ML IV SCH ×4 (00:39→21:02)
[2017-11-04] MEDS: INSULIN REGULAR, HUMAN 100 UNIT/1 ML 3ML VIAL SQ SCH ×5 (01:57→19:53)
[2017-11-04] MEDS: WATER STERILE 10 ML VIAL IV SCH ×3 (02:00→20:23)
[2017-11-04 02:25] LABS: ANION GAP 19.1 mmol/L (8-16); CALCIUM 9.2 mg/dL (8.4-10.2); CREATININE, SERUM 2.93 mg/dL (0.72-1.25); PHOSPHORUS 2.1 MG/DL (2.3-4.7); POTASSIUM 4.1 mmol/L (3.5-5.1)
[2017-11-04 05:56] LABS: INR 1.22; PARTIAL THROMBOPLASTIN TIME 52.7 seconds (23.8-35.5)
[2017-11-04] MEDS: MIDODRINE HCL 5 MG TABLET PO SCH ×3 (08:02→16:58)
[2017-11-04] MEDS: SUCRALFATE 1 GM/10 ML SUSP NG SCH ×4 (08:02→20:21)
[2017-11-04] MEDS: SODIUM BICARBONATE 650 MG TAB PO SCH ×2 (08:02→16:59)
[2017-11-04] MEDS: SENNA-S TABLET PO SCH ×2 (08:02→16:59)
[2017-11-04] MEDS: GABAPENTIN 100 MG CAP PO SCH ×3 (08:02→20:21)
[2017-11-04] MEDS: DOCUSATE SODIUM 100 MG CAP PO SCH ×2 (08:02→16:58)
--- NOTE | 2017-11-04 08:06 | Progress Note ---
DATE: October 30, 2017 TIME: 7:39 a.m. OVERNIGHT: Patient swallow test, now on 2 pressors again. REVIEW OF SYSTEMS: Unobtainable. PHYSICAL EXAMINATION: VITAL SIGNS: Reviewed. Blood pressure as low as 56/42. GENERAL APPEARANCE: Tired-appearing man resting in bed. HEENT: Anicteric. CARDIOVASCULAR: Normal S1 and S2. Irregular heart rate. LUNGS: Moderate breath sounds. ABDOMEN: Soft, nontender, nondistended. EXTREMITIES: No edema. SKIN: Dry. PSYCHIATRIC: Unable to assess. LABS: Reviewed. MEDICATIONS: Reviewed. ASSESSMENT: A 67-year-old man: 1. Septic shock/cardiogenic shock. 2. End-stage renal disease, on hemodialysis. 3. Chronic atrial fibrillation. 4. Diabetes mellitus type 2. Hemoglobin A1c 5.3, LDL 133. 5. Chronic systolic and diastolic congestive heart failure. 6. Cardiorenal syndrome. 7. Cirrhosis of the liver. 8. Microcytic anemia. 9. Peripheral neuropathy. PLAN: 1. Continue 2 pressors. 2. Get further clarification on swallow eval test results. 3. Continue dialysis per nephrology. 4. Continue glucose monitoring. 5. Continue IV cefepime and IV vancomycin. 6. Leukocytosis persistent at 12,000. 7. Obtain PT, INR today. 8. May need to place patient on Nepro for nutrition. I have discussed case with at bedside. Critical care time more than 35 minutes. Job#: [id number]
[2017-11-04] MEDS: LIDOCAINE 5% PATCH TP SCH (09:00)
--- NOTE | 2017-11-04 11:07 | Progress Note ---
DATE: November 04, 2017 REASON FOR CONSULTATION: End-stage renal disease. SUBJECTIVE: The patient is more confused. Intermittently complaining of lower back pain, but cannot provide more information. He states he wants Tylenol. OBJECTIVE VITAL SIGNS: Temperature 99.7, heart rate 70, respiratory rate 18, blood pressure 117/58, 3 L nasal cannula 100%. HEENT: NCAT. PERRLA. LUNGS: Decreased breath sounds at the bases. ABDOMEN: Soft and nondistended. Positive bowel sounds. EXTREMITIES: No edema. LABS: Reviewed in electronic medical records. Significant for hemoglobin of 7.7. Sodium 134, phos of 2.1. Imaging was reviewed in the electronic medical record. IMPRESSION 1. End-stage renal disease: Will hold off on dialysis today. Is getting approximately 110 mL per minute between the Levophed, octreotide and dopamine. However, I am unable to pull fluid with dialysis because he becomes unstable despite the above medications. This was explained to the patient and the and nursing staff. 2. Metabolic acidosis: Continue sodium bicarbonate. Job#: [id number] [place]
--- NOTE | 2017-11-04 12:38 | Progress Note ---
DATE: November 04, 2017 CARDIOLOGY PROGRESS NOTE SUBJECTIVE: Patient continues to be confused. He is oriented only to self. He is unable to state his location or the year. He remains quite critically ill on Levophed 16 mcg per minute and dopamine 15 mcg per kg a minute as well as octreotide and Protonix drips. He has been reaccumulating fluid as nephrology has not been able to keep the patient even due to his significant fluid intake from pressors and inability to pull fluid due to hypotension. OBJECTIVE VITALS: Temperature 99.7 degrees, pulse 102, respiratory rate 18, blood pressure 117/58, oxygen saturation 100% on 3 L nasal cannula. GENERAL: Awake, cachectic, chronically ill-appearing man in no acute distress. LUNGS: Decreased breath sounds at the bases. No wheezes or crackles. CARDIOVASCULAR: Irregularly irregular. Normal rate. Normal S1 and S2. Systolic murmur. ABDOMEN: Soft. EXTREMITIES: No edema. CARDIAC MEDICATIONS 1. Dopamine 15 mcg per kg per minute. 2. Levophed 16 mcg a minute. 3. Midodrine 20 mg p.o. t.i.d. LABS: WBC 15.4, hemoglobin 7.7, hematocrit 22.5, and platelets 250,000. Sodium 134, potassium 4.1, chloride 95, CO2 24, BUN 25, creatinine 2.93. INR is 1.22. TELEMETRY: Atrial fibrillation. IMPRESSION 1. Hematochezia. 2. Acute anemia. 3. Iqwvx-pi-jpyzmnv systolic heart failure, status post automatic implanted cardioverter defibrillator. 4. Pulmonary hypertension. 5. Right-sided heart failure, acute on chronic. 6. End-stage renal disease on hemodialysis. 7. Atrial fibrillation, rate controlled. 8. Shock, septic with component of cardiogenic, on maximum dose of midodrine and inotropic and vasopressor support. 9. Leukocytosis. 10. Likely aspiration pneumonia. 11. Cirrhosis. 12. Diabetes mellitus. 13. Right groin abscess, resolved. RECOMMENDATIONS: Continue dopamine and Levophed for inotropic and vasopressor support. Wean pressors as tolerated. Nephrology has been unable to keep the patient even due to hypotension and IV medication administration. The patient continues to be quite anemic with inadequate response to 2 units PRBC transfusion yesterday. INR is now subtherapeutic with vitamin K and FFP. Continue holding anticoagulation given GI bleeding. Further evaluation per GI. The patient's prognosis is poor. Unfortunately, despite attempts to discuss this with the patient's , she is unable to accept the patient's illness. Thank you for this consult. We will continue to follow. Job#: [id number]
[2017-11-04] MEDS: DOPAMINE/DEXTROSE 250 ML IV SCH ×2 (13:42→23:18)
[2017-11-04] MEDS: DIPHENHYDRAMINE HCL 25 MG CAP PO PRN (14:05)
[2017-11-04] MEDS: CYCLOBENZAPRINE HCL 10 MG TAB PO PRN (14:06)
[2017-11-04 14:40] LABS: BASOPHILS # (AUTO) 0.1 (0.0-0.1); BASOPHILS % 0.3 % (0.0-1.0); EOSINOPHILS # (AUTO) 0.2 (0.0-0.4); HEMATOCRIT 23.8 % (38.2-49.6); LYMPHOCYTES % 5.4 % (18.0-39.1); MEAN CORPUSCULAR HEMOGLOBIN 26.5 pg (28-32); MEAN CORPUSCULAR HGB CONC 33.6 g/dL (31-35); MEAN CORPUSCULAR VOLUME 78.8 fL (81-99); MONOCYTES # (AUTO) 2.8 (0.2-0.8); MONOCYTES % 15.1 % (4.4-11.3); NEUTROPHILS # (AUTO) 14.6 (2.1-6.9); NEUTROPHILS % 77.5 % (38.7-80.0); PLATELET COUNT 235 x10e3/uL (140-360); RED BLOOD COUNT 3.02 x10e6/uL (4.3-5.7); RED CELL DISTRIBUTION WIDTH 20.2 % (11.7-14.4)
[2017-11-04] MEDS: PANTOPRAZOL 200MG/SOD CHL 0.9% 250 ML IV SCH (16:58)
[2017-11-04] MEDS: BALSAM PERU/CASTOR OIL 60 GM OINT...G. TP PRN (18:07)
[2017-11-04] MEDS: ACETAMINOPHEN 650 MG SUPP PR PRN (18:25)
[2017-11-04 21:33] LABS: INR 1.22
[2017-11-04 21:34] LABS: PARTIAL THROMBOPLASTIN TIME 48.2 seconds (23.8-35.5)
[2017-11-05] VITALS (110 sets, daily range): BP systolic 44–162; BP diastolic 22–135
[2017-11-05 06:24] LABS: BASOPHILS % 0.3 % (0.0-1.0); EOSINOPHILS # (AUTO) 0.2 (0.0-0.4); EOSINOPHILS % 1.1 % (0.0-6.0); LYMPHOCYTES # (AUTO) 0.9 (1.0-3.2); LYMPHOCYTES % 5.9 % (18.0-39.1); MEAN CORPUSCULAR HEMOGLOBIN 26.5 pg (28-32); MEAN CORPUSCULAR HGB CONC 33.3 g/dL (31-35); MEAN CORPUSCULAR VOLUME 79.5 fL (81-99); MONOCYTES # (AUTO) 2.2 (0.2-0.8); MONOCYTES % 14.5 % (4.4-11.3); NEUTROPHILS # (AUTO) 11.6 (2.1-6.9); NEUTROPHILS % 77.4 % (38.7-80.0); PLATELET COUNT 264 x10e3/uL (140-360); RED BLOOD COUNT 2.83 x10e6/uL (4.3-5.7); RED CELL DISTRIBUTION WIDTH 20.5 % (11.7-14.4)
[2017-11-05 06:38] LABS: HEMATOCRIT 22.5 % (38.2-49.6); HEMOGLOBIN 7.5 g/dL (14.0-18.0)
[2017-11-05 06:45] LABS: ANION GAP 20.4 mmol/L (8-16); CALCIUM 9.3 mg/dL (8.4-10.2); CREATININE, SERUM 4.31 mg/dL (0.72-1.25); PHOSPHORUS 3.2 MG/DL (2.3-4.7); POTASSIUM 4.4 mmol/L (3.5-5.1)
[2017-11-05 07:06] LABS: INR 1.18; PROTHROMBIN TIME 15.6 seconds (11.9-14.5)
[2017-11-05] MEDS: INSULIN REGULAR, HUMAN 100 UNIT/1 ML 3ML VIAL SQ SCH ×4 (07:30→21:00)
[2017-11-05] MEDS: SUCRALFATE 1 GM/10 ML SUSP NG SCH ×4 (07:30→22:11)
[2017-11-05] MEDS ORDERED: SODIUM CHLORIDE 0.9% 1000ML 2,000 ML ONE (07:33)
[2017-11-05] MEDS: MIDODRINE HCL 5 MG TABLET PO SCH ×3 (08:00→16:00)
[2017-11-05] MEDS: DOCUSATE SODIUM 100 MG CAP PO SCH ×2 (09:00→17:00)
[2017-11-05] MEDS: GABAPENTIN 100 MG CAP PO SCH ×3 (09:00→22:11)
[2017-11-05] MEDS: LIDOCAINE 5% PATCH TP SCH (09:00)
[2017-11-05] MEDS: SODIUM BICARBONATE 650 MG TAB PO SCH ×2 (09:00→17:00)
[2017-11-05] MEDS: SENNA-S TABLET PO SCH ×2 (09:00→17:00)
[2017-11-05 09:31] LABS: EOSINOPHILS % (MANUAL) 2 % (0-7); LYMPHOCYTES % (MANUAL) 8 % (19-48); MONOCYTES % (MANUAL) 10 % (3.4-9.0); NEUTROPHILS % (MANUAL) 80 % (40-74); NUCLEATED RED BLOOD CELLS 1
[2017-11-05 09:33] LABS: HYPOCHROMASIA MODERATE
[2017-11-05 09:34] LABS: PLATELET ESTIMATE ADEQUATE; RBC MORPHOLOGY COMMENT ABNORMAL
[2017-11-05 09:35] LABS: PLATELET MORPHOLOGY COMMENT NORMAL
[2017-11-05 09:37] LABS: TARGET CELLS FEW
[2017-11-05 09:38] LABS: ANISOCYTOSIS MODERATE; POIKILOCYTOSIS SLIGHT
--- NOTE | 2017-11-05 10:24 | Progress Note ---
DATE: November 05, 2017 REASON FOR CONSULTATION: End-stage renal disease. SUBJECTIVE: Patient is confused. Unable to respond to review of systems. OBJECTIVE GENERAL: No acute distress. Laying comfortably in bed. VITAL SIGNS: Heart rate 91, respiratory rate 18, blood pressure 89/56, and O2 sat is 96% on 3 L nasal cannula. HEENT: NCAT. PERRLA. LUNGS: Decreased breath sounds at the bases. No wheezing. HEART: Regular rate and rhythm. EXTREMITIES: No edema. MEDICATIONS: Reviewed in electronic medical record. IMAGING: Was reviewed in the electronic medical record. Chest x-ray was performed today. IMPRESSION 1. End-stage renal disease: Slated today with blood flow of 150 mL per minute. Despite such low blood flows and dialysis prolonged over 8 hours, unable to pull more than 2 L without increasing pressor requirements. Explained this to the patient and family as I have been doing every day. Will do again tomorrow for volume removal. Will not be able to tolerate dialysis without pressor support, which will make it difficult for him to be discharged to any institution. 2. Metabolic acidosis: Continue sodium bicarbonate. Job#: [id number] [place]
[2017-11-05] MEDS ORDERED: SODIUM CHLORIDE 0.9% 250ML 250 ML IV ONE (10:30)
--- NOTE | 2017-11-05 11:39 | Diagnostic Imaging Report ---
CHEST SINGLE (PORTABLE), 11/05/2017 5:00 AM Technique: CHEST SINGLE (PORTABLE) Comparison: 10/28/2017 Clinical history: Congestive heart failure Findings: See Impression Impression: 1. Lines/Tubes: Stable right IJ central venous catheter over the right atrium. Right chest wall single-lead ICD. 2. Overall no significant change. Stable enlarged cardiac silhouette with edema and probable right effusion. Signed by: Dr Sandy Blankenship MD on 11/05/2017 6:48 AM
--- NOTE | 2017-11-05 11:59 | Progress Note ---
DATE: November 05, 2017 CARDIOLOGY PROGRESS NOTE SUBJECTIVE: The patient has no complaints. He remains confused, but is able to state he is at the hospital today. OBJECTIVE VITALS: Temperature 98.7 degrees, pulse 91, respiratory rate 18, blood pressure 89/56, oxygen saturation 96% on 3 L nasal cannula. GENERAL: Awake, cachectic, chronically ill-appearing man in no acute distress. LUNGS: Decreased breath sounds at the bases. No wheezes or crackles. CARDIOVASCULAR: Irregularly irregular. Normal rate. Normal S1 and S2. Systolic murmur. ABDOMEN: Soft. EXTREMITIES: No edema. CARDIAC MEDICATIONS 1. Dopamine 20 mcg per kg per minute. 2. Levophed 15 mcg per kg per minute. 3. Midodrine 20 mg p.o. t.i.d. LABS: WBC 14.95, hemoglobin 7.5, hematocrit 22.5, and platelets 264,000. Sodium 134, potassium 4.4, chloride 96, CO2 22, BUN 39, creatinine 4.31. INR 1.18. Telemetry is atrial fibrillation with PVCs. IMPRESSION 1. Hematochezia. 2. Acute anemia. 3. Clvoh-fz-weivjch systolic heart failure: Status post automatic implanted cardioverter defibrillator. 4. Pulmonary hypertension. 5. Right-sided heart failure, mijij-gx-camxesm. 6. End-stage renal disease, on hemodialysis. 7. Atrial fibrillation, rate controlled. 8. Shock, septic with component of cardiogenic on maximum dose of midodrine and inotropic and vasopressor support. 9. Leukocytosis. 10. Likely aspiration pneumonia. 11. Cirrhosis. 12. Diabetes mellitus. 13. Right groin abscess, resolved. RECOMMENDATIONS: Continue dopamine and Levophed for inotropic and vasopressor support. Wean pressors as tolerated. Nephrology has been having difficulty pulling fluid due to the patient's hypotension and increasing pressor requirement during dialysis. Additionally, the patient continues to have downtrending hemoglobin and hematocrit. Hold anticoagulation given GI bleeding. Further evaluation per GI. If agreeable with primary service, consider addition of Florinef for blood pressure support. The patient's prognosis is poor. This was again discussed with the patient's who is not willing to accept his current illness. Thank you for this consult. We will continue to follow. Job#: [id number] [place]
[2017-11-05] MEDS: WATER STERILE 10 ML VIAL IV SCH (14:00)
[2017-11-05] MEDS ORDERED: SODIUM CHLORIDE 0.9% 250ML 250 ML ONE ×2 (14:35→18:40)
[2017-11-05] MEDS: OCTREOTIDE ACETATE 500 MCG in SODIUM CHLORIDE 0.9% 250ML 249 ML IV SCH (20:07)
[2017-11-05] MEDS: PANTOPRAZOL 200MG/SOD CHL 0.9% 250 ML IV SCH (23:19)
[2017-11-06] VITALS (97 sets, daily range): BP systolic 64–135; BP diastolic 44–103
[2017-11-06] MEDS ORDERED: NOREPINEPHRINE BITARTRATE/ NS 250 ML ONE (01:35)
[2017-11-06] MEDS: WATER STERILE 10 ML VIAL IV SCH ×2 (02:00→14:00)
[2017-11-06] MEDS: NOREPINEPHRINE INJ 4MG/4ML 8 MG in SODIUM CHLORIDE 0.9% 250ML 250 ML IV PRN (02:14)
[2017-11-06] MEDS: OCTREOTIDE ACETATE 500 MCG in SODIUM CHLORIDE 0.9% 250ML 249 ML IV SCH ×3 (03:00→16:00)
[2017-11-06] MEDS: DOPAMINE/DEXTROSE 250 ML IV SCH (05:50)
[2017-11-06 05:56] LABS: BASOPHILS # (AUTO) 0.1 (0.0-0.1); BASOPHILS % 0.3 % (0.0-1.0); EOSINOPHILS # (AUTO) 0.2 (0.0-0.4); EOSINOPHILS % 0.9 % (0.0-6.0); HEMATOCRIT 24.8 % (38.2-49.6); HEMOGLOBIN 8.1 g/dL (14.0-18.0); LYMPHOCYTES # (AUTO) 0.9 (1.0-3.2); LYMPHOCYTES % 4.6 % (18.0-39.1); MEAN CORPUSCULAR HEMOGLOBIN 26.4 pg (28-32); MEAN CORPUSCULAR HGB CONC 32.7 g/dL (31-35); MEAN CORPUSCULAR VOLUME 80.8 fL (81-99); MONOCYTES # (AUTO) 2.7 (0.2-0.8); MONOCYTES % 14.1 % (4.4-11.3); NEUTROPHILS % 79.4 % (38.7-80.0); PLATELET COUNT 259 x10e3/uL (140-360); RED BLOOD COUNT 3.07 x10e6/uL (4.3-5.7); RED CELL DISTRIBUTION WIDTH 20.7 % (11.7-14.4)
[2017-11-06 06:17] LABS: ANION GAP 20.9 mmol/L (8-16); CALCIUM 9.1 mg/dL (8.4-10.2); CREATININE, SERUM 3.39 mg/dL (0.72-1.25); PHOSPHORUS 2.7 MG/DL (2.3-4.7); POTASSIUM 3.9 mmol/L (3.5-5.1)
[2017-11-06 06:37] LABS: INR 1.06; PROTHROMBIN TIME 14.4 seconds (11.9-14.5)
[2017-11-06] MEDS: INSULIN REGULAR, HUMAN 100 UNIT/1 ML 3ML VIAL SQ SCH ×4 (07:30→21:00)
[2017-11-06] MEDS: SUCRALFATE 1 GM/10 ML SUSP NG SCH ×4 (07:30→22:15)
[2017-11-06] MEDS: MIDODRINE HCL 5 MG TABLET PO SCH ×3 (08:00→16:26)
[2017-11-06] MEDS ORDERED: SODIUM CHLORIDE 0.9% 1000ML 2,000 ML ONE (08:36)
[2017-11-06] MEDS: DOCUSATE SODIUM 100 MG CAP PO SCH ×3 (08:47→17:05)
[2017-11-06] MEDS: SENNA-S TABLET PO SCH ×3 (08:48→17:05)
[2017-11-06] MEDS: SODIUM BICARBONATE 650 MG TAB PO SCH ×2 (08:48→17:05)
[2017-11-06] MEDS: GABAPENTIN 100 MG CAP PO SCH ×3 (08:48→22:15)
[2017-11-06] MEDS: LIDOCAINE 5% PATCH TP SCH (09:00)
--- NOTE | 2017-11-06 14:47 | Progress Note ---
DATE: November 06, 2017 REASON FOR CONSULTATION: End-stage renal disease. SUBJECTIVE: Patient was seen on dialysis, 2 blood flow, 250 mL per minute. Goal of 3 kg. OBJECTIVE VITALS: Heart rate 94, respiratory rate 18, blood pressure 118/64, and 99% on 3 L nasal cannula. HEENT: NCAT. PERRLA. NECK: Supple. LUNGS: Decreased breath sounds at the bases. ABDOMEN: Soft and nondistended. Positive bowel sounds. EXTREMITIES: No edema. LABS: Reviewed in electronic medical record. Significant for hemoglobin of 8.1. Sodium 135, bicarb 21. Imaging was reviewed in electronic medical records. Chest x-ray showed right pleural effusion. IMPRESSION 1. End-stage renal disease: Ultrafiltration over 8 hours for 3 L today. Previously, has required increasing pressor and inotropic requirements every time I try to pull fluid. 2. Cardiogenic shock: On dopamine and Levophed. 3. Acute blood loss anemia: Improving. Will restart Epogen today as well. 4. Metabolic acidosis: Will increase sodium bicarbonate. Job#: [id number] [place]
[2017-11-06] MEDS: PANTOPRAZOL 200MG/SOD CHL 0.9% 250 ML IV SCH (15:15)
[2017-11-06] MEDS: ALBUTEROL SULF 0.083% NEB SOLN 3 ML NEB NEB PRN (19:05)
[2017-11-07] VITALS (96 sets, daily range): BP systolic 59–140; BP diastolic 37–100
[2017-11-07] MEDS: WATER STERILE 10 ML VIAL IV SCH ×2 (02:00→14:00)
--- NOTE | 2017-11-07 05:03 | Progress Note ---
DATE: CARDIOLOGY PROGRESS NOTE SUBJECTIVE: Patient unable to report. OBJECTIVE VITAL SIGNS: Temperature not recorded, pulse 94, respiratory rate 18, blood pressure 118/64, oxygen saturation 99% on 2 3 nasal cannula. GENERAL: Appears to be sleeping, but opening eyes to name calling. at the bedside. LUNGS: Diminished breath sounds throughout. Scattered rhonchi. CARDIOVASCULAR: Irregular rate and rhythm. S1 and S2. Systolic ejection murmur present. ABDOMEN: Rounded, soft and nontender. LOWER EXTREMITIES: No edema. Two plus pedal pulses. CARDIOVASCULAR MEDICATIONS 1. Dopamine IV drip. 2. Norepinephrine IV drip. 3. Digoxin 0.5 mg p.r.n. once. 4. Epinephrine IV drip. LABS: WBC 18.9, hemoglobin 8.1, hematocrit 24.9, and platelets 259,000. Sodium 135, potassium 3.9, BUN 31, creatinine 3.39, glucose 170. Calcium 9.1. Magnesium 2.7. PT 14.4, INR 1.06 and PTT 56.6. IMPRESSION 1. Hematochezia. 2. Acute anemia. 3. Rczze-xt-ztbnsfo systolic heart failure, status post implantable cardioverter defibrillator. 4. Pulmonary hypertension. 5. Right-sided heart failure, thnmu-lw-flxqmvp. 6. End-stage renal disease. 7. Atrial fibrillation. 8. Shock, septic with component of cardiogenic, on maximum tolerated midodrine and inotropic and vasopressor support. 9. Leukocytosis. 10. Likely aspiration pneumonia. 11. Cirrhosis. 12. Diabetes mellitus. RECOMMENDATIONS: Continue the above listed cardiovascular medications. Continue hemodialysis per commercial portfolio manager's directions. Monitor fluid volume. Hold off anticoagulation given GI bleed. Further evaluation per GI. If agreeable per primary service, consider Florinef for blood pressure support. Poor prognosis. Will continue to follow closely. DICTATED BY ABELARDO HARDWICK NP Job#: [id number] [place]
[2017-11-07] MEDS ORDERED: NOREPINEPHRINE BITARTRATE/ NS 250 ML ONE (06:21)
[2017-11-07 06:39] LABS: BASOPHILS # (AUTO) 0.1 (0.0-0.1); BASOPHILS % 0.4 % (0.0-1.0); EOSINOPHILS # (AUTO) 0.2 (0.0-0.4); EOSINOPHILS % 1.3 % (0.0-6.0); HEMATOCRIT 25.3 % (38.2-49.6); HEMOGLOBIN 8.3 g/dL (14.0-18.0); LYMPHOCYTES % 6.1 % (18.0-39.1); MEAN CORPUSCULAR HEMOGLOBIN 26.7 pg (28-32); MEAN CORPUSCULAR HGB CONC 32.8 g/dL (31-35); MEAN CORPUSCULAR VOLUME 81.4 fL (81-99); MONOCYTES # (AUTO) 2.4 (0.2-0.8); MONOCYTES % 15.4 % (4.4-11.3); NEUTROPHILS % 76.2 % (38.7-80.0); PLATELET COUNT 284 x10e3/uL (140-360); RED BLOOD COUNT 3.11 x10e6/uL (4.3-5.7); RED CELL DISTRIBUTION WIDTH 20.4 % (11.7-14.4)
[2017-11-07] MEDS: NOREPINEPHRINE INJ 4MG/4ML 8 MG in SODIUM CHLORIDE 0.9% 250ML 250 ML IV PRN (06:47)
[2017-11-07 07:07] LABS: ALBUMIN 3.4 g/dL (3.5-5.0); ALBUMIN/GLOBULIN RATIO 0.8 (0.8-2.0); ANION GAP 19.8 mmol/L (8-16); CALCIUM 9.3 mg/dL (8.4-10.2); CREATININE, SERUM 4.41 mg/dL (0.72-1.25); POTASSIUM 3.8 mmol/L (3.5-5.1)
[2017-11-07 07:09] LABS: INR 1.13; PROTHROMBIN TIME 15.1 seconds (11.9-14.5)
[2017-11-07] MEDS: SUCRALFATE 1 GM/10 ML SUSP NG SCH ×4 (07:30→21:25)
[2017-11-07] MEDS: INSULIN REGULAR, HUMAN 100 UNIT/1 ML 3ML VIAL SQ SCH ×4 (07:30→21:00)
[2017-11-07] MEDS: DOPAMINE/DEXTROSE 250 ML IV SCH ×2 (08:00→22:45)
[2017-11-07] MEDS: MIDODRINE HCL 5 MG TABLET PO SCH ×3 (08:21→16:00)
[2017-11-07] MEDS: LIDOCAINE 5% PATCH TP SCH (09:00)
[2017-11-07] MEDS: GABAPENTIN 100 MG CAP PO SCH ×3 (09:15→21:25)
[2017-11-07] MEDS: SODIUM BICARBONATE 650 MG TAB PO SCH ×2 (09:16→16:43)
[2017-11-07 10:58] LABS: BAND NEUTROPHILS % (MANUAL) 1 %; LYMPHOCYTES % (MANUAL) 18 % (19-48); MONOCYTES % (MANUAL) 5 % (3.4-9.0); NEUTROPHILS % (MANUAL) 76 % (40-74)
[2017-11-07 10:59] LABS: PLATELET ESTIMATE ADEQUATE; PLATELET MORPHOLOGY COMMENT NORMAL; RBC MORPHOLOGY COMMENT NORMAL
[2017-11-07] MEDS: ALBUTEROL SULF 0.083% NEB SOLN 3 ML NEB NEB PRN (11:20)
[2017-11-07] MEDS: OCTREOTIDE ACETATE 500 MCG in SODIUM CHLORIDE 0.9% 250ML 249 ML IV SCH (13:07)
--- NOTE | 2017-11-07 13:26 | Progress Note ---
DATE: November 07, 2017 NEPHROLOGY PROGRESS NOTE REASON FOR CONSULTATION: End-stage renal disease. SUBJECTIVE: Patient intermittently confused today, repeatedly states his belly but cannot describe any further information in regards to pain or discomfort. OBJECTIVE VITAL SIGNS: Temperature 99.4, heart rate 115, blood pressure 126/83, O2 sat is 97%. HEENT: NC/AT, EOMI. LUNGS: Decreased breath sounds at the bases. ABDOMEN: Soft, distended, nontender. EXTREMITIES: No edema. LABS: Were reviewed in electronic medical record. Significant for a hemoglobin of 8.3, sodium 133, bicarb of 20. IMAGING: Was reviewed in electronic medical record. Chest x-ray performed on the showed pulmonary edema and right-sided pleural effusion. ASSESSMENT/PLAN 1. End-stage renal disease. Hold off on dialysis today primarily because I have been unable to pull fluid without causing an increase in his pressor requirement. Will perform SLED with both clearance and volume removal today. Had 3.5 liters of volume removed yesterday with 3.1 liters intake. 2. Metabolic acidosis. Continue sodium bicarbonate. Increase dose to 1300 mg b.i.d. 3. Anemia of chronic kidney disease. Continue Epogen 10,000 units Wednesday/Wednesday/Wednesday. Job#: [id number] [place]
--- NOTE | 2017-11-07 14:16 | Progress Note ---
DATE: CARDIOLOGY PROGRESS NOTE SUBJECTIVE: Patient is without any complaints. However, he is confused. Denies any shortness of breath or chest pain. OBJECTIVE VITAL SIGNS: Temperature 97.9, pulse 101, respiratory rate 18, blood pressure 126/83, oxygen saturation 99% on 3 liters nasal cannula. CARDIOVASCULAR MEDICATIONS 1. Norepinephrine IV, titrate. 2. Dopamine IV, titrate. LABS: WBC 15.69, hemoglobin 8.3, hematocrit 25.3, platelets 284. Sodium 133, potassium 3.8, BUN 38, creatinine 4.41, glucose 196, calcium 9.3. AST 20, ALT 12, alkaline phosphatase 103. Albumin 3.4. PT 15.1, INR 1.13. Blood cultures negative. PHYSICAL EXAMINATION GENERAL: Alert and oriented x1. Resting comfortably in bed. Daughter at the bedside. Awake. LUNGS: Diminished breath sounds throughout. Scattered rhonchi. No wheezing or crackles noted. CARDIOVASCULAR: Irregularly rate and rhythm. Tachycardic. Has normal S1/S2. Systolic murmur present. ABDOMEN: Rounded, soft, nontender. LOWER EXTREMITIES: Trace edema bilaterally, 1+ pedal pulses. IMPRESSION 1. Hematochezia. 2. Acute anemia. 3. Olonq-wo-uxeznbg systolic heart failure, status post implantable cardioverter-defibrillator. 4. Pulmonary hypertension. 5. Right-sided heart failure, acute on chronic. 6. End-stage renal disease, on dialysis. 7. Atrial fibrillation with rapid ventricular response. 8. Shock, septic with component of cardiogenic, on maximum tolerated midodrine and inotropic and vasopressor support. 9. Leukocytosis. 10. Aspiration pneumonia. 11. Cirrhosis. 12. Diabetes mellitus. RECOMMENDATION: Continue with the above list of cardiac medication. Continue vasopressors as indicated. Hold off anticoagulation at this time given GI bleed. Further evaluation per GI. If agreeable with primary care service, consider Florinef for blood pressure support. Poor prognosis. Will continue to follow very carefully and closely. Dictated by: Alka Tilley NP Job#: [id number] [place]
[2017-11-07] MEDS ORDERED: DEXTROSE 50% SYRINGE 50 ML IV ONE (16:22)
[2017-11-07] MEDS ORDERED: MORPHINE SULFATE 2 MG/ML SYR IV ONE (20:00)
[2017-11-08] VITALS (96 sets, daily range): BP systolic 66–152; BP diastolic 48–128
[2017-11-08] MEDS: OCTREOTIDE ACETATE 500 MCG in SODIUM CHLORIDE 0.9% 250ML 249 ML IV SCH ×4 (00:10→21:16)
[2017-11-08] MEDS: WATER STERILE 10 ML VIAL IV SCH ×2 (02:00→12:01)
[2017-11-08] MEDS ORDERED: ZIPRASIDONE 20 MG VIAL IM STA (02:36)
[2017-11-08] MEDS: PANTOPRAZOL 200MG/SOD CHL 0.9% 250 ML IV SCH ×2 (04:08→15:37)
[2017-11-08] MEDS: NOREPINEPHRINE INJ 4MG/4ML 8 MG in SODIUM CHLORIDE 0.9% 250ML 250 ML IV PRN (04:09)
[2017-11-08 06:38] LABS: BASOPHILS # (AUTO) 0.1 (0.0-0.1); BASOPHILS % 0.4 % (0.0-1.0); EOSINOPHILS # (AUTO) 0.2 (0.0-0.4); EOSINOPHILS % 1.2 % (0.0-6.0); HEMATOCRIT 23.6 % (38.2-49.6); HEMOGLOBIN 7.8 g/dL (14.0-18.0); LYMPHOCYTES % 7.4 % (18.0-39.1); MEAN CORPUSCULAR HGB CONC 33.1 g/dL (31-35); MEAN CORPUSCULAR VOLUME 81.7 fL (81-99); MONOCYTES # (AUTO) 2.3 (0.2-0.8); MONOCYTES % 17.6 % (4.4-11.3); NEUTROPHILS # (AUTO) 9.4 (2.1-6.9); NEUTROPHILS % 72.8 % (38.7-80.0); PLATELET COUNT 321 x10e3/uL (140-360); RED BLOOD COUNT 2.89 x10e6/uL (4.3-5.7); RED CELL DISTRIBUTION WIDTH 20.2 % (11.7-14.4)
[2017-11-08 06:55] LABS: INR 1.2; PROTHROMBIN TIME 15.8 seconds (11.9-14.5)
[2017-11-08 07:11] LABS: ANION GAP 18.9 mmol/L (8-16); CALCIUM 9.1 mg/dL (8.4-10.2); CREATININE, SERUM 5.39 mg/dL (0.72-1.25); PHOSPHORUS 3.8 MG/DL (2.3-4.7); POTASSIUM 3.9 mmol/L (3.5-5.1)
[2017-11-08] MEDS: LIDOCAINE 5% PATCH TP SCH (08:13)
[2017-11-08] MEDS: MIDODRINE HCL 5 MG TABLET PO SCH ×3 (08:13→16:55)
[2017-11-08] MEDS: GABAPENTIN 100 MG CAP PO SCH (08:13)
[2017-11-08] MEDS: SODIUM BICARBONATE 650 MG TAB PO SCH ×2 (08:13→16:56)
[2017-11-08] MEDS: SUCRALFATE 1 GM/10 ML SUSP NG SCH ×4 (08:13→21:00)
[2017-11-08] MEDS: INSULIN REGULAR, HUMAN 100 UNIT/1 ML 3ML VIAL SQ SCH ×4 (08:14→21:00)
[2017-11-08] MEDS ORDERED: SODIUM CHLORIDE 0.9% 250ML 250 ML IV ONE (08:45)
[2017-11-08 09:53] LABS: BAND NEUTROPHILS % (MANUAL) 1 %; EOSINOPHILS % (MANUAL) 1 % (0-7); LYMPHOCYTES % (MANUAL) 13 % (19-48); MONOCYTES % (MANUAL) 8 % (3.4-9.0); NEUTROPHILS % (MANUAL) 75 % (40-74)
[2017-11-08 09:55] LABS: TARGET CELLS FEW
[2017-11-08 09:56] LABS: ANISOCYTOSIS MODERATE; HYPOCHROMASIA MODERATE; POIKILOCYTOSIS SLIGHT
[2017-11-08 09:58] LABS: ELLIPTOCYTE, RBC SLIGHT; PLATELET ESTIMATE ADEQUATE; PLATELET MORPHOLOGY COMMENT FEW LARGE; RBC MORPHOLOGY COMMENT ABNORMAL
[2017-11-08] MEDS: EPOETIN ALFA 10000 UNIT/ML VIAL SC SCH (11:05)
--- NOTE | 2017-11-08 13:47 | Progress Note ---
DATE: NEPHROLOGY PROGRESS NOTE REASON FOR CONSULTATION: End-stage renal disease. SUBJECTIVE: Patient remains confused. Unable to obtain review of systems. OBJECTIVE VITAL SIGNS: Temperature 98.5, heart rate 125, blood pressure 91/65. GENERAL: Is lying comfortably in bed, no acute distress. LUNGS: Crackles at the bases bilaterally. No wheezing. ABDOMEN: Soft, distended. Positive bowel sounds. EXTREMITIES: No edema. IMAGING: Was reviewed in electronic medical record. LABS: Significant for a WBC count of 12.9, sodium of 131, BUN of 42. ASSESSMENT AND PLAN 1. End-stage renal disease. Will perform SLED today. Is tachycardic to the 120s; so, may or may not be able to pull much fluid even with increasing inotropic and pressor support. 2. Hyponatremia secondary to volume. Will attempt to remove fluid with SLED today. 3. Metabolic acidosis. Continue sodium bicarbonate. 4. Anemia of chronic kidney disease. Continue Epogen. 5. Altered mental status in the setting of persistent confusion. Will stop the gabapentin. Will also avoid morphine as metabolites will accumulate in ESRD. Job#: [id number] [place]O
--- NOTE | 2017-11-08 13:53 | Progress Note ---
DATE: November 08, 2017 CARDIOLOGY PROGRESS NOTE Mr. Storm remains critically ill, unresponsive. Care discussed with the nurse as well as his family (his ). PHYSICAL EXAMINATION VITAL SIGNS: Afebrile. Heart rate 95. Blood pressure 95/56 while on Levophed as well as dopamine. O2 sat is 98%. CARDIOVASCULAR: Irregular rhythm. Systolic murmur. LUNGS: Crackles and fine rhonchi bilaterally. ABDOMEN: Distended. TELEMETRY: Shows sinus rhythm. LABS: Were reviewed. Patient is anemic and is receiving blood and FFP. ASSESSMENT 1. Sdcyo-cw-icezwij systolic heart failure status post implantable cardioverter-defibrillator. 2. Septic and cardiogenic shock. 3. Severe biventricular heart failure. 4. Hematochezia with ongoing gastrointestinal blood loss. RECOMMENDATIONS: Continue the current therapy. I will check a random cortisol level to evaluate if this is an etiology of his hypotension. At this point his GI bleeding, blood loss anemia and hypotension remain refractory to current therapy. Overall prognosis is extremely poor given multiorgan failure. This was discussed with the . Job#: [id number] [place]
[2017-11-08] MEDS ORDERED: SODIUM CHLORIDE 0.9% 250ML 250 ML ONE (16:00)
[2017-11-08] MEDS: MEGACE 400MG/ 10ML CUP PO SCH (16:55)
[2017-11-08] MEDS ORDERED: DIGOXIN INJ 0.25 MG/ML 2 ML AMP IV ONE (18:45)
[2017-11-09] VITALS (175 sets, daily range): BP systolic 61–124; BP diastolic 22–107
[2017-11-09] MEDS: DOPAMINE/DEXTROSE 250 ML IV SCH (00:31)
[2017-11-09] MEDS: WATER STERILE 10 ML VIAL IV SCH ×2 (02:00→13:09)
[2017-11-09] MEDS ORDERED: ACETAMINOPHEN 1000 MG/100 ML IV SCH (06:00)
[2017-11-09 06:12] LABS: BASOPHILS # (AUTO) 0.1 (0.0-0.1); BASOPHILS % 0.4 % (0.0-1.0); EOSINOPHILS # (AUTO) 0.2 (0.0-0.4); EOSINOPHILS % 1.4 % (0.0-6.0); HEMATOCRIT 24.4 % (38.2-49.6); LYMPHOCYTES # (AUTO) 0.5 (1.0-3.2); MEAN CORPUSCULAR HEMOGLOBIN 26.9 pg (28-32); MEAN CORPUSCULAR HGB CONC 32.8 g/dL (31-35); MEAN CORPUSCULAR VOLUME 82.2 fL (81-99); MONOCYTES # (AUTO) 1.9 (0.2-0.8); MONOCYTES % 14.5 % (4.4-11.3); NEUTROPHILS # (AUTO) 10.2 (2.1-6.9); NEUTROPHILS % 79.1 % (38.7-80.0); PLATELET COUNT 274 x10e3/uL (140-360); RED BLOOD COUNT 2.97 x10e6/uL (4.3-5.7)
[2017-11-09] MEDS: INSULIN REGULAR, HUMAN 100 UNIT/1 ML 3ML VIAL SQ SCH ×4 (06:27→21:00)
[2017-11-09] MEDS: MEGACE 400MG/ 10ML CUP PO SCH ×2 (06:27→16:24)
[2017-11-09] MEDS: SUCRALFATE 1 GM/10 ML SUSP NG SCH ×4 (06:27→21:50)
[2017-11-09] MEDS: SODIUM BICARBONATE 650 MG TAB PO SCH ×2 (06:29→16:24)
[2017-11-09] MEDS: MIDODRINE HCL 5 MG TABLET PO SCH ×3 (06:29→16:24)
[2017-11-09] MEDS ORDERED: ACETAMINOPHEN 1000 MG/100 ML IV PRN (06:45)
[2017-11-09 07:05] LABS: ANION GAP 17.8 mmol/L (8-16); CREATININE, SERUM 2.76 mg/dL (0.72-1.25); POTASSIUM 3.8 mmol/L (3.5-5.1)
[2017-11-09 07:06] LABS: CALCIUM 9.2 mg/dL (8.4-10.2); MAGNESIUM 2.4 MG/DL (1.3-2.1); PHOSPHORUS 1.8 MG/DL (2.3-4.7)
[2017-11-09 08:14] LABS: LYMPHOCYTES % (MANUAL) 5 % (19-48); MONOCYTES % (MANUAL) 7 % (3.4-9.0); NEUTROPHILS % (MANUAL) 88 % (40-74)
[2017-11-09 08:15] LABS: ANISOCYTOSIS MODERATE; HYPOCHROMASIA MODERATE; PLATELET ESTIMATE ADEQUATE; PLATELET MORPHOLOGY COMMENT NORMAL; RBC MORPHOLOGY COMMENT ABNORMAL; TARGET CELLS FEW
[2017-11-09 08:16] LABS: POIKILOCYTOSIS SLIGHT
[2017-11-09] MEDS: BALSAM PERU/CASTOR OIL 60 GM OINT...G. TP PRN ×2 (08:39→15:29)
[2017-11-09] MEDS: OCTREOTIDE ACETATE 500 MCG in SODIUM CHLORIDE 0.9% 250ML 249 ML IV SCH ×2 (08:44→19:37)
[2017-11-09] MEDS: LIDOCAINE 5% PATCH TP SCH (09:00)
[2017-11-09] MEDS: ACETAMINOPHEN 325 MG TAB PO PRN (09:11)
--- NOTE | 2017-11-09 11:07 | Progress Note ---
DATE: November 09, 2017 NEPHROLOGY PROGRESS NOTE REASON FOR CONSULTATION: End-stage renal disease. SUBJECTIVE: Patient is more confused. OBJECTIVE VITAL SIGNS: Heart rate 85, respiratory rate 18, blood pressure 91/48. O2 sat is 96% on 3 L nasal cannula. GENERAL: Lying comfortably in bed, no acute distress. ABDOMEN: Soft, distended. Positive bowel sounds. EXTREMITIES: No edema. LUNGS: Decreased breath sounds at the bases. ASSESSMENT AND PLAN 1. End-stage renal disease. The patient's refused dialysis today. Since I have not been able to take enough fluid off keep him negative on a daily basis, the plan was to do SLED daily. However, the patient's refused. I explained that he will continue to become more volume overloaded without dialysis. 2. Metabolic acidosis. Continue sodium bicarbonate. 3. Anemia of chronic kidney disease. Continue Epogen. 4. Cardiogenic shock. Remains on midodrine, Levophed and phenylephrine. Job#: [id number]
--- NOTE | 2017-11-09 12:58 | Progress Note ---
DATE: November 09, 2017 CARDIOLOGY PROGRESS NOTE SUBJECTIVE: The patient remains confused. He complains that his feet hurt. OBJECTIVE VITALS: Temperature 98 degrees, pulse 76, respiratory rate 18, blood pressure 106/22, oxygen saturation 94% on 3 L nasal cannula. GENERAL: Cachectic, chronically ill-appearing man in no acute distress. Awake, confused. LUNGS: Decreased breath sounds at the bases. No wheezes or crackles. CARDIOVASCULAR: Irregularly irregular. Normal rate. Normal S1 and S2. Systolic murmur. ABDOMEN: Soft. EXTREMITIES: No edema. Warm to palpation. CARDIAC MEDICATIONS 1. Dopamine 1.5 mcg per kg per minute. 2. Levophed 2 mcg per kg per minute. 3. Midodrine 20 mg p.o. t.i.d. LABS: WBC 12.8, hemoglobin 8, hematocrit 24.4, and platelets 274,000. Sodium 140, potassium 3.8, chloride 103, BUN 16, creatinine 2.76. TELEMETRY: Atrial fibrillation. IMPRESSION 1. Hematochezia. 2. Acute anemia. 3. Lbjzu-gj-kiynmwn systolic heart failure, status post automatic implanted cardioverter defibrillator. 4. Pulmonary hypertension. 5. Right-sided heart failure, acute on chronic. 6. End-stage renal disease on hemodialysis. 7. Atrial fibrillation, rate controlled. 8. Shock, septic with component of cardiogenic, on maximum dose of midodrine and inotropic and vasopressor support. 9. Leukocytosis. 10. Likely aspiration pneumonia. 11. Cirrhosis. 12. Diabetes mellitus. 13. Right groin abscess, resolved. RECOMMENDATIONS: Continue current cardiac medications. Continue vasopressor and inotropic support, wean as tolerated. Management of anemia per GI given continued hematochezia and anemia. A.M. cortisol pending. Overall prognosis is poor given multiorgan failure. Thank you for this consult. We will continue to follow. Job#: [id number]
[2017-11-09] MEDS: PANTOPRAZOL 200MG/SOD CHL 0.9% 250 ML IV SCH (15:15)
[2017-11-09] MEDS: DIPHENHYDRAMINE HCL 25 MG CAP PO PRN (21:50)
[2017-11-10] VITALS (103 sets, daily range): BP systolic 41–126; BP diastolic 29–97
[2017-11-10] MEDS: WATER STERILE 10 ML VIAL IV SCH ×2 (02:00→14:00)
[2017-11-10 04:47] LABS: BASOPHILS # (AUTO) 0.1 (0.0-0.1); BASOPHILS % 0.5 % (0.0-1.0); EOSINOPHILS # (AUTO) 0.2 (0.0-0.4); EOSINOPHILS % 1.3 % (0.0-6.0); HEMATOCRIT 25.9 % (38.2-49.6); HEMOGLOBIN 8.5 g/dL (14.0-18.0); LYMPHOCYTES # (AUTO) 0.9 (1.0-3.2); LYMPHOCYTES % 6.8 % (18.0-39.1); MEAN CORPUSCULAR HEMOGLOBIN 27.2 pg (28-32); MEAN CORPUSCULAR HGB CONC 32.8 g/dL (31-35); MEAN CORPUSCULAR VOLUME 82.7 fL (81-99); MONOCYTES # (AUTO) 1.9 (0.2-0.8); MONOCYTES % 15.3 % (4.4-11.3); NEUTROPHILS # (AUTO) 9.6 (2.1-6.9); NEUTROPHILS % 75.8 % (38.7-80.0); PLATELET COUNT 364 x10e3/uL (140-360); RED BLOOD COUNT 3.13 x10e6/uL (4.3-5.7)
[2017-11-10 04:57] LABS: INR 1.24; PROTHROMBIN TIME 16.2 seconds (11.9-14.5)
[2017-11-10 04:58] LABS: PARTIAL THROMBOPLASTIN TIME 54.3 seconds (23.8-35.5)
[2017-11-10 05:03] LABS: LYMPHOCYTES % (MANUAL) 8 % (19-48); MONOCYTES % (MANUAL) 17 % (3.4-9.0); NEUTROPHILS % (MANUAL) 74 % (40-74)
[2017-11-10 05:04] LABS: ANISOCYTOSIS MODERATE; HYPOCHROMASIA SLIGHT; MICROCYTOSIS SLIGHT; PLATELET ESTIMATE SLIGHTLY INCREASED; PLATELET MORPHOLOGY COMMENT FEW LARGE; RBC MORPHOLOGY COMMENT ABNORMAL; TARGET CELLS FEW
[2017-11-10 05:06] LABS: ANION GAP 17.6 mmol/L (8-16); CALCIUM 9.2 mg/dL (8.4-10.2); CREATININE, SERUM 3.89 mg/dL (0.72-1.25); PHOSPHORUS 2.7 MG/DL (2.3-4.7); POTASSIUM 3.6 mmol/L (3.5-5.1)
--- NOTE | 2017-11-10 06:11 | Diagnostic Imaging Report ---
EXAM: ABDOMEN COMP INCL UPR or DECUB DATE: 11/10/2017 2:20 AM Time stamp on exam: 5:37 AM INDICATION: Abdominal pain COMPARISON: None FINDINGS: LINES/TUBES: None BOWEL PATTERN: No evidence for obstruction. SOFT TISSUES: Abnormal abdominal calcifications overlie the right mid abdomen. Extensive vascular calcifications present LUNG BASES: Bibasilar atelectasis left greater than right. Partially visualized before meals device with tip overlying the right ventricle BONES: No acute findings. IMPRESSION: Nonobstructive bowel gas pattern. Left lower lobe airspace disease Signed by: Dr. Francisco Blevins M.D. on 11/10/2017 6:07 AM
[2017-11-10] MEDS: OCTREOTIDE ACETATE 500 MCG in SODIUM CHLORIDE 0.9% 250ML 249 ML IV SCH ×2 (07:29→17:31)
[2017-11-10] MEDS: SUCRALFATE 1 GM/10 ML SUSP NG SCH ×4 (07:30→21:25)
[2017-11-10] MEDS: INSULIN REGULAR, HUMAN 100 UNIT/1 ML 3ML VIAL SQ SCH ×4 (07:30→21:00)
[2017-11-10] MEDS: MIDODRINE HCL 5 MG TABLET PO SCH ×3 (08:12→16:00)
[2017-11-10] MEDS: SODIUM BICARBONATE 650 MG TAB PO SCH ×2 (09:14→17:33)
[2017-11-10] MEDS: MEGACE 400MG/ 10ML CUP PO SCH ×2 (09:14→17:32)
[2017-11-10] MEDS: LIDOCAINE 5% PATCH TP SCH (09:14)
[2017-11-10] MEDS ORDERED: SODIUM CHLORIDE 0.9% 1000ML 1,000 ML ONE (11:52)
--- NOTE | 2017-11-10 12:03 | Progress Note ---
DATE: November 10, 2017 NEPHROLOGY PROGRESS NOTE REASON FOR CONSULTATION: End-stage renal disease. SUBJECTIVE: Patient is confused, unable to obtain review of systems. OBJECTIVE GENERAL: Lying comfortably in bed, in no acute distress. VITAL SIGNS: Heart rate 99, blood pressure 86/44. O2 sat is 97% on 4 L nasal cannula. HEENT: NC, AT. EOMI. LUNGS: Crackles at the bases bilaterally. ABDOMEN: Distended. Soft. EXTREMITIES: No edema. Intact pulses. LABS: Reviewed on electronic medical record. Significant for hemoglobin of 8.5, BUN 24, creatinine 3.8. IMAGING: Reviewed on electronic medical record. Abdominal x-ray performed overnight was negative for ileus. ASSESSMENT AND PLAN 1. End-stage renal disease. Will perform SLED today over 8 hours for 4 L UF. 2. Metabolic acidosis. Continue sodium bicarbonate. 3. Anemia of chronic kidney disease. Continue Epogen. Hemoglobin trending up. Job#: [id number]
[2017-11-10] MEDS: DOPAMINE/DEXTROSE 250 ML IV SCH (14:30)
--- NOTE | 2017-11-10 15:07 | Progress Note ---
DATE: November 10, 2017 CARDIOLOGY PROGRESS NOTE SUBJECTIVE: The patient remains confused. He refused dialysis. He remains on dopamine 8 mcg/kg per minute. OBJECTIVE VITALS: Temperature 99.4 degrees, pulse 94, respiratory rate 16, blood pressure 85/60, oxygen saturation 96% on 3 liters nasal cannula. GENERAL: Cachectic, chronically ill-appearing man, in no acute distress. LUNGS: Decreased breath sounds at the bases. No wheezes or crackles. CARDIOVASCULAR: Irregularly irregular. Normal rate. Normal S1, S2. Systolic murmur. ABDOMEN: Soft. EXTREMITIES: No edema. Warm to palpation. CARDIAC MEDICATIONS 1. Dopamine 8 mcg/kg per minute. 2. Midodrine 20 mg p.o. t.i.d. LABS: WBC 12.7, hemoglobin 8.5, hematocrit 25.9, and platelets 364. Sodium 138, potassium 3.6, chloride 102, CO2 of 22, BUN 24, and creatinine 3.89. Telemetry, atrial fibrillation. IMPRESSION Hematochezia. Acute anemia. Rprdf-xz-bcqmbqk systolic heart failure, status post automatic implantable cardioverter-defibrillator. Pulmonary hypertension and right-sided heart failure, acute on chronic. End-stage renal disease, on hemodialysis. Atrial fibrillation, rate controlled. Shock, septic with component of cardiogenic, on maximum dose of midodrine and inotropic support. Leukocytosis. Likely aspiration pneumonia. Cirrhosis. Diabetes mellitus. Right groin abscess, resolved. RECOMMENDATIONS: Continue current cardiac medications. Wean dopamine as tolerated. Management of anemia per GI given hematochezia and anemia. Thank you for this consult. We will continue to follow. Job#: [id number] [place]
[2017-11-10] MEDS: PANTOPRAZOL 200MG/SOD CHL 0.9% 250 ML IV SCH (15:15)
[2017-11-10] MEDS: EPOETIN ALFA 10000 UNIT/ML VIAL SC SCH (18:07)
[2017-11-10] MEDS: ALBUTEROL SULF 0.083% NEB SOLN 3 ML NEB NEB PRN (19:15)
[2017-11-10] MEDS ORDERED: SODIUM CHLORIDE 0.9% 250ML 250 ML ONE (23:43)
[2017-11-11] VITALS (89 sets, daily range): BP systolic 35–118; BP diastolic 26–93
[2017-11-11] MEDS: ACETAMINOPHEN 325 MG TAB PO PRN (01:46)
[2017-11-11] MEDS: DIPHENHYDRAMINE HCL 25 MG CAP PO PRN (01:47)
[2017-11-11] MEDS: WATER STERILE 10 ML VIAL IV SCH ×2 (01:47→14:00)
[2017-11-11] MEDS: OCTREOTIDE ACETATE 500 MCG in SODIUM CHLORIDE 0.9% 250ML 249 ML IV SCH (03:07)
[2017-11-11 06:46] LABS: BASOPHILS # (AUTO) 0.1 (0.0-0.1); BASOPHILS % 0.6 % (0.0-1.0); EOSINOPHILS # (AUTO) 0.2 (0.0-0.4); EOSINOPHILS % 1.6 % (0.0-6.0); HEMATOCRIT 25.5 % (38.2-49.6); HEMOGLOBIN 8.4 g/dL (14.0-18.0); LYMPHOCYTES # (AUTO) 0.9 (1.0-3.2); MEAN CORPUSCULAR HEMOGLOBIN 27.2 pg (28-32); MEAN CORPUSCULAR HGB CONC 32.9 g/dL (31-35); MEAN CORPUSCULAR VOLUME 82.5 fL (81-99); MONOCYTES # (AUTO) 1.7 (0.2-0.8); MONOCYTES % 15.4 % (4.4-11.3); NEUTROPHILS % 73.8 % (38.7-80.0); PLATELET COUNT 398 x10e3/uL (140-360); RED BLOOD COUNT 3.09 x10e6/uL (4.3-5.7); RED CELL DISTRIBUTION WIDTH 19.9 % (11.7-14.4)
[2017-11-11 06:56] LABS: INR 1.24; PROTHROMBIN TIME 16.2 seconds (11.9-14.5)
[2017-11-11 06:58] LABS: PARTIAL THROMBOPLASTIN TIME 58.1 seconds (23.8-35.5)
[2017-11-11 07:01] LABS: ANION GAP 18.8 mmol/L (8-16); CALCIUM 9.4 mg/dL (8.4-10.2); CREATININE, SERUM 4.81 mg/dL (0.72-1.25); PHOSPHORUS 2.9 MG/DL (2.3-4.7); POTASSIUM 3.8 mmol/L (3.5-5.1)
[2017-11-11] MEDS: INSULIN REGULAR, HUMAN 100 UNIT/1 ML 3ML VIAL SQ SCH ×4 (07:30→20:52)
[2017-11-11] MEDS: SUCRALFATE 1 GM/10 ML SUSP NG SCH ×4 (07:30→20:51)
[2017-11-11] MEDS: MEGACE 400MG/ 10ML CUP PO SCH ×2 (08:31→17:00)
[2017-11-11] MEDS: LIDOCAINE 5% PATCH TP SCH (08:31)
[2017-11-11] MEDS: SODIUM BICARBONATE 650 MG TAB PO SCH ×2 (08:31→17:00)
[2017-11-11] MEDS: MIDODRINE HCL 5 MG TABLET PO SCH ×3 (08:31→16:00)
[2017-11-11 09:06] LABS: EOSINOPHILS % (MANUAL) 2 % (0-7); LYMPHOCYTES % (MANUAL) 7 % (19-48); METAMYELOCYTES % (MANUAL) 1 % (0-0); MONOCYTES % (MANUAL) 15 % (3.4-9.0); NEUTROPHILS % (MANUAL) 73 % (40-74)
[2017-11-11 09:07] LABS: ANISOCYTOSIS SLIGHT; HYPOCHROMASIA SLIGHT; PLATELET ESTIMATE ADEQUATE; PLATELET MORPHOLOGY COMMENT FEW GIANT; POIKILOCYTOSIS SLIGHT; RBC MORPHOLOGY COMMENT ABNORMAL
[2017-11-11 09:08] LABS: ELLIPTOCYTE, RBC SLIGHT
--- NOTE | 2017-11-11 11:06 | Progress Note ---
DATE: November 11, 2017 CARDIOLOGY PROGRESS NOTE SUBJECTIVE: The patient complains of being cold. He is confused. He is unable to state his location. OBJECTIVE VITALS: Temperature 98 degrees, pulse 88, respiratory rate 18, blood pressure 91/55, and oxygen saturation 100% on 3 L nasal cannula. GENERAL: Awake, cachectic and chronically ill-appearing man in no acute distress. LUNGS: Clear to auscultation. No wheezes or crackles. CARDIOVASCULAR: Irregularly irregular. Normal rate. Normal S1 and S2. Systolic murmur. ABDOMEN: Soft. EXTREMITIES: No edema. Warm to palpation. CARDIAC MEDICATIONS 1. Dopamine 7 mcg per kg per minute. 2. Midodrine 20 mg p.o. t.i.d. LABS: WBC 10.48, hemoglobin 9.4, hematocrit 25.5, and platelets 398,000. Sodium 139, potassium 3.8, chloride 101, CO2 23, BUN 29, creatinine 4.8. Telemetry is atrial fibrillation with rate control. IMPRESSION 1. Hematochezia. 2. Acute anemia, currently stable. 3. Whmrj-je-nfffrzf systolic heart failure: Status post automatic implanted cardioverter defibrillator. 4. Pulmonary hypertension. 5. Right-sided heart failure, legjc-yu-mclpzws. 6. End-stage renal disease, on hemodialysis. 7. Atrial fibrillation, rate controlled. 8. Shock, septic, cardiogenic on maximum dose of midodrine inotropic support. 9. Leukocytosis. 10. Likely aspiration pneumonia. 11. Cirrhosis. 12. Diabetes mellitus. 13. Right groin abscess, resolved. RECOMMENDATIONS: Continue current cardiac medications. Wean dopamine as tolerated. Management of anemia per GI given hematochezia. Patient is refusing dialysis. However, he does not urinate in any significant quantity. This is reaccumulating. The patient's prognosis is poor. Thank you for this consult. Will continue to follow. Job#: [id number] MONTSE
--- NOTE | 2017-11-11 11:09 | Progress Note ---
DATE: November 11, 2017 NEPHROLOGY PROGRESS NOTE REASON FOR CONSULTATION: End-stage renal disease. SUBJECTIVE: Patient remains confused, unable to obtain review of systems. OBJECTIVE VITAL SIGNS: Temperature 98, heart rate 96, respiratory rate 16, blood pressure 91/55, O2 sat 97% on 3 L nasal cannula. LUNGS: Decreased breath sounds at the bases. No wheezing. ABDOMEN: Soft, distended, nontender. EXTREMITIES: No edema. LABS: Reviewed on electronic medical record. Significant for hemoglobin of 8.4, BUN 29, creatinine 4.8. IMAGING: Reviewed on electronic medical record. ASSESSMENT AND PLAN 1. End-stage renal disease. I wanted to perform pure ultrafiltration today for 4 hours for 4 liters since he continues to have high intake, and we have been unable to pull fluid aggressively. The patient refused dialysis today. I explained the need to do dialysis to his family since the patient is confused according to the family. We will continue to hold off on dialysis today. Plan for dialysis tomorrow. 2. Metabolic acidosis. Continue sodium bicarbonate. 3. Anemia of chronic kidney disease. Continue Epogen 10,000 units. 4. Cardiogenic shock. He remains on dopamine. Job#: [id number]
[2017-11-11] MEDS: DOPAMINE/DEXTROSE 250 ML IV SCH (15:00)
--- NOTE | 2017-11-11 15:35 | Diagnostic Imaging Report ---
PROCEDURE:HIP RIGHT 2-3 VW (+/- PELVIS) COMPARISON:None. INDICATIONS:FALL, RIGHT HIP PAIN FINDINGS: BONES:Examination somewhat limited into soft tissue attenuation. Abnormal appearance of the subcapital femoral neck concerning for nondisplaced fracture. SOFT TISSUES:Negative. OTHER:Surgical clips projected on the soft tissues. CONCLUSION: Limited exam with findings concerning for right femoral neck fracture. Suggest CT examination of the hip without contrast for confirmation. Cammie Hernandez M.D. Dictated by: Cammie Hernandez M.D. on 11/11/2017 at 15:43 Electronically approved by: Cammie Hernandez M.D. on 11/11/2017 at 15:43
[2017-11-11] MEDS: PANTOPRAZOLE SOD 40 MG TABEC PO SCH (16:30)
[2017-11-11] MEDS ORDERED: LORAZEPAM INJ 2 MG/ML VIAL IV ONE (19:45)
[2017-11-12] VITALS (90 sets, daily range): BP systolic 82–127; BP diastolic 42–82
[2017-11-12] MEDS: WATER STERILE 10 ML VIAL IV SCH ×2 (02:00→14:00)
[2017-11-12 05:36] LABS: BASOPHILS # (AUTO) 0.1 (0.0-0.1); BASOPHILS % 0.6 % (0.0-1.0); EOSINOPHILS # (AUTO) 0.2 (0.0-0.4); EOSINOPHILS % 1.4 % (0.0-6.0); HEMATOCRIT 26.5 % (38.2-49.6); HEMOGLOBIN 8.5 g/dL (14.0-18.0); LYMPHOCYTES % 9.8 % (18.0-39.1); MEAN CORPUSCULAR HEMOGLOBIN 26.3 pg (28-32); MEAN CORPUSCULAR HGB CONC 32.1 g/dL (31-35); MONOCYTES # (AUTO) 1.5 (0.2-0.8); MONOCYTES % 14.1 % (4.4-11.3); NEUTROPHILS # (AUTO) 7.7 (2.1-6.9); NEUTROPHILS % 73.5 % (38.7-80.0); PLATELET COUNT 442 x10e3/uL (140-360); RED BLOOD COUNT 3.23 x10e6/uL (4.3-5.7); RED CELL DISTRIBUTION WIDTH 20.5 % (11.7-14.4)
[2017-11-12 06:00] LABS: ANION GAP 19.9 mmol/L (8-16); CALCIUM 9.4 mg/dL (8.4-10.2); CREATININE, SERUM 5.59 mg/dL (0.72-1.25); PHOSPHORUS 3.6 MG/DL (2.3-4.7); POTASSIUM 3.9 mmol/L (3.5-5.1)
[2017-11-12] MEDS ORDERED: LORAZEPAM INJ 2 MG/ML VIAL IV ONE (08:00)
[2017-11-12] MEDS: MIDODRINE HCL 5 MG TABLET PO SCH ×3 (08:05→17:33)
[2017-11-12] MEDS: INSULIN REGULAR, HUMAN 100 UNIT/1 ML 3ML VIAL SQ SCH ×5 (08:05→20:30)
[2017-11-12] MEDS: PANTOPRAZOLE SOD 40 MG TABEC PO SCH ×2 (08:05→17:33)
[2017-11-12] MEDS: SUCRALFATE 1 GM/10 ML SUSP NG SCH ×4 (08:05→20:30)
[2017-11-12] MEDS: SODIUM BICARBONATE 650 MG TAB PO SCH ×2 (09:00→17:33)
[2017-11-12] MEDS: MEGACE 400MG/ 10ML CUP PO SCH ×2 (09:00→17:33)
[2017-11-12] MEDS ORDERED: PHYTONADIONE 10 MG/ML AMP IM ONE (09:00)
[2017-11-12] MEDS: LIDOCAINE 5% PATCH TP PRN (10:58)
[2017-11-12] MEDS: LIDOCAINE 5% PATCH TP SCH (10:58)
[2017-11-12] MEDS: EPOETIN ALFA 10000 UNIT/ML VIAL SC SCH (10:58)
--- NOTE | 2017-11-12 11:01 | Progress Note ---
DATE: November 12, 2017 CARDIOLOGY PROGRESS NOTE SUBJECTIVE: The patient is sleeping after receiving Ativan to keep him calm on hemodialysis. Patient was apparently found sitting on the ground yesterday after falling out of bed. Hip x-ray was concerning for right femoral neck fracture. OBJECTIVE VITALS: Temperature 98.5 degrees, pulse 100, respiratory rate 18, blood pressure 104/74, and oxygen saturation 98% on 3 L nasal cannula. GENERAL: Cachectic and chronically ill-appearing man in no acute distress. LUNGS: Clear to auscultation. No wheezes or crackles. CARDIOVASCULAR: Irregularly irregular. Normal rate. Normal S1 and S2. Systolic murmur. ABDOMEN: Soft. EXTREMITIES: No edema. Warm to palpation. CARDIAC MEDICATIONS 1. Dopamine 7 mcg per kg per minute. 2. Midodrine 20 mg p.o. t.i.d. LABS: WBC 10.4, hemoglobin 8.5, hematocrit 26.5, and platelets 442,000. Sodium 137, potassium 3.9, chloride 99, CO2 22, BUN 33, creatinine 5.59. Telemetry is atrial fibrillation. IMPRESSION 1. Possible right femoral neck fracture. 2. Vhexh-bl-qwemjhx systolic heart failure: Status post automatic implanted cardioverter defibrillator. 3. Pulmonary hypertension with right-sided heart failure, adjmo-kv-hyhvddb. 4. End-stage renal disease, on hemodialysis. 5. Atrial fibrillation, rate controlled. 6. Shock, septic with possible component of cardiogenic: On maximum dose of midodrine and inotropic support. 7. Hematochezia, resolved. 8. Acute anemia, currently stable. 9. Suspect aspiration pneumonia. 10. Cirrhosis. 11. Diabetes. 12. Right groin abscess, resolved. RECOMMENDATIONS: Continue current cardiac medications. Wean dopamine as tolerated. Volume management per nephrology. Patient agreed to undergo dialysis today. Management of anemia per GI given hematochezia. Further evaluation of the patient's hip per primary service. The patient's prognosis is poor. Thank you for this consult. We will continue to follow. Job#: [id number] MONTSE
--- NOTE | 2017-11-12 13:55 | Progress Note ---
DATE: November 12, 2017 NEPHROLOGY PROGRESS NOTE REASON FOR CONSULTATION: End-stage renal disease. SUBJECTIVE: Patient fell yesterday, and imaging of the hip is concerning for a femoral neck fracture. OBJECTIVE VITAL SIGNS: Temperature 97, heart rate 56, respiratory rate 16, blood pressure 120/69. O2 sat 99% on 4 L nasal cannula. GENERAL: Lying comfortably in bed, in no acute distress. LUNGS: Crackles at the bases. ABDOMEN: Soft, distended, positive bowel sounds. EXTREMITIES: No edema. LABS: Reviewed on electronic medical record. Significant for hemoglobin of 8.5, BUN 33, white count 10.4. IMAGING: Reviewed on electronic medical record. Hip x-ray is concerning for a femoral neck fracture. ASSESSMENT AND PLAN: A 67-year-old man with end-stage renal disease and cardiogenic shock. 1. Cardiogenic shock on midodrine and dopamine. Off Levophed at this point. 2. End-stage renal disease. He has been refusing dialysis. I explained that there is an increased risk of and volume overload. He has high intake, and we have been unable to pull fluid with dialysis. The patient is confused. Family was made aware of this as well. The family was made aware of this as well. We will do dialysis today for 4 days for 2 to 3 L UF as tolerated. 3. Anemia of chronic kidney disease. Continue Epogen 10,000 units. 4. Metabolic acidosis due to poor perfusion. Continue sodium bicarbonate. Job#: [id number]
--- NOTE | 2017-11-12 14:23 | Diagnostic Imaging Report ---
Exam: Right hipCT without contrast. History: Hip pain. Possible femoral neck fracture. Fall. Comparison:Radiographs 11/11/2017 Technique: Utilizing a 64-slice multidetector CT, axial imaging was performed through the right hip without IV contrast. Multiplanar reformation was performed. Findings: There is no acute fracture, subluxation or evidence of avascular necrosis about the right hip. Scattered degenerative changes are seen. No osseous erosion. Scattered vascular calcifications are seen. There is what appears to be a large amount of free fluid/ascites in the pelvis. Superficial soft tissue edema and edema within the right hip gluteal musculature likely due to a contusion/evolving hematoma. This is best seen on axial image 43. Impression: No acute fracture, subluxation or evidence of avascular necrosis about the right hip. Superficial soft tissue edema and edema within the right hip gluteal musculature likely due to a contusion/evolving hematoma Signed by: Dr. Misael Huertas M.D. on 11/12/2017 2:19 PM
[2017-11-12] MEDS: DOPAMINE/DEXTROSE 250 ML IV SCH (18:29)
[2017-11-13] VITALS (94 sets, daily range): BP systolic 74–119; BP diastolic 36–101
[2017-11-13] MEDS: WATER STERILE 10 ML VIAL IV SCH ×2 (02:00→14:00)
[2017-11-13 05:43] LABS: BASOPHILS # (AUTO) 0.1 (0.0-0.1); BASOPHILS % 0.6 % (0.0-1.0); EOSINOPHILS # (AUTO) 0.2 (0.0-0.4); EOSINOPHILS % 1.3 % (0.0-6.0); HEMATOCRIT 26.2 % (38.2-49.6); HEMOGLOBIN 8.6 g/dL (14.0-18.0); LYMPHOCYTES # (AUTO) 0.9 (1.0-3.2); LYMPHOCYTES % 7.9 % (18.0-39.1); MEAN CORPUSCULAR HGB CONC 32.8 g/dL (31-35); MEAN CORPUSCULAR VOLUME 82.1 fL (81-99); MONOCYTES # (AUTO) 1.2 (0.2-0.8); MONOCYTES % 11.1 % (4.4-11.3); NEUTROPHILS # (AUTO) 8.8 (2.1-6.9); NEUTROPHILS % 78.4 % (38.7-80.0); PLATELET COUNT 421 x10e3/uL (140-360); RED BLOOD COUNT 3.19 x10e6/uL (4.3-5.7); RED CELL DISTRIBUTION WIDTH 20.8 % (11.7-14.4)
[2017-11-13 06:02] LABS: ANION GAP 17.8 mmol/L (8-16); CALCIUM 9.4 mg/dL (8.4-10.2); CREATININE, SERUM 5.23 mg/dL (0.72-1.25); POTASSIUM 3.8 mmol/L (3.5-5.1)
[2017-11-13] MEDS: PANTOPRAZOLE SOD 40 MG TABEC PO SCH ×2 (07:39→17:02)
[2017-11-13] MEDS: MEGACE 400MG/ 10ML CUP PO SCH ×2 (07:39→17:02)
[2017-11-13] MEDS: SODIUM BICARBONATE 650 MG TAB PO SCH ×2 (07:39→17:02)
[2017-11-13] MEDS: SUCRALFATE 1 GM/10 ML SUSP NG SCH ×4 (07:39→20:22)
[2017-11-13] MEDS: LIDOCAINE 5% PATCH TP SCH (07:39)
[2017-11-13] MEDS: MIDODRINE HCL 5 MG TABLET PO SCH ×3 (07:39→17:02)
[2017-11-13] MEDS: INSULIN REGULAR, HUMAN 100 UNIT/1 ML 3ML VIAL SQ SCH ×4 (08:00→21:00)
[2017-11-13] MEDS: DOPAMINE/DEXTROSE 250 ML IV SCH (10:00)
--- NOTE | 2017-11-13 11:06 | Progress Note ---
DATE: November 13, 2017 REASON FOR CONSULTATION: End-stage renal disease. SUBJECTIVE: The patient is confused, unable to obtain review of systems. OBJECTIVE VITAL SIGNS: Temperature 98.7, heart rate 91, respiratory rate 18, blood pressure 86/63, O2 sat is 95% on 3 liters nasal cannula. GENERAL: Lying comfortably in bed, in no acute distress. ABDOMEN: Soft, distended, positive bowel sounds. EXTREMITIES: No edema. LUNGS: Decreased breath sounds at the bases. LABORATORY DATA: Reviewed on electronic medical records, significant for a hemoglobin of 8.6, BUN 27, creatinine 5.2. Bicarb 24, calcium 9.4. ASSESSMENT AND PLAN: 1. A 67-year-old man with end-stage renal disease in cardiogenic shock. 2. End-stage renal disease seen on dialysis today. of 250 mL per minute. Performing pure ultrafiltration today. 3. Metabolic acidosis. Continue sodium bicarbonate. 4. Anemia of chronic kidney disease. Continue Epogen. Job#: [id number]
--- NOTE | 2017-11-13 15:45 | Progress Note ---
DATE: November 13, 2017 CARDIOLOGY PROGRESS NOTE SUBJECTIVE: Continues dependent on dopamine for pressor support. No complaints. Confused. OBJECTIVE VITAL SIGNS: Temperature 98.7. Heart rate 91, respiratory rate 18, blood pressure 86/63, O2 sat 95% on 3 liters per nasal cannula. GENERAL: Confused. CHEST: Decreased breath sounds bilateral bases. CARDIOVASCULAR: Irregularly irregular rate and rhythm. Normal S1 and S2. Systolic ejection murmur. ABDOMEN: Soft. EXTREMITIES: No edema. TELEMETRY: In atrial fibrillation. CARDIOVASCULAR MEDICATIONS: Midodrine 20 mg t.i.d. Dopamine at 2.5 mikes. LABORATORY STUDIES: Studies reviewed. White blood cells 11, hemoglobin 8.6, platelets 421. INR 1.2. Creatinine 5.2. Potassium 3.8. Bicarbonate 24. Glucose 164. Blood cultures from November 04 negative x5 days. Hip CT: No acute fractures, subluxation or evidence of avascular necrosis above the right hip. There is superficial soft tissue edema and edema within the right hip gluteal musculature likely due to contusion, possibly evolving hematoma. ASSESSMENT 1. Septic shock, pressor dependent. 2. Acute on chronic systolic heart failure with right-sided heart failure component. 3. Atrial fibrillation. 4. End-stage renal disease. 5. Liver cirrhosis. 6. Resolved hematochezia. 7. Acute anemia, currently stable. 8. Aspiration pneumonia suspected. 9. Cirrhosis. 10. Diabetes. 11. Right groin abscess, resolved. 12. Status post AICD. 13. Gluteal right area contusion and hematoma. 14. End-stage renal disease. PLAN: Overall guarded prognosis. Wean pressors as tolerated. Prognosis remains poor. Job#: [id number]
[2017-11-13] MEDS ORDERED: POTASSIUM CHLORIDE 20MEQ/100ML 100 ML IV ONE (22:15)
[2017-11-13 23:17] LABS: INR 1.16; PROTHROMBIN TIME 15.4 seconds (11.9-14.5)
[2017-11-13 23:18] LABS: PARTIAL THROMBOPLASTIN TIME 58.1 seconds (23.8-35.5)
[2017-11-14] VITALS (16 sets, daily range): BP systolic 89–149; BP diastolic 50–67
[2017-11-14] MEDS ORDERED: POTASSIUM CHLORIDE 10MEQ/100ML 200 ML ONE (00:18)
[2017-11-14] MEDS: ACETAMINOPHEN 325 MG TAB PO PRN ×2 (00:59→18:02)
[2017-11-14] MEDS: WATER STERILE 10 ML VIAL IV SCH (01:42)
[2017-11-14] MEDS: LORAZEPAM INJ 2 MG/ML VIAL IV PRN (01:42)
[2017-11-14 05:58] LABS: BASOPHILS # (AUTO) 0.1 (0.0-0.1); BASOPHILS % 0.6 % (0.0-1.0); EOSINOPHILS # (AUTO) 0.1 (0.0-0.4); EOSINOPHILS % 0.7 % (0.0-6.0); HEMATOCRIT 25.9 % (38.2-49.6); HEMOGLOBIN 8.3 g/dL (14.0-18.0); MEAN CORPUSCULAR HEMOGLOBIN 26.6 pg (28-32); MONOCYTES # (AUTO) 1.3 (0.2-0.8); MONOCYTES % 12.1 % (4.4-11.3); NEUTROPHILS # (AUTO) 8.6 (2.1-6.9); NEUTROPHILS % 77.2 % (38.7-80.0); PLATELET COUNT 389 x10e3/uL (140-360); RED BLOOD COUNT 3.12 x10e6/uL (4.3-5.7); RED CELL DISTRIBUTION WIDTH 20.3 % (11.7-14.4)
[2017-11-14 06:16] LABS: ANION GAP 19.1 mmol/L (8-16); CALCIUM 9.5 mg/dL (8.4-10.2); CREATININE, SERUM 6.16 mg/dL (0.72-1.25); PHOSPHORUS 2.7 MG/DL (2.3-4.7); POTASSIUM 4.1 mmol/L (3.5-5.1)
[2017-11-14] MEDS: INSULIN REGULAR, HUMAN 100 UNIT/1 ML 3ML VIAL SQ SCH ×4 (08:00→21:45)
[2017-11-14] MEDS: SUCRALFATE 1 GM/10 ML SUSP NG SCH ×4 (08:54→21:45)
[2017-11-14] MEDS: MIDODRINE HCL 5 MG TABLET PO SCH ×3 (08:54→16:25)
[2017-11-14] MEDS: PANTOPRAZOLE SOD 40 MG TABEC PO SCH ×2 (08:54→16:25)
[2017-11-14] MEDS: SODIUM BICARBONATE 650 MG TAB PO SCH ×2 (08:55→16:25)
[2017-11-14] MEDS: LIDOCAINE 5% PATCH TP SCH (08:55)
[2017-11-14] MEDS: MEGACE 400MG/ 10ML CUP PO SCH ×2 (08:55→16:25)
[2017-11-14] MEDS: DOPAMINE/DEXTROSE 250 ML IV SCH (14:30)
[2017-11-14] MEDS ORDERED: PHYTONADIONE 10 MG/ML AMP IV ONE (23:30)
[2017-11-14] MEDS ORDERED: PHYTONADIONE 10MG/ML 20 MG in SODIUM CHLORIDE 0.9% 100 ML IV ONE (23:45)
[2017-11-15] VITALS (10 sets, daily range): BP systolic 92–112; BP diastolic 24–98
[2017-11-15] MEDS ORDERED: PHYTONADIONE 10MG/ML 2 ML ONE (00:19)
[2017-11-15] MEDS: ALBUTEROL SULF 0.083% NEB SOLN 3 ML NEB NEB PRN ×2 (00:45→14:15)
[2017-11-15] MEDS ORDERED: SODIUM CHLORIDE 0.9% 50ML 100 ML ONE (01:01)
--- NOTE | 2017-11-15 04:01 | Progress Note ---
DATE: November 14, 2017 REASON FOR CONSULTATION: End-stage renal disease. SUBJECTIVE: Patient has been transferred out of the ICU. Remains acidotic. OBJECTIVE VITAL SIGNS: Temperature 97.1, heart rate 69, respiratory rate 16, blood pressure 96/54, and O2 sat is 98% on 2 L nasal cannula. HEENT: NCAT. EOMI. LUNGS: Crackles at the bases bilaterally. No wheezing. ABDOMEN: Soft and distended. Positive bowel sounds. EXTREMITIES: No edema. LABS: Reviewed in electronic medical records. Significant for hemoglobin of 8.3. BUN of 31, bicarb 23, sodium 138, and potassium 4.1. ASSESSMENT AND PLAN 1. End-stage renal disease: Patient with cardiogenic shock, on a dopamine drip. Will hold off on dialysis today. Electrolytes and volume status reviewed. No urgent indication today. 2. Metabolic acidosis: Continue sodium bicarbonate. Remains acidotic. Poor end-organ perfusion. 3. Cardiogenic shock: Remains on dopamine. 4. Anemia of chronic kidney disease and acute blood loss anemia: Status post multiple units of blood and remains on Epogen 10,000 units. Job#: [id number] MONTSE
[2017-11-15 06:52] LABS: BASOPHILS # (AUTO) 0.1 (0.0-0.1); BASOPHILS % 0.7 % (0.0-1.0); EOSINOPHILS # (AUTO) 0.1 (0.0-0.4); EOSINOPHILS % 0.7 % (0.0-6.0); HEMATOCRIT 29.7 % (38.2-49.6); HEMOGLOBIN 9.4 g/dL (14.0-18.0); LYMPHOCYTES # (AUTO) 1.2 (1.0-3.2); LYMPHOCYTES % 10.3 % (18.0-39.1); MEAN CORPUSCULAR HEMOGLOBIN 26.2 pg (28-32); MEAN CORPUSCULAR HGB CONC 31.6 g/dL (31-35); MEAN CORPUSCULAR VOLUME 82.7 fL (81-99); MONOCYTES # (AUTO) 1.3 (0.2-0.8); MONOCYTES % 10.8 % (4.4-11.3); NEUTROPHILS # (AUTO) 9.1 (2.1-6.9); NEUTROPHILS % 77.1 % (38.7-80.0); PLATELET COUNT 438 x10e3/uL (140-360); RED BLOOD COUNT 3.59 x10e6/uL (4.3-5.7); RED CELL DISTRIBUTION WIDTH 21.5 % (11.7-14.4)
[2017-11-15 07:06] LABS: CREATININE, SERUM 7.33 mg/dL (0.72-1.25); PHOSPHORUS 2.3 MG/DL (2.3-4.7)
[2017-11-15] MEDS: PANTOPRAZOLE SOD 40 MG TABEC PO SCH ×2 (07:30→16:56)
[2017-11-15] MEDS: INSULIN REGULAR, HUMAN 100 UNIT/1 ML 3ML VIAL SQ SCH ×4 (07:30→17:00)
[2017-11-15] MEDS: SUCRALFATE 1 GM/10 ML SUSP NG SCH ×4 (07:30→22:51)
[2017-11-15] MEDS: MIDODRINE HCL 5 MG TABLET PO SCH ×3 (08:00→16:56)
[2017-11-15] MEDS: SODIUM BICARBONATE 650 MG TAB PO SCH ×2 (08:05→16:57)
[2017-11-15] MEDS: LIDOCAINE 5% PATCH TP SCH (08:05)
[2017-11-15] MEDS: MEGACE 400MG/ 10ML CUP PO SCH ×2 (08:05→16:56)
[2017-11-15] MEDS: EPOETIN ALFA 10000 UNIT/ML VIAL SC SCH (10:30)
--- NOTE | 2017-11-15 10:50 | Progress Note ---
DATE: PCP: Dr. Butch Simmons CONSULTANTS: Dr. Aroldo Morris, Dr. Gilles Dang, Dr. Brayan Powell. CHIEF COMPLAINT: Atrial fibrillation. Cutaneous abscess of groin. DIET: Renal and diabetic diet. ALLERGIES: SHE IS ALLERGIC TO CODEINE. SUBJECTIVE: No new issues. is at bedside. MEDICATIONS: Please see MAR. OBJECTIVE VITALS: Temperature 96.9, pulse 77, blood pressure 89/56, respirations 20, satting 96%. Weight 165. BMI 25. GENERAL: Patient is awake and alert. LUNGS: Clear to auscultation bilaterally. Normal respiratory effort. HEENT: The extraocular muscles are intact. Sclerae are anicteric. ABDOMEN: Soft. Bowel sounds present. Nontender and nondistended. CARDIOVASCULAR: Irregularly irregular heart rate. NEUROLOGIC: Nonfocal. NECK: Supple. Trachea is midline. EXTREMITIES: No calf tenderness. Decreased range of motion to the right hip. LABS: Sodium 138, potassium 4.1, chloride 100, CO2 23, BUN 31, creatinine 6.16, glucose 139. White count 11.1, hemoglobin 8.3, hematocrit 25.9, platelets 389. IMPRESSION 1. Right hip contusion. CT of the hip is negative. 2. Gastrointestinal bleed. Hemoglobin is stable. 3. End-stage renal disease. The patient is on hemodialysis. Followed by renal. 4. Chronic atrial fibrillation. Cardiology is following. The patient is to continue metoprolol. 5. Septic shock. Patient should continue monitoring his white count. The patient is no longer on dopamine or norepinephrine. The patient has been transferred out of the ICU. He is in IMCU status. 6. Will do a referral for long term facility. Dictated by: Soham Wyman NP Job#: [id number]
--- NOTE | 2017-11-15 11:05 | Progress Note ---
DATE: November 14, 2017 CARDIOLOGY PROGRESS NOTE SUBJECTIVE: Dyspnea remains stable. Still dopamine dependent. Confused. OBJECTIVE VITALS: Temperature 96.9, heart rate 77, respiratory rate 20, blood pressure 189/56, O2 sat 96% on 4 L per minute. GENERAL: No acute distress. Alert but confused. CHEST: Clear to auscultation. CARDIOVASCULAR: Irregularly irregular rate and rhythm. Normal S1 and S2. Holosystolic ejection murmur. ABDOMEN: Soft. EXTREMITIES: No edema. Telemetry is atrial fibrillation. CARDIOVASCULAR: Reviewed. 1. Midodrine 200 mg b.i.d. 2. Dopamine 2 mcg per kg per minute. STUDIES: Reviewed. ASSESSMENT 1. Septic shock, pressor dependent. 2. Jjboy-cr-zjsfdyz systolic heart failure with right-sided heart failure component. 3. History of atrial fibrillation. 4. End-stage renal disease. 5. Acute anemia: Currently stable. 6. Aspiration pneumonia, suspected. 7. Cirrhosis. 8. Diabetes mellitus. 9. History of groin abscess, now resolved. 10. Status post automatic implanted cardioverter defibrillator. 11. Gluteal contusion and hematoma. 12. End-stage renal disease. RECOMMENDATIONS: Remains overall critical with guarded prognosis. Continue to wean pressors as tolerated. Multiple organs in chronic failure and advanced disease. Pressor dependent. Job#: [id number] MONTSE
[2017-11-15] MEDS: DOPAMINE/DEXTROSE 250 ML IV SCH (14:30)
--- NOTE | 2017-11-15 14:31 | Progress Note ---
DATE: November 15, 2017 REASON FOR CONSULTATION: End-stage renal disease. SUBJECTIVE: Patient remains confused, although repeatedly states that he does not want dialysis. OBJECTIVE VITAL SIGNS: Temperature 97.5, heart rate 84, respiratory rate 20, blood pressure 108/56. GENERAL: He is lying comfortably in bed, no acute distress. LUNGS: Decreased breath sounds at the bases, no wheezing. HEART: Regular rhythm. S1 and S2 normal. ABDOMEN: Soft, distended, positive bowel sounds. EXTREMITIES: No edema. LABS: Significant for hemoglobin of 9.4, potassium of 5, bicarb of 19, BUN of 38. IMAGING: Reviewed in electronic medical record. ASSESSMENT AND PLAN 1. A 67-year-old man with end-stage renal disease in cardiogenic shock, remains on a dopamine drip. 2. End-stage renal disease, plan for dialysis today. 3. Hyperkalemia, will improve with dialysis. 4. Metabolic acidosis secondary to poor end organ perfusion in the setting of cardiogenic shock. Will improve with dialysis. 5. Hypophosphatemia, resolved. 6. Anemia and chronic kidney disease. Continue Epogen. Job#: [id number] PAT MTDD
[2017-11-15] MEDS: LORAZEPAM INJ 2 MG/ML VIAL IV PRN (15:09)
--- NOTE | 2017-11-15 18:40 | Progress Note ---
DATE: November 15, 2017 CARDIOLOGY PROGRESS NOTE SUBJECTIVE: The patient denies chest pain or shortness of breath. However, he was somewhat confused. He is able to state he is in the hospital, but believes it is 2007. OBJECTIVE VITAL SIGNS: Temperature 98.7 degrees, pulse 70, respiratory rate 18, blood pressure 103/46, oxygen saturation 97% on 3 liters nasal cannula. GENERAL: Awake and in no acute distress, confused. Alert and oriented x2. LUNGS: Clear to auscultation bilaterally. No wheezes or crackles. CARDIOVASCULAR: Irregularly irregular. Normal rate. Normal S1, S2. Holosystolic ejection murmur. ABDOMEN: Soft and nontender. EXTREMITIES: No edema. CARDIAC MEDICATIONS 1. Dopamine 2 mcg/kg per minute. 2. Midodrine 20 mg p.o. t.i.d. LABS: WBC 11.8, hemoglobin 9.4, hematocrit 29.7, platelets 438,000, sodium 137, potassium 5, chloride 99, CO2 19, BUN 38, creatinine 7.33. TELEMETRY: Atrial fibrillation. IMPRESSION 1. Shock, septic with component of cardiogenic on Midodrine and inotropic support. 2. Vpwyx-fe-dvvrpnp systolic heart failure, status post AICD. 3. Right-sided heart failure. 4. Pulmonary hypertension. 5. Atrial fibrillation. 6. End-stage renal disease on hemodialysis. 7. Anemia, currently stable. 8. Suspected aspiration pneumonia. 9. Cirrhosis. 10. Diabetes mellitus. 11. History of groin abscess, now resolved. 12. Gluteal contusion and hematoma. RECOMMENDATIONS: Continue current inotropic support and wean as tolerated. Continue current cardiac medications. Prognosis is guarded as he has multiorgan dysfunction and remains pressor dependent. Thank you for this consult. We will continue to follow. Job#: [id number]
[2017-11-15] MEDS ORDERED: SODIUM BICARBONATE 4.2% 10 ML SYRINGE IV ONE (22:30)
[2017-11-16] VITALS (60 sets, daily range): BP systolic 80–111; BP diastolic 33–86
[2017-11-16] MEDS ORDERED: SODIUM BICARBONATE 8.4% SYRING 50 ML ONE (01:04)
[2017-11-16] MEDS ORDERED: SODIUM BICARBONATE 8.4% INJ 50 ML SYR IV ONE (01:15)
[2017-11-16 07:56] LABS: BASOPHILS # (AUTO) 0.1 (0.0-0.1); BASOPHILS % 0.6 % (0.0-1.0); EOSINOPHILS # (AUTO) 0.1 (0.0-0.4); EOSINOPHILS % 0.4 % (0.0-6.0); HEMATOCRIT 27.7 % (38.2-49.6); HEMOGLOBIN 9.1 g/dL (14.0-18.0); LYMPHOCYTES # (AUTO) 1.3 (1.0-3.2); LYMPHOCYTES % 10.9 % (18.0-39.1); MEAN CORPUSCULAR HEMOGLOBIN 26.3 pg (28-32); MEAN CORPUSCULAR HGB CONC 32.9 g/dL (31-35); MEAN CORPUSCULAR VOLUME 80.1 fL (81-99); MONOCYTES # (AUTO) 1.3 (0.2-0.8); MONOCYTES % 11.3 % (4.4-11.3); NEUTROPHILS # (AUTO) 8.8 (2.1-6.9); NEUTROPHILS % 75.9 % (38.7-80.0); PLATELET COUNT 490 x10e3/uL (140-360); RED BLOOD COUNT 3.46 x10e6/uL (4.3-5.7); RED CELL DISTRIBUTION WIDTH 21.9 % (11.7-14.4)
[2017-11-16 08:03] LABS: INR 1.18; PROTHROMBIN TIME 15.6 seconds (11.9-14.5)
[2017-11-16 08:05] LABS: PARTIAL THROMBOPLASTIN TIME 55.9 seconds (23.8-35.5)
[2017-11-16] MEDS: SODIUM BICARBONATE 650 MG TAB PO SCH ×2 (08:10→16:20)
[2017-11-16] MEDS: MIDODRINE HCL 5 MG TABLET PO SCH ×3 (08:10→16:15)
[2017-11-16] MEDS: PANTOPRAZOLE SOD 40 MG TABEC PO SCH ×2 (08:10→16:20)
[2017-11-16] MEDS: INSULIN REGULAR, HUMAN 100 UNIT/1 ML 3ML VIAL SQ SCH ×4 (08:10→21:00)
[2017-11-16] MEDS: MEGACE 400MG/ 10ML CUP PO SCH ×2 (08:10→16:20)
[2017-11-16] MEDS: SUCRALFATE 1 GM/10 ML SUSP NG SCH ×4 (08:10→20:30)
[2017-11-16 08:12] LABS: ANION GAP 22.4 mmol/L (8-16); CALCIUM 9.9 mg/dL (8.4-10.2); CREATININE, SERUM 7.94 mg/dL (0.72-1.25); PHOSPHORUS 2.1 MG/DL (2.3-4.7); POTASSIUM 4.4 mmol/L (3.5-5.1)
[2017-11-16] MEDS: SENNA-S TABLET PO PRN ×2 (09:00→18:43)
[2017-11-16] MEDS: ACETAMINOPHEN 325 MG TAB PO PRN ×2 (09:00→16:20)
[2017-11-16] MEDS: LIDOCAINE 5% PATCH TP SCH (09:25)
[2017-11-16] MEDS: ALBUTEROL SULF 0.083% NEB SOLN 3 ML NEB NEB PRN (10:20)
--- NOTE | 2017-11-16 11:46 | Progress Note ---
DATE: November 16, 2017 REASON FOR CONSULTATION: End-stage renal disease. SUBJECTIVE: Patient remains confused. Blood pressures were too hypotensive last night to tolerate dialysis. Did not perform dialysis yesterday. OBJECTIVE VITAL SIGNS: Heart rate 87, respiratory rate 17, blood pressure 95/50. O2 sat is 96% on 3 L nasal cannula. GENERAL: Lying comfortably in bed, no acute distress. HEENT: NC, AT, EOMI. LUNGS: Crackles at the bases bilaterally. No wheezing. HEART: Regular rhythm. S1 and S2 normal. ABDOMEN: Soft, distended, positive bowel sounds. EXTREMITIES: No edema. LABS: Significant for hemoglobin of 9.1, bicarb 21, BUN 45, phosphorus 2.1. ASSESSMENT AND PLAN 1. End-stage renal disease, patient in cardiogenic shock, remains in the hospital. He is unable to tolerate dialysis without inotropic support. At this point, too unstable even to tolerate dialysis with inotropic support. The patient is too hypotensive. 2. Hypophosphatemia. Will improve off of dialysis. Will recheck labs in the morning. 3. Hypotension. Started on midodrine daily. Will increase midodrine dosing to b.i.d. 4. Cardiogenic shock. Remains on dopamine. That has also been increased in the setting of hypotension. 5. Anemia of chronic kidney disease. Continue Epogen. 6. Metabolic acidosis. Continue sodium bicarbonate. Job#: [id number]
--- NOTE | 2017-11-16 12:38 | Progress Note ---
DATE: November 16, 2017 CARDIOLOGY PROGRESS NOTE SUBJECTIVE: The patient was hypotensive overnight, requiring increase in dopamine to 3.5 mcg per kg per minute. He denies chest pain or shortness of breath. OBJECTIVE VITAL SIGNS: Temperature 98.7, pulse 87, respiratory rate 17, blood pressure 101/56, oxygen saturation 96% on 3 liters nasal cannula. GENERAL: Awake, in no acute distress, chronically ill-appearing. LUNGS: Clear to auscultation bilaterally. No wheezes or crackles. CARDIOVASCULAR: Irregularly irregular. Normal rate. Normal S1, S2. Holosystolic ejection murmur. ABDOMEN: Soft and nontender. EXTREMITIES: No edema. CARDIAC MEDICATIONS 1. Midodrine 20 mg p.o. t.i.d. 2. Dopamine 3.5 mcg per kg per minute. LABS: WBC 11.55, hemoglobin 9.1, hematocrit 27.7, platelets 490. Sodium 134, potassium 4.4, chloride 98, CO2 21, BUN 45, creatinine 7.94. TELEMETRY: Atrial fibrillation. IMPRESSION 1. Shock, septic with component of cardiogenic on Midodrine and inotropic support. 2. Oknhs-nt-ifvqfer systolic heart failure, status post automatic implantable cardioverter-defibrillator. 3. Right-sided heart failure. 4. Pulmonary hypertension. 5. Atrial fibrillation. 6. End-stage renal disease on hemodialysis. 7. Anemia, currently stable. 8. Suspected aspiration pneumonia. 9. Cirrhosis. 10. Diabetes mellitus. 11. History of groin abscess, now resolved. 12. Gluteal contusion and hematoma. RECOMMENDATIONS: Continue inotropic support and wean as tolerated. Continue current cardiac medications otherwise. The patient is currently not anticoagulated due to acute anemia earlier this admission. As his hemoglobin has stabilized, will discuss with GI if the patient can be resumed. However, his prognosis is guarded given the patient's multiorgan dysfunction and continued pressor dependence. Thank you for this consult. We will continue to follow. Job#: [id number]
[2017-11-16] MEDS: DOPAMINE/DEXTROSE 250 ML IV SCH (14:30)
[2017-11-16] MEDS ORDERED: BISACODYL 5 MG TAB EC PO ONE (17:15)
[2017-11-16] MEDS: LACTULOSE SYRUP 20 GM/30 ML UDC PO PRN (21:29)
[2017-11-16] MEDS ORDERED: CITRATE OF MAGNESIA 300ML BOTTLE PO ONE (23:30)
[2017-11-16] MEDS ORDERED: SOD PHOSPHATE/SOD BIPHOSPHATE ENEMA 132 ML BTL PR ONE (23:30)
[2017-11-17] VITALS (55 sets, daily range): BP systolic 83–119; BP diastolic 43–69
[2017-11-17 06:15] LABS: BASOPHILS # (AUTO) 0.1 (0.0-0.1); BASOPHILS % 0.5 % (0.0-1.0); EOSINOPHILS # (AUTO) 0.1 (0.0-0.4); EOSINOPHILS % 0.6 % (0.0-6.0); HEMATOCRIT 27.1 % (38.2-49.6); LYMPHOCYTES # (AUTO) 1.4 (1.0-3.2); MEAN CORPUSCULAR HEMOGLOBIN 26.4 pg (28-32); MEAN CORPUSCULAR HGB CONC 33.2 g/dL (31-35); MEAN CORPUSCULAR VOLUME 79.5 fL (81-99); MONOCYTES # (AUTO) 1.4 (0.2-0.8); MONOCYTES % 11.3 % (4.4-11.3); NEUTROPHILS # (AUTO) 9.6 (2.1-6.9); PLATELET COUNT 518 x10e3/uL (140-360); RED BLOOD COUNT 3.41 x10e6/uL (4.3-5.7); RED CELL DISTRIBUTION WIDTH 21.6 % (11.7-14.4)
[2017-11-17 06:51] LABS: ANION GAP 21.4 mmol/L (8-16); CALCIUM 9.9 mg/dL (8.4-10.2); CREATININE, SERUM 8.55 mg/dL (0.72-1.25); PHOSPHORUS 1.8 MG/DL (2.3-4.7); POTASSIUM 4.4 mmol/L (3.5-5.1)
[2017-11-17] MEDS: INSULIN REGULAR, HUMAN 100 UNIT/1 ML 3ML VIAL SQ SCH ×4 (07:30→20:56)
[2017-11-17] MEDS: MIDODRINE HCL 5 MG TABLET PO SCH ×3 (08:15→16:30)
[2017-11-17] MEDS: MEGACE 400MG/ 10ML CUP PO SCH ×2 (08:15→16:30)
[2017-11-17] MEDS: SODIUM BICARBONATE 650 MG TAB PO SCH ×2 (08:15→16:30)
[2017-11-17] MEDS: SUCRALFATE 1 GM/10 ML SUSP NG SCH ×4 (08:15→20:56)
[2017-11-17] MEDS: PANTOPRAZOLE SOD 40 MG TABEC PO SCH ×2 (08:15→16:30)
[2017-11-17] MEDS: LIDOCAINE 5% PATCH TP SCH (08:15)
[2017-11-17] MEDS: LIDOCAINE 5% PATCH TP PRN (08:30)
[2017-11-17] MEDS ORDERED: POTASSIUM PHOSPHATE 15 MM in SODIUM CHLORIDE 0.9% 250ML 250 ML IV STA (10:58)
[2017-11-17] MEDS: EPOETIN ALFA 10000 UNIT/ML VIAL SC SCH (11:18)
--- NOTE | 2017-11-17 11:26 | Progress Note ---
DATE: November 17, 2017 REASON FOR CONSULTATION: End-stage renal disease. SUBJECTIVE: Patient remains confused, although more awake and alert today. Seen on dialysis. OBJECTIVE GENERAL: Lying comfortably in bed. No acute distress. VITAL SIGNS: Heart rate 86, respiratory rate 18, blood pressure 100/68, and O2 sat is 95% on 3.5 L nasal cannula. LUNGS: Decreased breath sounds at the bases. No wheezing. ABDOMEN: Soft and distended. Positive bowel sounds. EXTREMITIES: No edema. HEART: Regular rate and rhythm. LABS: Significant for hemoglobin of 9. BUN of 51, phosphorus of 1.8, calcium of 9.9. IMAGING: Reviewed in electronic medical record. Abdominal x-ray performed yesterday is pending. ASSESSMENT AND PLAN 1. End-stage renal disease: Patient is in cardiogenic shock. Remains on a dopamine drip. Has been hesitant to do dialysis as blood pressures have been very low over the past few days. Dialysis today as SLED with blood flow of 200. Attempted to do a blood flow of 100, but the line was clotting. Blood flow of 200 on dialysis and low of 400. Phosphorus levels are low this morning, and will continue to drop on dialysis since dialysis offers a zero phosphorus bath. Will give intravenous phosphorus this morning. 2. Hypophosphatemia: Will restart p.o. phosphorus. 3. Anemia of chronic kidney disease: Is improving. Continue Epogen. 4. Metabolic acidosis: Continue sodium bicarbonate. 5. Cardiogenic shock: On midodrine and remains on dopamine. Job#: [id number] MONTSE
[2017-11-17] MEDS: DOPAMINE/DEXTROSE 250 ML IV SCH (16:43)
[2017-11-17] MEDS: ACETAMINOPHEN 325 MG TAB PO PRN (18:56)
[2017-11-17] MEDS: DIPHENHYDRAMINE HCL 25 MG CAP PO PRN (19:50)
--- NOTE | 2017-11-17 20:31 | Progress Note ---
DATE: November 17, 2017 CARDIOLOGY PROGRESS NOTE SUBJECTIVE: The patient denies chest pain or shortness of breath. He remains on dopamine 3.5 mcg/kg per minute. OBJECTIVE VITAL SIGNS: Temperature 97.3 degrees, pulse 72, respiratory rate 21, blood pressure 94/51, oxygen saturation 98% on 3.5 liters nasal cannula. GENERAL: Awake, in no acute distress, chronically ill-appearing. LUNGS: Clear to auscultation bilaterally. No wheezes or crackles. CARDIOVASCULAR: Irregularly irregular. Normal rate. Normal S1, S2. Holosystolic ejection murmur. ABDOMEN: Soft and nontender. EXTREMITIES: No edema. CARDIAC MEDICATIONS 1. Midodrine 20 mg p.o. t.i.d. 2. Dopamine 3.5 mcg per kg per minute. LABS: WBC 12.69, hemoglobin 9, hematocrit 27.1, platelets 518,000, sodium 138, potassium 4.4, chloride 97, CO2 of 24, BUN 51, creatinine 8.55, BNP 638. TELEMETRY: Atrial fibrillation, rate controlled. IMPRESSION 1. Shock, septic with component of cardiogenic on Midodrine and inotropic support. 2. Tiawp-iu-dmiirpj systolic heart failure, status post automatic implantable cardioverter-defibrillator. 3. Right-sided heart failure. 4. Pulmonary hypertension. 5. Atrial fibrillation. 6. End-stage renal disease on hemodialysis. 7. Anemia, currently stable. 8. Suspected aspiration pneumonia. 9. Cirrhosis. 10. Diabetes mellitus. 11. History of groin abscess, now resolved. 12. Gluteal contusion and hematoma secondary to fall. RECOMMENDATIONS: Continue inotropic support and wean as tolerated. Continue current cardiac medications otherwise. The patient is currently not anticoagulated due to acute anemia earlier this admission. The patient's prognosis is guarded given his multiorgan dysfunction and continued pressor dependence. Volume management per nephrology given end-stage renal disease. However, volume removal has proven difficult due to the patient's hypotension. Thank you for this consult. We will continue to follow. Job#: [id number]
--- NOTE | 2017-11-17 22:01 | Diagnostic Imaging Report ---
EXAM: ABDOMEN-1VIEW (KUB), supine and erect DATE: 11/17/2017 6:00 AM Time stamp on exam: 0629 hours INDICATION: Abdominal distention, constipation COMPARISON: KUB November 10, 2017 FINDINGS: LINES/TUBES: None BOWEL PATTERN: No evidence for obstruction. SOFT TISSUES: No abnormal calcifications. No mass effect. Surgical clips project over the scrotum. LUNG BASES: Bibasilar atelectasis and possible small bilateral pleural effusions. BONES: No acute findings. IMPRESSION: Nonobstructed bowel gas pattern. Signed by: Dr. yLn Lorenzo M.D. on 11/17/2017 9:57 PM
--- NOTE | 2017-11-17 23:52 | Progress Note ---
DATE: PCP: Dr. Butch Simmons. CONSULTANTS 1. Dr. Aroldo Morris. 2. Dr. Gilles Dang. 3. Dr. Brayan Powell CHIEF COMPLAINT: Atrial fibrillation, cutaneous abscess of the groin. DIET: Renal diet. SUBJECTIVE: No new issues. Patient is confused. Patient has a sitter at bedside. No family at bedside at this time. MEDICATIONS: Please see MAR. OBJECTIVE VITALS: Temperature 97.9, pulse 77, blood pressure 101/51, respirations 18, satting 98%. BMI 26. Height 5 feet 8 inches. GENERAL: Patient is awake but confused. Attempts to get out of bed. LUNGS: Clear with normal respiratory effort, although decreased breath sounds. HEENT: Extraocular muscles are intact. Anicteric. ABDOMEN: Soft. Bowel sounds present. It is nontender, nondistended. CARDIOVASCULAR: Irregularly irregular heart rate. NECK: Supple. Trachea midline. EXTREMITIES: No calf tenderness. NEURO: Has decreased range of motion to the right side. LABS: Sodium 138, potassium 4.4, chloride 97, CO2 24, BUN 51, creatinine 8.5, glucose 152. White count 12.6, hemoglobin 9.0, hematocrit 27.1, platelets 518,000. IMPRESSION 1. Right head contusion: Computed tomography head was negative. 2. Gastrointestinal bleed: Hemoglobin has been stable. 3. End-stage renal disease: Patient is having dialysis today. Dialysis per renal. 4. Chronic atrial fibrillation: Cardiology is following. Will continue to monitor blood pressure and continue with telemetry. 5. Septic shock: Will continue to monitor patient. Patient will continue on dialysis per renal. Dictated by Soham Wyman NP. Job#: [id number]
[2017-11-18] VITALS (27 sets, daily range): BP systolic 86–110; BP diastolic 44–67
[2017-11-18] MEDS: ACETAMINOPHEN 325 MG TAB PO PRN (02:23)
[2017-11-18] MEDS: CYCLOBENZAPRINE HCL 10 MG TAB PO PRN ×2 (02:23→13:25)
[2017-11-18] MEDS: ALBUTEROL SULF 0.083% NEB SOLN 3 ML NEB NEB PRN (07:05)
[2017-11-18 07:16] LABS: ANION GAP 19.2 mmol/L (8-16); CALCIUM 9.7 mg/dL (8.4-10.2); CREATININE, SERUM 5.7 mg/dL (0.72-1.25); PHOSPHORUS 1.6 MG/DL (2.3-4.7); POTASSIUM 4.2 mmol/L (3.5-5.1)
[2017-11-18] MEDS: INSULIN REGULAR, HUMAN 100 UNIT/1 ML 3ML VIAL SQ SCH ×4 (07:30→20:49)
[2017-11-18] MEDS: PHOSPHORUS 250 MG TAB PO SCH (08:43)
[2017-11-18] MEDS: SODIUM BICARBONATE 650 MG TAB PO SCH ×2 (08:43→17:10)
[2017-11-18] MEDS: PANTOPRAZOLE SOD 40 MG TABEC PO SCH ×2 (08:43→17:10)
[2017-11-18] MEDS: MEGACE 400MG/ 10ML CUP PO SCH ×2 (08:43→17:10)
[2017-11-18] MEDS: MIDODRINE HCL 5 MG TABLET PO SCH ×3 (08:43→17:00)
[2017-11-18] MEDS: SUCRALFATE 1 GM/10 ML SUSP NG SCH ×4 (08:43→20:49)
[2017-11-18] MEDS: LIDOCAINE 5% PATCH TP SCH (08:44)
--- NOTE | 2017-11-18 11:13 | Progress Note ---
DATE: November 18, 2017 REASON FOR CONSULTATION: End-stage renal disease. SUBJECTIVE: Patient is lying comfortably in bed. Less confused today. PHYSICAL EXAMINATION VITAL SIGNS: Heart rate 89, blood pressure 99/44, O2 sat is 97% on 2 L nasal cannula. HEENT: NCAT, EOMI. LUNGS: Decreased breath sounds at the bases. No wheezing. HEART: Regular rate and rhythm. S1, S2 normal. ABDOMEN: Soft, distended. Positive bowel sounds. EXTREMITIES: No edema. LABS: Significant for a BUN of 28, phosphorus of 1.6. IMAGING: Was reviewed on electronic medical record. Abdominal x-ray performed yesterday showed nonobstructive bowel gas pattern. ASSESSMENT AND PLAN: End-stage renal disease patient. Remains in cardiogenic shock. 1. End-stage renal disease. Hold off on dialysis today. Electrolytes and volume status reviewed. Remains volume overloaded but minimal utility in doing daily dialysis, since (a) patient refuses and (b) this requires increasing dopamine requirements and no end point here. 2. Hypophosphatemia. Started on p.o. phosphorus. Was given IV phos yesterday with dialysis. 3. Anemia of chronic kidney disease. Remains on continued Epogen. 4. Metabolic acidosis. Continue sodium bicarbonate. Job#: [id number] [place]
[2017-11-18] MEDS: DOPAMINE/DEXTROSE 250 ML IV SCH (12:47)
--- NOTE | 2017-11-18 17:45 | Progress Note ---
DATE: November 18, 2017 SUBJECTIVE: The patient denies chest pain. However, he does endorse shortness of breath with talking. He remains on dopamine 3 mcg/kg per minute. OBJECTIVE VITAL SIGNS: Temperature 97.6 degrees, pulse 88, respiratory rate 14, blood pressure 105/60, oxygen saturation 92% on 2 liters nasal cannula. GENERAL: Awake, in no acute distress, chronically ill-appearing. LUNGS: Clear to auscultation bilaterally. No wheezes or crackles. CARDIOVASCULAR: Irregularly irregular. Normal rate. Normal S1, S2. Holosystolic ejection murmur. ABDOMEN: Soft and nontender. EXTREMITIES: No edema. CARDIAC MEDICATIONS 1. Midodrine 20 mg p.o. t.i.d. 2. Dopamine 3 mcg per kg per minute. LABS: Sodium 139, potassium 4.2, chloride 98, CO2 of 26, BUN 28, creatinine 5.7. TELEMETRY: Atrial fibrillation, rate controlled. IMPRESSION 1. Shock, septic with component of cardiogenic on Midodrine and inotropic support. 2. Epiki-td-luokrjs systolic heart failure, status post automatic implantable cardioverter-defibrillator. 3. Right-sided heart failure. 4. Pulmonary hypertension. 5. Atrial fibrillation, rate controlled. 6. End-stage renal disease on hemodialysis. 7. Anemia, currently stable. 8. Suspected aspiration pneumonia. 9. Cirrhosis. 10. Diabetes mellitus. 11. History of groin abscess, now resolved. 12. Gluteal contusion and hematoma secondary to fall. RECOMMENDATIONS: Continue inotropic support and wean as tolerated. Continue current cardiac medications otherwise. The patient is currently not anticoagulated due to acute anemia earlier this admission. Follow management per nephrology given end-stage renal disease. However, this has been difficult due to the patient's hypotension and continued pressor requirements. The patient's prognosis is guarded given his multiorgan dysfunction and continued pressor dependence. Thank you for this consult. We will continue to follow. Job#: [id number] GH
[2017-11-18] MEDS: HYDROXYZINE HCL 25 MG TAB PO SCH (20:50)
[2017-11-19] VITALS (70 sets, daily range): BP systolic 83–156; BP diastolic 43–89
[2017-11-19] MEDS: LORAZEPAM INJ 2 MG/ML VIAL IV PRN (03:13)
[2017-11-19 06:23] LABS: BASOPHILS # (AUTO) 0.1 (0.0-0.1); BASOPHILS % 0.5 % (0.0-1.0); EOSINOPHILS # (AUTO) 0.1 (0.0-0.4); EOSINOPHILS % 0.7 % (0.0-6.0); HEMATOCRIT 25.7 % (38.2-49.6); HEMOGLOBIN 8.6 g/dL (14.0-18.0); LYMPHOCYTES # (AUTO) 1.2 (1.0-3.2); MEAN CORPUSCULAR HEMOGLOBIN 26.1 pg (28-32); MEAN CORPUSCULAR HGB CONC 33.5 g/dL (31-35); MEAN CORPUSCULAR VOLUME 77.9 fL (81-99); MONOCYTES # (AUTO) 1.4 (0.2-0.8); MONOCYTES % 13.5 % (4.4-11.3); NEUTROPHILS # (AUTO) 7.7 (2.1-6.9); NEUTROPHILS % 73.8 % (38.7-80.0); PLATELET COUNT 400 x10e3/uL (140-360); RED CELL DISTRIBUTION WIDTH 22.3 % (11.7-14.4)
[2017-11-19 06:42] LABS: ANION GAP 21.6 mmol/L (8-16); CALCIUM 9.8 mg/dL (8.4-10.2); CREATININE, SERUM 6.71 mg/dL (0.72-1.25); MAGNESIUM 2.4 MG/DL (1.3-2.1); PHOSPHORUS 1.9 MG/DL (2.3-4.7); POTASSIUM 4.6 mmol/L (3.5-5.1)
[2017-11-19 07:43] LABS: ANISOCYTOSIS MODERATE; HYPOCHROMASIA MODERATE; PLATELET ESTIMATE SLIGHTLY INCREASED; RBC MORPHOLOGY COMMENT ABNORMAL; TARGET CELLS FEW
[2017-11-19 07:44] LABS: PLATELET MORPHOLOGY COMMENT NORMAL
[2017-11-19 07:46] LABS: HOWELL-JOLLY BODIES FEW
[2017-11-19] MEDS: PANTOPRAZOLE SOD 40 MG TABEC PO SCH ×2 (08:33→16:38)
[2017-11-19] MEDS: SUCRALFATE 1 GM/10 ML SUSP NG SCH ×5 (08:33→21:27)
[2017-11-19] MEDS: INSULIN REGULAR, HUMAN 100 UNIT/1 ML 3ML VIAL SQ SCH ×4 (08:33→19:38)
[2017-11-19] MEDS: MEGACE 400MG/ 10ML CUP PO SCH ×2 (08:34→17:03)
[2017-11-19] MEDS: MIDODRINE HCL 5 MG TABLET PO SCH ×3 (08:34→16:38)
[2017-11-19] MEDS: PHOSPHORUS 250 MG TAB PO SCH (08:34)
[2017-11-19] MEDS: SODIUM BICARBONATE 650 MG TAB PO SCH ×2 (08:34→17:03)
[2017-11-19] MEDS: LIDOCAINE 5% PATCH TP SCH (08:34)
--- NOTE | 2017-11-19 11:13 | Progress Note ---
DATE: REASON FOR CONSULTATION: End-stage renal disease. SUBJECTIVE: Patient is confused. No acute events overnight. OBJECTIVE GENERAL: Lying comfortably in bed, no acute distress. VITAL SIGNS: Temperature 97.8, heart rate 86, respiratory rate 19, blood pressure 99/43. O2 sat is 96% on 3 L nasal cannula. HEENT: NCAT, REBECCA. LUNGS: Clear to auscultation bilaterally. HEART: Regular rate and rhythm. ABDOMEN: Soft, distended. Positive bowel sounds. EXTREMITIES: No edema. LABS: Significant for a hemoglobin of 8.6, sodium 140, potassium 4.6, chloride 98, bicarb 25, BUN 35, creatinine 6.7, phosphorus 1.9. IMAGING: Was reviewed on electronic medical record. ASSESSMENT AND PLAN: A 67-year-old man with end-stage renal disease and cardiogenic shock. 1. End-stage renal disease. Will dialyze today with q. blood flow of 300 and q. dialysate flow of 600 mL. May have to increase dopamine during dialysis. 2. Metabolic acidosis. Continue sodium bicarbonate. 3. Hypophosphatemia. Will increase phos tablet to 500 mg b.i.d. Job#: [id number] [place]
[2017-11-19] MEDS: DOPAMINE/DEXTROSE 250 ML IV SCH (14:30)
[2017-11-19] MEDS: SENNA-S TABLET PO PRN (18:07)
--- NOTE | 2017-11-19 19:31 | Progress Note ---
DATE: November 19, 2017 CARDIOLOGY PROGRESS NOTE The patient denies chest pain or shortness of breath. He is able to state that he is in the hospital and it is 2018. His main complaint is of abdominal distention. He remains on dopamine 3 mcg/kg per minute. OBJECTIVE VITAL SIGNS: Temperature 98.1 degrees, pulse 111, respiratory rate 32, blood pressure 128/79, oxygen saturation 98%. GENERAL: Awake, chronically ill-appearing. No acute distress. LUNGS: Clear to auscultation bilaterally. No wheezes or crackles. CARDIOVASCULAR: Irregularly irregular. Normal rate. Normal S1, S2. Holosystolic ejection murmur. ABDOMEN: Soft, nontender. EXTREMITIES: No edema. CARDIAC MEDICATIONS 1. Dopamine 3 mcg per kg per minute. 2. Midodrine 20 mg p.o. t.i.d. LABS: WBC 10.4, hemoglobin 8.6, hematocrit 25.7, platelets 400,000. Sodium 140, potassium 4.6, chloride 98, CO2 25, BUN 35, creatinine 6.71. IMPRESSIONS 1. Shock, septic with component of cardiogenic, on Midodrine and inotropic support. 2. Aschz-zg-hfakjff systolic heart failure, status post automatic implantable cardioverter-defibrillator. 3. Right-sided heart failure. 4. Pulmonary hypertension. 5. Atrial fibrillation, rate controlled. 6. End-stage renal disease on hemodialysis. 7. Anemia. 8. Suspected aspiration pneumonia. 9. Cirrhosis. 10. Diabetes mellitus. 11. History of groin abscess, now resolved. 12. Gluteal contusion and hematoma secondary to fall. RECOMMENDATIONS: Continue inotropic support. Wean as tolerated. Continue current cardiac medications, otherwise. The patient is currently not anticoagulated for CVA prophylaxis due to acute anemia earlier this admission. If his H and H remains stable without need for blood transfusion, will discuss reinitiation. Volume measures per nephrology given end-stage renal disease. However, volume has been difficult due to patient's hypotension and continued pressor requirements. Patient's prognosis is guarded given his multiorgan dysfunction and continued pressor dependence. In addition, the patient's echocardiogram was discussed again with the patient and his daughter specifically with regards to the patient's biventricular heart failure and difficulty with volume optimization given his concomitant end-stage renal disease, hypotension, and continued pressor requirement. Thank you for this consult. We will continue to follow. Job#: [id number] CQ
[2017-11-19] MEDS: HYDROXYZINE HCL 25 MG TAB PO SCH (21:27)
[2017-11-19] MEDS: ACETAMINOPHEN 325 MG TAB PO PRN (23:45)
[2017-11-19] MEDS: CYCLOBENZAPRINE HCL 10 MG TAB PO PRN (23:45)
[2017-11-20] VITALS (88 sets, daily range): BP systolic 60–137; BP diastolic 37–93
[2017-11-20 05:55] LABS: BASOPHILS % 0.3 % (0.0-1.0); EOSINOPHILS # (AUTO) 0.2 (0.0-0.4); EOSINOPHILS % 1.4 % (0.0-6.0); HEMATOCRIT 26.9 % (38.2-49.6); HEMOGLOBIN 8.8 g/dL (14.0-18.0); LYMPHOCYTES # (AUTO) 1.1 (1.0-3.2); LYMPHOCYTES % 8.2 % (18.0-39.1); MEAN CORPUSCULAR HEMOGLOBIN 25.6 pg (28-32); MEAN CORPUSCULAR HGB CONC 32.7 g/dL (31-35); MEAN CORPUSCULAR VOLUME 78.2 fL (81-99); MONOCYTES # (AUTO) 1.5 (0.2-0.8); MONOCYTES % 11.1 % (4.4-11.3); NEUTROPHILS # (AUTO) 10.5 (2.1-6.9); NEUTROPHILS % 78.6 % (38.7-80.0); PLATELET COUNT 439 x10e3/uL (140-360); RED BLOOD COUNT 3.44 x10e6/uL (4.3-5.7); RED CELL DISTRIBUTION WIDTH 22.3 % (11.7-14.4)
[2017-11-20 06:14] LABS: ANION GAP 21.5 mmol/L (8-16); CREATININE, SERUM 7.4 mg/dL (0.72-1.25); POTASSIUM 4.5 mmol/L (3.5-5.1)
[2017-11-20] MEDS: INSULIN REGULAR, HUMAN 100 UNIT/1 ML 3ML VIAL SQ SCH ×4 (07:30→21:59)
[2017-11-20] MEDS: PHOSPHORUS 250 MG TAB PO SCH (08:30)
[2017-11-20] MEDS: MIDODRINE HCL 5 MG TABLET PO SCH ×3 (08:30→17:39)
[2017-11-20] MEDS: SUCRALFATE 1 GM/10 ML SUSP NG SCH ×4 (08:30→21:59)
[2017-11-20] MEDS: SODIUM BICARBONATE 650 MG TAB PO SCH ×2 (08:30→18:30)
[2017-11-20] MEDS: PANTOPRAZOLE SOD 40 MG TABEC PO SCH ×2 (08:30→16:30)
[2017-11-20] MEDS: LIDOCAINE 5% PATCH TP SCH (09:00)
[2017-11-20] MEDS: MEGACE 400MG/ 10ML CUP PO SCH ×2 (09:00→17:00)
[2017-11-20] MEDS: LORAZEPAM INJ 2 MG/ML VIAL IV PRN ×2 (09:45→17:30)
--- NOTE | 2017-11-20 11:20 | Progress Note ---
DATE: November 20, 2017 CARDIOVASCULAR PROGRESS NOTE: SUBJECTIVE: Mr. Storm is poorly responsive. He had a poor night with being very restless. He remains hypotensive on pressors. OBJECTIVE VITAL SIGNS: Afebrile. Heart rate is 110. Blood pressure 110/68. O2 sat is 94%. CARDIOVASCULAR: Irregularly irregular rhythm. Systolic murmur. S3 gallop. LUNGS: Occasional fine crackles. ABDOMEN: Soft but distended. Hemoglobin is 8.8. Creatinine 7.4. ASSESSMENT 1. Multifactorial shock, currently on inotropes. 1. Acute on chronic systolic heart failure. 2. Atrial fibrillation, unable to anticoagulate. RECOMMENDATIONS: Unable to anticoagulate due to anemia and requiring blood transfusion. At this point, we will continue to hold anticoagulation. Pressors are to continue. Overall prognosis is very poor. No family was present today. Job#: [id number] EV
--- NOTE | 2017-11-20 15:49 | Progress Note ---
DATE: November 20, 2017 RENAL PROGRESS NOTE SUBJECTIVE: Patient is followed for end-stage renal disease. Patient refused dialysis last night; therefore, no dialysis was done yesterday. The patient also today only agreed to do 3 hours of dialysis. He is tolerating dialysis without any problems right now. Blood pressures stay on the low side. The patient's dopamine is being weaned off. The patient's norepinephrine is used as needed to keep his MAP greater than 65. Currently, no fever or chills. No shortness of breath. OBJECTIVE VITAL SIGNS: Noted. Blood pressure 103/60, 86 heart rate, afebrile. LUNGS: Rales at the bases bilaterally. CARDIOVASCULAR: S1 and S2. No rub. ABDOMEN: Soft. Nontender. EXTREMITIES: No edema. LABS: Sodium 140, potassium 4.5, BUN 43, creatinine 7.4. IMPRESSION AND PLAN 1. End-stage renal disease. Continue to monitor closely over the weekend. Likely the next dialysis will be on Wednesday. Should not require dialysis tomorrow. 2. Hypertension. Blood pressure is stable. Continue to monitor closely. Will make further recommendations. On midodrine, dopamine slowly being weaned off 3. Anemia of chronic disease, stable. Continue to monitor closely. Thank you, once again. Job#: [id number] OCTAVIO ONEIL
[2017-11-20] MEDS ORDERED: DOPAMINE/DEXTROSE 250 ML IV SCH (17:00)
[2017-11-20] MEDS: ACETAMINOPHEN 325 MG TAB PO PRN ×2 (18:33→23:12)
[2017-11-20] MEDS: HYDROXYZINE HCL 25 MG TAB PO SCH (21:59)
[2017-11-21] VITALS (84 sets, daily range): BP systolic 67–125; BP diastolic 29–88
[2017-11-21 06:02] LABS: BASOPHILS # (AUTO) 0.1 (0.0-0.1); BASOPHILS % 0.4 % (0.0-1.0); EOSINOPHILS # (AUTO) 0.2 (0.0-0.4); EOSINOPHILS % 1.5 % (0.0-6.0); HEMATOCRIT 27.5 % (38.2-49.6); HEMOGLOBIN 8.8 g/dL (14.0-18.0); LYMPHOCYTES # (AUTO) 1.1 (1.0-3.2); LYMPHOCYTES % 9.5 % (18.0-39.1); MEAN CORPUSCULAR HEMOGLOBIN 25.4 pg (28-32); MEAN CORPUSCULAR VOLUME 79.3 fL (81-99); MONOCYTES # (AUTO) 1.6 (0.2-0.8); MONOCYTES % 13.7 % (4.4-11.3); NEUTROPHILS # (AUTO) 8.8 (2.1-6.9); NEUTROPHILS % 74.5 % (38.7-80.0); PLATELET COUNT 408 x10e3/uL (140-360); RED BLOOD COUNT 3.47 x10e6/uL (4.3-5.7); RED CELL DISTRIBUTION WIDTH 21.9 % (11.7-14.4)
[2017-11-21 06:24] LABS: ANION GAP 16.8 mmol/L (8-16); CALCIUM 9.9 mg/dL (8.4-10.2); CREATININE, SERUM 5.9 mg/dL (0.72-1.25); POTASSIUM 3.8 mmol/L (3.5-5.1)
[2017-11-21] MEDS: SUCRALFATE 1 GM/10 ML SUSP NG SCH ×4 (07:30→21:09)
[2017-11-21] MEDS: MEGACE 400MG/ 10ML CUP PO SCH ×2 (08:24→16:19)
[2017-11-21] MEDS: LIDOCAINE 5% PATCH TP SCH (08:24)
[2017-11-21] MEDS: SODIUM BICARBONATE 650 MG TAB PO SCH ×2 (08:24→16:19)
[2017-11-21] MEDS: PHOSPHORUS 250 MG TAB PO SCH (08:24)
[2017-11-21] MEDS: PANTOPRAZOLE SOD 40 MG TABEC PO SCH ×2 (08:24→16:19)
[2017-11-21] MEDS: INSULIN REGULAR, HUMAN 100 UNIT/1 ML 3ML VIAL SQ SCH ×4 (08:25→21:00)
[2017-11-21] MEDS: MIDODRINE HCL 5 MG TABLET PO SCH ×3 (08:25→16:19)
[2017-11-21] MEDS: SENNA-S TABLET PO PRN (08:28)
--- NOTE | 2017-11-21 12:13 | Progress Note ---
DATE: November 21, 2017 CARDIOLOGY PROGRESS NOTE Mr. Storm remains poorly communicative. PHYSICAL EXAMINATION VITAL SIGNS: Afebrile. Heart rate 84, blood pressure 85/60. CARDIOVASCULAR: Irregularly irregular rhythm. LUNGS: Crackles bilaterally. LABS: Hemoglobin is 8.8. Creatinine 5.9. Telemetry shows atrial fibrillation. ASSESSMENT 1. Permanent atrial fibrillation, unable to anticoagulate. 2. Pgony-hd-vxsmsnb systolic heart failure. 3. Multifactorial shock. RECOMMENDATIONS: Continue current cardiac medications. Low-dose dopamine as well as midodrine should be continued. Overall prognosis is poor. Job#: [id number] BASILIO
--- NOTE | 2017-11-21 14:22 | Progress Note ---
DATE: November 21, 2017 RENAL PROGRESS NOTE SUBJECTIVE: Patient is followed for end-stage renal disease with dialysis on Wednesday, Wednesday and Wednesday. Patient tolerated dialysis yesterday. Next dialysis will be tomorrow on 11/22/2017. The patient's dopamine is slowly being weaned off. No nausea. No vomiting. No shortness of breath. OBJECTIVE VITAL SIGNS: Noted. The last blood pressure is in the 107/40s range, 81 pulse, afebrile. LUNGS: Minimal rales at the bases bilaterally. CARDIOVASCULAR: S1 and S2. No rub. ABDOMEN: Soft. Nontender. EXTREMITIES: 1 to 2+ edema. LABS: Reviewed. H and H 8.8 and 27.5. Potassium 3.8, bicarb 27, BUN 34, creatinine 5.9. IMPRESSION AND PLAN 1. End-stage renal disease. Continue to monitor for dialysis on Wednesday, Wednesday and Wednesday. 2. Hypertension/hypotension. Continue midodrine. Continue to wean off dopamine. 3. Anemia of chronic disease, stable. Job#: [id number]
[2017-11-21] MEDS: ACETAMINOPHEN 325 MG TAB PO PRN (14:45)
[2017-11-21] MEDS: HYDROXYZINE HCL 25 MG TAB PO SCH (21:08)
[2017-11-21] MEDS: LORAZEPAM INJ 2 MG/ML VIAL IV PRN (23:20)
[2017-11-22] VITALS (61 sets, daily range): BP systolic 58–128; BP diastolic 33–115
[2017-11-22] MEDS: ACETAMINOPHEN 325 MG TAB PO PRN ×4 (00:13→22:44)
[2017-11-22 05:54] LABS: ANION GAP 18.7 mmol/L (8-16); CALCIUM 9.8 mg/dL (8.4-10.2); CREATININE, SERUM 6.78 mg/dL (0.72-1.25); MAGNESIUM 1.9 MG/DL (1.3-2.1); PHOSPHORUS 2.8 MG/DL (2.3-4.7); POTASSIUM 3.7 mmol/L (3.5-5.1)
[2017-11-22] MEDS: SUCRALFATE 1 GM/10 ML SUSP NG SCH ×4 (07:47→19:47)
[2017-11-22] MEDS: SODIUM BICARBONATE 650 MG TAB PO SCH ×2 (07:47→17:12)
[2017-11-22] MEDS: LIDOCAINE 5% PATCH TP SCH (07:47)
[2017-11-22] MEDS: MEGACE 400MG/ 10ML CUP PO SCH ×2 (07:47→17:12)
[2017-11-22] MEDS: PHOSPHORUS 250 MG TAB PO SCH (07:47)
[2017-11-22] MEDS: PANTOPRAZOLE SOD 40 MG TABEC PO SCH ×2 (07:47→16:30)
[2017-11-22] MEDS: MIDODRINE HCL 5 MG TABLET PO SCH ×3 (07:47→16:30)
[2017-11-22] MEDS: INSULIN REGULAR, HUMAN 100 UNIT/1 ML 3ML VIAL SQ SCH ×4 (07:48→21:07)
[2017-11-22 07:55] LABS: BASOPHILS # (AUTO) 0.1 (0.0-0.1); BASOPHILS % 0.4 % (0.0-1.0); EOSINOPHILS # (AUTO) 0.2 (0.0-0.4); EOSINOPHILS % 1.3 % (0.0-6.0); HEMATOCRIT 26.1 % (38.2-49.6); HEMOGLOBIN 8.6 g/dL (14.0-18.0); LYMPHOCYTES # (AUTO) 1.2 (1.0-3.2); LYMPHOCYTES % 10.2 % (18.0-39.1); MEAN CORPUSCULAR HEMOGLOBIN 25.6 pg (28-32); MEAN CORPUSCULAR VOLUME 77.7 fL (81-99); MONOCYTES # (AUTO) 1.4 (0.2-0.8); NEUTROPHILS # (AUTO) 8.9 (2.1-6.9); NEUTROPHILS % 75.8 % (38.7-80.0); PLATELET COUNT 329 x10e3/uL (140-360); RED BLOOD COUNT 3.36 x10e6/uL (4.3-5.7)
--- NOTE | 2017-11-22 11:49 | Progress Note ---
DATE: November 22, 2017 REASON FOR CONSULTATION: End-stage renal disease. SUBJECTIVE: Patient has no complaints. Eager to go home today. OBJECTIVE GENERAL: No acute distress, lying comfortably in bed. VITAL SIGNS: Temperature 96.7, heart rate 103, respiratory rate 20, blood pressure 97/62. O2 sat is 96% on 3 L nasal cannula. HEENT: NCAT, EOMI. LUNGS: Decreased breath sounds at the bases bilaterally. ABDOMEN: Soft, distended. Positive bowel sounds. EXTREMITIES: No edema. LABS: Significant for a hemoglobin of 8.6, chloride 96, BUN 45, creatinine 6.7, IMAGING: Reviewed on electronic medical record. ASSESSMENT AND PLAN 1. End-stage renal disease. Will hold off on hemodialysis today. 2. Hypotensive to 80s over 40s, despite being on higher dose of dopamine. 3. Hypophosphatemia. Continue p.o. phosphorus 4. Metabolic acidosis. Continue p.o. sodium bicarbonate. 5. Anemia of chronic kidney disease. Hemoglobin currently 8.6 mg per dL. 6. Cardiogenic shock. Remains on dopamine. Job#: [id number]
--- NOTE | 2017-11-22 19:09 | Progress Note ---
DATE: November 22, 2017 CARDIOLOGY PROGRESS NOTE SUBJECTIVE: Patient denies chest pain or shortness of breath. Family meeting was held this morning with case management, primary, as well as nursing to discuss the patient's wishes. Patient indicates that he would like to go home. However, he remains on dopamine for inotropic support. Options were discussed with the patient and his , with decision to have patient evaluated by hospice, and if agreeable with hospice, to turn off the dopamine for patient's discharge. I attempted to explain to the patient's that given the patient's multiorgan dysfunction, his long-term prognosis is poor. However, patient's was not receptive to this fact, stating that he has had these diagnoses for a long period of time. I attempted to explain to the patient's the progressive nature of the patient's heart failure. However, patient's was not willing to accept this. Patient's additionally also had multiple complaints regarding the information she was receiving from her insurance company as well as from the LTAC evaluation. At time of family meeting, plan was for hospice evaluation and discharge home as patient's wished to take the patient elsewhere but he has not been able to be accepted at another facility. OBJECTIVE VITAL SIGNS: Temperature 98.2 degrees, pulse 91, respiratory rate 26, blood pressure 98/48, oxygen saturation 96%. GENERAL: Chronically ill-appearing, awake, in no acute distress. LUNGS: Clear to auscultation bilaterally. No wheezes or crackles. CARDIOVASCULAR: Irregularly irregular, normal rate. Normal S1 and S2. Holosystolic ejection murmur. ABDOMEN: Soft, nontender. EXTREMITIES: No edema. CARDIAC MEDICATIONS 1. Dopamine 4 mcg/kg per minute. 2. Midodrine 20 mg p.o. t.i.d. LABS: WBC 11.7, hemoglobin 8.6, hematocrit 26.1, platelets 329. Sodium 138, potassium 3.7, chloride 96, CO2 27, BUN 45, creatinine 6.78. BNP 966. TELEMETRY: Atrial fibrillation, rate controlled. IMPRESSION 1. Shock, septic, with component of cardiogenic on midodrine and inotropic support. 2. Wvigq-ys-levsets systolic heart failure status post automatic implantable cardioverter-defibrillator. 3. Right-sided heart failure. 4. Pulmonary hypertension. 5. Atrial fibrillation, rate controlled. 6. End-stage renal disease on hemodialysis. 7. Anemia, currently stable. 8. Suspected aspiration pneumonia. 9. Cirrhosis. 10. Diabetes mellitus. 11. History of groin abscess, now resolved. 12. Gluteal contusion and hematoma secondary to fall. RECOMMENDATIONS: Continue inotropic support. Wean as tolerated. Continue current cardiac medications otherwise. The patient is currently not anticoagulated due to acute anemia earlier this admission. Volume management per Nephrology given end-stage renal disease. However, patient's hypotension has limited volume removal. The patient's prognosis is guarded given his multiorgan dysfunction as well as continued pressor dependence. Patient is to be evaluated by hospice as patient wishes to go home. Explained to the patient's that if he were to go on hospice and be discharged home without dopamine, his life expectancy may not be very long and he may pass prior to making it home or shortly after arrival home. Thank you for this consult. We will continue to follow. Job#: [id number] MEMO
[2017-11-22] MEDS: HYDROXYZINE HCL 25 MG TAB PO SCH (19:47)
[2017-11-23] VITALS (15 sets, daily range): BP systolic 97–118; BP diastolic 52–76
[2017-11-23] MEDS: ACETAMINOPHEN 325 MG TAB PO PRN ×3 (05:48→22:50)
[2017-11-23 06:58] LABS: BASOPHILS # (AUTO) 0.1 (0.0-0.1); BASOPHILS % 0.5 % (0.0-1.0); EOSINOPHILS # (AUTO) 0.1 (0.0-0.4); EOSINOPHILS % 0.9 % (0.0-6.0); HEMATOCRIT 27.4 % (38.2-49.6); HEMOGLOBIN 9.1 g/dL (14.0-18.0); LYMPHOCYTES # (AUTO) 1.5 (1.0-3.2); LYMPHOCYTES % 11.2 % (18.0-39.1); MEAN CORPUSCULAR HEMOGLOBIN 25.2 pg (28-32); MEAN CORPUSCULAR HGB CONC 33.2 g/dL (31-35); MEAN CORPUSCULAR VOLUME 75.9 fL (81-99); MONOCYTES # (AUTO) 1.2 (0.2-0.8); MONOCYTES % 9.6 % (4.4-11.3); NEUTROPHILS % 77.5 % (38.7-80.0); PLATELET COUNT 384 x10e3/uL (140-360); RED BLOOD COUNT 3.61 x10e6/uL (4.3-5.7); RED CELL DISTRIBUTION WIDTH 21.9 % (11.7-14.4)
[2017-11-23 07:29] LABS: ANION GAP 23.2 mmol/L (8-16); CREATININE, SERUM 8.07 mg/dL (0.72-1.25); POTASSIUM 4.2 mmol/L (3.5-5.1)
[2017-11-23] MEDS: INSULIN REGULAR, HUMAN 100 UNIT/1 ML 3ML VIAL SQ SCH ×5 (07:30→21:45)
[2017-11-23] MEDS: MIDODRINE HCL 5 MG TABLET PO SCH ×4 (08:39→19:57)
[2017-11-23] MEDS: LIDOCAINE 5% PATCH TP SCH (08:39)
[2017-11-23] MEDS: SODIUM BICARBONATE 650 MG TAB PO SCH ×2 (08:39→16:56)
[2017-11-23] MEDS: PANTOPRAZOLE SOD 40 MG TABEC PO SCH ×2 (08:39→16:55)
[2017-11-23] MEDS: PHOSPHORUS 250 MG TAB PO SCH (08:39)
[2017-11-23] MEDS: SUCRALFATE 1 GM/10 ML SUSP NG SCH ×4 (08:39→21:00)
[2017-11-23] MEDS: MEGACE 400MG/ 10ML CUP PO SCH ×2 (08:39→16:55)
--- NOTE | 2017-11-23 17:09 | Progress Note ---
DATE: November 23, 2017 CARDIOLOGY PROGRESS NOTE SUBJECTIVE: The patient is awake; however, he is confused, unable to state his location. He denies chest pain and remains on dopamine 4 mg/kg per minute. OBJECTIVE VITAL SIGNS: Temperature 97.4 degrees, pulse 117, respiratory rate 20, blood pressure 114/67, oxygen saturation 99% on 3 liters nasal cannula. GENERAL: Awake and in no acute distress. Chronically ill appearing. LUNGS: Clear to auscultation bilaterally. No wheezes or crackles. CARDIOVASCULAR: Irregularly, irregular, tachycardiac. Normal S1 and S2. Holosystolic ejection murmur. ABDOMEN: Soft, nontender. EXTREMITIES: No edema. CARDIAC MEDICATIONS 1. Dopamine 4 mcg/kg per minute. 2. Midodrine 20 mg p.o. t.i.d. LABS: WBC 12.94, hemoglobin 9.1, hematocrit 27.4, platelets 384,000, sodium 140, potassium 4.2, chloride 97, CO2 of 24, BUN 54, creatinine 8.07. TELEMETRY: Atrial fibrillation. IMPRESSION 1. Shock, septic, with component of cardiogenic on midodrine and inotropic support. 2. Apamx-my-gfeklbt systolic heart failure status post automatic implantable cardioverter-defibrillator. 3. Right-sided heart failure. 4. Pulmonary hypertension. 5. Atrial fibrillation, rate controlled. 6. End-stage renal disease on hemodialysis. 7. Anemia, currently stable. 8. Suspected aspiration pneumonia. 9. Cirrhosis. 10. Diabetes mellitus. 11. History of groin abscess, now resolved. 12. Gluteal contusion and hematoma secondary to fall. RECOMMENDATIONS: Continue inotropic support, wean as tolerated. Despite significant doses of midodrine, the patient continues to require dopamine to maintain his blood pressure. The patient's a.m. cortisol was in the normal range; however, given unsuccessful attempt to wean dopamine, trial fludrocortisone. The patient is currently not anticoagulated due to acute anemia earlier this admission. As his hemoglobin and hematocrit have been stable, will discuss with GI if it is possible to restart anticoagulation or if his risk of bleeding is too high. Volume management per nephrology given end-stage renal disease. However, the patient's hypotension has limited his volume removal. The patient's prognosis is guarded given his multiorgan dysfunction as well as continued pressor dependence. Thank you for this consult. We will continue to follow. Job#: [id number] GH
[2017-11-23] MEDS: ALBUTEROL SULF 0.083% NEB SOLN 3 ML NEB NEB PRN (18:07)
[2017-11-23] MEDS: ACETAMINOPHEN 650 MG SUPP PR PRN (18:30)
[2017-11-23] MEDS: HYDROXYZINE HCL 25 MG TAB PO SCH (19:55)
[2017-11-23] MEDS ORDERED: MIDODRINE 2.5 MG TAB PO SCH (21:00)
[2017-11-24] VITALS (39 sets, daily range): BP systolic 84–144; BP diastolic 51–114
[2017-11-24 07:12] LABS: BASOPHILS # (AUTO) 0.1 (0.0-0.1); BASOPHILS % 0.5 % (0.0-1.0); EOSINOPHILS # (AUTO) 0.1 (0.0-0.4); HEMATOCRIT 26.4 % (38.2-49.6); LYMPHOCYTES # (AUTO) 1.4 (1.0-3.2); LYMPHOCYTES % 10.8 % (18.0-39.1); MEAN CORPUSCULAR HEMOGLOBIN 25.5 pg (28-32); MEAN CORPUSCULAR HGB CONC 34.1 g/dL (31-35); MEAN CORPUSCULAR VOLUME 74.8 fL (81-99); MONOCYTES # (AUTO) 1.2 (0.2-0.8); MONOCYTES % 9.7 % (4.4-11.3); NEUTROPHILS # (AUTO) 9.8 (2.1-6.9); NEUTROPHILS % 77.6 % (38.7-80.0); PLATELET COUNT 424 x10e3/uL (140-360); RED BLOOD COUNT 3.53 x10e6/uL (4.3-5.7); RED CELL DISTRIBUTION WIDTH 21.8 % (11.7-14.4)
[2017-11-24 07:22] LABS: ANION GAP 24.4 mmol/L (8-16); CREATININE, SERUM 8.77 mg/dL (0.72-1.25); POTASSIUM 4.4 mmol/L (3.5-5.1)
[2017-11-24] MEDS: PHOSPHORUS 250 MG TAB PO SCH (08:32)
[2017-11-24] MEDS: FLUDROCORTISONE ACETATE 0.1 MG TAB PO SCH (08:32)
[2017-11-24] MEDS: SUCRALFATE 1 GM/10 ML SUSP NG SCH ×4 (08:32→21:12)
[2017-11-24] MEDS: PANTOPRAZOLE SOD 40 MG TABEC PO SCH ×2 (08:32→16:30)
[2017-11-24] MEDS: SODIUM BICARBONATE 650 MG TAB PO SCH ×2 (08:32→16:56)
[2017-11-24] MEDS: MEGACE 400MG/ 10ML CUP PO SCH ×2 (08:32→16:56)
[2017-11-24] MEDS: LIDOCAINE 5% PATCH TP SCH (08:33)
[2017-11-24] MEDS: MIDODRINE HCL 5 MG TABLET PO SCH ×4 (08:33→21:12)
[2017-11-24] MEDS: INSULIN REGULAR, HUMAN 100 UNIT/1 ML 3ML VIAL SQ SCH ×4 (08:38→21:00)
--- NOTE | 2017-11-24 09:05 | Diagnostic Imaging Report ---
EXAM: CHEST SINGLE (PORTABLE) 11/24/2017 at 6:41 AM INDICATION: Atrial fibrillation COMPARISON: 11/05/2016 FINDINGS: Single portable AP view of the chest. Visualized bones, soft tissues and cardiomediastinal silhouette appear unchanged. The heart remains enlarged. IMPRESSION: 1. Lines/tubes: Right central line unchanged in location with the tip overlying the right atrium. Single lead cardiac device overlies the right chest. 2. Cardiomegaly with moderate pulmonary edema and small bilateral pleural effusions. Signed by: Dr. Uziel Simental DO on 11/24/2017 9:01 AM
--- NOTE | 2017-11-24 14:17 | Progress Note ---
DATE: November 24, 2017 CARDIOLOGY PROGRESS NOTE SUBJECTIVE: Patient denies chest pain or shortness of breath. He remains on dopamine 4 mcg/kg per minute. OBJECTIVE VITAL SIGNS: Temperature 98.8 degrees, pulse 115, respiratory rate 14, blood pressure 117/71, oxygen saturation 100% on 3 liters nasal cannula. GENERAL: Awake, in no acute distress. Chronically ill-appearing. LUNGS: Clear to auscultation bilaterally. No wheezes or crackles. CARDIOVASCULAR: Irregularly irregular, tachycardic. Normal S1 and S2. Holosystolic ejection murmur. ABDOMEN: Soft, nontender. EXTREMITIES: No edema. CARDIAC MEDICATIONS 1. Dopamine 4 mcg/kg per minute. 2. Fludrocortisone 0.1 mg p.o. daily. 3. Midodrine 20 mg p.o. t.i.d. LABS: WBC 12.63, hemoglobin 9, hematocrit 26.4, platelets 424. Sodium 139, potassium 4.4, chloride 95, CO2 24, BUN 61, creatinine 8.77. TELEMETRY: Atrial fibrillation with rapid ventricular response. IMPRESSION 1. Shock, septic with component of cardiogenic on midodrine and inotropic support. 2. Cgswc-nr-uxausqm systolic heart failure, status post automatic implantable cardioverter-defibrillator. 3. Right-sided heart failure. 4. Pulmonary hypertension. 5. Atrial fibrillation. 6. End-stage renal disease on hemodialysis. 7. Anemia, currently stable. 8. Suspected aspiration pneumonia. 9. Cirrhosis. 10. Diabetes mellitus. 11. History of groin abscess, now resolved. 12. Gluteal contusion and hematoma secondary to fall. RECOMMENDATIONS: Continue dopamine, wean as tolerated with goal systolic greater than 90 mmHg. Volume management per Nephrology due to end-stage renal disease. However, patient is refusing dialysis quite frequently, and he is reaccumulating fluid. Patient is not currently on anticoagulation due to acute anemia earlier this admission. As his hemoglobin and hematocrit have been stable, will discuss with GI if it is possible to restart anticoagulation. The patient's prognosis is poor given his multiorgan dysfunction as well as continued pressor dependence. Thank you for this consult. We will continue to follow. Job#: [id number] EV
--- NOTE | 2017-11-24 14:27 | Progress Note ---
DATE: November 24, 2017 NEPHROLOGY PROGRESS NOTE REASON FOR CONSULTATION: End-stage renal disease. SUBJECTIVE: The patient continues to refuse dialysis. Confused on exam today. OBJECTIVE GENERAL: Lying comfortably in bed, no acute distress. VITAL SIGNS: Heart rate 115, respiratory rate is 14, blood pressure 117/71, O2 sat is 100% on 3 liters nasal cannula. LUNGS: Crackles at the bases bilaterally. ABDOMEN: Soft, distended. Positive bowel sounds. EXTREMITIES: No edema. LABS: Were reviewed in electronic medical record. Significant for a hemoglobin of 9, BUN of 61 and creatinine of 8.7, calcium of 10. IMAGING: Was reviewed in electronic medical record. Chest x-ray performed today showed cardiomegaly with moderate pulmonary edema and small bilateral pleural effusions. ASSESSMENT AND PLAN: A 67-year-old man in cardiogenic shock and end-stage renal disease. 1. End-stage renal disease. Will speak to the today. If patient continues to refuse dialysis, he can go home on hospice. The only reason why he is in the hospital is because he is unable to get dialysis as an outpatient while on inotropic support. Moreover, patient is too confused to give consent for dialysis. However, in the setting of getting dialysis through a fistula, cannot do dialysis without his consent as he could possibly exsanguinate if he pulls the needle out of the fistula. 2. Hypophosphatemia. Continue p.o. phosphorus. 3. Cardiogenic shock. I spoke to Cardiology, trying to wean off the dopamine with Florinef. Florinef may cause hyperkalemia, will monitor. 4. Metabolic acidosis. Continue sodium bicarbonate. . Job#: [id number] EV
[2017-11-24] MEDS: ACETAMINOPHEN 325 MG TAB PO PRN ×2 (16:56→21:13)
[2017-11-24] MEDS: ALBUTEROL SULF 0.083% NEB SOLN 3 ML NEB NEB PRN (19:50)
[2017-11-24] MEDS: HYDROXYZINE HCL 25 MG TAB PO SCH (21:12)
[2017-11-25] VITALS (39 sets, daily range): BP systolic 95–126; BP diastolic 46–90
[2017-11-25 07:05] LABS: BASOPHILS # (AUTO) 0.1 (0.0-0.1); BASOPHILS % 0.5 % (0.0-1.0); EOSINOPHILS # (AUTO) 0.1 (0.0-0.4); EOSINOPHILS % 0.9 % (0.0-6.0); HEMATOCRIT 26.1 % (38.2-49.6); HEMOGLOBIN 8.8 g/dL (14.0-18.0); LYMPHOCYTES # (AUTO) 1.4 (1.0-3.2); LYMPHOCYTES % 10.6 % (18.0-39.1); MEAN CORPUSCULAR HGB CONC 33.7 g/dL (31-35); MEAN CORPUSCULAR VOLUME 74.1 fL (81-99); MONOCYTES # (AUTO) 1.3 (0.2-0.8); MONOCYTES % 10.5 % (4.4-11.3); NEUTROPHILS # (AUTO) 9.9 (2.1-6.9); NEUTROPHILS % 77.2 % (38.7-80.0); PLATELET COUNT 435 x10e3/uL (140-360); RED BLOOD COUNT 3.52 x10e6/uL (4.3-5.7); RED CELL DISTRIBUTION WIDTH 21.4 % (11.7-14.4)
[2017-11-25 07:28] LABS: ANION GAP 27.5 mmol/L (8-16); CALCIUM 9.9 mg/dL (8.4-10.2); CREATININE, SERUM 9.72 mg/dL (0.72-1.25); MAGNESIUM 2.1 MG/DL (1.3-2.1); PHOSPHORUS 4.6 MG/DL (2.3-4.7); POTASSIUM 4.5 mmol/L (3.5-5.1)
[2017-11-25] MEDS: PANTOPRAZOLE SOD 40 MG TABEC PO SCH ×2 (07:54→17:09)
[2017-11-25] MEDS: SUCRALFATE 1 GM/10 ML SUSP NG SCH ×4 (07:54→20:26)
[2017-11-25] MEDS: INSULIN REGULAR, HUMAN 100 UNIT/1 ML 3ML VIAL SQ SCH ×4 (07:55→20:24)
[2017-11-25] MEDS: MIDODRINE HCL 5 MG TABLET PO SCH ×4 (08:33→20:26)
[2017-11-25] MEDS: MEGACE 400MG/ 10ML CUP PO SCH ×2 (08:33→17:11)
[2017-11-25] MEDS: SODIUM BICARBONATE 650 MG TAB PO SCH ×2 (08:33→17:11)
[2017-11-25] MEDS: PHOSPHORUS 250 MG TAB PO SCH (08:33)
[2017-11-25] MEDS: LIDOCAINE 5% PATCH TP SCH (08:33)
[2017-11-25] MEDS: FLUDROCORTISONE ACETATE 0.1 MG TAB PO SCH (08:33)
[2017-11-25] MEDS ORDERED: ARTIFICIAL TEARS (OPTH) 15 ML BTL OU PRN (08:45)
[2017-11-25] MEDS: LORAZEPAM 0.5 MG TAB PO PRN (09:18)
--- NOTE | 2017-11-25 13:05 | Progress Note ---
DATE: November 25, 2017 SUBJECTIVE: Patient is seen on dialysis, Q blood flow of 250 mL per minute. He states he has no complaints. OBJECTIVE VITAL SIGNS: Temperature 97.5, heart rate 107, respiratory rate 18, O2 sat is 99% on 2 liters nasal cannula, blood pressure is 117/66 mmHg. GENERAL: Lying comfortably in bed, no acute distress. LUNGS: Crackles at the bases bilaterally. ABDOMEN: Soft, distended. Positive bowel sounds. EXTREMITIES: Positive for pitting edema. LABS: Reviewed in electronic medical record. Significant for a hemoglobin of 8.8 mg/dL, BUN of 68 mg/dL. Phosphorus is now 4.6. IMAGING: Reviewed in electronic medical record. Chest x-ray done yesterday showed cardiomegaly with moderate pulmonary edema. ASSESSMENT AND PLAN: A 67-year-old man with end-stage renal disease and cardiogenic shock, remains on dopamine, Florinef and midodrine as well. 1. End-stage renal disease. Seen on dialysis, Q blood flow 250 mL per minute. Plan to continue dialysis; however, patient had been refusing for the past week. At this point, he will not be able to get dialyze without inotropic support. Our plan is to attempt to wean off the dopamine and try to continue the Florinef and midodrine. Florinef may cause hyperkalemia. We will continue to monitor. 1. Metabolic acidosis. Continue sodium bicarbonate. 2. Hypophosphatemia. Can continue regularly since he is now back on dialysis. If patient continues to refuse dialysis, we will stop the phosphorus tablet. Job#: [id number] BASILIO
--- NOTE | 2017-11-25 16:42 | Progress Note ---
DATE: November 25, 2017 CARDIOLOGY PROGRESS NOTE SUBJECTIVE: Patient denies chest pain or shortness of breath. He had 2 L removed with hemodialysis today. OBJECTIVE VITAL SIGNS: Temperature 98.1 degrees, pulse 115, respiratory rate 22, blood pressure 115/74, oxygen saturation 98%. GENERAL: Awake, in no acute distress. Chronically ill-appearing. LUNGS: Clear to auscultation bilaterally. No wheezes or crackles. CARDIOVASCULAR: Irregularly irregular, tachycardic. Normal S1 and S2. Holosystolic ejection murmur. ABDOMEN: Soft, nontender. EXTREMITIES: 1+ pitting edema. CARDIAC MEDICATIONS 1. Florinef 0.1 mg p.o. daily. 2. Midodrine 20 mg p.o. t.i.d. LABS: WBC 12.78, hemoglobin 8.8, hematocrit 26.1, platelets 435. Sodium 143, potassium 4.5, chloride 96, CO2 24, BUN 68, creatinine 9.72. TELEMETRY: Atrial fibrillation. IMPRESSION 1. Shock, septic with component of cardiogenic, on midodrine and inotropic support. 2. Lpotb-cy-efdvimg systolic heart failure, status post automatic implantable cardioverter-defibrillator. 3. Right-sided heart failure. 4. Pulmonary hypertension. 5. Atrial fibrillation. 6. End-stage renal disease on hemodialysis. 7. Anemia, currently stable. 8. Suspected aspiration pneumonia. 9. Cirrhosis. 10. Diabetes mellitus. 11. History of groin abscess, now resolved. 12. Gluteal contusion and hematoma secondary to fall. RECOMMENDATIONS: Patient was successfully weaned off dopamine with midodrine and Florinef. Volume management per nephrology due to end-stage renal disease. However, as patient frequently refuses dialysis, he has reaccumulated fluid. Patient is not currently on anticoagulation due to acute anemia earlier this admission. As his hemoglobin and hematocrit have been stable, the patient was discussed with GI, and plan is to resume Coumadin with close followup of his INR as well as monitoring of his stools. GI was unable to perform endoscopy due to his hemodynamic instability. Due to his hypotension, he is not a candidate for beta blockade or WM/ARB. The patient's long-term prognosis is poor given his multiorgan dysfunction. Thank you for this consult. We will continue to follow. Job#: [id number]
[2017-11-25] MEDS: WARFARIN SOD 2 MG TAB PO SCH (17:10)
[2017-11-25] MEDS: HYDROXYZINE HCL 25 MG TAB PO SCH (20:26)
[2017-11-26] MEDS: LORAZEPAM 0.5 MG TAB PO PRN ×2 (02:23→11:15)
[2017-11-26 02:36] VITALS: BP 116/65
[2017-11-26 04:00] VITALS: BP 101/67
[2017-11-26 06:24] LABS: BASOPHILS # (AUTO) 0.1 (0.0-0.1); BASOPHILS % 0.4 % (0.0-1.0); EOSINOPHILS # (AUTO) 0.1 (0.0-0.4); EOSINOPHILS % 0.5 % (0.0-6.0); HEMATOCRIT 26.1 % (38.2-49.6); HEMOGLOBIN 8.9 g/dL (14.0-18.0); LYMPHOCYTES # (AUTO) 1.4 (1.0-3.2); LYMPHOCYTES % 11.2 % (18.0-39.1); MEAN CORPUSCULAR HEMOGLOBIN 25.6 pg (28-32); MEAN CORPUSCULAR HGB CONC 34.1 g/dL (31-35); MONOCYTES # (AUTO) 1.7 (0.2-0.8); MONOCYTES % 13.7 % (4.4-11.3); NEUTROPHILS # (AUTO) 8.9 (2.1-6.9); NEUTROPHILS % 73.9 % (38.7-80.0); PLATELET COUNT 419 x10e3/uL (140-360); RED BLOOD COUNT 3.48 x10e6/uL (4.3-5.7); RED CELL DISTRIBUTION WIDTH 21.4 % (11.7-14.4)
[2017-11-26 06:48] LABS: ANION GAP 22.1 mmol/L (8-16); CALCIUM 10.1 mg/dL (8.4-10.2); CREATININE, SERUM 7.18 mg/dL (0.72-1.25); PHOSPHORUS 3.7 MG/DL (2.3-4.7); POTASSIUM 4.1 mmol/L (3.5-5.1)
[2017-11-26] MEDS: SUCRALFATE 1 GM/10 ML SUSP NG SCH ×3 (07:30→16:30)
[2017-11-26] MEDS: PANTOPRAZOLE SOD 40 MG TABEC PO SCH ×2 (07:30→16:30)
[2017-11-26] MEDS: INSULIN REGULAR, HUMAN 100 UNIT/1 ML 3ML VIAL SQ SCH ×3 (07:30→16:30)
[2017-11-26 08:00] VITALS: BP 114/64
[2017-11-26] MEDS: FLUDROCORTISONE ACETATE 0.1 MG TAB PO SCH (09:00)
[2017-11-26] MEDS: MEGACE 400MG/ 10ML CUP PO SCH ×2 (09:00→17:00)
[2017-11-26] MEDS: MIDODRINE HCL 5 MG TABLET PO SCH ×3 (09:00→18:00)
[2017-11-26] MEDS: PHOSPHORUS 250 MG TAB PO SCH (09:00)
[2017-11-26] MEDS: LIDOCAINE 5% PATCH TP SCH (09:00)
[2017-11-26] MEDS: SODIUM BICARBONATE 650 MG TAB PO SCH ×2 (09:00→17:00)
[2017-11-26] MEDS ORDERED: HUMULIN R100 UNIT/2 SQ (09:48)
[2017-11-26] MEDS ORDERED: FLUDROCORTISON0.1 MG PO (09:48)
[2017-11-26] MEDS ORDERED: Lidocaine Patch TP (09:48)
[2017-11-26] MEDS ORDERED: PROTONIX40 MG/ML PO (09:48)
[2017-11-26] MEDS ORDERED: PROAIR HFA INH8.5 GM INH (09:48)
[2017-11-26] MEDS ORDERED: MIDODRINE HCL5 MG PO (09:48)
[2017-11-26] MEDS ORDERED: COUMADIN2 MG PO (09:48)
[2017-11-26] MEDS ORDERED: ATIVAN0.5 MG PO (09:48)
[2017-11-26] MEDS ORDERED: [UNRECOGNIZED DRUG - OTHER] PO (09:48)
[2017-11-26] MEDS ORDERED: COLACE100 M1 PO (09:48)
[2017-11-26] MEDS ORDERED: ZOFRAN ODT4 MG PO ×2 (09:48→09:55)
[2017-11-26] MEDS ORDERED: Megestrol Acetate PO (09:48)
[2017-11-26] MEDS ORDERED: LEXAPRO10 MG PO (09:48)
[2017-11-26] MEDS ORDERED: SODIUM BICARBO650 MG PO (09:48)
[2017-11-26] MEDS ORDERED: K-PHOS NEUTRAL250 MG PO (09:48)
[2017-11-26] MEDS ORDERED: SERTRALINE HCL50 MG PO (09:48)
[2017-11-26] MEDS ORDERED: SUCRALFATE1 G/10 ML NG (09:48)
[2017-11-26] MEDS ORDERED: HYDROXYZINE HCL25 MG PO (09:48)
[2017-11-26] MEDS ORDERED: BISA PO (09:48)
[2017-11-26] MEDS ORDERED: ULTRAM50 MG PO (09:55)
[2017-11-26 10:53] VITALS: BP 114/64
[2017-11-26] MEDS: ACETAMINOPHEN 325 MG TAB PO PRN ×2 (11:15→19:10)
[2017-11-26] MEDS ORDERED: DEXTROSE 50% SYRINGE 50 ML IV ONE (11:41)
[2017-11-26] MEDS ORDERED: DEXTROSE 50% SYRINGE 50 ML IV STA ×2 (11:43→13:18)
--- NOTE | 2017-11-26 14:19 | Progress Note ---
DATE: November 26, 2017 CARDIOLOGY PROGRESS NOTE SUBJECTIVE: The patient denies chest pain or shortness of breath. He is complaining of abdominal pain on the right side. He refused hemodialysis and his medications this morning. OBJECTIVE VITAL SIGNS: Temperature 98.2 degrees, pulse 104, respiratory rate 18, blood pressure 114/64, oxygen saturation 97% on 2 liters nasal cannula. GENERAL: Awake, in no acute distress, chronically ill-appearing. LUNGS: Clear to auscultation bilaterally. No wheezes or crackles. CARDIOVASCULAR: Irregularly irregular, tachycardic. Normal S1 and S2. Holosystolic ejection murmur. ABDOMEN: Soft, nontender, distended. EXTREMITIES: 1+ pitting edema. CARDIAC MEDICATIONS 1. Warfarin 4 mg p.o. daily. 2. Florinef 0.1 mg p.o. daily. 3. Midodrine 20 mg p.o. t.i.d. LABS: WBC 12.08, hemoglobin 8.9, hematocrit 26.1, platelets 419. Sodium 142, potassium 4.1, chloride 99, CO2 25, BUN 42, creatinine 7.19. TELEMETRY: Atrial fibrillation with rapid ventricular response. IMPRESSION 1. Shock, multifactorial, on midodrine and Florinef. 2. Akazw-dp-xersdlo systolic heart failure status post automatic implantable cardioverter-defibrillator. 3. Right-sided heart failure. 4. Pulmonary hypertension. 5. Atrial fibrillation. 6. End-stage renal disease on hemodialysis. 7. Anemia, currently stable. 8. Suspected aspiration pneumonia. 9. Cirrhosis. 10. Diabetes mellitus. 11. Altered mental status. 12. History of groin abscess, now resolved. 13. Gluteal contusion and hematoma secondary to fall. RECOMMENDATIONS: Patient's blood pressure is stable on midodrine and Florinef. Volume management per Nephrology due to end-stage renal disease. However, patient is frequently refusing dialysis and reaccumulating fluid. Patient has been restarted on Coumadin. His family was counseled on the importance of close followup of his INR and monitoring for signs of further bleeding as GI was unable to perform endoscopy during admission earlier due to hemodynamic instability. Due to hypotension, he is not a candidate for beta blockade/ARB. He is not on AV jean blocking agents at this time due to his earlier hypotension. The patient's long-term prognosis is poor given his multiorgan dysfunction. Thank you for this consult. We will continue to follow. Job#: [id number] EV
--- NOTE | 2017-11-26 14:38 | Progress Note ---
DATE: November 26, 2017 REASON FOR CONSULTATION: End-stage renal disease. SUBJECTIVE: Patient is more confused today. Plans for discharge today with home health. OBJECTIVE GENERAL: Lying comfortably in bed, no acute distress. VITAL SIGNS: Temperature 98.2, heart rate 104, respiratory rate 18, blood pressure 114/64, O2 sat 98% on 2 liters nasal cannula. LUNGS: Crackles at the bases. No wheezing. ABDOMEN: Soft, distended. Positive bowel sounds. EXTREMITIES: No edema. LABS: Reviewed in electronic medical record. Significant for hemoglobin of 8.9, BUN 42, creatinine 7.1. IMAGING: Reviewed on electronic medical record. ASSESSMENT AND PLAN: A 67-year-old man with end-stage renal disease admitted with cardiogenic shock. 1. End-stage renal disease. Will continue dialysis as an outpatient at [facility]. 2. Cardiogenic shock, now on midodrine and Florinef. 3. Metabolic acidosis. Continue sodium bicarbonate. 4. Hypophosphatemia. Will stop the p.o. phosphorus since the patient has been refusing dialysis. Job#: [id number]
--- NOTE | 2017-11-26 15:21 | Diagnostic Imaging Report ---
PROCEDURE:X-RAY ABDOMEN - KUB COMPARISON:Patients [facility], DX, ABDOMEN-1VIEW (KUB), 11/17/2017, 6:29. Patients [facility], DX, CHEST SINGLE (PORTABLE), 11/24/2017, 6:41. INDICATIONS:Abdomen pain FINDINGS: Exam limited by soft tissue attenuation. Nonobstructive bowel gas pattern. No air-filled, dilated loops of bowel. Radiopaque catheter partially visualized projecting over the lateral right mid abdomen. No abnormal calcifications are noted. Degenerative changes in the lumbosacral spine with mild leftward curvature in the lower part, and bilateral hip joints. No interval change in left retrocardiac opacity and partial obscuration of the hemidiaphragm, likely reflecting effusions and associated atelectasis or consolidation. CONCLUSION: Nonobstructive bowel gas pattern. No air-filled, dilated loops of bowel. Likely left effusion and associated atelectasis or consolidation. Santhosh Avilez M.D. Dictated by: Santhosh Avilez M.D. on 11/26/2017 at 15:29 Electronically approved by: Santhosh Avilez M.D. on 11/26/2017 at 15:29
[2017-11-26 15:57] VITALS: BP 131/96
[2017-11-26] MEDS: WARFARIN SOD 2 MG TAB PO SCH (17:00)
[2017-11-26 20:15] VITALS: BP 127/91
--- NOTE | 2017-11-29 13:48 | Discharge Summary ---
ADMISSION DIAGNOSES 1. Septic shock with cardiogenic component. 2. End-stage renal disease with volume overload. 3. Chronic atrial fibrillation. 4. Hypertension with chronic systolic heart failure. 5. Type-2 diabetes. 6. Right groin abscess. 7. 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 DISCHARGE DIAGNOSES 1. Septic shock with cardiogenic component. 2. End-stage renal disease with volume overload. 3. Chronic atrial fibrillation. 4. Hypertension with chronic systolic heart failure. 5. Type-2 diabetes. 6. Right groin abscess. 7. 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 HISTORY: Patient has a history of hypertension, type-2 diabetes, end-stage renal disease requiring dialysis for 4 years, cardiomyopathy with chronic systolic heart failure, and AICD placement approximately 4 years ago, chronic AFib, and cryptogenic cirrhosis. HOSPITAL COURSE: A 67-year-old male presented with end-stage renal disease getting dialysis on Wednesday, Wednesday, Wednesday for the last 4 years. He was last dialyzed 5 days ago on Wednesday. On Wednesday, they have stopped dialysis senior care through because his blood pressure was too low. On Wednesday, they cancelled and rescheduled for Wednesday. On Wednesday, when he got to dialysis, he was hypotensive and tachycardic, so he was sent to the ER. In the ER, the patient was started on IV Levophed initially at 25 mcg. He was not given a bolus due to end-stage renal disease and fluid overload. He was started empirically on vancomycin, cefepime, and Zithromax for septic shock and possible bronchitis or bronchopneumonia. Nephrology was consulted for hemodialysis. He was started on midodrine in an attempt to keep his blood pressure up for dialysis. Patient received digoxin IV in the ER for rate control and p.r.n. metoprolol with cardiology consulted. An echo was done, which showed mild left ventricular hypertrophy EF of 35%-40%. The right ventricle was severely enlarged with severely impaired systolic function. Type-2 diabetes was managed on sliding scale insulin. The right groin abscess spontaneously drained itself. Patient was started on IV antibiotics. On admission, the chest x-ray showed findings compatible with recurrent cardiogenic pulmonary edema with small bilateral pleural effusions. CT of the abdomen showed cardiomegaly, pulmonary edema, and evidence of severe ascites and anasarca, hepatomegaly, cholelithiasis, and gallbladder sludge. Diverticulosis without evidence of diverticulitis. No evidence of nephrolithiasis. Severe atherosclerotic disease of the thoracoabdominal aorta and branches. On the 4th, a chest x-ray was done that showed findings compatible with worsening cardiogenic pulmonary edema, small bilateral pleural effusions. Many times, the patient would refuse dialysis for varying reasons throughout hospitalization. Sometimes he felt like not being bothered, sometimes his blood pressure was too low and would not be able to handle it per nephrology. Patient remained on vasopressors throughout hospitalization. On the 4th, ultrasound of the abdomen showed 4-quadrant ultrasound demonstrates moderate ascites predominantly in the right upper and right lower quadrants. Patient had multiple falls throughout hospitalization even with a sitter and family at bedside. CT of the brain showed no abnormalities. Right hip x-ray and CAT scan showed nothing acute. Throughout hospitalizations, there were many attempts made to get the family to discharge with hospice. Every day, the had a new reason to not want to discharge home. She requested a 2nd cardiology opinion, but all cardiologists refused the 2nd opinion. There seem to always be some barrier to discharge. Patient was previously getting hospice home care plus dialysis at home. When case management informed that that was no longer an option, she did not believe them. She would not make a decision on discharge placement, so the patient remained in the hospital for many, many days. Finally, the patient was taken off of the dopamine drip and was started on midodrine 20 mg q.i.d. plus Florinef 0.1 mg daily per cardiology. Patient's blood pressure remains stable for 2 days prior to discharge. Patient was sent home on all current inpatient hospital medications. He was sent home with oxygen with home health per physical therapy and an aide to help the family care for the patient. Patient will follow up with regular dialysis as setup by case management prior to discharge. He is to follow up with primary care and cardiology within a week. Patient was sent home on warfarin 4 mg daily. He was advised to follow up with primary care to check INR level. Dictated by Galina Mcclellan NP MELA TORRES MD Job#: [id number] CQ
== END 2017-11-26 20:46 | disposition home health service (06) | DRG 871 ==
LOC: ER 19:10 → ICU 22:52 → UNDOADMIN 22:52 → ICU 22:53 → IMCU 11-14 00:26
PROVIDERS: ADMIT Internal Medicine; ATTEND Internal Medicine
PROC: 06HN33Z Insertion of Infusion Device into Left Femoral Vein, Percutaneous Approach (ICD-10-PCS; principal; 2017-10-09)
PROC: 3E033XZ Introduction of Vasopressor into Peripheral Vein, Percutaneous Approach (ICD-10-PCS; 2017-10-09)
PROC: 5A1D80Z Performance of Urinary Filtration, Prolonged Intermittent, 6-18 hours Per Day (ICD-10-PCS; 2017-10-12)
PROC: 02HV33Z Insertion of Infusion Device into Superior Vena Cava, Percutaneous Approach (ICD-10-PCS; 2017-10-13)
PROC: 5A1D70Z Performance of Urinary Filtration, Intermittent, Less than 6 Hours Per Day (ICD-10-PCS; 2017-10-15)
PROC: 30243N1 Transfusion of Nonautologous Red Blood Cells into Central Vein, Percutaneous Approach (ICD-10-PCS; 2017-11-02)
PROC: 30243K1 Transfusion of Nonautologous Frozen Plasma into Central Vein, Percutaneous Approach (ICD-10-PCS; 2017-11-02)
DX: A41.9 Sepsis, unspecified organism (principal); R65.21 Severe sepsis with septic shock; I13.2 Hypertensive heart and chronic kidney disease with heart failure and with stage 5 chronic kidney disease, or end stage renal disease; D68.9 Coagulation defect, unspecified; R57.0 Cardiogenic shock; E11.22 Type 2 diabetes mellitus with diabetic chronic kidney disease; E11.40 Type 2 diabetes mellitus with diabetic neuropathy, unspecified; K25.4 Chronic or unspecified gastric ulcer with hemorrhage; E87.2 Acidosis; I12.0 Hypertensive chronic kidney disease with stage 5 chronic kidney disease or end stage renal disease; D62 Acute posthemorrhagic anemia; I50.23 Acute on chronic systolic (congestive) heart failure; K29.01 Acute gastritis with bleeding; N18.6 End stage renal disease; R18.8 Other ascites; L02.214 Cutaneous abscess of groin; E87.1 Hypo-osmolality and hyponatremia; I48.2 Chronic atrial fibrillation; Z79.01 Long term (current) use of anticoagulants; I11.0 Hypertensive heart disease with heart failure; K74.60 Unspecified cirrhosis of liver; Z99.2 Dependence on renal dialysis; Z79.4 Long term (current) use of insulin; K74.69 Other cirrhosis of liver; K76.1 Chronic passive congestion of liver; Z95.810 Presence of automatic (implantable) cardiac defibrillator; Z99.81 Dependence on supplemental oxygen; D63.1 Anemia in chronic kidney disease; D47.3 Essential (hemorrhagic) thrombocythemia; S30.0XXA Contusion of lower back and pelvis, initial encounter; S00.93XA Contusion of unspecified part of head, initial encounter; W06.XXXA Fall from bed, initial encounter; Y93.9 Activity, unspecified; Y92.230 Patient room in hospital as the place of occurrence of the external cause; E87.6 Hypokalemia; E83.39 Other disorders of phosphorus metabolism; E83.52 Hypercalcemia; Z88.5 Allergy status to narcotic agent
CPT/HCPCS: 36415; 36430; 36555; 36556; 70450; 71010; 74000; 74020; 74176; 74177; 74230; 74470; 76705; 76937; 80048; 80053; 80061; 80202; 81001; 82040; 82140; 82150; 82533; 82550; 82553; 82948; 83036; 83519; 83605; 83690; 83735; 83880; 83970; 84100; 84134; 84443; 84484; 85002; 85014; 85018; 85025; 85610; 85730; 86850; 86900; 86920; 87040; 87086; 87340; 90962; 93005; 93306; 93925; 94640; 96360; 96361; 96365; 96366; 96367; 96372; 96374; 96375; 96376; 97139; 99285; J0456; J0692; J1160; J1265; J1644; J2060; J2150; J2270; J2353; J2370; J2405; J3370; J3410; J3430; J3480; J3486; J7030; J7050; J7799; P9016; P9017; Q4081; Q9967